=== PATIENT | male | born 1960 | race Caucasian/White ===

== ENCOUNTER 2021-05-27 06:56 | Inpatient (IN) | payer OTHER, SELFPAY ==
[2021-05-27] VITALS (22 sets, daily range): BP systolic 98–186; BP diastolic 61–150; PULSE 91–150; RESP 16–21; TEMP 36.5–37.2; O2SAT 90–97; BMI 22.6
--- NOTE | ~2021-05-27 | XR_ITS ---
EXAMINATION: XR CHEST CLINICAL INFORMATION: Shortness of breath COMPARISON: None TECHNIQUE: 1 view of the chest was obtained. FINDINGS: The cardiac silhouette is enlarged. Hilar and mediastinal contours are unremarkable. There is question of a small nodule at 4 atelectasis at the left lung base. The lungs are otherwise. There is blunting of the left lateral costophrenic angle questionable for small pleural effusion or pleural thickening. No right pleural effusion or pneumothorax is seen. There are multiple left-sided rib fractures of varying ages that do not appear acute. There is an old healed left clavicle fracture. There may be widening of the left acromioclavicular joint. XR/XR chest 1V IMPRESSION: Slightly enlarged cardiac silhouette. Question nodule or atelectasis at the left lung base. Mild blunting of the left lateral costophrenic angle questionable for tiny pleural effusion or pleural thickening. Multiple left-sided rib fractures of varying ages. Old left clavicle fracture.
--- NOTE | ~2021-05-27 | CT_ITS ---
EXAMINATION: CT ANGIOGRAM OF THE CHEST WITH AND WITHOUT CONTRAST (CT PULMONARY ANGIOGRAM FOR PE) CLINICAL INFORMATION: Reason for Exam RV dilatation on echo, to evaluate for PE COMPARISON: Previous chest x-ray from yesterday TECHNIQUE: Prior to contrast administration, noncontrast localization images were obtained. Subsequently, multidetector volumetric imaging was performed from the thoracic inlet to below the diaphragms following the administration of 65 mL Omnipaque 350 intravenous contrast. No contrast reaction reported Sagittal, coronal, and MIP oblique sagittal reformatted images were obtained on the CT workstation, uploaded to PACS, and reviewed. This CT examination was performed using dose optimization techniques as appropriate, variously including the following: *Automated exposure control *Adjustment of mA and/or kV according to patient size (this includes techniques or standardized protocols for targeted exams where dose is matched to indication/reason for exam; i.e. extremities or head) *Use of iterative reconstruction technique Total exam dose-length product 1-2 mGy-cm FINDINGS: QUALITY OF STUDY/CONTRAST BOLUS: Satisfactory. PULMONARY ARTERIES: No central or segmental pulmonary emboli. THORACIC AORTA: Normal in caliber. LUNG: There is evidence of paraseptal emphysema. There are also multiple small cysts seen in the upper lungs. There is bilateral lower lobe atelectasis/consolidation. The lungs are otherwise clear. PLEURA: There are moderate-sized bilateral pleural effusions, right greater than left. MEDIASTINUM: The heart is enlarged. In particular, the left atrium and left ventricle appear enlarged. There is coronary artery calcification. There is no pericardial effusion. There are no enlarged hilar or mediastinal lymph nodes. 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 CHEST WALL/AXILLA: No axillary or internal mammary lymphadenopathy. OSSEOUS STRUCTURES: There are degenerative changes of the spine. There are old lower bilateral rib fractures. There is an old left clavicle fracture. UPPER ABDOMEN: There is reflux of contrast into the hepatic veins to suggest elevated right heart pressures. CT/CT angio chest PE protocol IMPRESSION: No evidence of pulmonary embolism. Reflux of contrast into the hepatic veins suggestive of elevated right heart pressures. Slightly enlarged heart. In particular, the left atrium and left ventricle appear enlarged. Moderate-sized bilateral pleural effusions and bilateral lower lobe atelectasis or consolidation. Emphysema. VTE: negative
--- NOTE | 2021-05-27 07:30 | ECG_ITS ---
Test Reason : SHORT OF BREATH Blood Pressure : / mmHG Vent. Rate : 152 BPM Atrial Rate : 000 BPM P-R Int : 000 ms QRS Dur : 094 ms QT Int : 302 ms P-R-T Axes : 000 055 238 degrees QTc Int : 480 ms Atrial fibrillation with rapid ventricular response RSR' or QR pattern in V1 suggests right ventricular conduction delay Moderate voltage criteria for LVH, may be normal variant ( Sokolow-Blandon , [place] product ) ST & T wave abnormality, consider inferolateral ischemia Abnormal ECG No previous ECGs available Referred By: Grant Garcia Electronically Signed By:MOE WASHINGTON MD
--- NOTE | 2021-05-27 07:31 | ED.GENADULT ---
HPI - General Adult General Chief complaint: Dyspnea Stated complaint: diff breathing, body ache, cough Time Seen by Provider: 05/27/21 07:21 Source: patient Mode of arrival: ambulatory Limitations: no limitations History of Present Illness HPI narrative: 60-year-old male came in for evaluation of flu-like symptoms. Patient came in for evaluation of shortness of breath, productive cough of yellow sputum, generalized body ache, and nonbloody watery diarrhea, patient has no sick contact, no recent travel, patient is up to date on his COVID vaccination x2. Patient declined any fever chills. Patient also been having chest pressure which described as a constant pressure on the mid chest for the past 2 days, worsening with coughing, no relieving factor, described as constant mild in severity about 3/10. Patient is known to have high blood pressure medication, patient is not taking any medication and admit that he does not have health insurance or PCP. Related Data Home Medications Medication Instructions Recorded Confirmed No Known Home Meds 05/27/21 05/27/21 Allergies Allergy/AdvReac Type Severity Reaction Status Date / Time No Known Allergies Allergy Verified 05/27/21 07:27 Review of Systems Review of Systems: All other systems are reviewed and are negative Constitutional: Reports as per HPI and Reports no additional constitutional complaints Eyes: Reports as per HPI and Reports no additional eye complaints Reports system reviewed and no additional complaints, except as documented Cardiovascular: Reports as per HPI and Reports no additional cardiovascular complaints Respiratory: Reports as per HPI and Reports no additional respiratory complaints Gastrointestinal: Reports as per HPI and Reports no additional gastrointestinal complaints Genitourinary: Reports no additional female genitourinary complaints Musculoskeletal: Reports no additional musculoskeletal complaints Skin/Breast: Reports system reviewed and no additional complaints, except as docu Psychiatric: Reports no additional psychiatric complaints Endocrine: Reports no additional endocrine complaints Hematologic/Lymphatic: Reports no additional hematologic/lymphatic complaints Allergic/Immunologic: Reports no additional allergic/immunologic complaints Reports system reviewed and no additional complaints, except as documented and Reports Abnormal speech present [facility] Past Medical History Surgical History (Updated 05/27/21 @ 10:45 by Juan Mccord MD) No pertinent past surgical history Social History Social History (Updated 05/27/21 @ 10:45 by Juan Mccord MD) Alcohol intake: current Alcohol intake frequency: a few times a week Alcohol type: beer and hard liquor Patient Tobacco Use Status: Current everyday Tobacco user Cigarettes Per Day: 15 Years Smoked: 40 Use of substances other than those prescribed or required for medical reasons: No Advance Directives: No Physical Exam Vital Signs: Vital Signs: Last Vital Signs Temp 98.5 F 05/27/21 15:18 Pulse 105 H 05/27/21 15:18 Resp 21 H 05/27/21 15:18 BP 116/89 05/27/21 15:18 Pulse Ox 96 05/27/21 15:18 Body Mass Index 22.6 Vital signs have been reviewed as appeared to be not correct. Blood pressure elevated. Heart rate was checked by MD is 150s, Respiration rate normal. Temperature normal. Oxygen saturation normal. Appearance: Alert. Oriented X3. No acute distress. Head: Normal external exam. Normocephalic. Atraumatic. No Cr signs noted. No raccoon eyes noted Eyes: PERRLA. EOMI. Conjunctiva and sclera normal. Eyelids normal. ENT: TM's Normal. Pharynx normal. Uvula midline. Moist mucous membranes. No trismus noted. No drooling noted. No muffled voice noted. Neck: Normal inspection. Neck supple. FROM. No adenopathy. Thyroid Normal. No meningeal signs. No neck mass noted. CVS: Irregular heart rate at 150, sound normal. No murmurs noted. Pulses normal throughout. Respiratory: No respiratory distress. Painless inspiration. Breath sounds normal. No wheezes/rales/rhonchi noted. Chest nontender. No accessory muscle usage noted or decreased air movement noted. Abdomen: Soft and nontender. Bowel sounds normal in all 4 quadrants. No distention noted. No organomegaly noted. No visible injury noted. Back: No CVA tenderness. Full range of motion noted. Skin: Skin warm and dry. Normal skin color. Normal skin turgor. No rashes/lesions/lacerations noted. Extremities: No lower extremity edema. Extremities exhibit normal range of motion. Extremities nontender. Neuro: Oriented X 3. Cranial nerve exam: II-XII are grossly intact No motor deficit. No sensory deficit. Reflexes normal. Course Course Course Narrative: Assessment and plan. 60-year-old male with history of hypertension, patient has no medication for high blood pressure, no PCP, no health insurance. Patient came in for evaluation of 2 days of chest pressure and difficulty breathing, patient found to be in new onset atrial fibrillation with ischemic change on the EKG, physical exam is consistent with mild congestive heart failure. Dr. Land evaluated the patient in the emergency department and his input is appreciated. Will admit the patient/get inpatient echocardiogram/diuresis/start patient on heparin for atrial fibrillation and possible non-STEMI. Medical Decision Making Medical Records Medical records reviewed: Yes I reviewed the patient's medical records. Lab Data Lab results reviewed: Yes I reviewed the patient's lab results. Result diagrams: 05/27/21 07:41 05/27/21 07:41 Labs: Lab Results 05/27/21 05/27/21 05/27/21 Range/Units 07:41 07:41 07:41 WBC 11.0 H (4.8-10.8) X10*3/uL RBC 4.86 (4.60-5.80) X10*6/uL Hgb 15.0 (14.0-18.0) g/dl Hct 45.8 (42-52) % MCV 94.2 (80-98) fL MCH 30.9 (27.0-33.0) pg MCHC 32.8 (31.0-36.0) g/dl RDW 13.8 (11.0-16.0) % Plt Count 232 (160-400) X10*3/uL MPV 10.2 (9.4-12.4) fL Immature Gran % (Auto) 0.4 (0.0-0.4) % Neut % (Auto) 80.2 H (45-73) % Lymph % (Auto) 8.4 L (20-40) % [place] % (Auto) 10.3 (2-11) % Eos % (Auto) 0.2 (0-4) % Baso % (Auto) 0.5 (0-2) % Lymph # (Auto) 0.9 L (1.2-4.9) X10*3/uL [place] # (Auto) 1.1 (0.1-1.2) X10*3/uL Eos # (Auto) 0.0 (0.0-0.4) X10*3/uL Baso # (Auto) 0.1 (0.0-0.2) X10*3/uL Abs Immat Gran (auto) 0.04 H (0.00-0.03) X10*3/uL Absolute Neuts (auto) 8.8 H (2.0-8.3) X10*3/uL Absolute Nucleated RBC 0.000 (0.0-0.012) X10*3/uL Nucleated RBC % (auto) 0.0 (0.0-0.2) /100WBC Sodium 135 (135-145) mmol/L Potassium 4.7 (3.3-5.1) mmol/L Chloride 96 (96-108) mmol/L Carbon Dioxide 25 (22-29) mmol/L Anion Gap 19 (12-20) BUN 11 (9-16) mg/dL Creatinine 0.81 (0.5-1.4) mg/dL Estim Creat Clear Calc 89.0 Estimated GFR > 60 Random Glucose 89 (60-115) mg/dL Calcium 9.5 (8.4-10.2) mg/dL Total Bilirubin 1.8 H (0.0-1.0) mg/dL Direct Bilirubin 0.8 H (0.0-0.5) mg/dL AST 96 H (5-37) U/L ALT 84 H (0-40) U/L Alkaline Phosphatase 171 H (39-117) U/L Troponin I High Sens 286.7 H* (<3.5-35.0) ng/L B-Natriuretic Peptide 899 H (<100) pg/mL Total Protein 6.9 (6.5-8.0) g/dL Albumin 4.1 (3.5-5.0) g/dL Lipase 6 L (8-78) U/L Coronavirus (PCR) (Negative) Influenza Type A (PCR) (Negative) Influenza Type B (PCR) (Negative) RSV RNA Qual (PCR) (Negative) 05/27/21 Range/Units 07:44 WBC (4.8-10.8) X10*3/uL RBC (4.60-5.80) X10*6/uL Hgb (14.0-18.0) g/dl Hct (42-52) % MCV (80-98) fL MCH (27.0-33.0) pg MCHC (31.0-36.0) g/dl RDW (11.0-16.0) % Plt Count (160-400) X10*3/uL MPV (9.4-12.4) fL Immature Gran % (Auto) (0.0-0.4) % Neut % (Auto) (45-73) % Lymph % (Auto) (20-40) % [place] % (Auto) (2-11) % Eos % (Auto) (0-4) % Baso % (Auto) (0-2) % Lymph # (Auto) (1.2-4.9) X10*3/uL [place] # (Auto) (0.1-1.2) X10*3/uL Eos # (Auto) (0.0-0.4) X10*3/uL Baso # (Auto) (0.0-0.2) X10*3/uL Abs Immat Gran (auto) (0.00-0.03) X10*3/uL Absolute Neuts (auto) (2.0-8.3) X10*3/uL Absolute Nucleated RBC (0.0-0.012) X10*3/uL Nucleated RBC % (auto) (0.0-0.2) /100WBC Sodium (135-145) mmol/L Potassium (3.3-5.1) mmol/L Chloride (96-108) mmol/L Carbon Dioxide (22-29) mmol/L Anion Gap (12-20) BUN (9-16) mg/dL Creatinine (0.5-1.4) mg/dL Estim Creat Clear Calc Estimated GFR Random Glucose (60-115) mg/dL Calcium (8.4-10.2) mg/dL Total Bilirubin (0.0-1.0) mg/dL Direct Bilirubin (0.0-0.5) mg/dL AST (5-37) U/L ALT (0-40) U/L Alkaline Phosphatase (39-117) U/L Troponin I High Sens (<3.5-35.0) ng/L B-Natriuretic Peptide (<100) pg/mL Total Protein (6.5-8.0) g/dL Albumin (3.5-5.0) g/dL Lipase (8-78) U/L Coronavirus (PCR) NEGATIVE (Negative) Influenza Type A (PCR) NEGATIVE (Negative) Influenza Type B (PCR) NEGATIVE (Negative) RSV RNA Qual (PCR) NEGATIVE (Negative) Imaging Data Chest x-ray: Radiologist's impression: Slightly enlarged cardiac silhouette. Question nodule or atelectasis at the left lung base. Mild blunting of the left lateral costophrenic angle questionable for tiny pleural effusion or pleural thickening. Multiple left-sided rib fractures of varying ages. Old left clavicle fracture. ? ECG Data Attestation: I personally reviewed and interpreted this ECG as follows: Interpretation: EKG 1. Atrial fibrillation with rapid ventricular response at 152 beats per minute, LVH, normal axis deviation, diffuse ST depression with T-wave inversion more pronounced in the lateral leads. EKG 2. Atrial fibrillation with ventricular response of 99 beats per minutes, normal axis deviation, normal intervals, diffuse T-wave inversion in the lateral leads. Critical Care Time Critical Care Time Critical Care Time: Yes Total Critical Care Time: 60 Attestation: I spent 60 minutes providing critical care service to the patient, this including time spent at the bedside to evaluate the patient, reassess the patient, monitoring vital signs, review labs, and radiographic studies, counseling the patient/family, discussing the case with consultants, disposition the patient. Discharge Plan Discharge Clinical Impression: Non-ST elevated myocardial infarction (non-STEMI) Congestive heart failure Qualifiers: Heart failure type: unspecified Patient Disposition: Admitted As Inpatient Interventions: Admission Worksheet (ED) Last Done: 05/27/21 15:13
[2021-05-27 07:46] LABS: MANUAL DIFF FLAG NO
[2021-05-27 07:48] LABS: Basophils Absolute Auto 0.1 X10*3/uL (0.0-0.2); Basophils Percent Auto 0.5 % (0-2); Eosinophils Percent Auto 0.2 % (0-4); Hematocrit 45.8 % (42-52); Imm Gran Abs Auto 0.04 X10*3/uL (0.00-0.03); Imm Gran Pct Auto 0.4 % (0.0-0.4); Lymphocytes Absolute Auto 0.9 X10*3/uL (1.2-4.9); Lymphocytes Percent Auto 8.4 % (20-40); Mean Corpuscular HGB Conc 32.8 g/dl (31.0-36.0); Mean Corpuscular Hemoglobin 30.9 pg (27.0-33.0); Mean Corpuscular Volume 94.2 fL (80-98); Mean Platelet Volume 10.2 fL (9.4-12.4); Monocytes Absolute Auto 1.1 X10*3/uL (0.1-1.2); Monocytes Percent Auto 10.3 % (2-11); Neutrophils Absolute Auto 8.8 X10*3/uL (2.0-8.3); Neutrophils Percent Auto 80.2 % (45-73); Platelet Count 232 X10*3/uL (160-400); Red Blood Count 4.86 X10*6/uL (4.60-5.80); Red Cell Distribution Width 13.8 % (11.0-16.0)
[2021-05-27] MEDS: 0.9 % Sodium Chloride 1,000 ML 999 ML IVCONT (07:58)
[2021-05-27] MEDS: dilTIAZem HCL 50 MG/10 ML VIAL 25 MG IVPUSH (07:59)
[2021-05-27 08:12] LABS: Alanine Aminotransferase 84 U/L (0-40); Albumin Level 4.1 g/dL (3.5-5.0); Alkaline Phosphatase 171 U/L (39-117); Anion Gap 19 (12-20); Aspartate Amino Transferase 96 U/L (5-37); Bilirubin Direct 0.8 mg/dL (0.0-0.5); Bilirubin Total 1.8 mg/dL (0.0-1.0); Blood Urea Nitrogen 11 mg/dL (9-16); Calcium 9.5 mg/dL (8.4-10.2); Carbon Dioxide 25 mmol/L (22-29); Chloride 96 mmol/L (96-108); Estimated Glomerular Filt Rate > 60; Glucose Random 89 mg/dL (60-115); Lipase 6 U/L (8-78); Potassium 4.7 mmol/L (3.3-5.1); Sodium 135 mmol/L (135-145); Total Protein 6.9 g/dL (6.5-8.0)
[2021-05-27 08:29] LABS: B Type Natriuretic Peptide 899 pg/mL (<100); Troponin-I High Sensitivity 286.7 ng/L (<3.5-35.0)
[2021-05-27 08:36] LABS: Influenza A PCR NEGATIVE (Negative); Influenza B PCR NEGATIVE (Negative); Resp Syncy Virus RNA Qual PCR NEGATIVE (Negative); SARS COV2 PCR INHOUSE NEGATIVE (Negative)
[2021-05-27] MEDS: dilTIAZem HCL 30 MG TABLET PO (08:57)
--- NOTE | 2021-05-27 09:46 | ECG_ITS ---
Test Reason : short of breath Blood Pressure : / mmHG Vent. Rate : 099 BPM Atrial Rate : 000 BPM P-R Int : 000 ms QRS Dur : 098 ms QT Int : 374 ms P-R-T Axes : 000 037 186 degrees QTc Int : 479 ms Atrial fibrillation RSR' or QR pattern in V1 suggests right ventricular conduction delay Minimal voltage criteria for LVH, may be normal variant ( [place] product ) ST & T wave abnormality, consider anterolateral ischemia Abnormal ECG When compared with ECG of 27-MAY-2021 07:22, Vent. rate has decreased BY 53 BPM Referred By: Grant Garcia Electronically Signed By:MOE WASHINGTON MD
--- NOTE | 2021-05-27 10:00 | PC.NURSE ---
seen by dr. lydia deal of plan of care for admission to hosp.
--- NOTE | 2021-05-27 10:07 | PM.IMHP ---
History of Present Illness Date of Service: 05/27/21 Chief Complaint: Chest pressure, shortness of breath This is a 60 yo M who reports no known PMH presents to the ED with complaints of substernal pressure like pain of 2 days duration. He reports the pain is intermittent and feels it largely in supine position. He reports no exertional chest pain prior to the last 2 days. He reports orthpnea of several days duration and now reports dysnea on exertion. He reports chronic cough, but he attributes that him smoking. He reports lower extremity edema which he has noticed for the last several day. He reports that today, at the urging of his boss -- he presented to the ED for work up and treatment. Upon arrival to the ED, patients work up showed new onset A. Fib with RVR, Elevated HS trop-I and BNP with EKG findings suggestive of ischemia. He was evaluated by cardiology in the ED and will be admitted for further treatment. Patient is seen and examined in the ED. He denies any current chest pain. Review of Systems Review of Systems: General - denies fevers or chills, +fatigue HEENT -denies blurred vision, denies headache, denies sore throat Cardiovascular - +chest pressure, +orthopnea;+LE edema Respiratory - +BENDER, +cough - chronic Gastrointestinal - denies abdominal pain, nausea, vomiting, diarrhea - denies flank pain, denies dysuria, denies frequency or urgency Musculoskeletal - denies back pain, denies hip pain, denies knee pain, denies shoulder pain Neurological - denies any focal weakness or numbness Skin, denies any bruising or redness Psychiatric - denies any suicidal ideation, hallucinations, homicidal ideation Endocrinology - denies intolerance to hot / cold temperatures PMFSH Cognitive capacity: Denies any prior past medical history. Pertinent family history: Reports CVA in his father in his 50s Mother has DM Surgical History (Updated 05/27/21 @ 10:45 by Juan Mccord MD) No pertinent past surgical history Social History (Updated 05/27/21 @ 10:45 by Juan Mccord MD) Alcohol intake: current Alcohol intake frequency: a few times a week Alcohol type: beer and hard liquor Patient Tobacco Use Status: Current everyday Tobacco user Cigarettes Per Day: 15 Years Smoked: 40 Use of substances other than those prescribed or required for medical reasons: No Advance Directives: No Meds Allergies Allergy/AdvReac Type Severity Reaction Status Date / Time No Known Allergies Allergy Verified 05/27/21 07:27 Active Medications: Current Medications Heparin Sodium (Porcine) (Heparin Sodium,Porcine 5,000 Unit/Ml Vial) 2,600 unit 40 unit/kg (2600 unit) IVPUSH PROTOCOL BOLUS PRN; Protocol PRN Reason: 40 unit/kg - Heparin Protocol Heparin Sodium (Porcine) (Heparin Sodium,Porcine 5,000 Unit/Ml Vial) 5,300 unit 80 unit/kg (5300 unit) IVPUSH PROTOCOL BOLUS PRN; Protocol PRN Reason: 80 unit/kg - Heparin Protocol Heparin Sodium/Sodium Chloride () 25,000 unit in 250 mls @ 0 mls/hr IVCONT .Q0M ANANDA; Protocol Pharmacy Consult (Consult Rx Perform Med Rec) 1 each MISCELLANE ONCE PRN PRN Reason: Consult order Home Medications Medication Instructions Recorded Confirmed Last Taken Type No Known Home Meds 05/27/21 05/27/21 Unknown History Physical Exam Vital Signs and Narrative: Vital Signs: Last Vital Signs Temp 97.7 F 05/27/21 07:17 Pulse 91 05/27/21 08:57 Resp 17 05/27/21 08:27 BP 140/107 H 05/27/21 08:57 Pulse Ox 97 05/27/21 08:27 Body Mass Index 22.6 Const: Other: Constitutional - Awake and Alert, No apparent distress Eyes - PERRLA, EOMI Cardiovascular - IRR -- rates 100-120 on the telmonitor; ; +JVD; +pedal edema bilaterally (about 1+) Respiratory - bilateral rales, no respiratory distress Gastrointestinal - NT / ND; +BS; No rebound or guarding - No CVA tenderness Extremities - no calf tenderness bilaterally Musculoskeletal - Normal inspection, normal ROM Skin - Warm/Dry Neurological - Alert & oriented x3, No focal deficit Psychological - Appropriate affect Results Labs CBC and Chem 7: 05/27/21 07:41 05/27/21 07:41 Labs: Laboratory Results - last 24 hr 05/27/21 05/27/21 05/27/21 07:41 07:41 07:41 MCV 94.2 MCH 30.9 MCHC 32.8 RDW 13.8 Plt Count 232 MPV 10.2 Immature Gran % (Auto) 0.4 Neut % (Auto) 80.2 H Lymph % (Auto) 8.4 L [place] % (Auto) 10.3 Eos % (Auto) 0.2 Baso % (Auto) 0.5 Lymph # (Auto) 0.9 L [place] # (Auto) 1.1 Eos # (Auto) 0.0 Baso # (Auto) 0.1 Abs Immat Gran (auto) 0.04 H Absolute Neuts (auto) 8.8 H Absolute Nucleated RBC 0.000 Nucleated RBC % (auto) 0.0 Anion Gap 19 Estim Creat Clear Calc 89.0 Estimated GFR > 60 Random Glucose 89 Calcium 9.5 Total Bilirubin 1.8 H Direct Bilirubin 0.8 H AST 96 H ALT 84 H Alkaline Phosphatase 171 H Troponin I High Sens 286.7 H* B-Natriuretic Peptide 899 H Total Protein 6.9 Albumin 4.1 Lipase 6 L Coronavirus (PCR) Influenza Type A (PCR) Influenza Type B (PCR) RSV RNA Qual (PCR) 05/27/21 07:44 MCV MCH MCHC RDW Plt Count MPV Immature Gran % (Auto) Neut % (Auto) Lymph % (Auto) [place] % (Auto) Eos % (Auto) Baso % (Auto) Lymph # (Auto) [place] # (Auto) Eos # (Auto) Baso # (Auto) Abs Immat Gran (auto) Absolute Neuts (auto) Absolute Nucleated RBC Nucleated RBC % (auto) Anion Gap Estim Creat Clear Calc Estimated GFR Random Glucose Calcium Total Bilirubin Direct Bilirubin AST ALT Alkaline Phosphatase Troponin I High Sens B-Natriuretic Peptide Total Protein Albumin Lipase Coronavirus (PCR) NEGATIVE Influenza Type A (PCR) NEGATIVE Influenza Type B (PCR) NEGATIVE RSV RNA Qual (PCR) NEGATIVE Imaging Radiologist's Impressions: Impressions Chest X-Ray 05/27/21 07:30 IMPRESSION: Slightly enlarged cardiac silhouette. Question nodule or atelectasis at the left lung base. Mild blunting of the left lateral costophrenic angle questionable for tiny pleural effusion or pleural thickening. Multiple left-sided rib fractures of varying ages. Old left clavicle fracture. Assessment and Plan (1) Congestive heart failure: Qualifiers: Heart failure type: unspecified Status: Acute (2) Non-ST elevated myocardial infarction (non-STEMI): Status: Acute This is a 60 yo M with no known PMH who has not sought medical care in many years and now presents with 2-3 days of substernal chest pain / orthopnea / dyspnea on exertion. His work up in the ED shows new-onset A. Fib with RVR, Acute CHF and NSTEMI. He will be admitted for further treatment. 1. NSTEMI EKG with concerns of ischemia and HS trop-I elevated (will repeat @ 3 hours) IV heparin Gtt 2d Echo ASA, Statin (LFTs elevated -- but benefits outweigh risk. Discussed this with the patient, he is agreeable), Morphine PRN Fasting lipid panel Cardiology has seen the patient already. 2. Acute (new-onset) CHF IV lasix 40mg BID I/O 2d Echo as above 3. New-onset A. Fib with RVR Given a dose of cardizem IV and PO with rates improved D/W cardiology -- will digoxin load (suspected low EF) Will need eventual OAC, IV heparin gtt for now 4. Suspected undiagnosed HTN IV lasix for now, will add BB, ARB/PARKER as work up continues 5. Tobacco Use cessation as been encouraged NRT if patient requests 6. Elevated LFTs Congestion from CHF vs secondary to EtOh use will trend 7. EtOh use Reports that he drinks 4-5 beers + a few shots several times a week, generally on the weekends discussed with him regarding the harmful effects of excessive alcohol consumption. Denies prior withdrawal seizures or DTs. Last drink 4 days prior to arrival Full Code DVT pptx -- on IV heparin Gtt Endorses Maurice Zhao as his HCP. Quality Stroke Does the patient have a stroke diagnosis?: No VTE Prior VTE?: No VTE Risk Level:: Medical - moderate - high VTE Device Contraindication: Treatment Not Indicated VTE Drug Contraindication: N/A - Med Ordered
[2021-05-27 11:18] LABS: Appearance Urine HAZY; Color Urine YELLOW; Glucose Urine UA NEG (NEG); Leukocyte Esterase Urine NEG (NEG); Nitrite Urine NEG (NEG); Specific Gravity - Urine 1.025 (1.005-1.025); UACC Culture Trigger NO; Urine Blood NEG (NEG); Urine Ketones >=80 MG/DL (NEG); Urine Protein 1+ MG/DL (NEG-TRACE)
[2021-05-27] MEDS: Aspirin 325 MG TABLET PO (11:21)
[2021-05-27] MEDS: Isosorbide Mononitrate 30 MG TAB.ER.24H PO (11:22)
[2021-05-27] MEDS: Digoxin 0.5 MG/2 ML AMPUL 0.25 MG IVPUSH (11:23)
[2021-05-27 11:25] LABS: INTERNATIONAL NORM RATIO 1.7 (0.9-1.1); Prothrombin Time 19.1 SEC (9.9-13.0)
[2021-05-27] MEDS: Furosemide 40 MG/4 ML VIAL IVPUSH ×2 (11:26→17:29)
[2021-05-27] MEDS: Heparin Sodium,Porcine 5,000 UNIT/ML VIAL 3900 UNIT IVPUSH (11:28)
[2021-05-27] MEDS: Heparin Sodium,Porcine/1/2NS 25,000 UNIT/250 ML IV.SOLN 7.89 UNIT IVCONT (11:31)
[2021-05-27 11:34] LABS: Mucus Urine TRACE /LPF; RBC Urine 0-2 /HPF (0); WBC Urine 0-2 /HPF (0-4)
[2021-05-27 12:04] LABS: Troponin-I High Sensitivity 205.8 ng/L (<3.5-35.0)
--- NOTE | 2021-05-27 13:00 | CA_ITS ---
Transthoracic Echocardiogram Patient (Last, First, Middle): Claudio Oliver H Gender: Male Date of : 1960 Age: 60 Procedure Date: 05/27/2021 Procedure Type: Transthoracic Echocardiogram Location: ER Height: 172.72 cm Weight: 67.59 kg BSA: 1.80 m2 Heart Rate: bpm BP: 146 / 89 mmHg Nailhead Puncher: LIANET/LEON Referring MD: Juan Mccord MD Symptoms: NSTEMI, A. Fib Study Quality: Fair ECG Rhythm: Atrial Fibrillation Conclusions: - The left ventricular systolic function is mildly decreased. The visually estimated ejection fraction is between 40-45%. - Moderately increased right ventricular cavity size. There is moderate to severely decreased right ventricular systolic function. - Severe biatrial enlargement. - Moderately elevated right atrial pressure. There is no evidence of pulmonary hypertension. - There is mild dilatation of the sinuses of Valsalva and mild dilatation of the ascending aorta. - The inferior vena cava is severely dilated and collapses less than 50% with inspiration. Findings Left Ventricle Normal left ventricular cavity size. There is normal left ventricular wall thickness. The left ventricular systolic function is mildly decreased. The visually estimated ejection fraction is between 40-45%. There is no evidence of regional wall motion abnormalities. Diastolic function is indeterminate on the basis of available data. Right Ventricle Moderately increased right ventricular cavity size. There is moderate to severely decreased right ventricular systolic function. Atria Severe biatrial enlargement. Aortic Valve There is mild thickening of the aortic valve. There is no aortic valve stenosis. There is trace (trivial) aortic valve regurgitation. Mitral Valve The mitral valve appears normal. There is trace mitral valve regurgitation. There is no mitral valve stenosis. Pulmonic Valve The pulmonic valve is likely normal. Tricuspid Valve Normal tricuspid valve structure. There is mild tricuspid valve regurgitation. Moderately elevated right atrial pressure. There is no evidence of pulmonary hypertension. Great Vessels There is mild dilatation of the sinuses of Valsalva and mild dilatation of the ascending aorta. The visualized portions of the pulmonary artery and branches are normal. Venous The inferior vena cava is severely dilated and collapses less than 50% with inspiration. Pericardium/Pleural There is no evidence of pericardial effusion. Prior Study Comparison No prior study available for comparison. Measurements 2D Linear Measurements IVSd: 1.06 0.6-0.9/0.6-1.0 cm LVIDd: 5.35 3.9-5.3/4.2-5.9 cm LVIDd Index: 2.97 2.4-3.2/2.2-3.1 cm/m2 LVIDs: 4.18 2.0-3.6 cm LVPWd: 1.08 0.7-1.1 cm Ao Root: 3.90 2.1-3.5 cm LA Diam: 5.00 2.7-3.8/3.0-4.0 cm LAIDs Index: 2.78 1.5-2.3 cm/m2 LV Mass: 277.74 67-162/88-224 g LV Mass Index: 154.30 43-95/49-115 g/m2 LVOT Diam: 2.10 3.0+(-)1.3 cm Mitral Valve MV Pk E: 0.78 MV Decel Time: 247.00 E'Lateral: 12.40 E'Medial: 5.77 E/E' Med: 13.40 E/E' Lat: 6.30 PHT: 72.00 MVA PHT: 3.06 Decel Tensas: 3.14 Aortic Valve AoV Pk Lonnie: 1.83 AoV Mn Lonnie: 1.22 AoV VTI: 0.28 AoV Pk Grad: 13.00 Aov Mn Grad: 7.00 EDGAR Cont.VTI: 1.50 AI Pk Lonnie: 3.99 AI Tensas: 1.70 LVOT LVOT Pk Lonnie: 0.88 LVOT Mn Lonnie: 0.58 LVOT VTI: 0.12 LVOT Pk Grad: 3.00 LVOT Mn Grad: 2.00 LVOT Diam: 2.10 LVOT Area: 3.46 Diastolic Function MV Pk E: 0.78 E'Medial: 5.77 E/E' Med: 13.40 E' Laterial: 12.40 E/E' Lat: 6.30 Tricuspid Valve TR Pk Lonnie: 2.18 TR Pk Grad: 19.00 RVSP: 34.00 Great Vessels Aorta Ao Root-2D: 3.90 2.0-3.7 cm Sinus of Valsalva: 3.90 2.0-3.5 cm Ao Asc: 3.50 2.1-3.4 cm Ao Arch: 3.20 Updated in Other Vendor System with Status of Final Garrett Land MD electronically signed on 05/27/2021 7:59:20 PM with status of Final
--- NOTE | 2021-05-27 14:25 | PC.NURSE ---
RN TO RN GIVEN TO COURTANGELICA.. PT AWARE OF PLAN OF CARE FOR ADMISSION TO HOSP.
[2021-05-27] MEDS: Digoxin 0.5 MG/2 ML AMPUL 0.125 MG IVPUSH ×2 (14:35→21:33)
--- NOTE | 2021-05-27 15:14 | PC.NURSE ---
Pt alert and oriented x4, calm and cooperative. Pt denies pain, denies chest pain, denies SOB. Pt remains afib rhythm on monitor, rate 110 at this time. Pt remains on heparin drip tolerating well. 2 IVs remain intact. Pt aware of being admitted. Spoke with TESFAYE Arellano before transporting pt to floor.
--- NOTE | 2021-05-27 15:55 | P.CONCA_ITS ---
History of Present Illness History of Present Illness Date of Service: 05/27/21 Requesting physician: Juan Mccord Chief complaint: afib, CP Narrative: 60-year-old gentleman who is presenting with a chest discomfort and shortness of breath. He said many years ago he was told that he has a dilated heart and he was also told that he had AFib. He said he lost his insurance and did not get any medical care for it. He has has been smoking for many many years. He drinks occasionally. No recreational drug abuse. Father had stroke in his 40s. He said he was feeling short of breath and was getting a pressure-like feeling in his chest when he was laying down. He has some acid reflux. With these symptoms he presented to [facility]. He was noticed to be in mild congestive heart failure and AFib with RVR. He was wheezing on examination. EKG showed AFib with RVR with lateral ST-T changes with some concern for ischemia. [facility] Surgical History Surgical History (Updated 05/27/21 @ 10:45 by Juan Mccord MD) No pertinent past surgical history Social History Social History (Updated 05/27/21 @ 10:45 by Juan Mccord MD) Alcohol intake: current Alcohol intake frequency: a few times a week Alcohol type: beer and hard liquor Patient Tobacco Use Status: Current everyday Tobacco user Cigarettes Per Day: 15 Years Smoked: 40 Use of substances other than those prescribed or required for medical reasons: No Advance Directives: No Meds Allergies Allergy/AdvReac Type Severity Reaction Status Date / Time No Known Allergies Allergy Verified 05/27/21 07:27 Active Medications: Current Medications Acetaminophen (Acetaminophen 325 Mg Tablet) 650 mg PO Q6H PRN PRN Reason: Pain, Mild (Pain Scale 1-3) Atorvastatin Calcium (Atorvastatin Calcium 40 Mg Tablet) 40 mg PO BEDTIME [facility] Digoxin (Digoxin 0.5 Mg/2 Ml Ampul) 0.125 mg IVPUSH Q6H ANANDA Stop: 05/27/21 20:31 Last Admin: 05/27/21 14:35 Dose: 0.125 mg Documented by: Furosemide (Furosemide 40 Mg/4 Ml Vial) 40 mg IVPUSH BID@0900,1800 A[facility]; Protocol Heparin Sodium (Porcine) (Heparin Sodium,Porcine 5,000 Unit/Ml Vial) 2,600 unit 40 unit/kg (2600 unit) IVPUSH PROTOCOL BOLUS PRN; Protocol PRN Reason: 40 unit/kg - Heparin Protocol Heparin Sodium (Porcine) (Heparin Sodium,Porcine 5,000 Unit/Ml Vial) 5,300 unit 80 unit/kg (5300 unit) IVPUSH PROTOCOL BOLUS PRN; Protocol PRN Reason: 80 unit/kg - Heparin Protocol Heparin Sodium/Sodium Chloride () 25,000 unit in 250 mls @ 0 mls/hr IVCONT .Q0M [facility]; Protocol Last Admin: 05/27/21 11:31 Dose: 12 units/kg/hr, 7.89 mls/hr Documented by: Isosorbide Mononitrate (Isosorbide Mononitrate 30 Mg Tab.Er.24h) 30 mg PO DAILY [facility]; Protocol Last Admin: 05/27/21 11:22 Dose: 30 mg Documented by: Morphine Sulfate (Morphine Sulfate 4 Mg/Ml Cartridge) 4 mg IVPUSH Q4H PRN; Protocol PRN Reason: Pain, Severe (Pain Scale 7-10) Ondansetron HCl (Ondansetron Hcl 4 Mg/2 Ml Vial) 4 mg IVPUSH Q8H PRN PRN Reason: Nausea and Vomiting Pharmacy Consult (Consult Rx Perform Med Rec) 1 each MISCELLANE ONCE PRN PRN Reason: Consult order Sodium Chloride (0.9 % Sodium Chloride Flush 3 Ml Syringe) [address] [facility] Home Medications Medication Instructions Recorded Confirmed Last Taken Type No Known Home Meds 05/27/21 05/27/21 Unknown History Physical Exam Vital Signs: Vital Signs: Last Vital Signs Temp 98.5 F 05/27/21 15:18 Pulse 105 H 05/27/21 15:18 Resp 21 H 05/27/21 15:18 BP 116/89 05/27/21 15:18 Pulse Ox 96 05/27/21 15:18 Body Mass Index 22.6 GENERAL APPEARANCE: in no acute distress. NECK: no carotid bruit, + jugular venous distention. SKIN: no suspicious lesions, warm and dry. HEART: no murmurs, irregular rate and rhythm. LUNGS: Expiratory wheezes. ABDOMEN: soft, nontender. EXTREMITIES: no edema. PERIPHERAL PULSES: equal. NEUROLOGIC: No gross deficits, AAO X 3 Results Labs and Meds Result diagrams: 05/27/21 07:41 05/27/21 07:41 Lab results: Laboratory Results - last 24 hr 05/27/21 05/27/21 05/27/21 07:41 07:41 07:41 WBC 11.0 H RBC 4.86 Hgb 15.0 Hct 45.8 MCV 94.2 MCH 30.9 MCHC 32.8 RDW 13.8 Plt Count 232 MPV 10.2 Immature Gran % (Auto) 0.4 Neut % (Auto) 80.2 H Lymph % (Auto) 8.4 L Patrick % (Auto) 10.3 Eos % (Auto) 0.2 Baso % (Auto) 0.5 Lymph # (Auto) 0.9 L Patrick # (Auto) 1.1 Eos # (Auto) 0.0 Baso # (Auto) 0.1 Abs Immat Gran (auto) 0.04 H Absolute Neuts (auto) 8.8 H Absolute Nucleated RBC 0.000 Nucleated RBC % (auto) 0.0 PT INR PTT (Heparin Protocol) Sodium 135 Potassium 4.7 Chloride 96 Carbon Dioxide 25 Anion Gap 19 BUN 11 Creatinine 0.81 Estim Creat Clear Calc 89.0 Estimated GFR > 60 Random Glucose 89 Calcium 9.5 Total Bilirubin 1.8 H Direct Bilirubin 0.8 H AST 96 H ALT 84 H Alkaline Phosphatase 171 H Troponin I High Sens 286.7 H* B-Natriuretic Peptide 899 H Total Protein 6.9 Albumin 4.1 Lipase 6 L Urine Color Urine Appearance Urine pH Ur Specific [place] Urine Protein Urine Glucose (UA) Urine Ketones Urine Blood Urine Nitrite Ur Leukocyte Esterase Urine RBC Urine WBC Ur Squamous Epith Cells Urine Bacteria Urine Mucus Coronavirus (PCR) Influenza Type A (PCR) Influenza Type B (PCR) RSV RNA Qual (PCR) 05/27/21 05/27/21 05/27/21 07:44 11:06 11:06 WBC RBC Hgb Hct MCV MCH MCHC RDW Plt Count MPV Immature Gran % (Auto) Neut % (Auto) Lymph % (Auto) Patrick % (Auto) Eos % (Auto) Baso % (Auto) Lymph # (Auto) Patrick # (Auto) Eos # (Auto) Baso # (Auto) Abs Immat Gran (auto) Absolute Neuts (auto) Absolute Nucleated RBC Nucleated RBC % (auto) PT 19.1 H INR 1.7 H PTT (Heparin Protocol) 30.0 L Sodium Potassium Chloride Carbon Dioxide Anion Gap BUN Creatinine Estim Creat Clear Calc Estimated GFR Random Glucose Calcium Total Bilirubin Direct Bilirubin AST ALT Alkaline Phosphatase Troponin I High Sens 205.8 H* B-Natriuretic Peptide Total Protein Albumin Lipase Urine Color Urine Appearance Urine pH Ur Specific [place] Urine Protein Urine Glucose (UA) Urine Ketones Urine Blood Urine Nitrite Ur Leukocyte Esterase Urine RBC Urine WBC Ur Squamous Epith Cells Urine Bacteria Urine Mucus Coronavirus (PCR) NEGATIVE Influenza Type A (PCR) NEGATIVE Influenza Type B (PCR) NEGATIVE RSV RNA Qual (PCR) NEGATIVE 05/27/21 11:10 WBC RBC Hgb Hct MCV MCH MCHC RDW Plt Count MPV Immature Gran % (Auto) Neut % (Auto) Lymph % (Auto) Patrick % (Auto) Eos % (Auto) Baso % (Auto) Lymph # (Auto) Patrick # (Auto) Eos # (Auto) Baso # (Auto) Abs Immat Gran (auto) Absolute Neuts (auto) Absolute Nucleated RBC Nucleated RBC % (auto) PT INR PTT (Heparin Protocol) Sodium Potassium Chloride Carbon Dioxide Anion Gap BUN Creatinine Estim Creat Clear Calc Estimated GFR Random Glucose Calcium Total Bilirubin Direct Bilirubin AST ALT Alkaline Phosphatase Troponin I High Sens B-Natriuretic Peptide Total Protein Albumin Lipase Urine Color YELLOW Urine Appearance HAZY Urine pH 6.0 Ur Specific [place] 1.025 Urine Protein 1+ H Urine Glucose (UA) NEG Urine Ketones >=80 Urine Blood NEG Urine Nitrite NEG Ur Leukocyte Esterase NEG Urine RBC 0-2 Urine WBC 0-2 Ur Squamous Epith Cells NONE Urine Bacteria NONE Urine Mucus TRACE Coronavirus (PCR) Influenza Type A (PCR) Influenza Type B (PCR) RSV RNA Qual (PCR) Imaging Radiologist's impression: Impressions Chest X-Ray 05/27/21 07:30 IMPRESSION: Slightly enlarged cardiac silhouette. Question nodule or atelectasis at the left lung base. Mild blunting of the left lateral costophrenic angle questionable for tiny pleural effusion or pleural thickening. Multiple left-sided rib fractures of varying ages. Old left clavicle fracture. Assessment and Plan (1) Congestive heart failure: Qualifiers: Heart failure type: unspecified Status: Acute (2) Non-ST elevated myocardial infarction (non-STEMI): Status: Acute [age] year gentleman who is presenting with shortness of breath and chest discomfort. He has noticed to be in AFib with RVR on admission. He has mildly abnormal troponin levels. He is reporting history of dilated heart and AFib many years ago. I think he needs echocardiography to understand his cardiomyopathy. In the meantime I will not use Cardizem on him because if he truly has cardiomyopathy and low EF he may not like negative I inotropic effect of diltiazem. I think we would give him digoxin 250 mcg x 3 and put him on 125 mcg q 48 hours. He was given IV Lasix. I think we continue once a day Lasix. Once clinically euvolemic then will consider beta gee. Added nitrates to help with filling pressures. Anticoagulation for atrial fibrillation. He had type 2 injury from congestive heart failure. EKG is not very impressive right now and his symptoms are also more concerning for reflux. In any case has is rate controlled improving can reassess him. After catheterization will have to assess for ischemia if he has cardiomyopathy. Thank you for allowing me to participate in the care of your patient. Please feel free to contact me if you have any questions. Procedures Date of Service Date of Service: 05/27/21
[2021-05-27] MEDS: 0.9 % Sodium Chloride Flush 3 ML SYRINGE IVFLUSH ×2 (16:35→21:34)
[2021-05-27 17:16] LABS: PTT Heparin Drip 38.6 SEC (53-77.9)
[2021-05-27] MEDS: Heparin Sodium,Porcine 5,000 UNIT/ML VIAL 2600 UNIT IVPUSH (17:53)
[2021-05-27] MEDS: Atorvastatin Calcium 40 MG TABLET PO (21:34)
[2021-05-27 23:58] LABS: PTT Heparin Drip 41.9 SEC (53-77.9)
[2021-05-28] VITALS (10 sets, daily range): BP systolic 112–153; BP diastolic 88–105; PULSE 88–134; RESP 15–20; TEMP 36.4–36.8; O2SAT 85–98
[2021-05-28] MEDS: Heparin Sodium,Porcine 5,000 UNIT/ML VIAL 2600 UNIT IVPUSH ×2 (00:31→07:50)
[2021-05-28 06:43] LABS: Hematocrit 42.2 % (42-52); Hemoglobin 14.1 g/dl (14.0-18.0); Mean Corpuscular HGB Conc 33.4 g/dl (31.0-36.0); Mean Corpuscular Hemoglobin 30.5 pg (27.0-33.0); Mean Corpuscular Volume 91.1 fL (80-98); Mean Platelet Volume 10.1 fL (9.4-12.4); Platelet Count 207 X10*3/uL (160-400); Red Blood Count 4.63 X10*6/uL (4.60-5.80); Red Cell Distribution Width 13.8 % (11.0-16.0); White Blood Count 8.5 X10*3/uL (4.8-10.8)
[2021-05-28 06:50] LABS: INTERNATIONAL NORM RATIO 1.6 (0.9-1.1); Prothrombin Time 18.1 SEC (9.9-13.0)
[2021-05-28 06:52] LABS: PTT Heparin Drip 47.4 SEC (53-77.9)
[2021-05-28 07:06] LABS: Alanine Aminotransferase 55 U/L (0-40); Alkaline Phosphatase 118 U/L (39-117); Anion Gap 12 (12-20); Aspartate Amino Transferase 42 U/L (5-37); Bilirubin Direct 0.5 mg/dL (0.0-0.5); Blood Urea Nitrogen 14 mg/dL (9-16); Calcium 8.2 mg/dL (8.4-10.2); Carbon Dioxide 26 mmol/L (22-29); Chloride 100 mmol/L (96-108); Cholesterol 144 mg/dL; Creatinine Clr Calc Pharmacy 95.2; Estimated Glomerular Filt Rate > 60; Glucose Random 127 mg/dL (60-115); HDL Cholesterol 42 mg/dL; LDL Cholesterol Calculated 89 mg/dl; Potassium 3.7 mmol/L (3.3-5.1); Sodium 134 mmol/L (135-145); Total Protein 5.2 g/dL (6.5-8.0); Triglycerides 67 mg/dL
[2021-05-28] MEDS: 0.9 % Sodium Chloride Flush 3 ML SYRINGE IVFLUSH ×4 (07:54→23:52)
[2021-05-28 08:41] LABS: Estimated Average Glucose 126 mg/dL; Hemoglobin A1C 151.7227 umol/L
[2021-05-28] MEDS: Isosorbide Mononitrate 30 MG TAB.ER.24H PO (09:18)
[2021-05-28] MEDS: Furosemide 40 MG/4 ML VIAL IVPUSH ×2 (09:18→17:40)
--- NOTE | 2021-05-28 10:16 | MHC.CM.PN ---
pt lives alone he is fully vaccinated ,pt is indepdent and drives he will be seen by care team he has own transportaion home pt referred to grge counselor he has no health inc and pcp list given to pt
--- NOTE | 2021-05-28 12:34 | P.PNCA_ITS ---
Subjective Subjective Date of Service: 05/28/21 <JUAN J Chacko - Last Filed: 05/28/21 13:04> 05/28/21 <Garrett Land MD - Last Filed: 05/28/21 15:03> Principal diagnosis: Afib, Mild CHF, CMP, Type 2 NSTEMI <JUAN J Chacko - Last Filed: 05/28/21 13:04> Interval history: Cardiology follow up for the above. Seen at 1030. Today he reports feeling better than admission. His breathing is comfortable. Currently wearing O2 with nasal cannula but he states it was off all night. nO chest pains, palpitation, dizziness, edema. Slept well. No reports of bleeding. <JUAN J Chacko - Last Filed: 05/28/21 13:04> Review of Systems Review of Systems as above <JUAN J Chacko - Last Filed: 05/28/21 13:04> Yes all other systems are reviewed and are negative <JUAN J Chacko - Last Filed: 05/28/21 13:04> Physical Exam Vital Signs: Last Vital Signs Temp 98.2 F 05/28/21 11:34 Pulse 107 H 05/28/21 11:34 Resp 18 05/28/21 11:34 BP 141/97 H 05/28/21 11:34 Pulse Ox 85 L 05/28/21 11:34 Body Mass Index 22.6 <JUAN J Chacko - Last Filed: 05/28/21 13:04> Const General: cooperative, no acute distress, alert and awake <JUAN J Chacko - Last Filed: 05/28/21 13:04> Orientation/consciousness: patient oriented x3 <JUAN J Chacko - Last Filed: 05/28/21 13:04> Neck Neck: Yes normal visual inspection and Yes no JVD <JUAN J Chacko - Last Filed: 05/28/21 13:04> Resp Other: Few rhonci that clear with coughing <JUAN J Chacko - Last Filed: 05/28/21 13:04> Effort & Inspection: normal respiratory effort, able to speak in complete sentences and not labored <Tash Hermelinda [facility] - Last Filed: 05/28/21 13:04> Auscultation: clear to auscultation bilaterally, no rales and no wheezes <[facility] Hermelinda [facility] - Last Filed: 05/28/21 13:04> Cardio Palpation: normal PMI <[facility] Hermelinda [facility] - Last Filed: 05/28/21 13:04> Rate: regular rate <[facility] Hermelinda [facility] Last Filed: 05/28/21 13:04> Rhythm: regular rhythm [facility] Last Filed: 05/28/21 13:04> Heart sounds: S1 normal heart sound present and S2 normal heart sound present <[facility] Hermelinda [facility] - Last Filed: 05/28/21 13:04> Peripheral pulses: Peripheral pulses 2+ throughout <[facility] Hermelinda [facility] Last Filed: 05/03 02/19 13:04> GI Inspection: Yes normal to inspection <[facility] Hermelinda [facility] - Last Filed: 05/28/21 13:04> Neuro General: patient oriented x3 <[facility] Hermelinda [facility] - Last Filed: 05/28/21 13:04> Extrem General: Yes normal to inspection and No edema <[facility] Hermelinda [facility] - Last Filed: 05/28/21 13:04> Results Labs and Meds Result diagrams: : 05/28/21 06:36 05/28/21 06:36 <Tash Hermelinda [facility] - Last Filed: 05/28/21 13:04> Lab results: Laboratory Results - last 24 hr 05/27/21 05/27/21 05/28/21 16:59 23:35 06:36 WBC 8.5 RBC 4.63 Hgb 14.1 Hct 42.2 MCV 91.1 MCH 30.5 MCHC 33.4 RDW 13.8 Plt Count 207 MPV 10.1 Absolute Nucleated RBC 0.000 Nucleated RBC % (auto) 0.0 PT INR PTT (Heparin Protocol) 38.6 L D 41.9 L Sodium Potassium Chloride Carbon Dioxide Anion Gap BUN Creatinine Estim Creat Clear Calc Estimated GFR Random Glucose Estimat Average Glucose Hemoglobin A1c % Calcium Total Bilirubin Direct Bilirubin AST ALT Alkaline Phosphatase Total Protein Albumin Triglycerides Cholesterol LDL Cholesterol, Calc HDL Cholesterol 05/28/21 05/28/21 05/28/21 06:36 06:36 06:36 WBC RBC Hgb Hct MCV MCH MCHC RDW Plt Count MPV Absolute Nucleated RBC Nucleated RBC % (auto) PT 18.1 H INR 1.6 H PTT (Heparin Protocol) 47.4 L Sodium 134 L Potassium 3.7 D Chloride 100 Carbon Dioxide 26 Anion Gap 12 BUN 14 Creatinine 0.78 Estim Creat Clear Calc 95.2 Estimated GFR > 60 Random Glucose 127 H D Estimat Average Glucose 126 Hemoglobin A1c % 6.0 Calcium 8.2 L D Total Bilirubin 1.0 Direct Bilirubin 0.5 AST 42 H D ALT 55 H Alkaline Phosphatase 118 H D Total Protein 5.2 L D Albumin 3.0 L D Triglycerides 67 Cholesterol 144 LDL Cholesterol, Calc 89 HDL Cholesterol 42 <SHIRAZ ChackoC - Last Filed: 05/28/21 13:04> Progress Note: A&P Assessment and plan (1) Atrial fibrillation: Status: Acute <JUAN J Chacko - Last Filed: 05/28/21 13:04> Assessment and Plan: Finding of atrial fibrillation this admit. Pt does recall being told about afib in past. Had not been taking medications at home. EKG and Tele do show afib with elevated rates. Today average is 90s- low 100s with bursts up to 130s. No report of palpitations. Echo shows EF 40-45%, mod increase in RV size and mod to severe decrease in RV systolic function, severe biatrial enlargement. Based on atrial sizes, afib is not likely new for him. Initally treated for mild CHF. He was given a digoxin load for rate control with some improvement. Today will start on Carvedilol 3.125mg bid. BP elevated this am at 153/98. CHADSVASc score 1 ( chf). He has been on Heparin drip for anticoagulation for NSTEMI, afib. Will stop heparin and change to Eliquis 5 mg bid. Ongoing tele monitoring. Ambulate to better assess rate control later today. <JUAN J Chacko - Last Filed: 05/28/21 13:04> (2) Enlarged RV (right ventricle): Status: Acute <Tash DuranSHIRAZ oroC - Last Filed: 05/28/21 13:04> Assessment and Plan: Mod to severe RV enlargement noted on echo. Recommend CTA to rule out PE. Hospitalist notified. <Tash Solis SHIRAZ ShenC - Last Filed: 05/28/21 13:04> (3) Congestive heart failure: Status: Acute <Tash Solis SHIRAZ ShenC - Last Filed: 05/28/21 13:04> Assessment and Plan: Mild sob on admit with findings consistent with acute systolic HF. Echo findings as above including RV enlargement. He has been diuresed with IV la six. Fluid balance neg 1.7 liters since admit. He does not appear fluid overloaded on exam. He is wearing O2 2liters and sat 92%. Can change to PO Lasix. Ongoing I+O monitoring. Close monitoring of electrolyte and kidney function. Unknown if his CMP is related to ischemia or elevated AF rates. <Tash Will STEPHENIE Shen-C - Last Filed: 05/28/21 13:04> (4) Non-ST elevated myocardial infarction (non-STEMI): Status: Acute <Tash Solis STEPHENIE Shen-C - Last Filed: 05/28/21 13:04> Assessment and Plan: Atypical CP on admit. Troponins elevated this admit up to 286. EKG does have T wave inversion V4-V6. No reports of chest discomfort today. Echo does not show regional WMA. He will eventually need ischemic evaluation. Medically managing at present. Continue Atorvastatin, Imdur. Will not need aspirin as he is starting Eliquis. Start carvedilol today. <Tash Will STEPHENIE Shen-C - Last Filed: 05/28/21 13:04> Fall Risk Details Current Medications: Current Medications Acetaminophen (Acetaminophen 325 Mg Tablet) 650 mg PO Q6H PRN PRN Reason: Pain, Mild (Pain Scale 1-3) Atorvastatin Calcium (Atorvastatin Calcium 40 Mg Tablet) 40 mg PO BEDTIME [facility] Last Admin: 05/27/21 21:34 Dose: 40 mg Documented by: Carvedilol (Carvedilol 3.125 Mg Tablet) 3.125 mg PO BID [facility]; Protocol Furosemide (Furosemide 40 Mg/4 Ml Vial) 40 mg IVPUSH BID@0900,1800 [facility]; Protocol Last Admin: 05/28/21 09:18 Dose: 40 mg Documented by: Isosorbide Mononitrate (Isosorbide Mononitrate 30 Mg Tab.Er.24h) 30 mg PO DAILY [facility]; Protocol Last Admin: 05/28/21 09:18 Dose: 30 mg Documented by: Morphine Sulfate (Morphine Sulfate 4 Mg/Ml Cartridge) 4 mg IVPUSH Q4H PRN; Protocol PRN Reason: Pain, Severe (Pain Scale 7-10) Ondansetron HCl (Ondansetron Hcl 4 Mg/2 Ml Vial) 4 mg IVPUSH Q8H PRN PRN Reason: Nausea and Vomiting Pharmacy Consult (Consult Rx Perform Med Rec) 1 each MISCELLANE ONCE PRN PRN Reason: Consult order Sodium Chloride (0.9 % Sodium Chloride Flush 3 Ml Syringe) 3 ml IVFLUSH QSHIFT [facility] Last Admin: 05/28/21 07:54 Dose: 3 ml Documented by: <JUAN J Chacko - Last Filed: 05/28/21 13:04> Time Spent With Patient Time: Total time spent is greater than 50% in coordination of care (as documented) at patient's floor/unit and/or counseling patient: 27 <JUAN J Chacko - Last Filed: 05/28/21 13:04> Time with patient: 25 - 35 minutes <JUAN J Chacko - Last Filed: 05/28/21 13:04> Progress Note: Quality Stroke Does the patient have a stroke diagnosis?: No <JUAN J Chacko - Last Filed: 05/28/21 13:04> Procedures Date of Service Date of Service: 05/28/21 <JUAN J Chacko - Last Filed: 05/28/21 13:04>
[2021-05-28] MEDS: carvediloL 3.125 MG TABLET PO ×2 (13:23→19:58)
[2021-05-28] MEDS: Apixaban 5 MG TABLET PO ×2 (13:24→19:58)
[2021-05-28] MEDS: iohexoL 350 MG/ML 100 ML INFUS..BTL IV (14:48)
--- NOTE | 2021-05-28 15:49 | P.PNIM_ITS ---
Progress Note: A&P (1) Atrial fibrillation: Status: Acute <Sakina Rushing NP - Last Filed: 05/28/21 15:56> (2) HFrEF (heart failure with reduced ejection fraction): Status: Acute <Sakina Rushing NP - Last Filed: 05/28/21 15:56> (3) Non-ST elevated myocardial infarction (non-STEMI): Status: Acute <Sakina Rushing NP - Last Filed: 05/28/21 15:56> Assessment and Plan: This is a 60 yo M with no known PMH who has not sought medical care in many years and now presents with 2-3 days of substernal chest pain / orthopnea / dyspnea on exertion. His work up in the ED shows new-onset A. Fib with RVR, Acute CHF and NSTEMI. He will be admitted for further treatment. NSTEMI. EKG with concerns of ischemia and HS trop-I elevated IV heparin Gtt started initially and stopped and switched for Eliquis severe biatrial enlargement on echo ASA, Statin cardiology following. HFrEF. EF 40-45% IV lasix 40mg BID I/O New-onset A. Fib with RVR Given a dose of cardizem IV and PO with rates improved D/W cardiology. dig loaded, now daily coreg added Eliquis Suspected undiagnosed HTN IV lasix for now, will add BB, ARB/PARKER as work up continues Tobacco Use cessation as been encouraged NRT if patient requests Elevated LFTs. Congestion from CHF vs secondary to EtOh use will trend EtOh use. Reports that he drinks 4-5 beers + a few shots several times a week, generally on the weekends discussed with him regarding the harmful effects of excessive alcohol consumption. Denies prior withdrawal seizures or DTs. Last drink 4 days prior to arrival Full Code DVT pptx eliquis Attending Dr. freeman Endorses Maurice Zhao as his HCP. <Sakina Rushing NP - Last Filed: 05/28/21 15:56> This is a 60 yo M with no known PMH who has not sought medical care in many years and now presents with 2-3 days of substernal chest pain / orthopnea / dyspnea on exertion. His work up in the ED shows new-onset A. Fib with RVR, Acute CHF and NSTEMI. He will be admitted for further treatment. NSTEMI. EKG with concerns of ischemia and HS trop-I elevated IV heparin Gtt started initially and stopped and switched for Eliquis severe biatrial enlargement on echo ASA, Statin cardiology following. HFrEF. EF 40-45% IV lasix 40mg BID I/O New-onset A. Fib with RVR Given a dose of cardizem IV and PO with rates improved D/W cardiology. dig loaded, now daily coreg added Eliquis Suspected undiagnosed HTN IV lasix for now, will add BB, ARB/PARKER as work up continues Tobacco Use cessation as been encouraged NRT if patient requests Elevated LFTs. Congestion from CHF vs secondary to EtOh use will trend EtOh use. Reports that he drinks 4-5 beers + a few shots several times a week, generally on the weekends discussed with him regarding the harmful effects of excessive alcohol consumption. Denies prior withdrawal seizures or DTs. Last drink 4 days prior to arrival Full Code DVT pptx eliquis Attending Dr. freeman Endorses Maurice Zhao as his HCP. Attending Attestation: DOS: 05/28/21 Patient seen and examined. Case discussed with the mid-level provider. Agree with the assessment and plan as documented above. <Juan Freeman MD - Last Filed: 05/29/21 16:10> Subjective Subjective Date of Service: 05/28/21 <Sakina Rushing NP - Last Filed: 05/28/21 15:56> 05/29/21 <Juan Freeman MD - Last Filed: 05/29/21 16:10> Review of Systems Follow up NSTEMI No chest pain or sob better today <Sakina Rushing NP - Last Filed: 05/28/21 15:56> Physical Exam Vital Signs: Vital Signs: Last Vital Signs Temp 97.8 F 05/28/21 15:25 Pulse 88 05/28/21 15:25 Resp 15 05/28/21 15:25 BP 112/88 05/28/21 15:25 Pulse Ox 95 05/28/21 15:25 Body Mass Index 22.6 <Sakina Rushing NP - Last Filed: 05/28/21 15:56> Appearing in no acute distress lung sounds are clear to auscultation heart regular rate rhythm, clear S1, S2 positive bowel sounds, abdomen is soft, nontender neuro patient is alert x3, no focal deficits <Sakina Rushing NP - Last Filed: 05/28/21 15:56> Objective Data Current Medications Acetaminophen (Acetaminophen 325 Mg Tablet) 650 mg PO Q6H PRN PRN Reason: Pain, Mild (Pain Scale 1-3) Apixaban (Apixaban 5 Mg Tablet) 5 mg PO BID [facility] Last Admin: 05/28/21 13:24 Dose: 5 mg Documented by: Atorvastatin Calcium (Atorvastatin Calcium 40 Mg Tablet) 40 mg PO BEDTIME [facility] Last Admin: 05/27/21 21:34 Dose: 40 mg Documented by: Carvedilol (Carvedilol 3.125 Mg Tablet) 3.125 mg PO BID [facility]; Protocol Last Admin: 05/28/21 13:23 Dose: 3.125 mg Documented by: Digoxin (Digoxin 0.125 Mg Tablet) 0.125 mg PO DAILY [facility] Furosemide (Furosemide 40 Mg/4 Ml Vial) 40 mg IVPUSH BID@0900,1800 [facility]; Protocol Last Admin: 05/28/21 09:18 Dose: 40 mg Documented by: Isosorbide Mononitrate (Isosorbide Mononitrate 30 Mg Tab.Er.24h) 30 mg PO DAILY [facility]; Protocol Last Admin: 05/28/21 09:18 Dose: 30 mg Documented by: Morphine Sulfate (Morphine Sulfate 4 Mg/Ml Cartridge) 4 mg IVPUSH Q4H PRN; Protocol PRN Reason: Pain, Severe (Pain Scale 7-10) Ondansetron HCl (Ondansetron Hcl 4 Mg/2 Ml Vial) 4 mg IVPUSH Q8H PRN PRN Reason: Nausea and Vomiting Pharmacy Consult (Consult Rx Perform Med Rec) 1 each MISCELLANE ONCE PRN PRN Reason: Consult order Sodium Chloride (0.9 % Sodium Chloride Flush 3 Ml Syringe) 3 ml IVFLUSH QSHIFT [facility] Last Admin: 05/28/21 07:54 Dose: 3 ml Documented by: <Sakina Rushing NP - Last Filed: 05/28/21 15:56> Labs CBC & Chem 7: : 05/29/21 06:34 05/29/21 06:34 <Sakina Rushing NP - Last Filed: 05/28/21 15:56> Labs: Laboratory Results - last 24 hr 05/27/21 05/27/21 05/28/21 16:59 23:35 06:36 MCV 91.1 MCH 30.5 MCHC 33.4 RDW 13.8 Plt Count 207 MPV 10.1 Absolute Nucleated RBC 0.000 Nucleated RBC % (auto) 0.0 PT INR PTT (Heparin Protocol) 38.6 L D 41.9 L Anion Gap Estim Creat Clear Calc Estimated GFR Random Glucose Estimat Average Glucose Hemoglobin A1c % Calcium Total Bilirubin Direct Bilirubin AST ALT Alkaline Phosphatase Total Protein Albumin Triglycerides Cholesterol LDL Cholesterol, Calc HDL Cholesterol 05/28/21 05/28/21 05/28/21 06:36 06:36 06:36 MCV MCH MCHC RDW Plt Count MPV Absolute Nucleated RBC Nucleated RBC % (auto) PT 18.1 H INR 1.6 H PTT (Heparin Protocol) 47.4 L Anion Gap 12 Estim Creat Clear Calc 95.2 Estimated GFR > 60 Random Glucose 127 H D Estimat Average Glucose 126 Hemoglobin A1c % 6.0 Calcium 8.2 L D Total Bilirubin 1.0 Direct Bilirubin 0.5 AST 42 H D ALT 55 H Alkaline Phosphatase 118 H D Total Protein 5.2 L D Albumin 3.0 L D Triglycerides 67 Cholesterol 144 LDL Cholesterol, Calc 89 HDL Cholesterol 42 <Sakina Rushing NP - Last Filed: 05/28/21 15:56> Quality Stroke Does the patient have a stroke diagnosis?: No <Sakina Rushing NP - Last Filed: 05/28/21 15:56> VTE Prior VTE?: No <Sakina Rushing NP - Last Filed: 05/28/21 15:56> VTE Risk Level:: Medical - moderate - high <Sakina Rushing NP - Last Filed: 05/28/21 15:56> VTE Device Contraindication: Treatment Not Indicated <Sakina Rushing NP - Last Filed: 05/28/21 15:56> VTE Drug Contraindication: N/A - Med Ordered <Sakina Rushing NP - Last Filed: 05/28/21 15:56>
[2021-05-28] MEDS: Atorvastatin Calcium 40 MG TABLET PO (19:58)
[2021-05-29] VITALS (10 sets, daily range): BP systolic 105–148; BP diastolic 75–108; PULSE 74–108; RESP 18–20; TEMP 36.6–37.4; O2SAT 91–98
[2021-05-29 07:10] LABS: Hematocrit 44.2 % (42-52); Hemoglobin 14.7 g/dl (14.0-18.0); Mean Corpuscular HGB Conc 33.3 g/dl (31.0-36.0); Mean Corpuscular Hemoglobin 30.4 pg (27.0-33.0); Mean Corpuscular Volume 91.5 fL (80-98); Mean Platelet Volume 9.9 fL (9.4-12.4); Platelet Count 233 X10*3/uL (160-400); Red Blood Count 4.83 X10*6/uL (4.60-5.80); Red Cell Distribution Width 13.6 % (11.0-16.0)
[2021-05-29 07:29] LABS: Anion Gap 12 (12-20); Blood Urea Nitrogen 13 mg/dL (9-16); Calcium 8.5 mg/dL (8.4-10.2); Carbon Dioxide 30 mmol/L (22-29); Chloride 95 mmol/L (96-108); Creatinine Clr Calc Pharmacy 83.4; Estimated Glomerular Filt Rate > 60; Glucose Random 122 mg/dL (60-115); Sodium 133 mmol/L (135-145)
[2021-05-29] MEDS: Furosemide 40 MG/4 ML VIAL IVPUSH (07:57)
[2021-05-29] MEDS: carvediloL 3.125 MG TABLET PO ×2 (07:57→21:04)
[2021-05-29] MEDS: Isosorbide Mononitrate 30 MG TAB.ER.24H PO (07:57)
[2021-05-29] MEDS: Apixaban 5 MG TABLET PO ×2 (07:58→21:05)
[2021-05-29] MEDS: Digoxin 0.125 MG TABLET PO (07:58)
[2021-05-29 09:03] LABS: B Type Natriuretic Peptide 315 pg/mL (<100)
--- NOTE | 2021-05-29 11:17 | P.PNCA_ITS ---
Subjective Subjective Date of Service: 05/29/21 <JUAN J Chacko - Last Filed: 05/29/21 11:40> 05/30/21 <Garrett Land MD - Last Filed: 05/30/21 11:48> Principal diagnosis: Afib, Mild CHF, CMP, Type 2 NSTEMI <JUAN J Chacko - Last Filed: 05/29/21 11:40> Interval history: Cardiology follow up for the above. Seen at 0930. Today he reports feeling well. He states breathing is comfortable. Has still been wearing O2 with nasal cannula but doesnt believe he needs it. No chest pains, palpitation, dizziness. Reports steadiness on feet when walking to BR. <JUAN J Chacko - Last Filed: 05/29/21 11:40> Review of Systems Review of Systems as above <JUAN J Chacko - Last Filed: 05/29/21 11:40> Physical Exam Vital Signs: Last Vital Signs Temp 99.0 F 05/29/21 07:12 Pulse 108 H 05/29/21 07:58 Resp 20 05/29/21 07:12 BP 138/97 H 05/29/21 07:57 Pulse Ox 93 05/29/21 10:43 Body Mass Index 22.6 <JUAN J Chacko - Last Filed: 05/29/21 11:40> Const General: cooperative, no acute distress, alert and awake <JUAN J Chacko - Last Filed: 05/29/21 11:40> Orientation/consciousness: patient oriented x3 <JUAN J Chacko - Last Filed: 05/29/21 11:40> Neck Neck: Yes normal visual inspection and Yes no JVD <JUAN J Chacko - Last Filed: 05/29/21 11:40> Resp Effort & Inspection: normal respiratory effort, able to speak in complete sentences and not labored <JUAN J Chacko - Last Filed: 05/29/21 11:40> Auscultation: clear to auscultation bilaterally, no rales, rhonchi (few scattered - clear with coughing) and no wheezes <JUAN J Chacko - Last Filed: 05/29/21 11:40> Cardio Palpation: normal PMI <Tash Shen JUAN J - Last Filed: 05/29/21 11:40> Rate: regular rate <Tash Shen JUAN J Sherman Last Filed: 05/29/21 11:40> Heart sounds: S1 normal heart sound present and S2 normal heart sound present <Tash Shen JUAN J - Last Filed: 05/29/21 11:40> GI Inspection: Yes normal to inspection <Tash Shen JUAN J - Last Filed: 05/29/21 11:40> Skin General skin exam: no rashes or lesions noted <Tash Shen JUAN J Sherman Last Filed: 05/29/21 11:40> Neuro General: patient oriented x3 <Tash Shen JUAN J Sherman Last Filed: 05/29/21 11:40> Extrem General: Yes normal to inspection and No edema <Tash ShenSTEPHENIEJoselin - Last Filed: 05/29/21 11:40> Results Labs and Meds Result diagrams: : 05/29/21 06:34 05/30/21 08:08 <Tash ShenSTEPHENIEJoselin - Last Filed: 05/29/21 11:40> Lab results: Laboratory Results - last 24 hr 05/29/21 05/29/21 05/29/21 06:34 06:34 06:34 WBC 12.0 H RBC 4.83 Hgb 14.7 Hct 44.2 MCV 91.5 MCH 30.4 MCHC 33.3 RDW 13.6 Plt Count 233 MPV 9.9 Absolute Nucleated RBC 0.000 Nucleated RBC % (auto) 0.0 Sodium 133 L Potassium 4.0 Chloride 95 L Carbon Dioxide 30 H Anion Gap 12 BUN 13 Creatinine 0.89 Estim Creat Clear Calc 83.4 Estimated GFR > 60 Random Glucose 122 H Calcium 8.5 B-Natriuretic Peptide 315 H <Tash Shen STATION JAILERWhitShari - Last Filed: 05/29/21 11:40> Imaging Radiologist's impression: Impressions Chest CTA 05/28/21 14:20 IMPRESSION: No evidence of pulmonary embolism. Reflux of contrast into the hepatic veins suggestive of elevated right heart pressures. Slightly enlarged heart. In particular, the left atrium and left ventricle appear enlarged. Moderate-sized bilateral pleural effusions and bilateral lower lobe atelectasis or consolidation. Emphysema. VTE: negative <JUAN J Chacko - Last Filed: 05/29/21 11:40> Progress Note: A&P Assessment and plan (1) HFrEF (heart failure with reduced ejection fraction): Status: Acute <JUAN J Chacko - Last Filed: 05/29/21 11:40> Assessment and Plan: Mild sob on admit with findings consistent with acute systolic and right HF. Echo shows EF 40-45%, mod RV enlargement, mod to severe decrease in RV systolic function. He has been diuresed with IV lasix. Fluid balance neg 3.1 liters since admit. He does not appear very fluid overloaded on exam this am. Labs this am Cl 95, Cr 0.89, Co2 30, BNP down to 315 ( had been 899 on admit). He is wearing O2 4 liters and sat 94%. He may need evaluation for home O2. Can change IV Lasix over to PO. Ongoing I+O monitoring. Close monitoring of electrolyte and kidney function. ? <JUAN J Chacko - Last Filed: 05/29/21 11:40> (2) Enlarged RV (right ventricle): Status: Acute <JUAN J Chacko - Last Filed: 05/29/21 11:40> Assessment and Plan: May be related to underlying COPD, pulm HTN <JUAN J Chacko - Last Filed: 05/29/21 11:40> (3) Atrial fibrillation: Status: Acute <JUAN J Chacko - Last Filed: 05/29/21 11:40> Assessment and Plan: Finding of atrial fibrillation this admit. Pt does recall being told about afib in past. Had not been taking medications at home. EKG and Tele do show afib with elevated rates. Today average is low 100s with bursts up to 130s. No report of palpitations. Echo shows severe biatrial enlargement. Based on at rial sizes, afib is not likely new for him. He was given a digoxin load and started on daily dosing. Yesterday was started on Carvedilol 3.125mg bid. Do not further titrate. CHADSVASc score 1 ( chf).? He was started on Eliquis 5 mg bid for anticoagulation. Diagnosis of afib, anticoagulation need reviewed with him. Ongoing tele monitoring. Ambulate to better assess rate control later today. <JUAN J Chacko - Last Filed: 05/29/21 11:40> (4) Non-ST elevated myocardial infarction (non-STEMI): Status: Acute <JUAN J Chacko - Last Filed: 05/29/21 11:40> Assessment and Plan: Atypical CP on admit. Troponins elevated this admit up to 286. EKG does have T wave inversion V4-V6. No reports of chest discomfort today. Echo does not show regional WMA. He will eventually need ischemic evaluation. Medically managing at present. Continue Atorvastatin, Imdur, carvedilol. Will not need aspirin as he is on Eliquis.? <JUAN J Chacko - Last Filed: 05/29/21 11:40> Fall Risk Details Current Medications: Current Medications Acetaminophen (Acetaminophen 325 Mg Tablet) 650 mg PO Q6H PRN PRN Reason: Pain, Mild (Pain Scale 1-3) Apixaban (Apixaban 5 Mg Tablet) 5 mg PO BID [facility] Last Admin: 05/29/21 07:58 Dose: 5 mg Documented by: Atorvastatin Calcium (Atorvastatin Calcium 40 Mg Tablet) 40 mg PO BEDTIME [facility] Last Admin: 05/28/21 19:58 Dose: 40 mg Documented by: Carvedilol (Carvedilol 3.125 Mg Tablet) 3.125 mg PO BID [facility]; Protocol Last Admin: 05/29/21 07:57 Dose: 3.125 mg Documented by: Digoxin (Digoxin 0.125 Mg Tablet) 0.125 mg PO Q2D [facility] Furosemide (Furosemide 40 Mg Tablet) 40 mg PO BID@0900,1800 [facility]; Protocol Isosorbide Mononitrate (Isosorbide Mononitrate 30 Mg Tab.Er.24h) 30 mg PO DAILY [facility]; Protocol Last Admin: 05/29/21 07:57 Dose: 30 mg Documented by: Morphine Sulfate (Morphine Sulfate 4 Mg/Ml Cartridge) 4 mg IVPUSH Q4H PRN; Protocol PRN Reason: Pain, Severe (Pain Scale 7-10) Ondansetron HCl (Ondansetron Hcl 4 Mg/2 Ml Vial) 4 mg IVPUSH Q8H PRN PRN Reason: Nausea and Vomiting Pharmacy Consult (Consult Rx Perform Med Rec) 1 each MISCELLANE ONCE PRN PRN Reason: Consult order Sodium Chloride (0.9 % Sodium Chloride Flush 3 Ml Syringe) 3 ml IVFLUSH QSHIFT [facility] Last Admin: 05/28/21 23:52 Dose: 3 ml Documented by: <JUAN J Chacko - Last Filed: 05/29/21 11:40> Time Spent With Patient Time: Total time spent is greater than 50% in coordination of care (as documented) at patient's floor/unit and/or counseling patient: <JUAN J Chacko - Last Filed: 05/29/21 11:40> Time with patient: 15 - 24 minutes <JUAN J Chacko - Last Filed: 05/29/21 11:40> Progress Note: Quality Stroke Does the patient have a stroke diagnosis?: No <JUAN J Chacko - Last Filed: 05/29/21 11:40> Procedures Date of Service Date of Service: 05/29/21 <JUAN J Chacko - Last Filed: 05/29/21 11:40>
--- NOTE | 2021-05-29 15:24 | P.PNIM_ITS ---
Subjective Subjective Date of Service: 05/29/21 <MARTHA Sandoval - Last Filed: 05/29/21 16:50> 05/30/21 <Juan Freeman MD - Last Filed: 05/30/21 08:03> Interval History: seen and examined this morning follow up for afib, chf, nstemi no chest pain, no shortness of breath <MARTHA Sandoval - Last Filed: 05/29/21 16:50> Review of Systems Review of Systems: Yes all other systems are reviewed and are negative <MARTHA Sandoval - Last Filed: 05/29/21 16:50> Constitutional Constitutional: Denies chills and Denies fever(s) <MARTHA Sandoval - Last Filed: 05/29/21 16:50> Cardiovascular Cardiovascular: Denies chest pain <MARTHA Sandoval - Last Filed: 05/29/21 16:50> Respiratory Respiratory: Denies cough <MARTHA Sandoval - Last Filed: 05/29/21 16:50> Gastrointestinal Gastrointestinal: Denies abdominal pain <MARTHA Sandoval - Last Filed: 05/29/21 16:50> Physical Exam Vital Signs: Vital Signs: Last Vital Signs Temp 98.5 F 05/29/21 11:22 Pulse 94 05/29/21 11:22 Resp 20 05/29/21 11:22 BP 105/78 05/29/21 11:22 Pulse Ox 94 05/29/21 11:22 Body Mass Index 22.6 <MARTHA Sandoval - Last Filed: 05/29/21 16:50> Const: Nutritional Appearance: well nourished <MARTHA Sandoval - Last Filed: 05/29/21 16:50> HENMT: Head: Yes normocephalic and Yes atraumatic <MARTHA Sandoval - Last Filed: 05/29/21 16:50> Eyes: Sclerae: sclerae normal <MARTHA Sandoval - Last Filed: 05/29/21 16:50> Pupils: Equal, round and reactive pupils present <MARTHA Sandoval - Last Filed: 05/29/21 16:50> Resp: Effort & Inspection: normal respiratory effort and no respiratory distress <MARTHA Sandoval - Last Filed: 05/29/21 16:50> Cardio: Rate: regular rate <MARTHA Sandoval - Last Filed: 05/29/21 16:50> Rhythm: abnormal rhythm irregularly irregular <MARTHA Sandoval - Last Filed: 05/29/21 16:50> GI: Palpation (GI): Soft to palpation and nontender <MARTHA Sandoval - Last Filed: 05/29/21 16:50> Neuro: Cranial nerves: Yes CN's II-XII intact bilaterally, Yes Equal, round and reactive pupils present and Yes Bilaterally intact EOM present <MARTHA Sandoval - Last Filed: 05/29/21 16:50> Extrem: Other: no leg edema <MARTHA Sandoval Last Filed: 05/29/21 16:50> Objective Data Active Medications Acetaminophen (Acetaminophen 325 Mg Tablet) 650 mg PO Q6H PRN PRN Reason: Pain, Mild (Pain Scale 1-3) Apixaban (Apixaban 5 Mg Tablet) 5 mg PO BID [facility] Last Admin: 05/29/21 07:58 Dose: 5 mg Documented by: KRYSTAL Atorvastatin Calcium (Atorvastatin Calcium 40 Mg Tablet) 40 mg PO BEDTIME [facility] Last Admin: 05/28/21 19:58 Dose: 40 mg Documented by: ZENIA Carvedilol (Carvedilol 3.125 Mg Tablet) 3.125 mg PO BID [facility]; Protocol Last Admin: 05/29/21 07:57 Dose: 3.125 mg Documented by: KRYSTAL Digoxin (Digoxin 0.125 Mg Tablet) 0.125 mg PO Q2D [facility] Furosemide (Furosemide 40 Mg Tablet) 40 mg PO BID@0900,1800 [facility]; Protocol Isosorbide Mononitrate (Isosorbide Mononitrate 30 Mg Tab.Er.24h) 30 mg PO DAILY [facility]; Protocol Last Admin: 05/29/21 07:57 Dose: 30 mg Documented by: KRYSTAL Morphine Sulfate (Morphine Sulfate 4 Mg/Ml Cartridge) 4 mg IVPUSH Q4H PRN; Protocol PRN Reason: Pain, Severe (Pain Scale 7-10) Ondansetron HCl (Ondansetron Hcl 4 Mg/2 Ml Vial) 4 mg IVPUSH Q8H PRN PRN Reason: Nausea and Vomiting Pharmacy Consult (Consult Rx Perform Med Rec) 1 each MISCELLANE ONCE PRN PRN Reason: Consult order Sodium Chloride (0.9 % Sodium Chloride Flush 3 Ml Syringe) [facility] Last Admin: 05/29/21 15:08 Dose: Not Given Documented by: KRYSTAL Non-Admin Reason: Previously Administered <MARTHA Sandoval - Last Filed: 05/29/21 16:50> Labs CBC & Chem 7: : 05/29/21 06:34 05/29/21 06:34 <MARTHA Sandoval - Last Filed: 05/29/21 16:50> Labs: Laboratory Results - last 24 hr 05/29/21 05/29/21 05/29/21 06:34 06:34 06:34 MCV 91.5 MCH 30.4 MCHC 33.3 RDW 13.6 Plt Count 233 MPV 9.9 Absolute Nucleated RBC 0.000 Nucleated RBC % (auto) 0.0 Anion Gap 12 Estim Creat Clear Calc 83.4 Estimated GFR > 60 Random Glucose 122 H Calcium 8.5 B-Natriuretic Peptide 315 H <MARTHA Sandoval Last Filed: 05/29/21 16:50> Assessment and Plan (1) HFrEF (heart failure with reduced ejection fraction): Status: Acute <MARTHA Sandoval - Last Filed: 05/29/21 16:50> (2) Enlarged RV (right ventricle): Status: Acute <MARTHA Sandoval - Last Filed: 05/29/21 16:50> (3) Atrial fibrillation: Status: Acute <MARTHA Sandoval - Last Filed: 05/29/21 16:50> (4) Non-ST elevated myocardial infarction (non-STEMI): Status: Acute <MARTHA Sandoval - Last Filed: 05/29/21 16:50> Assessment and Plan: This is a 60 yo M with no known PMH who has not sought medical care in many years and now presents with 2-3 days of substernal chest pain / orthopnea / dyspnea on exertion. His work up in the ED shows new-onset A. Fib with RVR, Acute CHF and NSTEMI. He will be admitted for further treatment. NSTEMI. EKG with concerns of ischemia and HS trop-I elevated IV heparin Gtt started initially and stopped and switched for Eliquis severe biatrial enlargement on echo ASA, Statin cardiology following. HFrEF. EF 40-45% will change IV lasix to PO I/O New-onset A. Fib with RVR Given a dose of cardizem IV and PO with rates improved D/W cardiology. dig loaded, now q2d coreg added Eliquis Suspected undiagnosed HTN BP under better control Continue Imdur/Coreg Tobacco Use cessation as been encouraged NRT if patient requests Elevated LFTs. Congestion from CHF vs secondary to EtOh use trending down EtOh use. Reports that he drinks 4-5 beers + a few shots several times a week, generally on the weekends No active alcohol withdrawal at this time discussed with him regarding the harmful effects of excessive alcohol consumption. Denies prior withdrawal seizures or DTs. Last drink 4 days prior to arrival Full Code DVT pptx eliquis Attending Dr. freeman Endorses Maurice Zhao as his HCP. Attending Attestation: DOS: 05/28/21 Patient seen and examined. Case discussed with the mid-level provider. Agree with the assessment and plan as documented above. <MARTHA Sandoval - Last Filed: 05/29/21 16:50> This is a 60 yo M with no known PMH who has not sought medical care in many years and now presents with 2-3 days of substernal chest pain / orthopnea / dyspnea on exertion. His work up in the ED shows new-onset A. Fib with RVR, Acute CHF and NSTEMI. He will be admitted for further treatment. NSTEMI. EKG with concerns of ischemia and HS trop-I elevated IV heparin Gtt started initially and stopped and switched for Eliquis severe biatrial enlargement on echo ASA, Statin cardiology following. HFrEF. EF 40-45% will change IV lasix to PO I/O New-onset A. Fib with RVR Given a dose of cardizem IV and PO with rates improved D/W cardiology. dig loaded, now q2d coreg added Eliquis Suspected undiagnosed HTN BP under better control Continue Imdur/Coreg Tobacco Use cessation as been encouraged NRT if patient requests Elevated LFTs. Congestion from CHF vs secondary to EtOh use trending down EtOh use. Reports that he drinks 4-5 beers + a few shots several times a week, generally on the weekends No active alcohol withdrawal at this time discussed with him regarding the harmful effects of excessive alcohol consumption. Denies prior withdrawal seizures or DTs. Last drink 4 days prior to arrival Full Code DVT pptx eliquis Attending Dr. freeman Endorses Maurice Zhao as his HCP. Attending Attestation: DOS: 05/28/21 Patient seen and examined. Case discussed with the mid-level provider. Agree with the assessment and plan as documented above. Correction -- the date of service under attending attestation should read 05/29/21 NOT 05/28/21 <Juan Freeman MD - Last Filed: 05/30/21 08:03> Quality Stroke Does the patient have a stroke diagnosis?: No <MARTHA Sandoval - Last Filed: 05/29/21 16:50> VTE Prior VTE?: No <MARTHA Sandoval - Last Filed: 05/29/21 16:50> VTE Risk Level:: Medical - moderate - high <MARTHA Sandoval - Last Filed: 05/29/21 16:50> VTE Device Contraindication: Treatment Not Indicated <MARTHA Sandoval - Last Filed: 05/29/21 16:50> VTE Drug Contraindication: N/A - Med Ordered <MARTHA Sandoval - Last Filed: 05/29/21 16:50>
[2021-05-29] MEDS: Furosemide 40 MG TABLET PO (17:19)
[2021-05-29] MEDS: Atorvastatin Calcium 40 MG TABLET PO (21:04)
[2021-05-29] MEDS: 0.9 % Sodium Chloride Flush 3 ML SYRINGE IVFLUSH (21:07)
[2021-05-30] VITALS (7 sets, daily range): BP systolic 124–148; BP diastolic 84–102; PULSE 78–107; RESP 20; TEMP 36.2–37.3; O2SAT 94–97
[2021-05-30] MEDS: 0.9 % Sodium Chloride Flush 3 ML SYRINGE IVFLUSH (07:55)
[2021-05-30] MEDS: Furosemide 40 MG TABLET PO (07:55)
[2021-05-30] MEDS: Apixaban 5 MG TABLET PO (07:55)
[2021-05-30] MEDS: carvediloL 3.125 MG TABLET PO (07:56)
[2021-05-30] MEDS: Isosorbide Mononitrate 30 MG TAB.ER.24H PO (07:56)
[2021-05-30 08:34] LABS: Anion Gap 11 (12-20); Blood Urea Nitrogen 11 mg/dL (9-16); Calcium 8.6 mg/dL (8.4-10.2); Carbon Dioxide 30 mmol/L (22-29); Chloride 99 mmol/L (96-108); Creatinine Clr Calc Pharmacy 88.4; Estimated Glomerular Filt Rate > 60; Glucose Random 129 mg/dL (60-115); Potassium 3.9 mmol/L (3.3-5.1); Sodium 136 mmol/L (135-145)
--- NOTE | 2021-05-30 09:40 | P.PNCA_ITS ---
Subjective Subjective Date of Service: 05/30/21 Principal diagnosis: Afib, Mild CHF, CMP, Type 2 NSTEMI Interval history: He was ambulated and did not require oxygen. Heart rate better controlled. Denying any shortness of breath. Physical Exam Vital Signs: Last Vital Signs Temp 98.0 F 05/30/21 07:20 Pulse 94 05/30/21 07:56 Resp 20 05/30/21 07:20 BP 130/97 H 05/30/21 07:56 Pulse Ox 96 05/30/21 07:20 Body Mass Index 22.6 GENERAL APPEARANCE: in no acute distress. NECK: no carotid bruit, no significant JVD. SKIN: no suspicious lesions, warm and dry. HEART: no murmurs, irregular rate and rhythm. LUNGS:? Clear to auscultation. ABDOMEN: soft, nontender. EXTREMITIES: no edema. PERIPHERAL PULSES: equal. NEUROLOGIC: No gross deficits, AAO X 3 Results Labs and Meds Result diagrams: 05/29/21 06:34 05/30/21 08:08 Lab results: Laboratory Results - last 24 hr 05/30/21 08:08 Sodium 136 Potassium 3.9 Chloride 99 Carbon Dioxide 30 H Anion Gap 11 L BUN 11 Creatinine 0.84 Estim Creat Clear Calc 88.4 Estimated GFR > 60 Random Glucose 129 H Calcium 8.6 Progress Note: A&P Assessment and plan (1) HFrEF (heart failure with reduced ejection fraction): Status: Acute (2) Enlarged RV (right ventricle): Status: Acute (3) Atrial fibrillation: Status: Acute Assessment and Plan: 60-year-old gentleman with atrial fibrillation, NSTEMI secondary type 2 NM, mildly reduced left ventricular ejection fraction and severely reduced right ventricular function on background of COPD and tobacco abuse. Clinically is euvolemic at this point. Continue carvedilol at the same dose along with digoxin every 48 hours. Anticoagulation for atrial fibrillation. Abstinence from smoking and alcohol. We will arrange stress testing as outpatient. Thank you for allowing me to participate in the care of your patient. Please feel free to contact me if you have any questions. Fall Risk Details Current Medications: Current Medications Acetaminophen (Acetaminophen 325 Mg Tablet) 650 mg PO Q6H PRN PRN Reason: Pain, Mild (Pain Scale 1-3) Apixaban (Apixaban 5 Mg Tablet) 5 mg PO BID ANANDA Last Admin: 05/30/21 07:55 Dose: 5 mg Documented by: Atorvastatin Calcium (Atorvastatin Calcium 40 Mg Tablet) 40 mg PO BEDTIME [facility] Last Admin: 05/29/21 21:04 Dose: 40 mg Documented by: Carvedilol (Carvedilol 3.125 Mg Tablet) 3.125 mg PO BID [facility]; Protocol Last Admin: 05/30/21 07:56 Dose: 3.125 mg Documented by: Digoxin (Digoxin 0.125 Mg Tablet) 0.125 mg PO Q2D [facility] Furosemide (Furosemide 40 Mg Tablet) 40 mg PO BID@0900,1800 [facility]; Protocol Last Admin: 05/30/21 07:55 Dose: 40 mg Documented by: Isosorbide Mononitrate (Isosorbide Mononitrate 30 Mg Tab.Er.24h) 30 mg PO DAILY [facility]; Protocol Last Admin: 05/30/21 07:56 Dose: 30 mg Documented by: Morphine Sulfate (Morphine Sulfate 4 Mg/Ml Cartridge) 4 mg IVPUSH Q4H PRN; Protocol PRN Reason: Pain, Severe (Pain Scale 7-10) Ondansetron HCl (Ondansetron Hcl 4 Mg/2 Ml Vial) 4 mg IVPUSH Q8H PRN PRN Reason: Nausea and Vomiting Pharmacy Consult (Consult Rx Perform Med Rec) 1 each MISCELLANE ONCE PRN PRN Reason: Consult order Sodium Chloride (0.9 % Sodium Chloride Flush 3 Ml Syringe) 3 ml IVFLUSH QSHIFT [facility] Last Admin: 05/30/21 07:55 Dose: 3 ml Documented by: Time Spent With Patient Time: Total time spent is greater than 50% in coordination of care (as documented) at patient's floor/unit and/or counseling patient: Time with patient: 15 - 24 minutes Progress Note: Quality Stroke Does the patient have a stroke diagnosis?: No Procedures Date of Service Date of Service: 05/30/21
--- NOTE | 2021-05-30 14:40 | MHC.CM.PN ---
CM WAS INFORMED [facility] FS HAD BEEN UNABLE TO REACH PT VIA T/C. CM MET WITH PT TO PROVIDE FS TELEPHONE NUMBER AND INFORMED HIM THEY WOULD ASSIST WITH HEALTH INSURANCE. PT INDICATED HE WOULD CALL THEM AT THAT TIME DCP HOME WITH NO SERVICES
--- NOTE | 2021-05-30 15:39 | PM.DS ---
DS: Providers Provider Date of Service: 05/30/21 <MARTHA Sandoval - Last Filed: 05/30/21 17:02> Date of admission: 05/27/21 10:09 <MARTHA Sandoval - Last Filed: 05/30/21 17:02> Date of discharge: 05/30/21 <MARTHA Sandoval - Last Filed: 05/30/21 17:02> Primary care physician: None Physician <MARTHA Sandoval - Last Filed: 05/30/21 17:02> Consults: 05/27/21 10:09 Consult to Cardiology Routine Consulting Provider: Garrett Land Reason for consultation: NSTEMI, CHF, A. Fib <MARTAH Sandoval - Last Filed: 05/30/21 17:02> Attending physician on discharge: Juan Mccord <MARTHA Sandoval - Last Filed: 05/30/21 17:02> Discharging clinician: Merissa Marroquin <MARTHA Sandoval - Last Filed: 05/30/21 17:02> DS: Diagnosis Discharge Diagnosis (1) HFrEF (heart failure with reduced ejection fraction): Status: Acute <MARTHA Sandoval - Last Filed: 05/30/21 17:02> (2) Enlarged RV (right ventricle): Status: Acute <MARTHA Sandoval - Last Filed: 05/30/21 17:02> (3) Atrial fibrillation: Status: Acute <MARTHA Sandoval - Last Filed: 05/30/21 17:02> (4) Non-ST elevated myocardial infarction (non-STEMI): Status: Acute <MARTHA Sandoval - Last Filed: 05/30/21 17:02> DS: Summary Hospital Course Hospital Course: From H&P on day of admission ?This is a 60 yo M who reports no known PMH presents to the ED with complaints of substernal pressure like pain of 2 days duration. He reports the pain is intermittent and feels it largely in supine position. He reports no exertional chest pain prior to the last 2 days. He reports orthpnea of several days duration and now reports dysnea on exertion. He reports chronic cough, but he attributes that him smoking. He reports lower extremity edema which he has noticed for the last several day. He reports that today, at the urging of his boss -- he presented to the ED for work up and treatment. Upon arrival to the ED, patients work up showed new onset A. Fib with RVR, Elevated HS trop-I and BNP with EKG findings suggestive of ischemia. He was evaluated by cardiology in the ED and will be admitted for further treatment. Patient is seen and examined in the ED. He denies any current chest pain. Hospital course by problem NSTEMI. EKG showed concerns of ischemia and HS trop-I was elevated at 286.7, 205.8. He was treated with 48 hours of IV heparin and was started on a statin. He was evaluated by Cardiology. Echocardiogram was obtained which showed severe biatrial enlargement and low normal EF. He had no further episodes of chest pain. He should call to schedule follow-up appointment with Cardiology for outpatient ischemic workup. HFrEF. EF 40-45%. He was treated for acute heart failure with IV Lasix, fluid status improved and this was changed to oral Lasix. He should Follow low-sodium diet and monitor weight daily. He will be discharged home with oral Lasix. New-onset A. Fib with RVR. He was initially started on Coreg, digoxin was added for better rate control. He was started on anticoagulation with Eliquis after his initial 48 hours on heparin. HTN. Blood pressure was initially uncontrolled. With addition of Coreg and Imdur his blood pressure has improved significantly. Probable COPD. Had home O2 evaluation but did not qualify for home oxygen. Recommend outpatient follow-up with pulmonology for formal PFTs. Alcohol/tobacco use. Patient has been encouraged to stop drinking alcohol and smoking cigarettes. He did not experience alcohol withdrawal during hospitalization. Attending Attestation: (Late Entry for 05/30/2021) I have personally seen and examined the patient independently, reviewed the NPP history, exam and?MDM and agree with the assessment and discharge plan as?written. <MARTHA Sandoval - Last Filed: 05/30/21 17:02> Time Spent with Patient Time attestation: Total time spent providing and/or coordinating discharge services: <MARTHA Sandoval - Last Filed: 05/30/21 17:02> Discharge coordination time: Greater than 30 minutes <MARTHA Sandoval - Last Filed: 05/30/21 17:02> Quality: Stroke Does the patient have a stroke diagnosis?: No <MARTHA Sandoval - Last Filed: 05/30/21 17:02> Physical Exam Vital Signs: Vital Signs: Last Vital Signs Temp 97.2 F 05/30/21 11:19 Pulse 100 05/30/21 11:19 Resp 20 05/30/21 11:19 BP 124/87 05/30/21 11:19 Pulse Ox 94 05/30/21 11:19 Body Mass Index 22.6 <MARTHA Sandoval - Last Filed: 05/30/21 17:02> DS: Data Data Completed and Pending Labs on day of discharge: Laboratory Results - last 24 hr 05/30/21 08:08 Sodium 136 Potassium 3.9 Chloride 99 Carbon Dioxide 30 H Anion Gap 11 L BUN 11 Creatinine 0.84 Estim Creat Clear Calc 88.4 Estimated GFR > 60 Random Glucose 129 H Calcium 8.6 <MARTHA Sandoval - Last Filed: 05/30/21 17:02> Discharge Plan Discharge Patient Disposition: Home, Self-Care <MARTHA Sandoval - Last Filed: 05/30/21 17:02> Discharge Diagnosis: HFrEF atrial fibrillation NSTEMI <MARTHA Sandoval - Last Filed: 05/30/21 17:02> HFrEF atrial fibrillation NSTEMI <Juan Mccord MD - Last Filed: 06/12/21 08:44> Referrals: Garrett Land MD [Physician] - 1 Week Physician,None [Primary Care Provider] - 1 Week Aly Rushing MD [Physician] - 1 Week (nocturnal hypoxia; emphysema ) <MARTHA Sandoval - Last Filed: 05/30/21 17:02> Discharge Medications: No Action atorvastatin 40 mg tablet 40 mg PO BEDTIME 30 Days Qty: 30 RF: 0 carvedilol 3.125 mg tablet 3.125 mg PO BID 30 Days Qty: 60 RF: 0 digoxin 125 mcg (0.125 mg) tablet 125 mcg PO Q2D 30 Days Qty: 15 RF: 0 furosemide [Lasix] 40 mg tablet 40 mg PO BID 30 Days Qty: 60 RF: 0 isosorbide mononitrate 30 mg tablet extended release 24 hr 30 mg PO DAILY 30 Days Qty: 30 RF: 0 Eliquis 5 mg tablet 5 mg PO BID 30 Days Qty: 60 RF: 0 <MARTHA Sandoval - Last Filed: 05/30/21 17:02> Discharge Orders: Discharge Order (Routine); Ordered 05/30/21 Ordered By: Merissa Marroquin <MARTHA Sandoval - Last Filed: 05/30/21 17:02> Activity on Discharge: No heavy lifting <MARTHA Sandoval - Last Filed: 05/30/21 17:02> No heavy lifting <Juan Mccord MD - Last Filed: 06/12/21 08:44> Stand Alone Forms: Patient Portal Discharge page <MARTHA Sandoval - Last Filed: 05/30/21 17:02> Care Plan Goals: stay healthy and out of the hospital <MARTHA Sandoval - Last Filed: 05/30/21 17:02> Health Concerns: Atrial fibrillation Heart failure NSTEMI <MARTHA Sandoval - Last Filed: 05/30/21 17:02> Plan of Treatment: Call to schedule follow-up appointment with a multifocal button inspector for further testing including possible stress test. No strenuous activity until follow up with cardiology/stress test Recommend complete abstinence from tobacco and alcohol You have been started on a number of new medications, please take as prescribed Obtain a PCP for close follow-up <MARTHA Sandoval - Last Filed: 05/30/21 17:02> Assessment: See discharge summary <MARTHA Sandoval - Last Filed: 05/30/21 17:02> Discharge Date/Time: 05/30/21 16:52 <MARTHA Sandoval - Last Filed: 05/30/21 17:02>
== END 2021-05-30 16:52 | disposition home or self-care (01) | DRG 280 ==
LOC: HO.ED 09:46 → HO.EDOVER 10:29 → HO.IMC 13:25
PROVIDERS: Hospitalist; Nurse Practitioner Acute Care; Nurse Practitioner Family; Admitting Provider Family Medicine; Emergency Provider Emergency Medicine; Visit Provider Physician Assistant Medical
DX: I21.4 Non-ST elevation (NSTEMI) myocardial infarction (principal); I50.21 Acute systolic (congestive) heart failure; I48.91 Unspecified atrial fibrillation; J44.9 Chronic obstructive pulmonary disease, unspecified; I11.0 Hypertensive heart disease with heart failure; I51.7 Cardiomegaly; F17.210 Nicotine dependence, cigarettes, uncomplicated; Z71.6 Tobacco abuse counseling; Z72.89 Other problems related to lifestyle; Z20.822 Contact with and (suspected) exposure to COVID-19; Z23 Encounter for immunization; Z79.01 Long term (current) use of anticoagulants; Z79.899 Other long term (current) drug therapy
CPT/HCPCS: 0241U; 36415; 71045; 71275; 80048; 80061; 80076; 81001; 83036; 83690; 83880; 84484; 85025; 85027; 85610; 85730; 90686; 93005; 93306; 96361; 96374; 96375; 99285; 99291; J1160; J1940; Q9967

== ENCOUNTER → 2021-07-07 15:30 | Outpatient (BNVA) | payer OTHER, SELFPAY | PROVIDERS: Visit Provider Internal Medicine Cardiovascular Disease | DX: I51.7 Cardiomegaly (principal); I48.91 Unspecified atrial fibrillation; I10 Essential (primary) hypertension | CPT/HCPCS: 99212 ==

== ENCOUNTER → 2021-09-08 14:42 | Outpatient (BNVA) | payer OTHER, SELFPAY | PROVIDERS: Visit Provider Internal Medicine Cardiovascular Disease | DX: I11.0 Hypertensive heart disease with heart failure (principal); I50.20 Unspecified systolic (congestive) heart failure; I48.91 Unspecified atrial fibrillation; I51.7 Cardiomegaly; F17.210 Nicotine dependence, cigarettes, uncomplicated; Z71.6 Tobacco abuse counseling | CPT/HCPCS: 99212 ==

== ENCOUNTER → 2022-01-15 15:24 | Outpatient (BNVA) | payer OTHER, SELFPAY | PROVIDERS: Visit Provider Internal Medicine Cardiovascular Disease | DX: I11.0 Hypertensive heart disease with heart failure (principal); I50.20 Unspecified systolic (congestive) heart failure; I48.91 Unspecified atrial fibrillation; I51.7 Cardiomegaly | CPT/HCPCS: 93005; 99212 ==

== ENCOUNTER → 2022-03-30 08:12 | Outpatient (REF) | payer OTHER, SELFPAY ==
--- NOTE | 2022-03-30 08:16 | CA_ITS ---
Transthoracic Echocardiogram Patient (Last, First, Middle): Claudio Oliver H Gender: Male Date of : 1960 Age: 61 Procedure Date: 03/30/2022 Procedure Type: Transthoracic Echocardiogram Location: OP Height: 172.72 cm Weight: 65.77 kg BSA: 1.78 m2 Heart Rate: 89 bpm BP: 160 / 110 mmHg Remote Sensing Technician: JUAN LUIS Romero MD: Garrett Land MD Manager Medical Device: Garrett Land MD Symptoms: I50.20 - Unspecified systolic (congestive) heart failure Study Quality: Adequate ECG Rhythm: Atrial Fibrillation Conclusions: - Normal left ventricular cavity size. There is mildly increased left ventricular wall thickness. The left ventricular systolic function is mildly decreased. The visually estimated ejection fraction is between 40-45%. - Mildly increased right ventricular cavity size. There is moderately decreased right ventricular systolic function. - The left atrium is severely dilated. The right atrium is moderately dilated. Findings Left Ventricle Normal left ventricular cavity size. There is mildly increased left ventricular wall thickness. The left ventricular systolic function is mildly decreased. The visually estimated ejection fraction is between 40-45%. There is mild global hypokinesis. Diastolic function is indeterminate on the basis of available data. Right Ventricle Mildly increased right ventricular cavity size. There is moderately decreased right ventricular systolic function. Atria The left atrium is severely dilated. The right atrium is moderately dilated. Aortic Valve The aortic valve was not well visualized. There is moderate thickening of the aortic valve. There is no aortic valve stenosis. There is mild aortic valve regurgitation. Mitral Valve Normal mitral valve structure and function. There is trace mitral valve regurgitation. There is no mitral valve stenosis. Pulmonic Valve The pulmonic valve is likely normal. Tricuspid Valve Normal tricuspid valve structure and function. There is trace tricuspid valve regurgitation. Normal right atrial pressure. There is no evidence of pulmonary hypertension. Great Vessels The pulmonary artery was not well visualized. There is mild dilatation of the sinuses of Valsalva measuring 3.70 cm. Venous The inferior vena cava is normal in size and collapses greater than 50% with inspiration. Pericardium/Pleural There is no evidence of pericardial effusion. Prior Study Comparison No significant change compared to prior study dated: 05/27/2021. PA pressures are likely underestimated. Measurements 2D Linear Measurements IVSd: 1.43 0.6-0.9/0.6-1.0 cm LVIDd: 4.44 3.9-5.3/4.2-5.9 cm LVIDd Index: 2.49 2.4-3.2/2.2-3.1 cm/m2 LVIDs: 3.30 2.0-3.6 cm LVPWd: 1.24 0.7-1.1 cm LA Diam: 4.30 2.7-3.8/3.0-4.0 cm LAIDs Index: 2.42 1.5-2.3 cm/m2 LV Mass: 282.77 67-162/88-224 g LV Mass Index: 158.86 43-95/49-115 g/m2 LVOT Diam: 2.10 3.0+(-)1.3 cm 2D Systolic Function EF 4C: 40.30 >55% EF 2C: 33.30 >55% Mitral Valve E'Lateral: 12.30 E'Medial: 6.20 Aortic Valve AoV Pk Lonnie: 1.30 AoV Mn Lonnie: 0.93 AoV VTI: 0.21 AoV Pk Grad: 7.00 Aov Mn Grad: 4.00 EDGAR Cont.VTI: 2.60 AI Pk Lonnie: 4.13 AI [place]: 1.49 LVOT LVOT Pk Lonnie: 1.02 LVOT Mn Lonnie: 0.70 LVOT VTI: 0.16 LVOT Pk Grad: 4.00 LVOT Mn Grad: 3.00 LVOT Diam: 2.10 LVOT Area: 3.46 Diastolic Function E'Medial: 6.20 E' Laterial: 12.30 Right Ventricle TAPSE (mm): 13.40 TVS' Lonnie: 6.57 Tricuspid Valve TR Pk Lonnie: 2.13 TR Pk Grad: 18.00 RA Press: 3.00 RVSP: 24.00 Great Vessels Aorta Sinus of Valsalva: 3.70 2.0-3.5 cm Ao Asc: 3.30 2.1-3.4 cm Pulmonary Valve PV Pk Lonnie: 0.74 Peak PV Grad: 2.00 Updated in Other Vendor System with Status of Final Garrett Land MD electronically signed on 03/31/2022 8:46:59 PM with status of Final
== END ==
LOC: HO.CARD 08:12
PROVIDERS: Visit Provider Internal Medicine Cardiovascular Disease
DX: I50.20 Unspecified systolic (congestive) heart failure (principal)
CPT/HCPCS: 93306

== ENCOUNTER → 2022-05-27 15:54 | Outpatient (BNVA) | payer OTHER, SELFPAY | PROVIDERS: Visit Provider Internal Medicine Cardiovascular Disease | DX: R63.4 Abnormal weight loss (principal); I50.20 Unspecified systolic (congestive) heart failure; I48.91 Unspecified atrial fibrillation | CPT/HCPCS: 93005; 99212 ==

== ENCOUNTER 2022-06-02 15:29 | Outpatient (REF) | payer OTHER, SELFPAY ==
[2022-06-02 15:55] LABS: Hematocrit 40.9 % (42.0-52.0); Hemoglobin 13.6 g/dl (14.0-18.0); Mean Corpuscular HGB Conc 33.3 g/dl (31.0-36.0); Mean Corpuscular Hemoglobin 31.7 pg (27.0-33.0); Mean Corpuscular Volume 95.3 fL (80.0-98.0); Platelet Count 201 X10*3/uL (160-400); Red Blood Count 4.29 X10*6/uL (4.60-5.80); Red Cell Distribution Width 13.2 % (11.0-16.0); White Blood Count 7.2 X10*3/uL (4.8-10.8)
[2022-06-02 16:21] LABS: Alanine Aminotransferase 21 U/L (0-40); Albumin Level 4.6 g/dL (3.5-5.0); Alkaline Phosphatase 67 U/L (39-117); Anion Gap 15 (12-20); Aspartate Amino Transferase 20 U/L (5-37); Bilirubin Total 0.8 mg/dL (0.0-1.0); Blood Urea Nitrogen 17 mg/dL (9-16); Calcium 10.1 mg/dL (8.4-10.2); Carbon Dioxide 32 mmol/L (22-29); Chloride 94 mmol/L (96-108); Estimated Glomerular Filt Rate > 60; Glucose Random 105 mg/dL (60-115); Sodium 137 mmol/L (135-145); Total Protein 7.5 g/dL (6.5-8.0)
== END 2022-06-02 15:30 | disposition home or self-care (01) ==
LOC: HO.LAB 15:29
PROVIDERS: PCP Pediatrics; Visit Provider Internal Medicine
DX: R63.4 Abnormal weight loss (principal)
CPT/HCPCS: 36415; 80053; 85027; 99202

== ENCOUNTER 2022-06-11 15:03 | Inpatient (IN) | payer OTHER, SELFPAY ==
--- NOTE | 2022-06-09 14:49 | HO.ANESPROP2 ---
Documented by User: Janina Wheatley NP 06/09/22 14:52 HPI - Anesthesia Eval Consult details Narrative: 61yo M for Upper Endoscopy and Colonoscopy Referred by cardiology for unintentional weightloss. Cardiac stable at visit Eli[facility] Active Problems Active Problems: All Active Problems (Updated 05/27/22 @ 16:19 by Garrett Land MD) Weight loss (Acute) HFrEF (heart failure with reduced ejection fraction) (Acute) Enlarged RV (right ventricle) (Acute) Atrial fibrillation (Acute) Essential hypertension (Acute) Past Medical History Medical History Atrial fibrillation Enlarged RV (right ventricle) HFrEF (heart failure with reduced ejection fraction) Non-ST elevated myocardial infarction (non-STEMI) Shoulder fracture Skull fracture Family History Family History Father Stroke Mother Emphysema lung Surgical History Surgical History History of hernia surgery No pertinent past surgical history Social History Social History Household Members: None Housing: Apartment Do you presently have visiting nurse or other home services: No Alcohol intake: current Alcohol intake frequency: 3 or more drinks per day Alcohol type: beer and hard liquor Patient Tobacco Use Status: Current everyday Tobacco user Tobacco use type: Cigarette Cigarette Packs Per Day: 0.5 Cigarettes Per Day: 10.0 Years Smoked: 30 Second Hand Smoke Exposure: Yes Use of substances other than those prescribed or required for medical reasons: No Are you DNR?: No Advance Directives: No Advance Directives Information Provided: Yes service: No Meds Allergies Allergy/AdvReac Type Severity Reaction Status Date / Time No Known Allergies Allergy Verified 06/02/22 14:31 Exam Exam Date and Time: June 09, 2022 8089 Pertinent Lab Results Pertinent Lab Results: Laboratory Tests 06/02/22 06/02/22 15:44 15:44 WBC 7.2 Hgb 13.6 L Hct 40.9 L Plt Count 201 Sodium 137 Potassium 4.0 Chloride 94 L Carbon Dioxide 32 H BUN 17 H Creatinine 0.96 Narrative Narrative: EKG 12/2021 Atrial fibrillation 104 beats per minute, normal axis, left ventricle hypertrophy, QT interval 406 milliseconds. ECHO 03/2022 Conclusions: - Normal left ventricular cavity size.? There is mildly increased left ventricular wall thickness.? The left ventricular systolic? function is mildly decreased.? The visually estimated ejection ? fraction is between 40-45%.? - Mildly increased right ventricular cavity size.? There is? ? ? moderately decreased right ventricular systolic function.? - The left atrium is severely dilated.? The right atrium is? ? ? moderately dilated.? Assessment and Plan Assessment Anesthesia Assessment: Chart Reviewed Documented by User: Pippa El MD 06/11/22 14:01 [facility] Past Medical History Medical History Atrial fibrillation Enlarged RV (right ventricle) HFrEF (heart failure with reduced ejection fraction) Non-ST elevated myocardial infarction (non-STEMI) Shoulder fracture Skull fracture Family History Family History Father Stroke Mother Emphysema lung Surgical History Surgical History History of hernia surgery No pertinent past surgical history History of Problems with Anesthesia: No Social History Social History Household Members: None Housing: Apartment Do you presently have visiting nurse or other home services: No Alcohol intake: current Alcohol intake frequency: 3 or more drinks per day Alcohol type: beer and hard liquor Patient Tobacco Use Status: Current everyday Tobacco user Tobacco use type: Cigarette Cigarette Packs Per Day: 0.5 Cigarettes Per Day: 10.0 Years Smoked: 30 Second Hand Smoke Exposure: Yes Use of substances other than those prescribed or required for medical reasons: No Are you DNR?: No Advance Directives: No Advance Directives Information Provided: Yes service: No Meds Allergies Allergy/AdvReac Type Severity Reaction Status Date / Time No Known Allergies Allergy Verified 06/02/22 14:31 Exam Airway Mallampati Class: II (Edentulous) TM Dist: >3cm Neck ROM: Full Loose/Missing/Broken Teeth: Yes, Upper and Lower Heart: RRR Lungs: CTA Assessment and Plan Assessment Anesthesia Assessment: Anesthesia Plan Discussed Final Anesthetic Review History of Problems with Anesthesia: No NPO: Yes ASA Class: III Final Preanesthetic Review: Meds/Allgs Chart Reviewed, Consent Obtained/Reviewed and Anes Risks/Benef Reviewed Patient Risk: Intermediate Procedure Risk: Intermediate Anesthetic Plan Anesthetic Plan: MAC: Disposition: Standard PACU
[2022-06-11] VITALS (8 sets, daily range): BP systolic 91–145; BP diastolic 59–98; PULSE 52–93; RESP 12–17; TEMP 36.3–36.7; O2SAT 96–98; BMI 21.0; BMI 20.5
--- NOTE | ~2022-06-11 | US_ITS ---
EXAMINATION: US VENOUS ULTRASOUND WITH DOPPLER LOWER EXTREMITY, BILATERAL CLINICAL INFORMATION: Pain COMPARISON: None TECHNIQUE: Ultrasound of the deep veins is performed from the hip to the calf with compression sonography and color and pulse Doppler assessment. Spectral analysis with color-flow imaging is performed. FINDINGS: RIGHT: There is normal venous compression and respiratory variation and augmented flow. The visualized common femoral vein, superficial femoral vein, profunda femoral vein, popliteal vein, and the trifurcation region shows no evidence of deep venous thrombosis. There is no significant popliteal fossa cyst. LEFT: There is normal venous compression and respiratory variation and augmented flow. The visualized common femoral vein, superficial femoral vein, profunda femoral vein, popliteal vein, and the trifurcation region shows no evidence of deep venous thrombosis. There is no significant popliteal fossa cyst. Although not a dedicated arterial exam, there is intramural thrombus resulting in occlusion of the left proximal femoral artery with extension to the distal femoral artery with minimal flow seen within the mid femoral artery. US/US venous duplex LE BI IMPRESSION: No DVT demonstrated in the bilateral lower extremity. Although not a dedicated arterial exam, there is intramural thrombus resulting in occlusion of the left proximal femoral artery with extension to the distal femoral artery with minimal flow seen within the mid femoral artery. The performing transcribing machine mechanic discussed preliminary findings with ordering provider Chidi Carrion MD at 06/11/2022 6:25 PM and it was ascertained that the content and urgency of the report was understood at the time of direct communication.
--- NOTE | 2022-06-11 09:01 | CA_ITS ---
Transthoracic Echocardiogram Patient (Last, First, Middle): Claudio Oliver H Gender: Male Date of : 1960 Age: 61 Procedure Date: 06/11/2022 Procedure Type: Transthoracic Echocardiogram Location: ICU Height: 172.72 cm Weight: 61.24 kg BSA: 1.73 m2 Heart Rate: bpm BP: 102 / 74 mmHg Art Objects Repairer: LEON Referring MD: Garrett Land MD Trust Vault Clerk: Garrett Land MD Symptoms: cardiac arrest. VT Study Quality: Adequate Conclusions: - Normal left ventricular cavity size. There is mildly increased left ventricular wall thickness. The left ventricular systolic function is low normal. The visually estimated ejection fraction is between 50-55%. - Mildly increased right ventricular cavity size. There is moderately decreased right ventricular systolic function. - The left atrium is severely dilated. The right atrium is severely dilated. Findings Left Ventricle Normal left ventricular cavity size. There is mildly increased left ventricular wall thickness. The left ventricular systolic function is low normal. The visually estimated ejection fraction is between 50-55%. Abnormal diastolic function is noted. Spectral Doppler is indicative of a restrictive filling pattern. E/E prime ratio is between 8 and 15 consistent with indeterminate filling pressures. Right Ventricle Mildly increased right ventricular cavity size. There is moderately decreased right ventricular systolic function. Atria The left atrium is severely dilated. The right atrium is severely dilated. Tricuspid Valve Moderately elevated right atrial pressure. Moderate pulmonary hypertension is present. Venous The inferior vena cava is dilated and collapses greater than 50% with inspiration. Pericardium/Pleural There is no evidence of pericardial effusion. Prior Study Comparison Changes noted compared to prior study dated: 03/30/2022. Low normal LVEF. Restrictive filling pattern. Measurements 2D Linear Measurements IVSd: 1.27 0.6-0.9/0.6-1.0 cm LVIDd: 4.49 3.9-5.3/4.2-5.9 cm LVIDd Index: 2.60 2.4-3.2/2.2-3.1 cm/m2 LVIDs: 3.35 2.0-3.6 cm LVPWd: 1.36 0.7-1.1 cm LA Diam: 4.50 2.7-3.8/3.0-4.0 cm LAIDs Index: 2.60 1.5-2.3 cm/m2 LV Mass: 281.24 67-162/88-224 g LV Mass Index: 162.57 43-95/49-115 g/m2 2D Systolic Function EF 4C: 40.10 >55% EF 2C: 46.70 >55% EF BiP: 43.90 >55% Mitral Valve MV Pk E: 0.85 MV PK A: 0.31 MV Decel Time: 270.00 E/A: 2.80 E'Lateral: 13.00 E'Medial: 6.00 E/E' Med: 14.20 E/E' Lat: 6.60 PHT: 79.00 MVA PHT: 2.78 Decel Fisher: 3.16 Diastolic Function MV Pk E: 0.85 MV Pk A: 0.31 E/A: 2.80 E'Medial: 6.00 E/E' Med: 14.20 E' Laterial: 13.00 E/E' Lat: 6.60 Right Ventricle TAPSE (mm): 13.00 TVS' Lonnie: 7.50 Tricuspid Valve TR Pk Lonnie: 2.92 TR Pk Grad: 34.00 RA Press: 15.00 RVSP: 49.00 Updated in Other Vendor System with Status of Final Garrett Land MD electronically signed on 06/16/2022 3:24:45 PM with status of Final
[2022-06-11] MEDS: Lactated Ringers 1,000 ML 50 ML IVCONT ×2 (13:25→15:14)
--- NOTE | 2022-06-11 13:50 | MHC.SHP ---
Pre-Procedural Eval Section A Date of Service: 06/11/22 The History & Physical has been completed within 30 days and I have reviewed it.: Yes Section B Chief Complaint: Abnormal weight loss Allergies: Allergies Allergy/AdvReac Type Severity Reaction Status Date / Time No Known Allergies Allergy Verified 06/02/22 14:31 Plan Diagnosis/Plan: Unchanged I have reviewed the history and physical and performed a pertinent physical examination on my patient. No changes have occurred unless specified.
--- NOTE | 2022-06-11 13:50 | W.PM.OPN ---
Operative Note Operative Note Date of Service: 06/11/22 Narrative: Procedure: Esophagogastroduodenoscopy and colonoscopy Endoscopist: Verito Seo MD Indication: Abnormal weight loss Anesthesia Provider: Tatiana Mccall CRNA Anesthesia Type: MAC ?? EGD Procedure:?? The procedure, indications, preparation and potential complications were reviewed with the patient, who indicated understanding and gave written informed consent to proceed. A physical exam was performed. The endoscope was introduced through the mouth, and advanced to the second part of duodenum. Within 5 minutes of starting the procedure, the patient went into unstable VT at 1420. Procedure was immediately terminated and jasmin alonso was called. Please see documentation from code for details. Once ROSC was obtained and patient was stabilised, he was transferred to ICU. I attempted to contact Mr Maurice Lara on [phone] multiple times without success. Voice mail left.
--- NOTE | 2022-06-11 14:42 | ECG_ITS ---
Test Reason : s/p cardiac arrest Blood Pressure : / mmHG Vent. Rate : 066 BPM Atrial Rate : 066 BPM P-R Int : 156 ms QRS Dur : 142 ms QT Int : 434 ms P-R-T Axes : 081 069 -07 degrees QTc Int : 454 ms Normal sinus rhythm Left ventricular hypertrophy with QRS widening and repolarization abnormality ( Sokolow-Blandon , Randall product , Romhilt-Smith ) Nonspecific ST abnormality Abnormal ECG When compared with ECG of 27-MAY-2021 09:50, Normal sinus rhythm has replaced Atrial fibrillation Heart rate has decreased T wave inversion no longer evident in Anterior leads Referred By: Chidi Carrion Electronically Signed By:MOE WASHINGTON MD
--- NOTE | 2022-06-11 15:00 | PM.EVENT ---
Event Note Date of Service: 06/11/22 Event Note: Code called on pt. as he was undergoing EGD. Arrived to find pt in VTACH, receiving chest compressions. Pt was intubated, and evaluated after intubation to find that pt had a pulse and was breathing on his own, However, he remained ion VTach. Pt was given a small amt of sedation and 4 shocks in total were given, 2X 150 and 2X 200 without change. Pt 's SBP in 90's, O2 sat's 100 on 100% O2 with spontaneous breathing. Two doses of Amiodarone given without change. Finally Lidocaine 1Gm given with conversion to NSR. Pt was taken to ICU and extubated upon arrival, he was responding coherently to verbal stimuli and awaiting EKG.
[2022-06-11 16:43] LABS: Hematocrit 34.5 % (42.0-52.0); Hemoglobin 11.6 g/dl (14.0-18.0); Mean Corpuscular HGB Conc 33.6 g/dl (31.0-36.0); Mean Corpuscular Hemoglobin 32.6 pg (27.0-33.0); Mean Corpuscular Volume 96.9 fL (80.0-98.0); Mean Platelet Volume 9.9 fL (9.4-12.4); Platelet Count 143 X10*3/uL (160-400); Red Blood Count 3.56 X10*6/uL (4.60-5.80); Red Cell Distribution Width 13.3 % (11.0-16.0); White Blood Count 5.9 X10*3/uL (4.8-10.8)
--- NOTE | 2022-06-11 16:44 | P.HPCC_ITS ---
History of Present Illness Date of Service: 06/11/22 <Kristyn Suarez NP - Last Filed: 06/11/22 16:46> Attending physician on admission: Chidi Carrion <Kristyn Suarez NP - Last Filed: 06/11/22 16:46> Chief Complaint: Cardiac Arrest <Kristyn Suarez NP - Last Filed: 06/11/22 16:46> Mr. Oliver was admitted to the ICU today after resuscitation from cardiac arrest after elective EGD. The patient is a 61-yo male with a past medical history of AFib with RVR, HFrEF, right ventricular dysfunction, and non-STEMI about 1 year ago.? He lives independently and works a full-time job. He is a current 1 ppd smoker times 40 years day, and reports drinking a six-pack of beer along with a couple shots of robson daily. Echo done 03/30/22 showed normal left ventricular cavity size with mildly increased left ventricular wall thickness. ?The left ventricular systolic function was mildly decreased.? The visually estimated ejection fraction was between 40-45%. Right ventricular cavity size was mildly increased.? There was moderately decreased right ventricular systolic function. The left atrium was severely dilated. The right atrium was? moderately dilated.? The patient was seen in the office by Dr. Land on 09/08/21 and 05/27/22 in f/u of his Afib and MN. Mr. Oliver presented to [facility] today for an elective outpatient EGD and colonoscopy for w/u of unintentended weight loss. ?The EGD procedure was done first.? Approximately 5 minutes into the EGD, he went into pulseless monomorphic V-tach. He was intubated and CPR/ACLS was initiated.? He received 2 doses of amiodarone 150mg and at least two shocks without conversion of his rhythm, but he subsequently did have ROSC with a pulse, spont respirations, and was moving around.? He was then given Lidocaine 100mg and then converted back to sinus rhythm.? He was then transported to the ICU. Upon arrival to the ICU, he was awake and breathing independently and vigorously, and was extubated without incident to room air. ?He is fully alert and oriented. ?Able to give a great PMHx and specify his HCP.? Afebrile.? HR 66, SR.? BP 102/74. RR 17, nonlabored, w SpO2 98% on RA. No JVD at 30?.? Chest shows good excursion, clear to auscultation, normal expiratory phase.? RRR, heart tones are very soft, no M or G appreciated.? The abdomen is flat and benign. No edema. No neuro deficits. LABORATORY DATA:? Pending IMPRESSION: 1. Background heavy alcohol use.? CIWA protocol. 2. Heavy smoker.? Declined a nicotine patch. 3. CAD, previous MN. 4. H/o PAfib w RVR.j 5. Unintended weight loss 6. Sustained Vtach arrest during EGD today.? Unresponsive to amiodarone, converted spontaneously to SR after bolus lidocaine. Now doing well.? Labs pending.? D/W Dr Land, he will see the patient.? May need transfer for ischemic w/u. <Kristyn Suarez NP - Last Filed: 06/11/22 16:46> Mr. Oliver was admitted to the ICU today after resuscitation from cardiac arrest after elective EGD. The patient is a 61-yo male with a past medical history of AFib with RVR, HFrEF, right ventricular dysfunction, and non-STEMI about 1 year ago.? He lives independently and works a full-time job. He is a current 1 ppd smoker times 40 years day, and reports drinking a six-pack of beer along with a couple shots of robson daily. Echo done 03/30/22 showed normal left ventricular cavity size with mildly increased left ventricular wall thickness. ?The left ventricular systolic function was mildly decreased.? The visually estimated ejection fraction was between 40-45%. Right ventricular cavity size was mildly increased.? There was moderately decreased right ventricular systolic function. The left atrium was severely dilated. The right atrium was? moderately dilated.? The patient was seen in the office by Dr. Land on 09/08/21 and 05/27/22 in f/u of his Afib and MN. Mr. Oliver presented to [facility] today for an elective outpatient EGD and colonoscopy for w/u of unintentended weight loss. ?The EGD procedure was done first.? A pproximately 5 minutes into the EGD, he went into pulseless monomorphic V-tach. He was intubated and CPR/ACLS was initiated.? He received 2 doses of amiodarone 150mg and at least two shocks without conversion of his rhythm, but he subsequently did have ROSC with a pulse, spont respirations, and was moving around.? He was then given Lidocaine 100mg and then converted back to sinus rhythm.? He was then transported to the ICU. Upon arrival to the ICU, he was awake and breathing independently and vigorously, and was extubated without incident to room air. ?He is fully alert and oriented. ?Able to give a great PMHx and specify his HCP.? Afebrile.? HR 66, SR.? BP 102/74. RR 17, nonlabored, w SpO2 98% on RA. No JVD at 30?.? Chest shows good excursion, clear to auscultation, normal expiratory phase.? RRR, heart tones are very soft, no M or G appreciated.? The abdomen is flat and benign. No edema. No neuro deficits. LABORATORY DATA:? Pending IMPRESSION: 1. Background heavy alcohol use.? CIWA protocol. 2. Heavy smoker.? Declined a nicotine patch. 3. CAD, previous MN. 4. H/o PAfib w RVR.j 5. Unintended weight loss 6. Sustained Vtach arrest during EGD today.? Unresponsive to amiodarone, converted spontaneously to SR after bolus lidocaine. Now doing well.? Labs pending.? D/W Dr Land, he will see the patient.? May need transfer for ischemic w/u. ADDENDUM 06/11/2022 21:07 The patient was accepted a [facility] and was awaiting a bed, they had called around 20:00 asking to have a COVID test which was ordered. The result of of it is negative. The patient has been accepted to [place] [id number] Garber. The patient will be transferred there for the above-mentioned ischemic workup. Case was discussed in detail with Dr. Carrion. He is aware of all the above as well as the plan of care for this patient. <MARTHA Wright - Last Filed: 06/11/22 21:09> [facility] Past Medical History Medical History: Medical History Atrial fibrillation Enlarged RV (right ventricle) HFrEF (heart failure with reduced ejection fraction) Non-ST elevated myocardial infarction (non-STEMI) Shoulder fracture Skull fracture <Kristyn Suarez NP - Last Filed: 06/11/22 16:46> Family History Family History: Family History Father Stroke Mother Emphysema lung <Kristyn Suarez NP - Last Filed: 06/11/22 16:46> Surgical History Surgical History: Surgical History History of hernia surgery No pertinent past surgical history <Kristyn Suarez NP - Last Filed: 06/11/22 16:46> Social History Social History: Social History Household Members: None Housing: Apartment Do you presently have visiting nurse or other home services: No Alcohol intake: current Alcohol intake frequency: 3 or more drinks per day Alcohol type: beer and hard liquor Patient Tobacco Use Status: Current everyday Tobacco user Tobacco use type: Cigarette Cigarette Packs Per Day: 1 Cigarettes Per Day: 20.0 Years Smoked: 30 Smoked in Last 30 Days: No Patient Interested in Nicotine Replacement: No Patient Given Instructions on How to Stop Smoking: No Second Hand Smoke Exposure: Yes Use of substances other than those prescribed or required for medical reasons: No Have you been hit, kicked, punched, or otherwise hurt by someone within the past year? If so, by whom?: No Do you feel safe in your current relationship?: No Current Relationship Is there a partner from a previous relationship who is making you feel unsafe now?: No Are you made to feel afraid or neglected: No Are you DNR?: No Advance Directives: No Advance Directives Information Provided: Yes Advance Directives on File: No Do you have thoughts of harming others: None Do you have a plan to hurt others: No Plan Recently lost weight without trying: Yes How much weight loss: 14-23 pounds Eating poorly because of decreased appetite: No Nutrition screen score: 4 Nutrition Risks: No Nutritional Risk Poor oral hygiene: Yes service: No <Kristyn Suarez NP - Last Filed: 06/11/22 16:46> Meds Allergies/Adverse reactions: Allergies Allergy/AdvReac Type Severity Reaction Status Date / Time No Known Allergies Allergy Verified 06/02/22 14:31 <Kristyn Suarez NP - Last Filed: 06/11/22 16:46> Active Medications: Current Medications Amlodipine Besylate (Amlodipine Besylate 2.5 Mg Tablet) 2.5 mg PO DAILY ANANDA; Protocol Apixaban (Apixaban 5 Mg Tablet) 5 mg PO BID ANANDA Atorvastatin Calcium (Atorvastatin Calcium 40 Mg Tablet) 40 mg PO BEDTIME ANANDA Carvedilol (Carvedilol 6.25 Mg Tablet) 6.25 mg PO BID ANANDA; Protocol Digoxin (Digoxin 0.125 Mg Tablet) 0.125 mg PO Q2D ANANDA Furosemide (Furosemide 40 Mg Tablet) 40 mg PO BID ANANDA; Protocol Lactated Ringer's (Lr) 1,000 mls @ 50 mls/hr IVCONT .Q20H ANANDA Last Admin: 06/11/22 15:14 Dose: 50 mls/hr Lidocaine HCl/Dextrose (Lidocaine Hcl/D5w) 2 gm in 250 mls @ 0 mls/hr IVCONT .Q0M ANANDA; Protocol Isosorbide Mononitrate (Isosorbide Mononitrate 30 Mg Tab.Er.24h) 30 mg PO DAILY ANANDA; Protocol Losartan Potassium (Losartan Potassium 25 Mg Tablet) 25 mg PO DAILY ANANDA; Protocol <Kristyn Suarez NP - Last Filed: 06/11/22 16:46> Physical Exam Vital Signs: Vital Signs: Last Vital Signs Temp 97.4 F 06/11/22 13:08 Pulse 59 06/11/22 16:00 Resp 13 06/11/22 16:00 BP 111/74 06/11/22 16:00 Pulse Ox 97 06/11/22 16:00 O2 Del Method 06/11/22 16:00 BMI result Body Mass Index 20.5 <Kristyn Suarez NP - Last Filed: 06/11/22 16:46> Results Labs CBC and Chem 7: : 06/11/22 16:29 06/11/22 16:29 <Kristyn Suarez NP - Last Filed: 06/11/22 16:46> Critical Care Time Critical Care Time (minutes): 60 <Kristyn Suarez NP - Last Filed: 06/11/22 16:46>
[2022-06-11 16:56] LABS: Lactic Acid 1.4 mmol/L (0.5-2.0)
[2022-06-11 16:57] LABS: Alanine Aminotransferase 18 U/L (0-40); Albumin Level 3.7 g/dL (3.5-5.0); Alkaline Phosphatase 51 U/L (39-117); Anion Gap 14 (12-20); Aspartate Amino Transferase 18 U/L (5-37); Bilirubin Total 0.9 mg/dL (0.0-1.0); Blood Urea Nitrogen 12 mg/dL (9-16); Calcium 8.9 mg/dL (8.4-10.2); Carbon Dioxide 30 mmol/L (22-29); Chloride 99 mmol/L (96-108); Creatinine Clr Calc Pharmacy 76.2; Estimated Glomerular Filt Rate > 60; Glucose Random 87 mg/dL (60-115); Magnesium 1.8 mg/dL (1.6-2.6); Phosphorus 2.9 mg/dL (2.7-4.5); Potassium 3.5 mmol/L (3.3-5.1); Sodium 139 mmol/L (135-145); Total Protein 5.8 g/dL (6.5-8.0)
[2022-06-11 17:01] LABS: B Type Natriuretic Peptide 60 pg/mL (<100); Troponin-I High Sensitivity 31.9 ng/L (<3.5-35.0)
[2022-06-11] MEDS: Amiodarone HCL 200 MG TABLET 400 MG PO (17:17)
[2022-06-11] MEDS: Potassium Chloride Packet 20 MEQ PACKET 40 MEQ PO ×2 (17:17→18:35)
[2022-06-11] MEDS: Magnesium Sulfate/D5W 1 GM/100 ML PIGGYBACK IV ×2 (17:17→18:36)
[2022-06-11 18:12] LABS: Digoxin < 0.3 ng/mL (0.8-2.0)
[2022-06-11] MEDS: Heparin Sodium,Porcine/1/2NS 25,000 UNIT/250 ML IV.SOLN 7.35 UNIT IVCONT (18:44)
[2022-06-11] MEDS: Heparin Sodium,Porcine 5,000 UNIT/ML VIAL 2800 UNIT IVPUSH (18:45)
--- NOTE | 2022-06-11 19:00 | PC.NURSE ---
BROUGHT OVER PATIENT EMERGENTLY FROM OR POST CODE BLUE PATIENT BREATHING ON HIS OWN WITH ETT IN PLACE, REMOVED UPON ADMISSION AND PLACED ON ROOM AIR WITH NC THAT MONITORS ETCO2 = 36 A&O X 4, DENIES PAIN AT THIS TIME ECHO DONE AND SIGN LANGUAGE INSTRUCTOR BEDSIDE PATIENT GIVEN 2 DOSES OF PO K40 AND 2 DOSES OF MAGNESIUM 1G DIGOXIN DOSE HELD AND ORDER ADMINISTERED FOR AMIODARONE 400 MG BID GIVEN EARLY PER SIGN LANGUAGE INSTRUCTOR CONTINUE TO HOLD ELIQUIS PATIENTS FRIEND/HCP MENTION THAT THE PATIENT HAS BEEN HAVING LEG PAIN FOR THE PAST FEW MONTHS, PATIENT STATES ONLY WHEN WALKING - MD NOTIFIED AND ORDERED BLE US ACUTE FINDINGS NOTED ON IMAGING - SEE REPORT, MD AND SIGN LANGUAGE INSTRUCTOR NOTIFIED OF FINDINGS HEPARIN 2,800 BOLUS IVP AND GTT STARTED AT 1845 PER PROTOCOL. NO HEPARIN LABS DRAWN PRIOR TO GTT BEING STARTED PER MD. NEXT PTT-HD ORDERED FOR 0045 06/12/22. SIGN LANGUAGE INSTRUCTOR CALLED AND NOTIFIED THIS RN OF TRANSFER ORDER PLACED TO [facility] - CURRENTLY AWAITING CONTACT FROM [facility]. PATIENT AND HCP NOTIFIED OF PENDING TRANSFER.
[2022-06-11 20:46] LABS: COVID-19 Test Negative (Negative)
[2022-06-11] MEDS: Atorvastatin Calcium 40 MG TABLET PO (20:58)
--- NOTE | 2022-06-12 07:53 | PM.CNCAR ---
History of Present Illness History of Present Illness Date of Service: 06/12/22 Requesting physician: Chidi Carrion Chief complaint: Cardiac arrest. VT Narrative: 61-year-old male with alcoholism and tobacco abuse presenting for endoscopy for unintentional weight loss and developed VT arrest during the endoscopy. He was resuscitated and received amio and lidocaine. Echo showed EF 50-55% and moderate RV dysfunction -old. He is denying CP or SOB. He had LE doppler which showed left femoral artery thrombus. No pain at rest but complaining of some exertional claudication. COUNT INCLUDES THE [facility] Past Medical History Medical History Atrial fibrillation Enlarged RV (right ventricle) HFrEF (heart failure with reduced ejection fraction) Non-ST elevated myocardial infarction (non-STEMI) Shoulder fracture Skull fracture Family History Family History Father Stroke Mother Emphysema lung Surgical History Surgical History History of hernia surgery No pertinent past surgical history Social History Social History Household Members: None Housing: Apartment Do you presently have visiting nurse or other home services: No Alcohol intake: current Alcohol intake frequency: 3 or more drinks per day Alcohol type: beer and hard liquor Patient Tobacco Use Status: Current everyday Tobacco user Tobacco use type: Cigarette Cigarette Packs Per Day: 1 Cigarettes Per Day: 20.0 Years Smoked: 30 Smoked in Last 30 Days: No Patient Interested in Nicotine Replacement: No Patient Given Instructions on How to Stop Smoking: No Second Hand Smoke Exposure: Yes Use of substances other than those prescribed or required for medical reasons: No Have you been hit, kicked, punched, or otherwise hurt by someone within the past year? If so, by whom?: No Do you feel safe in your current relationship?: No Current Relationship Is there a partner from a previous relationship who is making you feel unsafe now?: No Are you made to feel afraid or neglected: No Are you DNR?: No Advance Directives: No Advance Directives Information Provided: Yes Advance Directives on File: No Do you have thoughts of harming others: None Do you have a plan to hurt others: No Plan Recently lost weight without trying: Yes How much weight loss: 14-23 pounds Eating poorly because of decreased appetite: No Nutrition screen score: 4 Nutrition Risks: No Nutritional Risk Poor oral hygiene: Yes service: No Meds Allergies Allergy/AdvReac Type Severity Reaction Status Date / Time No Known Allergies Allergy Verified 06/02/22 14:31 Physical Exam Vital Signs: Vital Signs: Last Vital Signs Temp 98.1 F 06/11/22 19:02 Pulse 52 06/11/22 21:00 Resp 12 06/11/22 21:00 BP 92/65 06/11/22 21:00 Pulse Ox 97 06/11/22 21:00 O2 Del Method 06/11/22 21:00 BMI result Body Mass Index 20.5 GENERAL APPEARANCE: in no acute distress. NECK: no carotid bruit, no jugular venous distention. SKIN: no suspicious lesions, warm and dry. HEART: no murmurs, regular rate and rhythm. LUNGS: clear to auscultation bilaterally. ABDOMEN: soft, nontender. EXTREMITIES: no significant edema. PERIPHERAL PULSES: equal. NEUROLOGIC: No gross deficits, AAO X 3 Objective Labs and Meds Result diagrams: 06/11/22 16:29 06/11/22 16:29 Lab results: Laboratory Results - last 24 hr 06/11/22 06/11/22 06/11/22 16:29 16:29 16:29 WBC 5.9 RBC 3.56 L Hgb 11.6 L Hct 34.5 L MCV 96.9 MCH 32.6 MCHC 33.6 RDW 13.3 Plt Count 143 L D MPV 9.9 Absolute Nucleated RBC 0.000 Nucleated RBC % (auto) 0.0 Sodium 139 Potassium 3.5 Chloride 99 Carbon Dioxide 30 H Anion Gap 14 BUN 12 Creatinine 0.87 Estim Creat Clear Calc 76.2 Estimated GFR > 60 Random Glucose 87 Lactic Acid 1.4 Calcium 8.9 D Phosphorus 2.9 Magnesium 1.8 Total Bilirubin 0.9 AST 18 ALT 18 Alkaline Phosphatase 51 D Troponin I High Sens B-Natriuretic Peptide Total Protein 5.8 L D Albumin 3.7 Digoxin COVID-19 ([facility] CRISTINA) COVID-19 Clin Com 06/11/22 06/11/22 06/11/22 16:29 16:29 16:29 WBC RBC Hgb Hct MCV MCH MCHC RDW Plt Count MPV Absolute Nucleated RBC Nucleated RBC % (auto) Sodium Potassium Chloride Carbon Dioxide Anion Gap BUN Creatinine Estim Creat Clear Calc Estimated GFR Random Glucose Lactic Acid Calcium Phosphorus Magnesium Total Bilirubin AST ALT Alkaline Phosphatase Troponin I High Sens 31.9 B-Natriuretic Peptide 60 Total Protein Albumin Digoxin < 0.3 L COVID-19 (ANA CRISTINA) COVID-19 Clin Com 06/11/22 20:22 WBC RBC Hgb Hct MCV MCH MCHC RDW Plt Count MPV Absolute Nucleated RBC Nucleated RBC % (auto) Sodium Potassium Chloride Carbon Dioxide Anion Gap BUN Creatinine Estim Creat Clear Calc Estimated GFR Random Glucose Lactic Acid Calcium Phosphorus Magnesium Total Bilirubin AST ALT Alkaline Phosphatase Troponin I High Sens B-Natriuretic Peptide Total Protein Albumin Digoxin COVID-19 (ANA CRISTINA) Negative COVID-19 Clin Com See Note Imaging Radiologist's impression: Impressions Venous Duplex 06/11/22 18:22 IMPRESSION: No DVT demonstrated in the bilateral lower extremity. Although not a dedicated arterial exam, there is intramural thrombus resulting in occlusion of the left proximal femoral artery with extension to the distal femoral artery with minimal flow seen within the mid femoral artery. The performing smearer discussed preliminary findings with ordering provider Chidi Carrion MD at 06/11/2022 6:25 PM and it was ascertained that the content and urgency of the report was understood at the time of direct communication. Assessment and Plan (1) Enlarged RV (right ventricle): Status: Acute (2) Atrial fibrillation: Status: Acute (3) Ventricular tachycardia: Status: Acute Plan 61 male with RV dysfunction in the past and alcohol abuse presenting for endoscopy and developed pulseless VT. He has been extubated and is stable. No CP or SOB. Would start heparin gtt. Amiodarone 400 mg BID. Would transfer to [facility] for cardiac cath and EP input. Procedures Date of Service Date of Service: 06/12/22
== END 2022-06-11 21:20 | disposition short-term general hospital (02) | DRG 206 ==
LOC: HO.SSSA 15:05 → HO.ICU 15:08
PROVIDERS: Internal Medicine; Internal Medicine Cardiovascular Disease; Physician Assistant Medical; Admitting Provider Anesthesiology; PCP Pediatrics; Visit Provider Anesthesiology
PROC: 0DJ08ZZ Inspection of Upper Intestinal Tract, Via Natural or Artificial Opening Endoscopic (ICD-10-PCS; principal; 2022-06-11 13:50)
DX: I97.711 Intraoperative cardiac arrest during other surgery (principal); I47.20 Ventricular tachycardia, unspecified; F17.210 Nicotine dependence, cigarettes, uncomplicated; I50.22 Chronic systolic (congestive) heart failure; F10.20 Alcohol dependence, uncomplicated; R63.4 Abnormal weight loss; I25.10 Atherosclerotic heart disease of native coronary artery without angina pectoris; I25.2 Old myocardial infarction; Z20.822 Contact with and (suspected) exposure to COVID-19; Z68.20 Body mass index [BMI] 20.0-20.9, adult; Z71.6 Tobacco abuse counseling; Z79.01 Long term (current) use of anticoagulants; Z79.899 Other long term (current) drug therapy
CPT/HCPCS: 36415; 80053; 80162; 83605; 83735; 83880; 84100; 84484; 85027; 87635; 88305; 92950; 93005; 93308; 93970; J0171; J0282; J2250; J3475

== ENCOUNTER → 2022-07-13 13:55 | Outpatient (BNVA) | payer OTHER, SELFPAY | PROVIDERS: PCP Pediatrics; Visit Provider Internal Medicine Cardiovascular Disease | DX: I47.20 Ventricular tachycardia, unspecified (principal); I48.91 Unspecified atrial fibrillation; I10 Essential (primary) hypertension; Z79.01 Long term (current) use of anticoagulants; Z79.899 Other long term (current) drug therapy | CPT/HCPCS: 93005; 99212 ==

== ENCOUNTER → 2022-10-26 15:09 | Outpatient (BNVA) | payer OTHER, SELFPAY | PROVIDERS: PCP Pediatrics; Referring Provider Pediatrics; Visit Provider Internal Medicine Cardiovascular Disease | DX: I47.20 Ventricular tachycardia, unspecified (principal); I48.91 Unspecified atrial fibrillation; I50.20 Unspecified systolic (congestive) heart failure; I11.0 Hypertensive heart disease with heart failure | CPT/HCPCS: 93005; 99212 ==

== ENCOUNTER → 2022-11-03 15:11 | Outpatient (BNVA) | payer OTHER, SELFPAY | PROVIDERS: PCP Pediatrics; Visit Provider Internal Medicine Cardiovascular Disease | DX: Z01.30 Encounter for examination of blood pressure without abnormal findings (principal) | CPT/HCPCS: 99211 ==

== ENCOUNTER 2023-02-24 15:45 | Outpatient (AMB) | payer OTHER, SELFPAY ==
--- NOTE | 2023-02-24 15:46 | A.OFFVIS_ITS ---
Intake Vital Signs 02/24/23 15:47 Height 5 ft 8 in Weight 141 lb 8.588 oz BMI 21.5 BP 128/84 Blood Pressure Location Lt brachial Position Sitting Pulse 108 H Pulse Source Monitor Intake Visit Reasons: 3 mth f/up Intake Note: 3 month follow up with EKG. 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 I referred him for gastroenterology evaluation because he had un intentional weight loss. He was brought in for endoscopy but unfortunately after sedation developed ventricular tachycardia. He was shocked multiple times and and received amiodarone. He reverted back to sinus rhythm. He did not have any significant rise in troponin levels. His echocardiography in fact showed that his LVEF was normal compared to low normal to mildly reduced in the past. He has background history of alcohol use and tobacco abuse and had mild cardiomyopathy with RV dysfunction in the past. 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 He had moderate disease in the LAD which we did not assess with IFR/FFR given the lack of symptoms and the fact that that level of disease did not explain ventricular tachycardia. 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 After discussion he had single- chamber ICD placement. He has been on amiodarone 200 mg once a day. His ret urning for follow-up. He is saying he is feeling fine. He is denying any chest discomfort shortness of breath. He is saying 1 of his coworkers has been upsetting him and today he is quite worked up by that. His blood pressure was significantly elevated he was tachycardic. He is saying he has been taking medications regularly except Wednesday when he missed his medications at nighttime. 02/24/23: He is here for f/u. He has claudication left more than right. He has been smoking a pack per day. He is drinking 18 beers/ week. No CP or SOB. Taking meds regularly. [facility] Medical History (Updated 02/24/23 @ 20:52 by Garrett Land MD) Atrial fibrillation Enlarged RV (right ventricle) HFrEF (heart failure with reduced ejection fraction) Non-ST elevated myocardial infarction (non-STEMI) Shoulder fracture Skull fracture Surgical History History of cardiac cath History of hernia surgery Family History Father Stroke Mother Emphysema lung Social History Household Members: None Housing: Apartment Do you presently have visiting nurse or other home services: No Alcohol intake: current Alcohol intake frequency: 3 or more drinks per day Alcohol type: beer and hard liquor Patient Tobacco Use Status: Current everyday Tobacco user Tobacco use type: Cigarette Cigarette Packs Per Day: 1 Cigarettes Per Day: 20.0 Years Smoked: 30 Second Hand Smoke Exposure: Yes service: No Review of Systems Const Denies weakness ENT Denies dizziness Card Denies chest pain, Denies chest pain with activity, Denies syncope, Denies rapid heart rate, Denies pedal edema, Denies edema, Denies leg edema, Denies lightheadedness, Denies palpitations, Denies dyspnea, Denies dyspnea on exertion and Denies orthopnea Resp Denies cough, Denies dyspnea and Denies dyspnea on exertion GI Denies hematochezia and Denies change in stool character Musc Denies abnormal gait, Denies muscle cramps, Denies muscle weakness, Denies numbness, Denies radiating pain into limb and Denies tingling Neuro Denies abnormal gait, Denies dizziness, Denies syncope, Denies numbness, Denies tingling and Denies weakness Endo Denies palpitations Physical Exam Vital Signs: Last Vital Signs Pulse 108 H 02/24/23 15:47 BP 128/84 02/24/23 15:47 BMI result Body Mass Index 21.5 GENERAL APPEARANCE: in no acute distress, pleasant. NECK: no carotid bruit, no jugular venous distention. SKIN: no suspicious lesions, warm and dry. HEART: no murmurs, regular rate and rhythm. Tachycardic. LUNGS: clear to auscultation bilaterally. ABDOMEN: soft, nontender. EXTREMITIES: no edema. PERIPHERAL PULSES: equal. NEUROLOGIC: No gross deficits, AAO X 3 Office Procedures EKG Details: Sinus tachycardia 108 beats per minute, normal axis, minimal voltage criteria for left ventricular hypertrophy, QTC 482 milliseconds. [id number], Complete Assessment & Plan Assessment & Plan (1) HFrEF (heart failure with reduced ejection fraction): Code(s): I50.20 - Unspecified systolic (congestive) heart failure (2) Enlarged RV (right ventricle): Code(s): I51.7 - Cardiomegaly (3) Atrial fibrillation: Code(s): I48.91 - Unspecified atrial fibrillation (4) Essential hypertension: Code(s): I10 - Essential (primary) hypertension (5) Claudication: Code(s): I73.9 - Peripheral vascular disease, unspecified Plan 62-year-old male with h/o CHF and RV dysfunction and sustained VT s/p ICD. He has occluded RCA with left to right collaterals. No anginal symptoms. Increasing the Coreg to 25 mg BID. We discussed about smoking and alcohol cessation. I am sending him nicotine patches. He has claudication. Due to CHF cannot use cilostazol. Smoking cessation and if he continues to have symptoms then referral to vascular surgery. Medications: New carvedilol must administer with a meal/food 25 mg PO BID 100 tabs 3RF I10 - Essential (primary) hypertension Discontinued carvedilol must administer with a meal/food Discontinued Reason: None 12.5 mg PO BID 100 tabs 3RF I10 - Essential (primary) hypertension Coding Level of Care Code Est Pt Level 4 (45662) Diagnoses HFrEF (heart failure with reduced ejection fraction) I50.20 Enlarged RV (right ventricle) I51.7 Atrial fibrillation I48.91 Essential hypertension I10 Claudication I73.9 CPT Codes EKG - CPT: 81102-Arswojrjeqbzdeipt, Complete ([id number])
[2023-02-24 15:47] VITALS: BP 128/84; PULSE 108; BMI 21.5
== END 2023-02-24 16:06 | disposition home or self-care (01) ==
PROVIDERS: Visit Provider Internal Medicine Cardiovascular Disease
DX: R00.0 Tachycardia, unspecified (principal)
CPT/HCPCS: 93010; 99214

== ENCOUNTER → 2023-02-24 15:45 | Outpatient (BNVA) | payer OTHER, SELFPAY | PROVIDERS: Visit Provider Internal Medicine Cardiovascular Disease | DX: I11.0 Hypertensive heart disease with heart failure (principal); I50.20 Unspecified systolic (congestive) heart failure; I51.7 Cardiomegaly; I48.91 Unspecified atrial fibrillation; I73.9 Peripheral vascular disease, unspecified | CPT/HCPCS: 93005; 99212 ==

== ENCOUNTER 2024-01-17 07:15 | Inpatient (IN) | payer OTHER, SELFPAY ==
[2024-01-17] VITALS (16 sets, daily range): BP systolic 95–178; BP diastolic 62–120; PULSE 89–112; RESP 12–20; TEMP 36.4–36.7; O2SAT 85–98; BMI 21.3; BMI 19.5
--- NOTE | ~2024-01-17 | XR_ITS ---
EXAMINATION: XR CHEST CLINICAL INFORMATION: Dyspnea COMPARISON: 05/27/2021 TECHNIQUE: Frontal view of the chest was obtained. FINDINGS: The patient is slightly rotated into a left posterior oblique position. EKG wires overlie the chest. Automatic implantable cardioverter defibrillator generator with intact transvenous lead extending to the region of the apex of the right ventricle. Cardiac silhouette is normal in size. There is atherosclerotic calcification of the aorta. The emphysematous lungs have a relatively hyperlucent appearance. No evidence of focal consolidation, pleural effusion or pneumothorax. Old healed fracture of the mid third of the left clavicle. Old healed fractures of right posterolateral ninth and 10th ribs. XR/XR chest 1V IMPRESSION: * Chronic emphysematous lung disease. * No acute cardiopulmonary findings.
--- NOTE | ~2024-01-17 | US_ITS ---
EXAMINATION: COLOR-FLOW DUPLEX IMAGING OF THE BILATERAL LOWER EXTREMITY ARTERIAL SYSTEM VELOCITY MEASUREMENTS THROUGHOUT THE FEMORAL ARTERIES. CLINICAL INFORMATION: The patient is a 63-year-old man with a positive smoking history. The patient presents with claudication symptoms. RIGHT FEMORAL RUNOFF VELOCITIES: The right common femoral artery peak systolic velocity is 64 cm/s. The waveform is triphasic. The right profunda femoral artery peak systolic velocity is 112 cm/s. The waveform is triphasic. The right proximal superficial femoral artery peak systolic velocity is 91 cm/s. The waveform is triphasic. The right mid superficial femoral artery peak systolic velocity is 94 cm/s. The waveform is triphasic. The right distal superficial femoral artery peak systolic velocity is 43 cm/s. The waveform is triphasic. The right popliteal artery peak systolic velocity is 97 cm/s. The waveform is triphasic. The right posterior tibial artery peak systolic velocity is 29 cm/s. The waveform is monophasic. LEFT FEMORAL RUNOFF VELOCITIES: The left common femoral artery peak systolic velocity is 53 cm/s. The waveform is monophasic. The left profunda femoral artery peak systolic velocity is 186 cm/s. The waveform is biphasic. The left proximal superficial femoral artery appears occluded. The left mid superficial femoral artery appears occluded. The left distal superficial femoral artery peak systolic velocity is 48 cm/s. The waveform is monophasic. The left popliteal artery peak systolic velocity is 30 cm/s. The waveform is monophasic. The left posterior tibial artery peak systolic velocity is 15 cm/s. The waveform is monophasic. US/US arterial duplex LE BI IMPRESSION: 1. 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 2. Findings are consistent with hemodynamically significant left inflow and outflow disease. In particular, there are occlusions of the left mid and superficial femoral artery segments. 3. If clinically indicated, these findings could be more fully evaluated with CTA or MRA.
--- NOTE | ~2024-01-17 | US_ITS ---
EXAMINATION: Noninvasive assessment of the arteries of both lower extremities to include a single level PVR exam and ANKLE BRACHIAL INDICES (ABIs). CLINICAL INFORMATION: Peripheral vascular disease TECHNIQUE: The ankle/brachial indices of the distal posterior tibial and the dorsalis pedis arteries were obtained of the lower extremity arterial system bilaterally; along with pressures and pulse volume recordings at the ankle level. The study was performed at rest. COMPARISON: Arterial duplex ultrasound from 01/17/2024 FINDINGS: 1. ANKLE-BRACHIAL INDICES: RIGHT: 0.89 LEFT: 0.55 2. ANKLE PVR WAVEFORMS: RIGHT: Abnormal LEFT: Abnormal US/US MAYRA complete IMPRESSION: Right leg: Minimally decreased ankle-brachial index and PVR waveform Left leg: Severely decreased ankle-brachial index and PVR waveform consistent with underlying occlusive disease seen on the associated duplex ultrasound
--- NOTE | 2024-01-17 07:18 | ECG_ITS ---
Test Reason : chest pain Blood Pressure : / mmHG Vent. Rate : 095 BPM Atrial Rate : 095 BPM P-R Int : 154 ms QRS Dur : 114 ms QT Int : 382 ms P-R-T Axes : 113 062 043 degrees QTc Int : 480 ms Normal sinus rhythm Left ventricular hypertrophy with repolarization abnormality ( Sokolow-Blandon , [place] product , Romhilt-Smith ) Cannot rule out Inferior infarct (cited on or before 17-JAN-2024) Abnormal ECG When compared with ECG of 11-JUN-2022 14:46, QRS duration has decreased Minimal criteria for Anteroseptal infarct are no longer Present Questionable change in initial forces of Inferior leads ST no longer depressed in Inferior leads Referred By: Generic ED Physician Electronically Signed By:PRINCESS GONZALEZ MD
[2024-01-17 07:51] LABS: Basophils Percent Auto 0.5 % (0-2); Eosinophils Absolute Auto 0.1 X10*3/uL (0.0-0.4); Eosinophils Percent Auto 0.9 % (0-4); Hematocrit 42.1 % (42.0-52.0); Hemoglobin 14.1 g/dl (14.0-18.0); Imm Gran Abs Auto 0.05 X10*3/uL (0.00-0.03); Imm Gran Pct Auto 0.8 % (0.0-0.4); Lymphocytes Absolute Auto 1.2 X10*3/uL (1.2-4.9); Lymphocytes Percent Auto 18.1 % (20-40); MANUAL DIFF FLAG NO; Mean Corpuscular HGB Conc 33.5 g/dl (31.0-36.0); Mean Corpuscular Volume 95.5 fL (80.0-98.0); Monocytes Absolute Auto 0.9 X10*3/uL (0.1-1.2); Monocytes Percent Auto 14.6 % (2-11); Neutrophils Absolute Auto 4.1 x10*3/uL (2.0-8.3); Neutrophils Percent Auto 65.1 % (45-73); Platelet Count 189 X10*3/uL (160-400); Red Blood Count 4.41 X10*6/uL (4.60-5.80); Red Cell Distribution Width 12.7 % (11.0-16.0); White Blood Count 6.4 X10*3/uL (4.8-10.8)
[2024-01-17 08:04] LABS: Alanine Aminotransferase 20 U/L (0-40); Alkaline Phosphatase 74 U/L (39-117); Anion Gap 12 (12-20); Aspartate Amino Transferase 22 U/L (5-37); Bilirubin Total 0.4 mg/dL (0.0-1.0); Blood Urea Nitrogen 10 mg/dL (9-16); Calcium 9.9 mg/dL (8.4-10.2); Carbon Dioxide 35 mmol/L (22-29); Chloride 90 mmol/L (96-108); Estimated Glomerular Filt Rate > 60; Glucose Random 138 mg/dL (60-115); Sodium 133 mmol/L (135-145); Total Protein 7.3 g/dL (6.5-8.0)
--- NOTE | 2024-01-17 08:07 | ED_ITS ---
HPI - Chest Pain General Chief Complaint: Chest Pain Stated Complaint: chest pain diff breathing Time Seen by Provider: 01/17/24 07:42 Source: patient and old records reviewed Mode of arrival: ambulatory Limitations: no limitations History of Present Illness ED Provider: ADRIAN BORJA narrative: 63 yo male with PMH of afib off eliquis a few weeks due to lack of refill but still on amiodarone, CHF 40%, NSTEMI, Vtach after sedation for colonoscopy 2021 now with single chamber ICD, leg claudication, CAD with occluded RCA with collaterals here with c/o increased cough with wheezing and difficulty breathing for 2+ weeks. He has chest pain with coughing as well. He also notes his legs are bothering him more at work. He has lost 20lbs unintentional in 1 year. He has not seen a doctor in 1 year. MD complaint: other (dyspnea, cough, leg pain, chest pain) Pertinent past history: coronary artery disease Onset (ago): week(s) (2) Timing of current episode: episodic Prior episodes: Yes Onset: during rest (coughing) Pain location: substernal Pain radiation: none Severity: moderate Quality: tightness Relieving factors: nothing Exacerbating factors: other (coughing) Context: non compliance with medication Associated symptoms: dyspnea Treatment prior to arrival: none Related Data Previous Rx's ?Medication ?Instructions ?Recorded peg 3350-electrolytes 236 240 ml PO Q10M colonoscopy #4,000 06/02/22 gram-22.74 gram-6.74 gram-5.86 mL gram solution (Golytely) apixaban 5 mg tablet (Eliquis) 5 mg PO BID #60 tabs 03/09/23 amiodarone 200 mg tablet 200 mg PO DAILY #90 tabs 07/12/23 aspirin 81 mg tablet,delayed 81 mg PO DAILY #90 tabs 07/12/23 release atorvastatin 80 mg tablet 80 mg PO DAILY #90 tabs 07/12/23 losartan 25 mg tablet 25 mg PO DAILY #90 tabs 07/12/23 carvedilol 25 mg tablet 25 mg PO BID #90 tabs 08/23/23 furosemide 40 mg tablet 40 mg PO BID #60 tabs 12/06/23 Allergies Allergy/AdvReac Type Severity Reaction Status Date / Time No Known Allergies Allergy Verified 01/17/24 07:28 Review of Systems 2 Review of Systems: Constitutional : No Fever, No Chills, pos weight loss ENT/Mouth : No Hoarseness, No sore throat, No Rhinorrhea Eyes: No Redness, No Discharge, No Vision Changes Cardiovascular : pos Chest Pain, positive SOB, positive Dyspnea on Exertion, No Edema Respiratory : positive Cough, No Sputum, positive Wheezing, Gastrointestinal : No Nausea, No Vomiting, No Diarrhea, No abdominal Pain Genitourinary : No Dysuria, No Hematuria Musculoskeletal : No joint pain, No Myalgias Skin : No rash Neuro : No Weakness, No Numbness, No Headache Psych : No anxiety, depression All other systems reviewed and are negative [facility] Past Medical History Attestation statement: The following information was validated with the patient. Source: old records reviewed Medical History Shoulder fracture Skull fracture HFrEF (heart failure with reduced ejection fraction) Enlarged RV (right ventricle) Atrial fibrillation Non-ST elevated myocardial infarction (non-STEMI) Surgical History History of cardiac cath History of hernia surgery Family History Family History Father Stroke Mother Emphysema lung Social History Social History Household Members: None Housing: Apartment Do you presently have visiting nurse or other home services: No Alcohol intake: current Alcohol intake frequency: 3 or more drinks per day Alcohol type: beer and hard liquor Patient Tobacco Use Status: Current everyday Tobacco user Tobacco use type: Cigarette Cigarette Packs Per Day: 1 Cigarettes Per Day: 20.0 Years Smoked: 30 Second Hand Smoke Exposure: Yes Advance Directives: No Advance Directives Information Provided: Yes service: No Physical Exam 2 Vital Signs: Vital Signs: Last Vital Signs Temp 98.0 F 01/17/24 07:27 Pulse 93 01/17/24 11:07 Resp 12 01/17/24 11:07 BP 139/94 H 01/17/24 10:00 Pulse Ox 96 01/17/24 10:00 O2 Del Method Nasal Cannula 01/17/24 10:00 O2 Flow Rate 2 01/17/24 10:00 BMI result Body Mass Index 21.3 Appearance: Alert. Oriented X3. No acute distress. Eyes: Pupils equal, round and reactive to light. ENT: Pharynx normal. Neck: Normal inspection. Neck supple. CVS: Normal heart rate and rhythm. Pulses normal. Respiratory: No respiratory distress. Breath sounds very diminished and coarse with audible wheezes throughout Abdomen: Soft and nontender. Skin: Skin warm and dry. Normal skin color. Normal skin turgor. Extremities: No lower extremity edema. Neuro: Oriented X 3. No motor deficit. No sensory deficit. Course Course Course Narrative: I do not think this is VTE was on eliquis for afib not clots and his breathing is due to his wheezing and chronic cigarette use Medications Administered Discontinued Medications Generic Name Dose Route Start Last Admin Trade Name Freq PRN Reason Stop Dose Admin Albuterol/Ipratropium 3 ml 01/17/24 10:51 01/17/24 11:07 Albuterol/Iprat 2.5/0.5mg 3 Ml Ampul.Neb INHALE 01/17/24 10:52 3 ml ONCE ONE Administration Albuterol Sulfate 2.5 mg/ 0 mg 01/17/24 08:10 01/17/24 08:12 Albuterol/Ipratropium 3 ml INHALE 01/17/24 08:11 1 dose ONCE ONE Administration Albuterol Sulfate 2.5 mg/ 0 mg 01/17/24 08:52 01/17/24 08:54 Albuterol/Ipratropium 3 ml INHALE 01/17/24 08:53 1 dose ONCE ONE Administration Methylprednisolone Sodium Succinate 60 mg 01/17/24 08:06 01/17/24 08:25 Methylprednisolone Sod Succ 125 Mg/2 Ml Vial IVPUSH 01/17/24 08:07 60 mg ONCE ONE Administration Medical Decision Making Medical Decision Making [facility] Narrative: 63 yo male with PMH of afib off eliquis a few weeks due to lack of refill but still on amiodarone, CHF 40%, NSTEMI, Vtach after sedation for colonoscopy 2021 now with single chamber ICD, leg claudication, CAD with occluded RCA with collaterals here with c/o cough, chest pain with cough, weight loss, not taking his eliquis for afib, dyspnea - at this time seems more reactive airway disease but given history will need trop x 2, CXR, IV steroids, his feet are warm and well perfused no severe pain to suggest acute ischemia has known claudication. IV steroids, bronch protocol started Differential Diagnosis Differential Diagnoses: The differential diagnosis associated with the presentation includes viral URI, bronch protocol URI chronic claudication cancer Admission/Observation Consideration of admission/observation: Escalation of care including admission/observation considered admit for hypoxia and COPD exacerbation Consult Healthcare Provider Management of the patient was discussed with: Hospitalist (will admit) Lab Data MDM Lab Attestation statement: I reviewed the patient's lab results. 01/17/24 07:40 01/17/24 07:40 Labs: Lab Results 01/17/24 01/17/24 01/17/24 Range/Units 07:40 07:57 10:47 WBC 6.4 (4.8-10.8) X10*3/uL RBC 4.41 L D (4.60-5.80) X10*6/uL Hgb 14.1 D (14.0-18.0) g/dl Hct 42.1 D (42.0-52.0) % MCV 95.5 (80.0-98.0) fL MCH 32.0 (27.0-33.0) pg MCHC 33.5 (31.0-36.0) g/dl RDW 12.7 (11.0-16.0) % Plt Count 189 D (160-400) X10*3/uL MPV 10.0 (9.4-12.4) fL Immature Gran % (Auto) 0.8 H (0.0-0.4) % Neut % (Auto) 65.1 (45-73) % Lymph % (Auto) 18.1 L (20-40) % [place] % (Auto) 14.6 H (2-11) % Eos % (Auto) 0.9 (0-4) % Baso % (Auto) 0.5 (0-2) % Lymph # (Auto) 1.2 (1.2-4.9) X10*3/uL [place] # (Auto) 0.9 (0.1-1.2) X10*3/uL Eos # (Auto) 0.1 (0.0-0.4) X10*3/uL Baso # (Auto) 0.0 (0.0-0.2) X10*3/uL Abs Immat Gran (auto) 0.05 H (0.00-0.03) X10*3/uL Absolute Neuts (auto) 4.1 (2.0-8.3) x10*3/uL Absolute Nucleated RBC 0.000 (0.0-0.012) X10*3/uL Nucleated RBC % (auto) 0.0 (0.0-0.2) /100WBC Sodium 133 L (135-145) mmol/L Potassium 4.0 (3.3-5.1) mmol/L Chloride 90 L (96-108) mmol/L Carbon Dioxide 35 H (22-29) mmol/L Anion Gap 12 (12-20) BUN 10 (9-16) mg/dL Creatinine 1.03 (0.5-1.4) mg/dL Estim Creat Clear Calc 65.0 Estimated GFR > 60 Random Glucose 138 H (60-115) mg/dL Calcium 9.9 D (8.4-10.2) mg/dL Total Bilirubin 0.4 (0.0-1.0) mg/dL AST 22 (5-37) U/L ALT 20 (0-40) U/L Alkaline Phosphatase 74 (39-117) U/L Troponin I High Sens 37.8 H 34.4 (<3.5-35.0) ng/L B-Natriuretic Peptide 103 H (<100) pg/mL Total Protein 7.3 (6.5-8.0) g/dL Albumin 4.0 (3.5-5.0) g/dL Influenza Type A (PCR) NEGATIVE (Negative) Influenza Type B (PCR) NEGATIVE (Negative) RSV RNA Qual (PCR) NEGATIVE (Negative) SARS-CoV-2 RNA (RT-PCR) NEGATIVE (Negative) Independent Interpretation I performed an independent interpretation of an: EKG and Plain X-Ray (emphysema) Interpretation: Rate: 95 Rhythm: NSR [place]: normal Normal P waves. Normal RAMYA. Normal QRS complex. ST T wave : no ANN, tall t waves V3-V4, slight depression V5 qTC: 480 prior studies: no change from prior The study has been interpreted contemporaneously by me. . Radiology Impression Discussion of test interpretation with radiology: I have reviewed the radiologist's reading. External Record Review External record reviewed: Inpatient record and Office record Critical Care Time Critical Care Time Critical Care Time: Yes Total Critical Care Time: 35 Attestation: repeat nebs, hypoxia intervention, review of records I attest to this time spent taking care of the patient Discharge Plan Discharge Clinical Impression: COPD exacerbation, Hypoxia Patient Disposition: Admitted As Inpatient Print Language: French
[2024-01-17 08:11] LABS: Troponin-I High Sensitivity 37.8 ng/L (<3.5-35.0)
[2024-01-17] MEDS: Albuterol Sulfate 2.5 MG, Albuterol/Iprat 2.5/0.5MG 3 ML 3 ML INHALE ×2 (08:12→08:54)
--- NOTE | 2024-01-17 08:14 | PC.NURSE ---
Pt reports CP with cough x 2 weeks, is a smoker. Reports he hasn't seen a doctor in 2 years, since I . Upon clarification, pt was going to get a colonoscopy. He got the anesthesia and then arrested. Pt has an AICD/PPM to left chest. Pt reports he has not followed up with a provider since then.
[2024-01-17] MEDS: methylPREDNISolone Sod Succ 125 MG/2 ML VIAL 60 MG IVPUSH (08:25)
[2024-01-17 08:47] LABS: B Type Natriuretic Peptide 103 pg/mL (<100)
[2024-01-17 09:00] LABS: Influenza A PCR NEGATIVE (Negative); Influenza B PCR NEGATIVE (Negative); Resp Syncy Virus RNA Qual PCR NEGATIVE (Negative); SARS COV2 PCR INHOUSE NEGATIVE (Negative)
[2024-01-17] MEDS: Albuterol/Iprat 2.5/0.5MG 3 ML AMPUL.NEB INHALE (11:07)
[2024-01-17 11:14] LABS: Troponin-I High Sensitivity 34.4 ng/L (<3.5-35.0)
--- NOTE | 2024-01-17 11:16 | PC.NURSE ---
Lactate, blood cultures x 2 drawn/sent.
[2024-01-17] MEDS: cefTRIAXone sodium 1 GM in 0.9 % Sodium Chloride 50 ML IV (11:28)
--- NOTE | 2024-01-17 11:31 | PC.NURSE ---
VS updated, 1st abx . PT denies complaints. Awaiting inpatient orders, pt aware of plan for admission.
[2024-01-17 11:36] LABS: Lactic Acid 1.1 mmol/L (0.5-2.0)
[2024-01-17] MEDS: Doxycycline Hyclate 100 MG in 0.9 % Sodium Chloride 250 ML 166.67 MG IV (11:56)
--- NOTE | 2024-01-17 14:05 | PC.NURSE ---
Meal tray ordered from kitchen.
--- NOTE | 2024-01-17 14:28 | P.HPHOSP_ITS ---
History of Present Illness Date of Service: 01/17/24 Chief Complaint: sob and cough 63-year-old man presenting to ER with increased cough and wheezing over the last 2 weeks. He reported some musculoskeletal chest pain with coughing and reported some pain to his calves and back of his thighs. History reports a 20 lb unintentional weight loss in the last year and reports that he has not seen a primary care provider and years. He does follow with an [facility] associate software engineer which he last saw in January of 2023. He denied fever, chills, nausea, vomiting, diarrhea, recent travel, sick contacts. Patient reports that he does work but is fairly active. He reported that he has been off of his Eliquis for AFib for a few weeks due to not having a refill but reports that he has been taking his amiodarone. In the ER, he was noted to be hypoxic with oxygen saturation of 85% he was placed on 2 L of nasal cannula with a good rise and his oxygen saturation. Labs within acceptable limits vital signs stable. Patient received a dose of Solu-Medrol, albuterol, Rocephin, doxycycline, azithromycin in the ER. He will be admitted for further management and treatment of acute hypoxic respiratory failure secondary to COPD exacerbation. Review of Systems 2 Review of Systems: Denies any recent fever chills or decrease in appetite respiratory See HPI cardiovascular Denied chest pain gastrointestinal denies any dysphagia abdominal pain nausea vomiting or diarrhea genitourinary denies any dysuria frequency or hematuria musculoskeletal denies any joint pain or swelling neuropsych denies any weakness or seizures all other systems reviewed are negative [facility] Medical History Shoulder fracture Skull fracture HFrEF (heart failure with reduced ejection fraction) Enlarged RV (right ventricle) Atrial fibrillation Non-ST elevated myocardial infarction (non-STEMI) Family History Father Stroke Mother Emphysema lung Surgical History History of cardiac cath History of hernia surgery Social History Household Members: None Housing: Apartment Do you presently have visiting nurse or other home services: No Alcohol intake: current Alcohol intake frequency: 3 or more drinks per day Alcohol type: beer and hard liquor Patient Tobacco Use Status: Current everyday Tobacco user Tobacco use type: Cigarette Cigarette Packs Per Day: 1 Cigarettes Per Day: 20.0 Years Smoked: 50 Smoked in Last 30 Days: Yes Patient Interested in Nicotine Replacement: Yes Patient Given Instructions on How to Stop Smoking: No Second Hand Smoke Exposure: No Use of substances other than those prescribed or required for medical reasons: No Currently Displaying Signs/Symptoms of Drug Intoxication Withdrawal: No Have you been hit, kicked, punched, or otherwise hurt by someone within the past year? If so, by whom?: No Do you feel safe in your current relationship?: Yes Is there a partner from a previous relationship who is making you feel unsafe now?: No Are you made to feel afraid or neglected: No Advance Directives: No Advance Directives Information Provided: Yes Do you have a plan to hurt others: No Plan Recently lost weight without trying: No Nutrition Risks: No Nutritional Risk Poor oral hygiene: No service: No Meds Allergies Allergy/AdvReac Type Severity Reaction Status Date / Time No Known Allergies Allergy Verified 01/17/24 07:28 Active Medications: Current Medications Acetaminophen (Acetaminophen 325 Mg Tablet) 650 mg PO Q6H PRN PRN Reason: Pain, Mild (Pain Scale 1-3), fever or headache Albuterol Sulfate (Albuterol Sulfate (0.083%) 2.5 Mg/3 Ml Vial.Neb) 2.5 mg INHALE RQ4H WHILE AWAKE [facility] Amiodarone HCl (Amiodarone Hcl 200 Mg Tablet) 200 mg PO DAILY [facility] Aspirin (Aspirin Enteric Coated 81 Mg Tablet.Dr) 81 mg PO DAILY [facility] Atorvastatin Calcium (Atorvastatin Calcium 80 Mg Tablet) 80 mg PO DAILY [facility] Calcium Carbonate (Calcium Carbonate 750 Mg Tab.Chew) 750 mg PO Q4H PRN PRN Reason: Heartburn Carvedilol (Carvedilol 25 Mg Tablet) 25 mg PO BID [facility]; Protocol Enoxaparin Sodium (Enoxaparin Sodium 40 Mg/0.4 Ml Syringe) 40 mg SUBCUT Q24H [facility] Furosemide (Furosemide 40 Mg Tablet) 40 mg PO BID [facility]; Protocol Azithromycin 500 mg/ Sodium (Chloride) 250 mls @ 125 mls/hr IV Q24H [facility] Losartan Potassium (Losartan Potassium 25 Mg Tablet) 25 mg PO DAILY [facility]; Protocol Magnesium Hydroxide (Milk Of Magnesia 30 Ml Oral.Susp) 30 ml PO DAILY PRN PRN Reason: Constipation Melatonin (Melatonin 3 Mg Tablet) 6 mg PO BEDTIME PRN PRN Reason: Insomnia Methylprednisolone Sodium Succinate (Methylprednisolone Sod Succ 40 Mg/Ml Vial) 40 mg IVPUSH Q8H [facility] Ondansetron HCl (Ondansetron Hcl 4 Mg/2 Ml Vial) 4 mg IVPUSH Q8H PRN PRN Reason: Nausea and Vomiting Sodium Chloride (0.9 % Sodium Chloride Flush 3 Ml Syringe) 3 ml IVFLUSH QSHIFT [facility] Physical Exam 2 Vital Signs and Narrative: Vital Signs: Last Vital Signs Temp 98.0 F 01/17/24 07:27 Pulse 95 01/17/24 11:53 Resp 19 01/17/24 11:53 BP 129/106 H 01/17/24 11:53 Pulse Ox 95 01/17/24 11:53 O2 Del Method Nasal Cannula 01/17/24 11:53 O2 Flow Rate 2 01/17/24 11:53 BMI result Body Mass Index 21.3 Appearing in no acute distress head is normocephalic atraumatic eyes pupils are PERRLA sclera is anicteric mouth throat mucous membranes are intact and moist neck is supple no lymphadenopathy, no JVD noted lung sounds dim with exp wheezing heart regular rate rhythm, clear S1, S2 positive bowel sounds, abdomen is soft, nontender neuro patient is alert x3, no focal deficits Results Labs 01/18/24 05:05 01/18/24 05:05 Labs: Laboratory Results - last 24 hr 01/17/24 01/17/24 01/17/24 07:40 07:57 10:47 MCV 95.5 MCH 32.0 MCHC 33.5 RDW 12.7 Plt Count 189 D MPV 10.0 Immature Gran % (Auto) 0.8 H Neut % (Auto) 65.1 Lymph % (Auto) 18.1 L [place] % (Auto) 14.6 H Eos % (Auto) 0.9 Baso % (Auto) 0.5 Lymph # (Auto) 1.2 [place] # (Auto) 0.9 Eos # (Auto) 0.1 Baso # (Auto) 0.0 Abs Immat Gran (auto) 0.05 H Absolute Neuts (auto) 4.1 Absolute Nucleated RBC 0.000 Nucleated RBC % (auto) 0.0 Anion Gap 12 Estim Creat Clear Calc 65.0 Estimated GFR > 60 Random Glucose 138 H Lactic Acid Calcium 9.9 D Total Bilirubin 0.4 AST 22 ALT 20 Alkaline Phosphatase 74 Troponin I High Sens 37.8 H 34.4 B-Natriuretic Peptide 103 H Total Protein 7.3 Albumin 4.0 Influenza Type A (PCR) NEGATIVE Influenza Type B (PCR) NEGATIVE RSV RNA Qual (PCR) NEGATIVE SARS-CoV-2 RNA (RT-PCR) NEGATIVE 01/17/24 11:15 MCV MCH MCHC RDW Plt Count MPV Immature Gran % (Auto) Neut % (Auto) Lymph % (Auto) [place] % (Auto) Eos % (Auto) Baso % (Auto) Lymph # (Auto) [place] # (Auto) Eos # (Auto) Baso # (Auto) Abs Immat Gran (auto) Absolute Neuts (auto) Absolute Nucleated RBC Nucleated RBC % (auto) Anion Gap Estim Creat Clear Calc Estimated GFR Random Glucose Lactic Acid 1.1 Calcium Total Bilirubin AST ALT Alkaline Phosphatase Troponin I High Sens B-Natriuretic Peptide Total Protein Albumin Influenza Type A (PCR) Influenza Type B (PCR) RSV RNA Qual (PCR) SARS-CoV-2 RNA (RT-PCR) Imaging Radiologist's Impressions: Impressions Chest X-Ray 01/17/24 08:00 IMPRESSION: * Chronic emphysematous lung disease. * No acute cardiopulmonary findings. Assessment and Plan (1) COPD exacerbation: Status: Acute Plan 63-year-old man admitted for acute COPD exacerbation Acute hypoxic respiratory failure secondary to COPD exacerbation IV Solu-Medrol Scheduled DuoNebs Supplemental oxygen as needed to keep oxygen saturation greater than 89% Azithromycin Cough suppressant as needed Claudication Patient reports pain to bilateral lower extremity in the calf and thigh areas Arterial Doppler ordered bilaterally, if positive will consult vascular surgery Atrial fibrillation In normal sinus rhythm at this time Continue amiodarone, carvedilol, aspirin Alcohol abuse pt reports several beers a day, maybe 4 and states not everyday no signs of withdrawal at this time monitor on CIWA Hypertension Continue losartan History of coronary artery disease/claudication/ Hyperlipidemia Continue aspirin and statin DVT prophylaxis with Lovenox Patient required least 48 hours of inpatient admission for acute hypoxic respiratory failure requiring IV steroids and scheduled DuoNebs. Due to patient's age and other comorbidities he is at high risk for decompensation. Quality Stroke Does the patient have a stroke diagnosis?: No VTE Prior VTE?: No VTE Risk Level:: Medical - moderate - high VTE Device Contraindication: Treatment Not Indicated VTE Drug Contraindication: N/A - Med Ordered
--- NOTE | 2024-01-17 14:34 | PHA.MEDREC ---
Pharmacy Consult ? Medication Reconciliation Pharmacy has completed the medication reconciliation. Patient confirmed medications with old list from home and verbally confirming his losartan.
[2024-01-17] MEDS: Azithromycin 500 MG in 0.9 % Sodium Chloride 250 ML 125 MG IV (15:02)
[2024-01-17] MEDS: methylPREDNISolone Sod Succ 40 MG/ML VIAL IVPUSH ×2 (15:04→23:27)
[2024-01-17] MEDS: 0.9 % Sodium Chloride Flush 3 ML SYRINGE IVFLUSH ×2 (15:06→23:27)
[2024-01-17] MEDS: Albuterol Sulfate (0.083%) 2.5 MG/3 ML VIAL.NEB INHALE (19:13)
[2024-01-17] MEDS: Furosemide 40 MG TABLET PO (19:35)
[2024-01-17] MEDS: carvediloL 25 MG TABLET PO (22:00)
[2024-01-18] VITALS (11 sets, daily range): BP systolic 111–138; BP diastolic 71–86; PULSE 62–101; RESP 13–18; TEMP 36.2–36.4; O2SAT 94–99
[2024-01-18 06:23] LABS: Basophils Percent Auto 0.1 % (0-2); Hematocrit 37.5 % (42.0-52.0); Hemoglobin 12.8 g/dl (14.0-18.0); Imm Gran Abs Auto 0.15 X10*3/uL (0.00-0.03); Imm Gran Pct Auto 0.9 % (0.0-0.4); Lymphocytes Absolute Auto 0.6 X10*3/uL (1.2-4.9); Lymphocytes Percent Auto 3.4 % (20-40); MANUAL DIFF FLAG SCAN; Mean Corpuscular HGB Conc 34.1 g/dl (31.0-36.0); Mean Corpuscular Hemoglobin 32.1 pg (27.0-33.0); Mean Platelet Volume 10.5 fL (9.4-12.4); Monocytes Absolute Auto 0.8 X10*3/uL (0.1-1.2); Monocytes Percent Auto 4.6 % (2-11); Neutrophils Absolute Auto 15.6 x10*3/uL (2.0-8.3); Platelet Count 190 X10*3/uL (160-400); Red Blood Count 3.99 X10*6/uL (4.60-5.80); Red Cell Distribution Width 12.6 % (11.0-16.0); SCAN SMEAR FLAG 1; White Blood Count 17.2 X10*3/uL (4.8-10.8)
[2024-01-18 06:30] LABS: Alanine Aminotransferase 13 U/L (0-40); Albumin Level 3.5 g/dL (3.5-5.0); Alkaline Phosphatase 64 U/L (39-117); Anion Gap 13 (12-20); Aspartate Amino Transferase 12 U/L (5-37); Bilirubin Total 0.2 mg/dL (0.0-1.0); Blood Urea Nitrogen 22 mg/dL (9-16); Calcium 9.7 mg/dL (8.4-10.2); Carbon Dioxide 31 mmol/L (22-29); Chloride 93 mmol/L (96-108); Creatinine Clr Calc Pharmacy 50.8; Estimated Glomerular Filt Rate > 60; Glucose Random 163 mg/dL (60-115); Potassium 3.6 mmol/L (3.3-5.1); Sodium 133 mmol/L (135-145); Total Protein 6.6 g/dL (6.5-8.0)
[2024-01-18 07:08] LABS: SLIDE REVIEW VERIFIED
[2024-01-18] MEDS: Albuterol Sulfate (0.083%) 2.5 MG/3 ML VIAL.NEB INHALE ×3 (07:57→15:07)
[2024-01-18 08:29] LABS: Estimated Average Glucose 120 mg/dL; Hemoglobin A1c % 5.8 % (<6.0)
[2024-01-18] MEDS: carvediloL 25 MG TABLET PO ×2 (09:29→20:38)
[2024-01-18] MEDS: Aspirin Enteric Coated 81 MG TABLET.DR PO (09:29)
[2024-01-18] MEDS: Atorvastatin Calcium 80 MG TABLET PO (09:29)
[2024-01-18] MEDS: Furosemide 40 MG TABLET PO ×2 (09:30→18:07)
[2024-01-18] MEDS: Losartan Potassium 25 MG TABLET PO (09:30)
[2024-01-18] MEDS: Amiodarone HCL 200 MG TABLET PO (09:31)
[2024-01-18] MEDS: methylPREDNISolone Sod Succ 40 MG/ML VIAL IVPUSH ×2 (09:31→16:33)
[2024-01-18] MEDS: Apixaban 5 MG TABLET PO ×2 (09:31→20:39)
[2024-01-18] MEDS: 0.9 % Sodium Chloride Flush 3 ML SYRINGE IVFLUSH ×3 (09:31→20:39)
--- NOTE | 2024-01-18 10:57 | HO.PM.IMPN ---
Subjective Subjective Date of Service: 01/18/24 Review of Systems Follow-up acute hypoxic respiratory failure 2. COPD exacerbation Feeling better today, ambulating in room Still having some shortness breath cough Physical Exam Vital Signs: Vital Signs: Last Vital Signs Temp 97.5 F 01/18/24 07:59 Pulse 101 H 01/18/24 09:29 Resp 17 01/18/24 07:59 BP 138/78 01/18/24 09:30 Pulse Ox 96 01/18/24 07:59 O2 Del Method Nasal Cannula 01/18/24 07:59 O2 Flow Rate 2 01/18/24 03:18 BMI result Body Mass Index 19.5 Appearing in no acute distress lung sounds dim, mild exp wheezing heart regular rate rhythm, clear S1, S2 positive bowel sounds, abdomen is soft, nontender neuro patient is alert x3, no focal deficits Objective Data Active Medications Acetaminophen (Acetaminophen 325 Mg Tablet) 650 mg PO Q6H PRN PRN Reason: Pain, Mild (Pain Scale 1-3), fever or headache Albuterol Sulfate (Albuterol Sulfate (0.083%) 2.5 Mg/3 Ml Vial.Neb) 2.5 mg INHALE RQ4H WHILE AWAKE [facility] Last Admin: 01/18/24 07:57 Dose: 2.5 mg Documented By: BETTINA Amiodarone HCl (Amiodarone Hcl 200 Mg Tablet) 200 mg PO DAILY [facility] Last Admin: 01/18/24 09:31 Dose: 200 mg Documented By: SUNIL Apixaban (Apixaban 5 Mg Tablet) 5 mg PO BID [facility] Last Admin: 01/18/24 09:31 Dose: 5 mg Documented By: SUNIL Aspirin (Aspirin Enteric Coated 81 Mg Tablet.) 81 mg PO DAILY [facility] Last Admin: 01/18/24 09:29 Dose: 81 mg Documented By: SUNIL Atorvastatin Calcium (Atorvastatin Calcium 80 Mg Tablet) 80 mg PO DAILY [facility] Last Admin: 01/18/24 09:29 Dose: 80 mg Documented By: SUNIL Calcium Carbonate (Calcium Carbonate 750 Mg Tab.Chew) 750 mg PO Q4H PRN PRN Reason: Heartburn Carvedilol (Carvedilol 25 Mg Tablet) 25 mg PO BID [facility]; Protocol Last Admin: 01/18/24 09:29 Dose: 25 mg Documented By: SUNIL Furosemide (Furosemide 40 Mg Tablet) 40 mg PO BID@0900,1800 [facility]; Protocol Last Admin: 01/18/24 09:30 Dose: 40 mg Documented By: SUNIL Azithromycin 500 mg/ Sodium (Chloride) 250 mls @ 125 mls/hr IV Q24H [facility] Last Infusion: 01/17/24 17:14 Dose: Infused Documented By: RONIT Losartan Potassium (Losartan Potassium 25 Mg Tablet) 25 mg PO DAILY [facility]; Protocol Last Admin: 01/18/24 09:30 Dose: 25 mg Documented By: SUNIL Magnesium Hydroxide (Milk Of Magnesia 30 Ml Oral.Susp) 30 ml PO DAILY PRN PRN Reason: Constipation Melatonin (Melatonin 3 Mg Tablet) 6 mg PO BEDTIME PRN PRN Reason: Insomnia Methylprednisolone Sodium Succinate (Methylprednisolone Sod Succ 40 Mg/Ml Vial) 40 mg IVPUSH Q8H [facility] Last Admin: 01/18/24 09:31 Dose: 40 mg Documented By: SUNIL Ondansetron HCl (Ondansetron Hcl 4 Mg/2 Ml Vial) 4 mg IVPUSH Q8H PRN PRN Reason: Nausea and Vomiting Sodium Chloride (0.9 % Sodium Chloride Flush 3 Ml Syringe) 3 ml IVFLUSH QSHIFT [facility] Last Admin: 01/18/24 09:31 Dose: 3 ml Documented By: SUNIL Labs 01/18/24 05:05 01/18/24 05:05 Labs: Laboratory Results - last 24 hr 01/17/24 01/17/24 01/18/24 10:47 11:15 05:05 MCV 94.0 MCH 32.1 MCHC 34.1 RDW 12.6 Plt Count 190 MPV 10.5 Immature Gran % (Auto) 0.9 H Neut % (Auto) 91.0 H Lymph % (Auto) 3.4 L [place] % (Auto) 4.6 Eos % (Auto) 0.0 Baso % (Auto) 0.1 Lymph # (Auto) 0.6 L [place] # (Auto) 0.8 Eos # (Auto) 0.0 Baso # (Auto) 0.0 Abs Immat Gran (auto) 0.15 H Absolute Neuts (auto) 15.6 H Absolute Nucleated RBC 0.000 Nucleated RBC % (auto) 0.0 Smear Tech's Comments VERIFIED Anion Gap 13 Estim Creat Clear Calc 50.8 Estimated GFR > 60 Random Glucose 163 H Estimat Average Glucose 120 Hemoglobin A1c % 5.8 Lactic Acid 1.1 Calcium 9.7 Total Bilirubin 0.2 AST 12 ALT 13 Alkaline Phosphatase 64 Troponin I High Sens 34.4 Total Protein 6.6 Albumin 3.5 Assessment and Plan (1) COPD exacerbation: Status: Acute Plan 63-year-old man admitted for acute COPD exacerbation Acute hypoxic respiratory failure secondary to COPD exacerbation IV Solu-Medrol Scheduled DuoNebs Supplemental oxygen as needed to keep oxygen saturation greater than 89% Azithromycin Cough suppressant as needed Claudication Patient reports pain to bilateral lower extremity in the calf and thigh areas Arterial Doppler ordered bilaterally> significant posterior tibial artery disease, left inflow and outflow disease Vascular surgery consultation pending Atrial fibrillation Normal sinus rhythm Continue amiodarone, carvedilol, aspirin Alcohol abuse pt reports several beers a day, maybe 4 and states not everyday no signs of withdrawal at this time monitor on CIWA Hypertension Continue losartan History of coronary artery disease/claudication/ Hyperlipidemia Continue aspirin and statin DVT prophylaxis with Lovenox Full code Patient required least 48 hours of inpatient admission for acute hypoxic respiratory failure requiring IV steroids and scheduled DuoNebs. Due to patient's age and other comorbidities he is at high risk for decompensation. Quality Stroke Does the patient have a stroke diagnosis?: No VTE Prior VTE?: No VTE Risk Level:: Medical - moderate - high VTE Device Contraindication: Treatment Not Indicated VTE Drug Contraindication: N/A - Med Ordered
[2024-01-18] MEDS: Azithromycin 500 MG in 0.9 % Sodium Chloride 250 ML 125 MG IV (14:02)
--- NOTE | 2024-01-18 15:16 | MHC.CM.PN ---
Male 63 DX COPD Exacerbation. He lives alone. He is independent with all functional mobility. CIWA scale is ordered. HCP is on file. A Vascular Surgery consult has been ordered. Patient does not have a PCP. The [facility] MD brochure has been given to the patient. DP home slef care. Patient will arrange private transportation home. Discharge plan may change if a surgical intervention is performed. CM will follow for discharge.
--- NOTE | 2024-01-18 15:34 | P.CDIM_ITS ---
PROVIDER RESPONSE TEXT: To clarify, the appropriate diagnosis supported by the clinical indicators: Clinically unable to determine (explain): paroxysmal afib but unable to determine time and duration QUERY TEXT: PHYSICIAN'S DOCUMENTATION REQUEST Date of Query: 01/18/2024 12:21 PM EDT Patient Name: Claudio Oliver Admit Date: 01/17/2024 Dear Sakina Rushing, A review of the medical record indicates additional documentation may be needed. Please review below and update the documentation accordingly. Clinical Indicators: Progress note and History and Physical: Atrial fibrillation, normal sinus rhythm continue amiodarone, carvedilol, aspirin If possible, please provide further specificity regarding atrial fibrillation, such as: Paroxysmal atrial fibrillation: terminates spontaneously or with intervention within 7 days of onset Persistent atrial fibrillation: episodes of continuous AF that last more than 7 days and do not self- terminate Long lasting persistent atrial fibrillation: episodes of continuous AF that last more than 12 months Chronic or Permanent atrial fibrillation: when a decision has been made to accept the presence of AF and there is no further attempt to restore or maintain sinus rhythm Other (explain) Clinically unable to determine (explain) Thank you, Cony Griffin, CCS, CDIS Use of terms such as suspected, likely, concern for, or probable (associated with a specific diagnosi s that is being evaluated, monitored, or treated as if it exists) are acceptable and can be coded in the inpatient se tting, when documented at the time of discharge. Please use your independent medical judgment in providing your response. THIS QUERY IS PART OF THE PERMANENT MEDICAL RECORD
[2024-01-19] VITALS (9 sets, daily range): BP systolic 123–148; BP diastolic 79–96; PULSE 60–102; RESP 16–18; TEMP 36.1–36.4; O2SAT 80–96
[2024-01-19] MEDS: methylPREDNISolone Sod Succ 40 MG/ML VIAL IVPUSH ×2 (00:35→09:28)
--- NOTE | 2024-01-19 07:37 | P.CONGS_ITS ---
History of Present Illness Consult details Consult date: 01/19/24 Reason for consult: other (PAD) Narrative: Very pleasant 63-year-old gentleman presents for evaluation MARTHA Almazan. He was actually admitted for exacerbation COPD. He had an episode of shortness of breath. He desatted to the 80s in the emergency room and was requiring supplemental oxygen. At the current time he is feeling somewhat better. Upon workup he was noted to have lower extremity pain and was noted to have an element of peripheral vascular disease. He subsequently underwent noninvasive testing. He is now stable from our perspective. Review of Systems 2 Review of Systems: Yes all other systems are reviewed and are negative Constitutional: Constitutional: Reports no additional constitutional complaints ENT: Reports Normal hearing present Cardiovascular: Cardiovascular: Denies chest pain, Denies chest pain at rest, Denies chest pain with activity and Denies pedal edema Respiratory: Respiratory: Denies cough Gastrointestinal: Gastrointestinal: Denies abdominal pain Musculoskeletal: Musculoskeletal: Denies abnormal gait, Denies muscle cramps and Denies radiating pain into limb Integumentary/Breasts: Skin/Breast: Denies skin ulcer and Denies wounds Neurologic: Reports Normal hearing present and Denies abnormal gait Psychiatric: Psychiatric: Reports no additional psychiatric complaints PMFSH Past Medical History Medical History Shoulder fracture Skull fracture HFrEF (heart failure with reduced ejection fraction) Enlarged RV (right ventricle) Atrial fibrillation Non-ST elevated myocardial infarction (non-STEMI) Family History Family History Father Stroke Mother Emphysema lung Surgical History Surgical History History of cardiac cath History of hernia surgery Social History Social History Household Members: None Housing: Apartment Do you presently have visiting nurse or other home services: No Alcohol intake: current Alcohol intake frequency: 3 or more drinks per day Alcohol type: beer and hard liquor Patient Tobacco Use Status: Current everyday Tobacco user Tobacco use type: Cigarette Cigarette Packs Per Day: 1 Cigarettes Per Day: 20.0 Years Smoked: 50 Smoked in Last 30 Days: Yes Patient Interested in Nicotine Replacement: Yes Patient Given Instructions on How to Stop Smoking: No Second Hand Smoke Exposure: No Use of substances other than those prescribed or required for medical reasons: No Currently Displaying Signs/Symptoms of Drug Intoxication Withdrawal: No Have you been hit, kicked, punched, or otherwise hurt by someone within the past year? If so, by whom?: No Do you feel safe in your current relationship?: Yes Is there a partner from a previous relationship who is making you feel unsafe now?: No Are you made to feel afraid or neglected: No Advance Directives: No Advance Directives Information Provided: Yes Do you have a plan to hurt others: No Plan Recently lost weight without trying: No Nutrition Risks: No Nutritional Risk Poor oral hygiene: No service: No Meds Allergies Allergy/AdvReac Type Severity Reaction Status Date / Time No Known Allergies Allergy Verified 01/17/24 07:28 Active Medications: Current Medications Acetaminophen (Acetaminophen 325 Mg Tablet) 650 mg PO Q6H PRN PRN Reason: Pain, Mild (Pain Scale 1-3), fever or headache Albuterol Sulfate (Albuterol Sulfate (0.083%) 2.5 Mg/3 Ml Vial.Neb) 2.5 mg INHALE RQ4H WHILE AWAKE [facility] Last Admin: 01/18/24 20:19 Dose: Not Given Amiodarone HCl (Amiodarone Hcl 200 Mg Tablet) 200 mg PO DAILY [facility] Last Admin: 01/18/24 09:31 Dose: 200 mg Apixaban (Apixaban 5 Mg Tablet) 5 mg PO BID [facility] Last Admin: 01/18/24 20:39 Dose: 5 mg Aspirin (Aspirin Enteric Coated 81 Mg Tablet.Dr) 81 mg PO DAILY [facility] Last Admin: 01/18/24 09:29 Dose: 81 mg Atorvastatin Calcium (Atorvastatin Calcium 80 Mg Tablet) 80 mg PO DAILY [facility] Last Admin: 01/18/24 09:29 Dose: 80 mg Calcium Carbonate (Calcium Carbonate 750 Mg Tab.Chew) 750 mg PO Q4H PRN PRN Reason: Heartburn Carvedilol (Carvedilol 25 Mg Tablet) 25 mg PO BID [facility]; Protocol Last Admin: 01/18/24 20:38 Dose: 25 mg Furosemide (Furosemide 40 Mg Tablet) 40 mg PO BID@0900,1800 [facility]; Protocol Last Admin: 01/18/24 18:07 Dose: 40 mg Azithromycin 500 mg/ Sodium (Chloride) 250 mls @ 125 mls/hr IV Q24H [facility] Last Infusion: 01/18/24 16:37 Dose: Infused Losartan Potassium (Losartan Potassium 25 Mg Tablet) 25 mg PO DAILY [facility]; Protocol Last Admin: 01/18/24 09:30 Dose: 25 mg Magnesium Hydroxide (Milk Of Magnesia 30 Ml Oral.Susp) 30 ml PO DAILY PRN PRN Reason: Constipation Melatonin (Melatonin 3 Mg Tablet) 6 mg PO BEDTIME PRN PRN Reason: Insomnia Methylprednisolone Sodium Succinate (Methylprednisolone Sod Succ 40 Mg/Ml Vial) 40 mg IVPUSH Q8H [facility] Last Admin: 01/19/24 00:35 Dose: 40 mg Ondansetron HCl (Ondansetron Hcl 4 Mg/2 Ml Vial) 4 mg IVPUSH Q8H PRN PRN Reason: Nausea and Vomiting Sodium Chloride (0.9 % Sodium Chloride Flush 3 Ml Syringe) 3 ml IVFLUSH QSHIFT [facility] Last Admin: 01/18/24 20:39 Dose: 3 ml Physical Exam 2 Vital Signs: Vital Signs: Last Vital Signs Temp 97.5 F 01/19/24 07:25 Pulse 78 01/19/24 07:25 Resp 16 01/19/24 07:25 BP 148/96 H 01/19/24 07:25 Pulse Ox 93 01/19/24 07:25 O2 Del Method Nasal Cannula 01/19/24 07:25 O2 Flow Rate 2.0 01/19/24 07:25 BMI result Body Mass Index 19.5 Const: General: cooperative, healthy appearing and comfortable O rientation/consciousness: oriented to person, oriented to place and oriented to time HEENT: Head: Yes normal to inspection Neck: Neck: Yes normal visual inspection Carotids: no bruits Chest: Chest palpation & inspection: normal inspection of the chest Resp: Effort & Inspection: normal respiratory effort and able to speak in complete sentences Auscultation: clear to auscultation bilaterally, no crackles, no rales, no rhonchi and no wheezes Cardio: Other: Bilateral DP signals only Rate: regular rate Rhythm: regular rhythm Heart sounds: S1 normal heart sound present and S2 normal heart sound present Bruits: no carotid bruits GI: Inspection: Yes normal to inspection Skin: Wounds: no wounds Hair: normal Neuro: General: oriented to person, oriented to place and oriented to time Cranial nerves: Yes CN's II-XII intact bilaterally and Yes Normal hearing present Cognition (Neuro): normal cognition Motor exam (neuro): 5/5 motor strength present throughout Extrem: Other: venous exam: No significant superficial varicosities or spider telangiectasias, minimal edema General: No clubbing, No cyanosis and No edema Psych: Appearance: grossly normal Mental Status: mental status grossly normal Speech and movement: Normal speech and movement present Results Labs 01/18/24 05:05 01/18/24 05:05 Labs: All other labs normal. Assessment and Plan (1) PAD (peripheral artery disease): Status: Acute Plan In short patient has an element of peripheral vascular disease. At the current time it is stable. Lower extremities do have motor and sensation intact. Patient may have inflow and outflow disease. Once his hypoxia and shortness of breath resolve he can be worked up as an outpatient. This was all discussed with him. Continue on aspirin and Eliquis which he is on. Upon discharge he can see us as an outpatient. Thank you for allowing us to assist in his care. If there are any questions or concerns please do not hesitate to contact us. Procedures Date of Service Date of Service: 01/19/24
[2024-01-19] MEDS: Albuterol Sulfate (0.083%) 2.5 MG/3 ML VIAL.NEB INHALE ×3 (08:18→15:18)
[2024-01-19] MEDS: Apixaban 5 MG TABLET PO (09:28)
[2024-01-19] MEDS: Aspirin Enteric Coated 81 MG TABLET.DR PO (09:28)
[2024-01-19] MEDS: Losartan Potassium 25 MG TABLET PO (09:28)
[2024-01-19] MEDS: Amiodarone HCL 200 MG TABLET PO (09:28)
[2024-01-19] MEDS: Atorvastatin Calcium 80 MG TABLET PO (09:29)
[2024-01-19] MEDS: Furosemide 40 MG TABLET PO (09:29)
[2024-01-19] MEDS: 0.9 % Sodium Chloride Flush 3 ML SYRINGE IVFLUSH (09:29)
[2024-01-19] MEDS: carvediloL 25 MG TABLET PO (09:29)
--- NOTE | 2024-01-19 12:35 | W.MHC.F2F ---
Service Date Service Date: 01/19/24 Encounter Date of encounter: 01/19/24 Reasons for Services Signs and symptoms assessed: COPD exacerbation new oxygen Reason for long term: CV/CP assess and/or care, teach disease management and other (new oxygen therapy ) Homebound: Leaving the home is medically contraindicated at this time without the asist of a device and/or another person due th the listed conditions above and below. Reason homebound: unsteady gait / fall risk Certification: Based on the above findings, I certify that this patient is confined to the home and needs intermittent long term care, physical therapy and/or speech therapy, or continues to need occupational therapy. The patient is under my care, and I have initiated the establishment of the plan of care. The patient will be followed by a physician who will periodically review the plan of care. Time Spent With Patient Time: Total time managing care of this patient today ____ minutes.
--- NOTE | 2024-01-19 12:37 | P.DS_ITS ---
DS: Providers Provider Date of Service: 01/19/24 Date of admission: 01/17/24 14:07 Primary care physician: None Physician Consults: 01/18/24 07:23 Consult to Vascular Surgery Routine Consulting Provider: [facility] Reason for consultation: claudication DS: Diagnosis Discharge Diagnosis (1) PAD (peripheral artery disease): Status: Acute DS: Summary Hospital Course Hospital Course: History and physical as per admitting provider. 63-year-old man presenting to ER with increased cough and wheezing over the last 2 weeks. He reported some musculoskeletal chest pain with coughing and reported some pain to his calves and back of his thighs. History reports a 20 lb unintentional weight loss in the last year and reports that he has not seen a primary care provider and years. He does follow with an [facility] carving machine operator which he last saw in January of 2023. He denied fever, chills, nausea, vomiting, diarrhea, recent travel, sick contacts. Patient reports that he does work but is fairly active. He reported that he has been off of his Eliquis for AFib for a few weeks due to not having a refill but reports that he has been taking his amiodarone. In the ER, he was noted to be hypoxic with oxygen saturation of 85% he was placed on 2 L of nasal cannula with a good rise and his oxygen saturation. Labs within acceptable limits vital signs stable. Patient received a dose of Solu-Medrol, albuterol, Rocephin, doxycycline, azithromycin in the ER. He will be admitted for further management and treatment of acute hypoxic respiratory failure secondary to COPD exacerbation. 63-year-old man treated for acute hypoxic respiratory failure secondary to COPD exacerbation. Treated with IV Solu-Medrol, scheduled DuoNebs, supplemental oxygen, azithromycin cough suppressant. He had a home oxygen evaluation and qualified for 2 L of oxygen with ambulation. It was discussed importance of patient not smoking with his oxygen as he does smoke a pack of cigarettes a day but he is working on cutting down more as he was smoking up to 2 packs a day. He also had history of claudication, was seen by vascular surgery and had arterial Doppler studies ordered which shows significant posterior tibial artery disease with left inflow and outflow disease. Vascular surgeon said for patient to follow-up with him outpatient. Plan is to discharge patient home with visiting nurse services Atrial fibrillation. In normal sinus rhythm. Continue amiodarone, carvedilol and aspirin Alcohol abuse. Patient reports drinking several beers a day maybe up to 4 but no clear number. Patient had no withdrawal signs during hospitalization and was monitored on [place] Hypertension. Continue losartan History of coronary artery disease, hyperlipidemia. Continue aspirin and statin Time Attestation Discharge Coordination Time (in mins): 35 Quality: Safe Use of Opioids Does Pt have an Active Cancer Diagnosis on the Problem List?: No Quality: Stroke Does the patient have a stroke diagnosis?: No Physical Exam Vital Signs: Vital Signs: Last Vital Signs Temp 97.5 F 01/19/24 07:25 Pulse 85 01/19/24 11:28 Resp 17 01/19/24 11:28 BP 148/96 H 01/19/24 09:29 Pulse Ox 93 01/19/24 07:25 O2 Del Method Nasal Cannula 01/19/24 07:25 O2 Flow Rate 2.0 01/19/24 07:25 BMI result Body Mass Index 19.5 Appearing in no acute distress head is normocephalic atraumatic eyes pupils are PERRLA sclera is anicteric mouth throat mucous membranes are intact and moist neck is supple no lymphadenopathy, no JVD noted lung sounds dim heart regular rate rhythm, clear S1, S2 positive bowel sounds, abdomen is soft, nontender neuro patient is alert x3, no focal deficits DS: Data Data Completed and Pending Completed studies during hospitalization [Text1]: Procedures Insertion of Endotracheal Airway into Trachea, Via Natural or Artificial Opening (06/11/22) Inspection of Upper Intestinal Tract, Via Natural or Artificial Opening Endoscopic (06/11/22) Performance of Cardiac Output, Single, Manual (06/11/22) Labs on day of discharge: Preliminary micro results at discharge 01/17/24 11:15 Blood Culture - Preliminary Blood - Venous No growth after 24 hours. 01/17/24 11:15 Blood Culture - Preliminary Blood - Venous No growth after 24 hours. Discharge Plan Discharge Anticipated Discharge Date/Time: 01/19/24 09:12 Patient Disposition: Home Health Service Discharge Diagnosis: COPD exacerbation with hypoxia Emphysema Referrals: Todd Taylor MD [Physician] - 1 Week Discharge Medications: New Eliquis 5 mg Tablet 5 mg PO BID Qty: 60 0RF albuterol sulfate [ProAir HFA] 90 mcg/actuation HFA aerosol inhaler 1 inh inhalation QID PRN (Reason: shortness of breath or wheezing) Qty: 8.5 0RF prednisone 10 mg tablet See Taper PO DIRECTED Qty: 30 0RF Taper: Prednisone 40 mg daily for 3 Days and 0 Hour 30 mg daily for 3 Days and 0 Hour 20 mg daily for 3 Days and 0 Hour 10 mg daily for 3 Days and 0 Hour Rx Instructions: see taper instructions azithromycin 500 mg tablet 500 mg PO DAILY 3 Days Qty: 3 0RF Continued losartan 25 mg tablet 25 mg PO DAILY Qty: 90 3RF atorvastatin 80 mg tablet 80 mg PO DAILY Qty: 90 3RF aspirin 81 mg tablet,delayed release (DR/EC) 81 mg PO DAILY Qty: 90 3RF amiodarone 200 mg tablet 200 mg PO DAILY Qty: 90 3RF carvedilol 25 mg tablet 25 mg PO BID Qty: 90 3RF furosemide 40 mg tablet 40 mg PO BID Qty: 60 5RF Discharge Orders: Discharge Order (Routine); Ordered 01/19/24 Ordered By: Sakina Rushing Diet: Advance to usual diet Activity on Discharge: As tolerated Stand Alone Forms: Patient Portal Discharge page Print Language: Frisian Care Plan Goals: Stop smoking or cut down use oxygen 2 liters with ambulation Health Concerns: COPD exacerbation with hypoxia Emphysema Plan of Treatment: Follow-up with primary care provider as needed Follow-up with vascular surgery Take all medications as prescribed Assessment: See discharge summary
--- NOTE | 2024-01-19 13:40 | MHC.CM.PN ---
PTdoes not have a pcp cannot have a vna ulises rain and pts rn notified of same
[2024-01-19] MEDS: Acetaminophen 325 MG TABLET 650 MG PO (14:29)
--- NOTE | 2024-01-19 14:35 | MHC.CM.PN ---
pcp regiven to pt
--- NOTE | 2024-01-19 15:02 | MHC.CM.PN ---
received a call from vivian from [employer] [phone] who said that pt will be receiving a visit from their transitional care nurse
== END 2024-01-19 16:17 | disposition home or self-care (01) | DRG 140 ==
LOC: HO.ED 11:07 → HO.EDOVER 14:15 → HO.S3 19:51
PROVIDERS: Admitting Provider Nurse Practitioner Acute Care; Emergency Provider Emergency Medicine; Visit Provider Nurse Practitioner Acute Care
DX: J44.1 Chronic obstructive pulmonary disease with (acute) exacerbation (principal); J96.01 Acute respiratory failure with hypoxia; I48.0 Paroxysmal atrial fibrillation; F17.210 Nicotine dependence, cigarettes, uncomplicated; I10 Essential (primary) hypertension; I70.213 Atherosclerosis of native arteries of extremities with intermittent claudication, bilateral legs; I25.10 Atherosclerotic heart disease of native coronary artery without angina pectoris; F10.10 Alcohol abuse, uncomplicated; T45.516A Underdosing of anticoagulants, initial encounter; Z95.810 Presence of automatic (implantable) cardiac defibrillator; Z20.822 Contact with and (suspected) exposure to COVID-19; Z71.6 Tobacco abuse counseling; Z79.899 Other long term (current) drug therapy
CPT/HCPCS: 0241U; 36415; 71045; 80053; 83036; 83605; 83880; 84484; 85025; 87040; 93005; 93923; 93925; 94640; 99285; J0456; J0696; J2919

== ENCOUNTER → 2024-01-17 07:18 | Outpatient (BNV) | payer OTHER, SELFPAY | PROVIDERS: Emergency Provider Emergency Medicine; Visit Provider Internal Medicine Cardiovascular Disease | DX: R07.9 Chest pain, unspecified (principal); R06.09 Other forms of dyspnea | CPT/HCPCS: 93010 ==

== ENCOUNTER → 2024-01-17 14:07 | Outpatient (BNV) | payer OTHER, SELFPAY | PROVIDERS: Admitting Provider Nurse Practitioner Acute Care; Emergency Provider Emergency Medicine; Visit Provider Surgery Vascular Surgery | DX: I73.9 Peripheral vascular disease, unspecified (principal) | CPT/HCPCS: 99222 ==

== ENCOUNTER → 2024-01-17 14:07 | Outpatient (BNV) | payer OTHER, SELFPAY | PROVIDERS: Admitting Provider Nurse Practitioner Acute Care; Emergency Provider Emergency Medicine; Visit Provider Nurse Practitioner Acute Care | DX: I73.9 Peripheral vascular disease, unspecified (principal) | CPT/HCPCS: 99223; 99232; 99239; G0180 ==

== ENCOUNTER 2024-02-09 15:07 | Outpatient (AMB) | payer OTHER, SELFPAY ==
--- NOTE | 2024-02-09 15:23 | MHC.OFFVIS ---
Vital Signs 02/09/24 15:24 Height 5 ft 8 in Weight 137 lb 4 oz BMI 20.9 BP 148/76 H Blood Pressure Location Lt brachial Position Sitting Pulse 94 Pulse Source Pulse Oximeter Pulse Oximetry (%) 98 Oxygen Delivery Method Room Air Intake Visit Reasons: COPD exacerbation with Hypoxia/ [place] [place] Allergies No Known Allergies Allergy (Verified 02/14/24 14:47) HPI HPI COPD exacerbation with Hypoxia/ [place] [place] Details: Claudio is a pleasant 63 year old male, current 1/2 ppd smoker with 70+ pack year history, with underlying COPD, atrial fibrillation on eliquis and amiodarone, CAD, and hyperlipidemia. He was referred by ED for pulmonary evaluation. He was admitted 01/16-01/18 for acute respiratory failure with hypoxia secondary to COPD exacerbation. In patient he was treated with IV steroids, albuterol, Rocephin, Doxycyline and Azithromycin. Upon discharge he was given prednisone and azithromycin 500 mg x 3 days and placed on 2 L supplemental oxygen with recommendation to use with ambulation. Today he reports signficant improvement in symptoms feeling back to baseline. He reports productive cough with white sputum and dyspnea with exertion.He denies wheezing or chest tightness. He admits to not using his supplemental oxygen for daytime use and uses 2L NOC, from [facility] [place]. He is currently prescribed albuterol which he uses frequently with moderate effect. He denies prior use of a daily inhaler. He denies prior history of asthma. He reports mother, smoker, with s/o emphysema. 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 [facility] Medical History (Updated 02/15/24 @ 11:12 by Erica Rowley NP) PAD (peripheral artery disease) Shoulder fracture Skull fracture HFrEF (heart failure with reduced ejection fraction) Enlarged RV (right ventricle) Atrial fibrillation Non-ST elevated myocardial infarction (non-STEMI) Surgical History History of cardiac cath History of hernia surgery Family History Father Stroke Mother Emphysema lung Social History Household Members: None Housing: Apartment Do you presently have visiting nurse or other home services: No Alcohol intake: current Alcohol intake frequency: 3 or more drinks per day Alcohol type: beer and hard liquor Patient Tobacco Use Status: Current everyday Tobacco user Tobacco use type: Cigarette Cigarettes Per Day: 7 Years Smoked: 50 Second Hand Smoke Exposure: No service: No Review of Systems Const Denies chills, Denies excessive sweating, Denies fever(s), Denies headache(s) and Denies night sweats Eyes Denies dry eyes, Denies irritation and Denies itchy eyes ENT Reports Normal hearing present, Denies headache(s), Denies nasal congestion, Denies nasal discharge, Denies post nasal drip and Denies sore throat Card Denies chest pain, Denies chest pain at rest, Denies chest pain with activity, Denies leg edema, Denies orthopnea and Denies paroxysmal nocturnal dyspnea Resp Denies chest congestion, Denies excessive phlegm production, Denies pain on inspiration, Denies pain with cough, Denies stridor and Denies wheezing Musc Denies myalgias Neuro Reports Normal hearing present and Denies headache(s) Endo Denies excessive sweating Parish/Lymph Denies lymphadenopathy Aller/Immun Denies itchy eyes, Denies seasonal rhinorrhea and Denies wheezing Physical Exam Vital Signs: Last Vital Signs Pulse 94 02/09/24 15:24 BP 148/76 H 02/09/24 15:24 Pulse Ox 98 02/09/24 15:24 Oxygen Delivery Method Room Air 02/09/24 15:24 BMI result Body Mass Index 20.9 Const General: cooperative, healthy appearing, comfortable, no acute distress, well developed and alert Orientation/consciousness: patient oriented x3 Limitations: no limitations HEENT Head: Yes normal to inspection, Yes normocephalic and Yes atraumatic Ears: hearing grossly normal bilaterally and external ears normal Eyes General: appearance normal, both eyes and all related structures Eyelids: Yes eyelids normal Sclerae: sclerae normal EOM: EOMs intact bilaterally Neck Neck: Yes normal visual inspection and Yes no lymphadenopathy Lymphatic: no lymphadenopathy noted Chest Chest palpation & inspection: normal inspection of the chest Resp Effort & Inspection: normal respiratory effort, able to speak in complete sentences, no audible wheezes, no cough, no stridor, not tachypneic, no tripod positioning and no use of accessory muscles Auscultation: diminished lung sounds Cardio Jugular venous distension: no JVD Rate: regular rate Rhythm: regular rhythm Skin Other: warm, dry General skin exam: no rashes or lesions noted Neuro General: patient oriented x3 Cranial nerves: Yes Normal hearing present Cognition (Neuro): normal cognition Gait exam (Neuro): Normal gait present Extrem General: Yes normal to inspection, Yes capillary refill normal, Yes no clubbing, cyanosis or edema and Yes no pedal edema Psych Appearance: grossly normal and well kempt Speech and movement: Normal speech and movement present and Clear speech present Affect: normal affect Attitude: cooperative Thought process: Normal thought process present Thought content: Normal thought content present Insight: Good insight present (Psych) Judgement: Good judgement present (Psych) Assessment & Plan Assessment & Plan (1) COPD (chronic obstructive pulmonary disease): Code(s): J44.9 - Chronic obstructive pulmonary disease, unspecified Category: Medical (2) Tobacco abuse: Code(s): Z72.0 - Tobacco use Category: Medical Plan Claudio presents for pulmonary evaluation after recent hospital admission for acute respiratory failure with hypoxia secondary to COPD exacerbation. At this time, he feels as though he is back to baseline, however continues with productive cough and dyspnea. Will trial Trelegy in addition to albuterol PRN. Patient with COPD, unclear severity, will send for PFT to evaluate. Given patient's significant smoking history, will send for chest CT. 6MWT completed patient reported minimal breathlessness throughout walk, completed approx 500 yrds, lowest O2 93%, highest HR 103, otherwise HR maintained in the 90s. No need for supplemental oxygen at this time. Will send for overnight oximetry to assess need for supplemental oxygen at night. All questions were answered and patient is in agreement of plan. Will follow up to review results and response to Trelegy, or sooner if needed. Orders: Orders CT chest wo IV con Today Z72.0 - Tobacco use Overnight Pulse Oximetry Today G47.34 - Idiopathic sleep related nonobstructive alveolar hypoventilation PFT pulmonary function test Today J44.9 - Chronic obstructive pulmonary disease, unspecified Medications: New [id number] 100-62.5-25 mcg (Trelegy Ellipta) 1 inh inhalation DAILY 60 ea 3RF Coding Level of Care Code New Pt Level 4 (89142) Diagnoses COPD (chronic obstructive pulmonary disease) J44.9 Tobacco abuse Z72.0
[2024-02-09 15:24] VITALS: BP 148/76; PULSE 94; O2SAT 98; BMI 20.9
== END 2024-02-09 16:12 | disposition home or self-care (01) ==
PROVIDERS: Visit Provider Nurse Practitioner Family
DX: J44.9 Chronic obstructive pulmonary disease, unspecified (principal); Z72.0 Tobacco use
CPT/HCPCS: 99204

== ENCOUNTER → 2024-02-09 15:07 | Outpatient (BNVA) | payer OTHER, SELFPAY | PROVIDERS: Visit Provider Nurse Practitioner Family | DX: J44.9 Chronic obstructive pulmonary disease, unspecified (principal); Z72.0 Tobacco use | CPT/HCPCS: 99202 ==

== ENCOUNTER 2024-02-14 14:30 | Outpatient (AMB) | payer OTHER, SELFPAY ==
--- NOTE | 2024-02-14 14:41 | MHC.OFFVIS ---
Intake Visit Reasons: Hospital follow up claudication Intake Note: Hospital follow up s/p Arterial US 01/17/24 for claudication. Pt states pain w/ walking and especially going up any incline. Pt states he can walk about a block before needing to rest due to pain and weakness. Left slightly worse than Right LE. Accompanied by: Self / Same As Patient Allergies No Known Allergies Allergy (Verified 02/14/24 14:47) HPI HPI Hospital follow up claudication: Details: Pleasant 63-year-old gentleman presents for hospital follow-up. He has a prior history of smoking. He had an episode of shortness of breath which has resolved. At the current time he can walk about 100-200 feet at most. Reports that he has left leg discomfort and calf cramping at that distance. He now presents for follow-up. Of note he has had noninvasive testing on 01/17/2024. [facility] Medical History (Updated 02/14/24 @ 16:25 by Todd Taylor MD) PAD (peripheral artery disease) Shoulder fracture Skull fracture HFrEF (heart failure with reduced ejection fraction) Enlarged RV (right ventricle) Atrial fibrillation Non-ST elevated myocardial infarction (non-STEMI) Surgical History History of cardiac cath History of hernia surgery Family History Father Stroke Mother Emphysema lung Social History Household Members: None Housing: Apartment Do you presently have visiting nurse or other home services: No Alcohol intake: current Alcohol intake frequency: 3 or more drinks per day Alcohol type: beer and hard liquor Patient Tobacco Use Status: Current everyday Tobacco user Tobacco use type: Cigarette Cigarettes Per Day: 7 Years Smoked: 50 Second Hand Smoke Exposure: No service: No Review of Systems Const All systems reviewed & are unremarkable except as noted in HPI and below Reports no additional complaints ENT Reports Normal hearing present Card Denies chest pain, Denies chest pain at rest, Denies chest pain with activity and Denies pedal edema Resp Denies cough GI Denies abdominal pain Musc Denies abnormal gait, Denies muscle cramps and Denies radiating pain into limb Skin/Breast Denies skin ulcer and Denies wounds Neuro Reports Normal hearing present and Denies abnormal gait Psych Reports no additional complaints Physical Exam Const General: cooperative, healthy appearing and comfortable Orientation/consciousness: oriented to person, oriented to place and oriented to time HEENT Head: Yes normal to inspection Neck Neck: Yes normal visual inspection Carotids: no bruits Chest Chest palpation & inspection: normal inspection of the chest Resp Effort & Inspection: normal respiratory effort and able to speak in complete sentences Auscultation: clear to auscultation bilaterally, no crackles, no rales, no rhonchi and no wheezes Cardio Other: Bilateral DP signals Rate: regular rate Rhythm: regular rhythm Heart sounds: S1 normal heart sound present and S2 normal heart sound present Bruits: no carotid bruits Peripheral pulses: Peripheral pulses 2+ throughout GI Inspection: Yes normal to inspection Skin Wounds: no wounds Hair: normal Neuro General: oriented to person, oriented to place and oriented to time Cranial nerves: Yes CN's II-XII intact bilaterally and Yes Normal hearing present Cognition (Neuro): normal cognition Motor exam (neuro): 5/5 motor strength present throughout Extrem Other: venous exam: No significant superficial varicosities or spider telangiectasias, minimal edema General: No clubbing, No cyanosis and No edema Psych Appearance: grossly normal Mental Status: mental status grossly normal Speech and movement: Normal speech and movement present Results Reviewed Results Reviewed: Noninvasive testing dated 01/17/2024 demonstrates on the left side findings consistent with left inflow and outflow disease with concerns of occlusion in the left mid and superficial femoral arteries. Assessment & Plan Assessment & Plan (1) PAD (peripheral artery disease): Code(s): I73.9 - Peripheral vascular disease, unspecified Category: Medical Plan: Patient notes leg pain when walking distances. I have discussed the pathophysiology of peripheral vascular disease with the patient. I have also discussed risk factor modification. I have reviewed the patient's arterial testing which reveals left SFA disease. the patient would benefit from a left leg endovascular peripheral angiogram with possible angioplasty, stent, and/or atherectomy. This has been discussed in detail with the patient along with risks, benefits, and complications. This includes but is not limited to bleeding, infection, heart attack, need for emergent surgical repair, limb ischemia, blood vessel damage, bleeding, puncture, kidney injury, bruising, allergic reaction, and skin reaction. The patient demonstrates a clear understanding. We will schedule for the next appropriate time. Thank you for allowing us to assist in this patient's care. Coding Level of Care Code Est Pt Level 4 (48141) Diagnoses PAD (peripheral artery disease) I73.9
== END 2024-02-14 15:37 | disposition home or self-care (01) ==
PROVIDERS: Visit Provider Surgery Vascular Surgery
DX: I73.9 Peripheral vascular disease, unspecified (principal)
CPT/HCPCS: 99214

== ENCOUNTER → 2024-02-14 14:30 | Outpatient (BNVA) | payer OTHER, SELFPAY | PROVIDERS: Visit Provider Surgery Vascular Surgery | DX: I73.9 Peripheral vascular disease, unspecified (principal) | CPT/HCPCS: 99212 ==

== ENCOUNTER 2024-02-16 06:00 | Day surgery (SDC) | payer OTHER, SELFPAY ==
[2024-02-16] VITALS (9 sets, daily range): BP systolic 122–173; BP diastolic 83–112; PULSE 80–93; RESP 16; TEMP 36.6–36.8; O2SAT 93–98; BMI 21.6
[2024-02-16 06:41] LABS: MANUAL DIFF FLAG NO
[2024-02-16 06:45] LABS: Basophils Absolute Auto 0.1 X10*3/uL (0.0-0.2); Basophils Percent Auto 1.2 % (0-2); Eosinophils Absolute Auto 0.1 X10*3/uL (0.0-0.4); Eosinophils Percent Auto 3.4 % (0-4); Hematocrit 34.7 % (42.0-52.0); Hemoglobin 11.8 g/dl (14.0-18.0); Imm Gran Abs Auto 0.02 X10*3/uL (0.00-0.03); Imm Gran Pct Auto 0.5 % (0.0-0.4); Lymphocytes Percent Auto 23.4 % (20-40); Mean Corpuscular Hemoglobin 32.4 pg (27.0-33.0); Mean Corpuscular Volume 95.3 fL (80.0-98.0); Mean Platelet Volume 8.7 fL (9.4-12.4); Monocytes Absolute Auto 0.4 X10*3/uL (0.1-1.2); Monocytes Percent Auto 9.4 % (2-11); Neutrophils Absolute Auto 2.6 x10*3/uL (2.0-8.3); Neutrophils Percent Auto 62.1 % (45-73); Platelet Count 143 X10*3/uL (160-400); Red Blood Count 3.64 X10*6/uL (4.60-5.80); Red Cell Distribution Width 13.5 % (11.0-16.0); White Blood Count 4.2 X10*3/uL (4.8-10.8)
[2024-02-16 06:59] LABS: Blood Urea Nitrogen 12 mg/dL (9-16); Creatinine Clr Calc Pharmacy 76.5; Estimated Glomerular Filt Rate > 60
[2024-02-16] MEDS: 0.9 % Sodium Chloride 1,000 ML 100 ML IVCONT (07:28)
--- NOTE | 2024-02-16 08:58 | W.PM.OPN ---
Operative Note Operative Note Date of Service: 02/16/24 Narrative: Angiogram report from [facility] Preoperative diagnosis: Atherosclerosis of left lower extremity with activity limiting claudication Postoperative diagnosis: Same Procedure: 1. Ultrasound-guided right common femoral access 2. Aortogram with bilateral lower extremity runoff Surgeon:Todd Taylor M.D., FACS, RPVI Final Finisher Forging Dies:None Anesthesia: Local with moderate conscious sedation. Total intraservice moderate sedation time was 26 minutes. I monitored the patient's level of consciousness and physiologic status continuously throughout the procedure. Specimens:none Drains:none Estimated blood loss: Less than 10 ml Implant: None Indications: 63-year-old gentleman who has activity limiting claudication of left lower extremity was shown to have SFA disease on ultrasound. He now presents for endovascular intervention. The patient has signed the informed consent after reviewing risks, complications, benefits, and alternatives previously discussed with the patient. The patient was given the opportunity to ask any additional questions or voice any concerns. All questions were answered to the patient's satisfaction. Procedure in detail: Patient was brought to the angiography suite prior to which a time-out was called for patient identification and site verification. Bilateral groins were prepped and draped in the standard surgical fashion. Under ultrasound guidance right common femoral was punctured with micro puncture needle and wire. Subsequently a precision 4 [place] sheath was then placed. Bentson wire was advanced to the level of the aorta. 4 [place] Flush catheter was brought up and parked at the level of the renal arteries. Aortogram was then undertaken. Catheter was brought down to the level of the iliac bifurcation. Iliacs were subsequently imaged. Catheter was then brought in up and over to the left side common femoral. Runoff study was then undertaken. At this time we tried to advance a stiff Glidewire through this lesion of the SFA. It was a total solid occlusion from the origin all the way up to the above knee popliteal. After several attempts and multiple orthogonal views attempt was withdrawn. Catheter and wire were removed. Through the 5 [place] sheath we did a ipsilateral right lower extremity runoff. Once this was all accomplished a CELT closure device was placed. Adequate hemostasis was achieved. Patient tolerated the procedure well. Returned to recovery with stable vitals. Interpretation of films: 1. Ultrasound demonstrates appropriate femoral access site. Vessel was patent with minimal stenosis. Needle entry was visualized. Image of ultrasound was saved. 2. Aortogram demonstrates appropriate caliber aorta. Minimal disease. Appropriate take-off of the renals. 3. Iliac images demonstrate no significant disease. 4. Left Leg Common femoral artery: No significant disease Profundus Femoris: No significant disease Superficial femoral artery: Total occlusion from the origin to above knee popliteal Popliteal artery (p1,p2,p3): Patent with no significant disease Anterior tibial artery: Patent with no significant disease Peroneal artery: Patent with no significant disease Posterior tibial artery: Occluded Dorsalis pedis/plantar arch: Incomplete 5. Right Leg Common femoral artery: No significant disease Profundus Femoris: No significant disease Superficial femoral artery: Minimal disease Popliteal artery (p1,p2,p3): Patent with no significant disease Anterior tibial artery: Patent with no significant disease Peroneal artery: Patent with no significant disease Posterior tibial artery: Occluded Dorsalis pedis/plantar arch: Incomplete Conclusion: 1. Successful diagnostic angiogram. Should intervention be required it will require a left lower extremity fem to above knee popliteal bypass. 2. Anticoagulation status: No change This note is constructed using voice recognition software. While every effort has been made to ensure accuracy, commercial solar sales consultant errors may have been included. Thank you for allowing me to participate in the care of your patient. Yours sincerely, Todd Taylor MD, FACS, R.P.V.I.
[2024-02-16] MEDS: Acetaminophen 325 MG TABLET 650 MG PO (10:19)
== END 2024-02-16 11:12 | disposition home or self-care (01) ==
PROVIDERS: Visit Provider Surgery Vascular Surgery
DX: I70.212 Atherosclerosis of native arteries of extremities with intermittent claudication, left leg (principal); M79.662 Pain in left lower leg; M62.831 Muscle spasm of calf; R26.2 Difficulty in walking, not elsewhere classified; I50.20 Unspecified systolic (congestive) heart failure; I48.91 Unspecified atrial fibrillation; I25.2 Old myocardial infarction; Z98.890 Other specified postprocedural states; F17.210 Nicotine dependence, cigarettes, uncomplicated
CPT/HCPCS: 36246; 36415; 75630; 76937; 82565; 84520; 85025; 99152; A4364; C1760; C1769; C1887; C1894; J1644; J2250; J2270; J2310; J3010; Q9967

== ENCOUNTER → 2024-02-16 06:00 | Outpatient (BNV) | payer OTHER, SELFPAY | PROVIDERS: Visit Provider Surgery Vascular Surgery | DX: I70.212 Atherosclerosis of native arteries of extremities with intermittent claudication, left leg (principal) | CPT/HCPCS: 36247; 75625; 75716; 76937; 99152 ==

== ENCOUNTER 2024-02-29 09:28 | Outpatient (AMB) | payer OTHER, SELFPAY ==
--- NOTE | 2024-02-29 09:31 | MHC.OFFVIS ---
Intake Visit Reasons: 2 week follow s/p Angio 02/16/24 Intake Note: Patient presents for 2 week follow up s/p angio 02/16/24. Patient states he is experiencing less leg pain but does have occasional pain that comes and goes. He feels he is walking better can walk more than one flight without taking a break. Allergies No Known Allergies Allergy (Verified 02/29/24 09:34) HPI HPI 2 week follow s/p Angio 02/16/24: Details: Very pleasant 63-year-old gentleman presents for follow-up status post diagnostic angiogram. He reports no significant change. Upon discussion with him he is able to walk just about a block and able to carry out daily activities. Now presents for routine postprocedure follow-up. [facility]MERLY [facility] Medical History PAD (peripheral artery disease) Shoulder fracture Skull fracture HFrEF (heart failure with reduced ejection fraction) Enlarged RV (right ventricle) Atrial fibrillation Non-ST elevated myocardial infarction (non-STEMI) Surgical History History of cardiac cath History of hernia surgery Family History Father Stroke Mother Emphysema lung Social History Household Members: None Housing: Apartment Do you presently have visiting nurse or other home services: No Alcohol intake: current Alcohol intake frequency: 3 or more drinks per day Alcohol type: beer and hard liquor Patient Tobacco Use Status: Current everyday Tobacco user Tobacco use type: Cigarette Cigarettes Per Day: 7 Years Smoked: 50 Second Hand Smoke Exposure: No service: No Review of Systems Const All systems reviewed & are unremarkable except as noted in HPI and below Reports no additional complaints ENT Reports Normal hearing present Card Denies chest pain, Denies chest pain at rest, Denies chest pain with activity and Denies pedal edema Resp Denies cough GI Denies abdominal pain Musc Denies abnormal gait, Denies muscle cramps and Denies radiating pain into limb Skin/Breast Denies skin ulcer and Denies wounds Neuro Reports Normal hearing present and Denies abnormal gait Psych Reports no additional complaints Physical Exam Const General: cooperative, healthy appearing and comfortable Orientation/consciousness: oriented to person, oriented to place and oriented to time HEENT Head: Yes normal to inspection Neck Neck: Yes normal visual inspection Carotids: no bruits Chest Chest palpation & inspection: normal inspection of the chest Resp Effort & Inspection: normal respiratory effort and able to speak in complete sentences Auscultation: clear to auscultation bilaterally, no crackles, no rales, no rhonchi and no wheezes Cardio Rate: regular rate Rhythm: regular rhythm Heart sounds: S1 normal heart sound present and S2 normal heart sound present Bruits: no carotid bruits Peripheral pulses: Peripheral pulses 2+ throughout GI Inspection: Yes normal to inspection Skin Other: No hematoma Wounds: no wounds Hair: normal Neuro General: oriented to person, oriented to place and oriented to time Cranial nerves: Yes CN's II-XII intact bilaterally and Yes Normal hearing present Cognition (Neuro): normal cognition Motor exam (neuro): 5/5 motor strength present throughout Extrem Other: venous exam: No significant superficial varicosities or spider telangiectasias, minimal edema General: No clubbing, No cyanosis and No edema Psych Appearance: grossly normal Mental Status: mental status grossly normal Speech and movement: Normal speech and movement present Results Reviewed Results Reviewed: Diagnostic angiogram images reviewed from 02/16/2024 and does demonstrate a complete occlusion the left SFA and will require a fem-pop bypass if required. Assessment & Plan Assessment & Plan (1) PAD (peripheral artery disease): Comment: 02/16/2024 - diagnostic angiogram Code(s): I73.9 - Peripheral vascular disease, unspecified Category: Medical Plan: In short patient is stable at the current time. He is being maintained on an aspirin and statin. At the current time he is able to carry out his daily activities. Should symptoms progress would be happy to revisit the possibility of an open fem-pop bypass. I also did discuss with him importance of risk factor modification and ambulation. Was requested to contact us should his ambulation distances change. He will be scheduled for 6 month surveillance follow-up. Thank you for allowing us to assist in his care. If there are any questions or concerns please do not hesitate to contact us. Orders: Orders US arterial duplex LE BI 6 Months I73.9 - Peripheral vascular disease, unspecified Coding Level of Care Code Est Pt Level 4 (60295) Diagnoses PAD (peripheral artery disease) I73.9
== END 2024-02-29 09:52 | disposition home or self-care (01) ==
PROVIDERS: Visit Provider Surgery Vascular Surgery
DX: I73.9 Peripheral vascular disease, unspecified (principal)
CPT/HCPCS: 99213

== ENCOUNTER → 2024-02-29 09:28 | Outpatient (BNVA) | payer OTHER, SELFPAY | PROVIDERS: Visit Provider Surgery Vascular Surgery | DX: I73.9 Peripheral vascular disease, unspecified (principal) | CPT/HCPCS: 99212 ==

== ENCOUNTER 2024-03-15 16:46 | Outpatient (REF) | payer OTHER, SELFPAY ==
--- NOTE | ~2024-03-15 | CT_ITS ---
EXAMINATION: CT CHEST WITHOUT CONTRAST CLINICAL INFORMATION: Tobacco use COMPARISON: 05/28/2021 TECHNIQUE: Multidetector volumetric CT imaging of the chest was done. Axial MIP volume rendering provided. Sagittal and coronal reformatted images were obtained. This CT examination was performed using dose optimization techniques as appropriate, variously including the following: *Automated exposure control *Adjustment of mA and/or kV according to patient size (this includes techniques or standardized protocols for targeted exams where dose is matched to indication/reason for exam; i.e. extremities or head) *Use of iterative reconstruction technique DLP: 241 mGy-cm FINDINGS: BEHAVIOR SPECIALIST: Left chest wall pacer. LUNGS: The central airways are patent. Minimal secretions in the right mainstem bronchus. Mild bronchial wall thickening. Mild centrilobular and paraseptal emphysema. There is no consolidation. There is a 0.2 cm right upper lobe pulmonary nodule series 5 image 213. This is not definitively seen on prior. There is a 0.3 cm right lower lobe pulmonary nodule on series 5 image 327. This is not definitively seen on prior. There were other small nodules on the previous study are no longer seen. MEDIASTINUM: No mediastinal lymphadenopathy. Right ventricular pacer lead. CORONARY ARTERY CALCIFICATION: Present. PLEURA: There is no pleural effusion. No pneumothorax. AXILLA: No lymphadenopathy. UPPER ABDOMEN: Unremarkable. OSSEOUS STRUCTURES: No acute or suspicious osseous abnormality. CT/CT chest wo IV con IMPRESSION: 1. Mild emphysema. Small pulmonary nodules are seen measuring up to 0.3 cm. These are not definitively seen on the previous study, with other nodules resolved. Per Fleischner Society Guidelines, a non-contrast Chest CT at 12 months is optional. If performed and the nodule is stable at 12 months, no further follow-up is recommended.. 2. Coronary artery calcifications. Correlation with cardiac risk factors is recommended. Fleischner guidelines were followed. Electronically signed by: Romie Parmar MD 04/11/2024 09:02 AM EDT
== END 2024-03-15 16:47 | disposition home or self-care (01) ==
LOC: HO.CT 16:46
PROVIDERS: Visit Provider Nurse Practitioner Family
DX: Z72.0 Tobacco use (principal)
CPT/HCPCS: 71250

== ENCOUNTER 2024-04-04 09:42 | Outpatient (AMB) | payer OTHER, SELFPAY ==
[2024-04-04 09:50] VITALS: BP 148/90; PULSE 82; O2SAT 97; BMI 21.3
--- NOTE | 2024-04-04 09:50 | A.OFFVIS_ITS ---
Vital Signs 04/04/24 09:50 Height 5 ft 8 in Weight 140 lb BMI 21.3 BP 148/90 H Blood Pressure Location Lt brachial Position Sitting Pulse 82 Pulse Source Pulse Oximeter Pulse Oximetry (%) 97 Oxygen Delivery Method Room Air Intake Visit Reasons: COPD exacerbation with Hypoxia/ ED follow [place] ([facility] Allergies No Known Allergies Allergy (Verified 04/04/24 09:53) HPI HPI COPD exacerbation with Hypoxia/ ED follow up ([facility] [place]): Details: Claudio is a pleasant 63 year old male, current 1/2 ppd smoker with 70+ pack year history, with underlying COPD, atrial fibrillation on eliquis and amiodarone, CAD, and hyperlipidemia. He was admitted 01/16-01/18 for acute respiratory failure with hypoxia secondary to COPD exacerbation, discharged with supplemental oxygen. At the last visit, 6MWT performed and patient did not require supplemental oxygen. Orders for overnight oximetry and PFT were placed, awaiting results. He was also sent for chest CT however not officially read by radiology. He was started on Trelegy with notable improvements in dyspnea and resolution of wheezing, continues with productive cough with white sputum. Today he presents for routine follow up. [facility] Medical History PAD (peripheral artery disease) Shoulder fracture Skull fracture HFrEF (heart failure with reduced ejection fraction) Enlarged RV (right ventricle) Atrial fibrillation Non-ST elevated myocardial infarction (non-STEMI) Surgical History History of cardiac cath History of hernia surgery Family History Father Stroke Mother Emphysema lung Social History Household Members: None Housing: Apartment Do you presently have visiting nurse or other home services: No Alcohol intake: current Alcohol intake frequency: 3 or more drinks per day Alcohol type: beer and hard liquor Patient Tobacco Use Status: Current everyday Tobacco user Tobacco use type: Cigarette Cigarettes Per Day: 7 Years Smoked: 50 Second Hand Smoke Exposure: No service: No Review of Systems Const Denies chills, Denies excessive sweating, Denies fever(s), Denies headache(s) and Denies night sweats Eyes Denies dry eyes, Denies irritation and Denies itchy eyes ENT Reports Normal hearing present, Denies headache(s), Denies nasal congestion, Denies nasal discharge, Denies post nasal drip and Denies sore throat Card Denies chest pain, Denies chest pain at rest, Denies chest pain with activity, Denies leg edema, Denies orthopnea and Denies paroxysmal nocturnal dyspnea Resp Denies chest congestion, Denies excessive phlegm production, Denies pain on inspiration, Denies pain with cough, Denies stridor and Denies wheezing Musc Denies myalgias Neuro Reports Normal hearing present and Denies headache(s) Endo Denies excessive sweating Parish/Lymph Denies lymphadenopathy Aller/Immun Denies itchy eyes, Denies seasonal rhinorrhea and Denies wheezing Physical Exam Vital Signs: Last Vital Signs Pulse 82 04/04/24 09:50 BP 148/90 H 04/04/24 09:50 Pulse Ox 97 04/04/24 09:50 Oxygen Delivery Method Room Air 04/04/24 09:50 BMI result Body Mass Index 21.3 Neuro Cranial nerves: Yes Normal hearing present Assessment & Plan Assessment & Plan (1) COPD (chronic obstructive pulmonary disease): Code(s): J44.9 - Chronic obstructive pulmonary disease, unspecified Category: Medical (2) Tobacco abuse: Code(s): Z72.0 - Tobacco use Category: Medical Plan Claudio reports improvements in symptoms with Trelegy, advised to continue. He states overnight oximetry was performed however results not available. Will reach out to [facility] for report. CT chest performed not officially read, will review with patient when available. Reviewed chart and noted prior echo from 2021 with elevated RVSP 49, will send for repeat echo to assess pressures. All questions were answered and patient is in agreement of plan. Will follow up to review results and response to Trelegy, or sooner if needed. Orders: Orders CA echo transthoracic complete Today R06.00 - Dyspnea, unspecified Coding Level of Care Code Est Pt Level 3 (79584) Diagnoses COPD (chronic obstructive pulmonary disease) J44.9 Tobacco abuse Z72.0
== END 2024-04-04 10:35 | disposition home or self-care (01) ==
PROVIDERS: Visit Provider Nurse Practitioner Family
DX: J44.9 Chronic obstructive pulmonary disease, unspecified (principal); Z72.0 Tobacco use
CPT/HCPCS: 99213

== ENCOUNTER → 2024-04-04 09:42 | Outpatient (BNVA) | payer OTHER, SELFPAY | PROVIDERS: Visit Provider Nurse Practitioner Family | DX: J44.9 Chronic obstructive pulmonary disease, unspecified (principal); F17.210 Nicotine dependence, cigarettes, uncomplicated | CPT/HCPCS: 99212 ==

== ENCOUNTER 2024-06-06 08:49 | Outpatient (REF) | payer OTHER, SELFPAY ==
[2024-06-06 08:51] VITALS: PULSE 82; RESP 16; O2SAT 100
--- NOTE | 2024-06-06 08:54 | PFT_ITS ---
Flows: FEV1: 60 % of predicted at 1.93 L FVC: 80 % of predicted at 3.33 L FEV1/FVC: 58 % Bronchodilator response: Absent Volumes: Total lung capacity: 80 % of predicted at 5.39 L Residual volume: 93 % of predicted at 2.05 L Slow vital capacity: 73 % of predicted at 3.33 L Expiratory reserve volume: 84 % of predicted at 0.98 L Diffusion capacity: Moderately decreased, adjusts to being mildly decreased after correction for alveolar ventilation. Impression: Moderate obstructive ventilatory defect with no bronchodilator response. Decreased diffusion capacity suggests emphysema. MTDD
== END 2024-06-06 08:50 | disposition home or self-care (01) ==
LOC: HO.RESP 08:49
PROVIDERS: Visit Provider Nurse Practitioner Family
DX: J44.9 Chronic obstructive pulmonary disease, unspecified (principal)
CPT/HCPCS: 94010; 94640; 94727; 94729

== ENCOUNTER → 2024-06-06 08:54 | Outpatient (BNV) | payer OTHER, SELFPAY | PROVIDERS: Visit Provider Internal Medicine Pulmonary Disease | DX: J44.9 Chronic obstructive pulmonary disease, unspecified (principal) | CPT/HCPCS: 94060; 94727; 94729 ==

== ENCOUNTER 2024-06-13 14:01 | Outpatient (AMB) | payer OTHER, SELFPAY ==
--- NOTE | 2024-06-13 14:01 | A.OFFVIS_ITS ---
Vital Signs 06/13/24 14:04 Height 5 ft 8 in Weight 145 lb BMI 22.0 BP 130/80 Blood Pressure Location Lt brachial Position Sitting Intake Visit Reasons: S/p January angiogram, pain Intake Note: Claudio is a 63 year old male who presents to the office today for a s/p angiogram January 2024. Pt states he is having pain in the back of both of his calves that travel to his lower back. Pt states walking up stairs is difficult. Allergies No Known Allergies Allergy (Verified 06/13/24 14:05) HPI HPI S/p January angiogram, pain: Details: Very pleasant 63-year-old gentleman presents for follow-up evaluation regarding peripheral vascular disease. He had actually undergone a diagnostic angiogram with us on 02/16/2024. At that time it was determined that he would require open bypass in order to treat this occlusive SFA disease. He reports that it just progressively has gotten worse. He can barely walk a few 100 ft before it becomes a major problem. Now presents for routine follow-up. He continues to smoke about a half a pack per day. He is a nondiabetic. [facility] Medical History PAD (peripheral artery disease) Shoulder fracture Skull fracture HFrEF (heart failure with reduced ejection fraction) Enlarged RV (right ventricle) Atrial fibrillation Non-ST elevated myocardial infarction (non-STEMI) Surgical History History of cardiac cath History of hernia surgery Family History Father Stroke Mother Emphysema lung Social History Household Members: None Housing: Apartment Do you presently have visiting nurse or other home services: No Alcohol intake: current Alcohol intake frequency: 3 or more drinks per day Alcohol type: beer and hard liquor Patient Tobacco Use Status: Current everyday Tobacco user Tobacco use type: Cigarette Cigarettes Per Day: 7 Years Smoked: 50 Second Hand Smoke Exposure: No service: No Review of Systems Const All systems reviewed & are unremarkable except as noted in HPI and below Reports no additional complaints ENT Reports Normal hearing present Card Denies chest pain, Denies chest pain at rest, Denies chest pain with activity and Denies pedal edema Resp Denies cough GI Denies abdominal pain Musc Denies abnormal gait, Denies muscle cramps and Denies radiating pain into limb Skin/Breast Denies skin ulcer and Denies wounds Neuro Reports Normal hearing present and Denies abnormal gait Psych Reports no additional complaints Physical Exam Vital Signs: Last Vital Signs BP 130/80 06/13/24 14:04 BMI result Body Mass Index 22.0 Const General: cooperative, healthy appearing and comfortable Orientation/consciousness: oriented to person, oriented to place and oriented to time HEENT Head: Yes normal to inspection Neck Neck: Yes normal visual inspection Carotids: no bruits Chest Chest palpation & inspection: normal inspection of the chest Resp Effort & Inspection: normal respiratory effort and able to speak in complete sentences Auscultation: clear to auscultation bilaterally, no crackles, no rales, no rhonchi and no wheezes Cardio Other: Bilateral DP signals Rate: regular rate Rhythm: regular rhythm Heart sounds: S1 normal heart sound present and S2 normal heart sound present Bruits: no carotid bruits Peripheral pulses: Peripheral pulses 2+ throughout GI Inspection: Yes normal to inspection Skin Wounds: no wounds Hair: normal Neuro General: oriented to person, oriented to place and oriented to time Cranial nerves: Yes CN's II-XII intact bilaterally and Yes Normal hearing present Cognition (Neuro): normal cognition Motor exam (neuro): 5/5 motor strength present throughout Extrem Other: venous exam: No significant superficial varicosities or spider telangiectasias, minimal edema General: No clubbing, No cyanosis and No edema Psych Appearance: grossly normal Mental Status: mental status grossly normal Speech and movement: Normal speech and movement present Results Reviewed Results Reviewed: Images from angiogram of 02/16/2024 was reviewed. Assessment & Plan Assessment & Plan (1) PAD (peripheral artery disease): Comment: 02/16/2024 - diagnostic angiogram Code(s): I73.9 - Peripheral vascular disease, unspecified Category: Medical Plan: Patient notes leg pain when walking distances. I have discussed the pathophysiology of peripheral vascular disease with the patient. I have also discussed risk factor modification. I have reviewed the patient's arterial testing which reveals left SFA occlusion. The patient will require left femoral to above knee popliteal bypass. Risks benefits complications were discussed in detail with the patient. He understood and consented. He will require pulmonary risk stratification as he does occasionally have shortness of breath and follows pulmonary for his COPD. In addition he will require cardiac risk stratification. He has seen Dr. Land in consultation in the past. We will schedule him as soon as possible. Thank you for allowing us to assist in his care. If there are any questions or concerns please do not hesitate to contact us. Coding Level of Care Code Est Pt Level 4 (40038) Complex EM visit Add On G2211 Diagnoses PAD (peripheral artery disease) I73.9
[2024-06-13 14:04] VITALS: BP 130/80; BMI 22.0
== END 2024-06-13 14:27 | disposition home or self-care (01) ==
PROVIDERS: Visit Provider Surgery Vascular Surgery
DX: I73.9 Peripheral vascular disease, unspecified (principal)
CPT/HCPCS: 99214; G2211

== ENCOUNTER → 2024-06-13 14:01 | Outpatient (BNVA) | payer OTHER, SELFPAY | PROVIDERS: Visit Provider Surgery Vascular Surgery | DX: I73.9 Peripheral vascular disease, unspecified (principal); F17.210 Nicotine dependence, cigarettes, uncomplicated | CPT/HCPCS: 99212 ==

== ENCOUNTER 2024-07-03 13:49 | Outpatient (AMB) | payer OTHER, SELFPAY ==
[2024-07-03 13:56] VITALS: BP 130/90; PULSE 69; BMI 23.6
--- NOTE | 2024-07-03 13:56 | MHC.OFFVIS ---
Vital Signs 07/03/24 13:56 Height 5 ft 8 in Weight 155 lb 3.287 oz BMI 23.6 BP 130/90 H Blood Pressure Location Lt brachial Position Sitting Pulse 69 Pulse Source Monitor Intake Visit Reasons: Preop/ Claudia / fem pop bypass clearance Intake Note: preop. Fence Post Driver Required: No Accompanied by: Self / Same As Patient Allergies No Known Allergies Allergy (Verified 06/13/24 14:05) Medication List - Last Reconciled 07/03/24 by Garrett Land MD albuterol sulfate 90 mcg/actuation (ProAir HFA) 1 inh inhalation QID PRN albuterol sulfate 90 mcg/actuation 2 puffs inhalation Q6H PRN amiodarone 200 mg PO DAILY apixaban 5 mg PO BID aspirin 81 mg PO DAILY atorvastatin 80 mg PO DAILY carvedilol 25 mg PO BID akhotezfeje-jagirklag-wfioluvp 100-62.5-25 mcg (Trelegy Ellipta) 1 inh inhalation DAILY furosemide 40 mg PO BID losartan 25 mg PO DAILY HPI Comments Details: Claudio returns for follow-up. I referred him for gastroenterology evaluation because he had unintentional weight loss. He was brought in for endoscopy but unfortunately after sedation developed ventricular tachycardia. He was shocked multiple times and and received amiodarone. He reverted back to sinus rhythm. He did not have any significant rise in troponin levels. His echocardiography in fact showed that his LVEF was normal compared to low normal to mildly reduced in the past. He has background history of alcohol use and tobacco abuse and had mild cardiomyopathy with RV dysfunction in the past. 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 He had moderate disease in the LAD which we did not assess with IFR/FFR given the lack of symptoms and the fact that that level of disease did not explain ventricular tachycardia. 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 After discussion he had single-chamber ICD placement. He has been on amiodarone 200 mg once a day. His returning for follow-up. He is saying he is feeling fine. He is denying any chest discomfort shortness of breath. He is saying 1 of his coworkers has been upsetting him and today he is quite worked up by that. His blood pressure was significantly elevated he was tachycardic. He is saying he has been taking medications regularly except Wednesday when he missed his medications at nighttime. 02/24/23: He is here for f/u. He has claudication left more than right. He has been smoking a pack per day. He is drinking 18 beers/ week. No CP or SOB. Taking meds regularly. He is being assess for left fem-pop bypass by Dr. Taylor. He has been getting claudication with activities. He continues to smoke unfortunately. [facility] Medical History PAD (peripheral artery disease) Shoulder fracture Skull fracture HFrEF (heart failure with reduced ejection fraction) Enlarged RV (right ventricle) Atrial fibrillation Non-ST elevated myocardial infarction (non-STEMI) Surgical History History of cardiac cath History of hernia surgery Family History Father Stroke Mother Emphysema lung Social History Household Members: None Housing: Apartment Do you presently have visiting nurse or other home services: No Alcohol intake: current Alcohol intake frequency: 3 or more drinks per day Alcohol type: beer and hard liquor Patient Tobacco Use Status: Current everyday Tobacco user Tobacco use type: Cigarette Cigarettes Per Day: 7 Years Smoked: 50 Second Hand Smoke Exposure: No service: No Review of Systems Const Denies chills, Denies fatigue, Denies fever(s), Denies frequent falls, Denies weakness, Denies weight gain and Denies weight loss ENT Denies dizziness Card Denies chest pain, Denies leg edema, Denies lightheadedness, Denies palpitations, Denies dyspnea and Denies dyspnea on exertion Resp Denies cough, Denies dyspnea and Denies dyspnea on exertion GI Denies hematochezia Musc Denies abnormal gait, Denies muscle weakness, Denies numbness, Denies radiating pain into limb and Denies tingling Neuro Denies abnormal gait, Denies dizziness, Denies frequent falls, Denies numbness, Denies tingling and Denies weakness Endo Denies fatigue and Denies palpitations Physical Exam Vital Signs: Last Vital Signs Pulse 69 07/03/24 13:56 BP 130/90 H 07/03/24 13:56 BMI result Body Mass Index 23.6 GENERAL APPEARANCE: in no acute distress, pleasant. NECK: no carotid bruit, no jugular venous distention. SKIN: no suspicious lesions, warm and dry. HEART: no murmurs, irregular rate and rhythm. LUNGS: clear to auscultation bilaterally. ABDOMEN: soft, nontender. EXTREMITIES: no edema. PERIPHERAL PULSES: equal. NEUROLOGIC: No gross deficits, AAO X 3 Office Procedures EKG Details: Atrial fibrillation 69 beats per minute, normal axis, QTC 484 milliseconds. [id number], Complete Assessment & Plan Assessment & Plan (1) PAD (peripheral artery disease): Comment: 02/16/2024 - diagnostic angiogram Code(s): I73.9 - Peripheral vascular disease, unspecified Category: Medical (2) Essential hypertension: Code(s): I10 - Essential (primary) hypertension Category: Medical (3) Atrial fibrillation: Code(s): I48.91 - Unspecified atrial fibrillation Category: Medical (4) HFrEF (heart failure with reduced ejection fraction): Code(s): I50.20 - Unspecified systolic (congestive) heart failure Category: Medical Plan [age] year gentleman with history of diastolic heart failure, RV dysfunction, tobacco and alcohol abuse in the past and previous ventricular tachycardia for which he had cardiac catheterization where RCA WELFARE ADMINISTRATOR was noticed as well as an almost left circumflex artery from the right coronary cusp. Moderate LAD stenosis was noted. He had ICD placement after that. He has not had any further episodes of ventricular tachycardia or syncope. Clinically euvolemic and stable. He is in atrial fibrillation and rate controlled with beta-blockers. He was on amiodarone for rhythm control strategy for atrial fibrillation. He is back in AFib and can stop the amiodarone for now. He is intermediate risk for perioperative complications. He should be operated on aspirin and carvedilol. Both drugs should not be discontinued before surgery. Eliquis can be held for 48-72 hours before surgery. Thank you for allowing me to participate in the care of your patient. Please feel free to contact me if you have any questions. Medications: New apixaban 5 mg PO BID 120 tabs 3RF Refilled aspirin 81 mg PO DAILY 90 tabs 3RF Discontinued amiodarone Discontinued Reason: Doctor's Order 200 mg PO DAILY 90 tabs 3RF Coding Level of Care Code Est Pt Level 5 (59601) Diagnoses PAD (peripheral artery disease) I73.9 Essential hypertension I10 Atrial fibrillation I48.91 HFrEF (heart failure with reduced ejection fraction) I50.20 CPT Codes EKG - CPT: 87593-[id number], Complete ([id number])
== END 2024-07-03 14:22 | disposition home or self-care (01) ==
PROVIDERS: Visit Provider Internal Medicine Cardiovascular Disease
DX: I73.9 Peripheral vascular disease, unspecified (principal); I10 Essential (primary) hypertension; I48.91 Unspecified atrial fibrillation; I50.20 Unspecified systolic (congestive) heart failure
CPT/HCPCS: 93010; 99214

== ENCOUNTER → 2024-07-03 13:49 | Outpatient (BNVA) | payer OTHER, SELFPAY | PROVIDERS: Visit Provider Internal Medicine Cardiovascular Disease | DX: Z01.818 Encounter for other preprocedural examination (principal); I48.91 Unspecified atrial fibrillation; I21.4 Non-ST elevation (NSTEMI) myocardial infarction; I73.9 Peripheral vascular disease, unspecified; I11.0 Hypertensive heart disease with heart failure; I50.20 Unspecified systolic (congestive) heart failure | CPT/HCPCS: 93005; 99212 ==

== ENCOUNTER 2024-07-04 08:49 | Outpatient (AMB) | payer OTHER, SELFPAY ==
[2024-07-04 09:02] VITALS: BP 138/88; PULSE 61; O2SAT 100; BMI 23.3
--- NOTE | 2024-07-04 09:02 | MHC.OFFVIS ---
Vital Signs 07/04/24 09:02 Height 5 ft 8 in Weight 153 lb 6 oz BMI 23.3 BP 138/88 Blood Pressure Location Lt brachial Position Sitting Pulse 61 Pulse Source Pulse Oximeter Pulse Oximetry (%) 100 Oxygen Delivery Method Room Air Intake Visit Reasons: COPD exacerbation with Hypoxia/ED f/u([facility] [place]) Allergies No Known Allergies Allergy (Verified 07/04/24 09:05) HPI Comments Details: Claudio is a pleasant 63 year old male, current 1/2 ppd smoker with 70+ pack year history, with underlying moderate COPD, h/o acute respiratory failure 01/2024, atrial fibrillation on eliquis (recently d/c'd amiodarone yesterday) CAD, and hyperlipidemia. He has been moderately controlled on Trelegy 100 mcg and albuterol MDI. He reports occasional productive cough with white sputum and dyspnea on exertion. Denies chest tightness or wheezing. He denies any visits to urgent care or hospitalizations related to respiratory distress since the last visit. He denies any need for prednisone or antibiotics for COPD exacerbations since the last visit. Today he presents to review PFT results and pulmonary clearance for upcoming left femoral popliteal bypass with Dr. Taylor on 07/10. [facility] Medical History (Updated 07/04/24 @ 09:52 by Erica Rowley NP) PAD (peripheral artery disease) Shoulder fracture Skull fracture HFrEF (heart failure with reduced ejection fraction) Enlarged RV (right ventricle) Atrial fibrillation Non-ST elevated myocardial infarction (non-STEMI) Surgical History (Updated 07/04/24 @ 08:50 by Raquel Regan RN) S/P aortogram History of cardiac cath History of hernia surgery Family History Father Stroke Mother Emphysema lung Social History (Updated 07/04/24 @ 09:05 by Merissa Barlow CMA) Household Members: None Housing: Apartment Do you presently have visiting nurse or other home services: No Alcohol intake: current Alcohol intake frequency: 3 or more drinks per day Alcohol type: beer and hard liquor Patient Tobacco Use Status: Current everyday Tobacco user Tobacco use type: Cigarette Cigarette Packs Per Day: 0.5 Cigarettes Per Day: 10 Years Smoked: 50 Second Hand Smoke Exposure: No service: No Review of Systems Const Denies chills, Denies excessive sweating, Denies fever(s), Denies headache(s) and Denies night sweats Eyes Denies dry eyes, Denies irritation and Denies itchy eyes ENT Reports Normal hearing present, Denies headache(s), Denies nasal congestion, Denies nasal discharge, Denies post nasal drip and Denies sore throat Card Denies chest pain, Denies chest pain at rest, Denies chest pain with activity, Denies leg edema, Reports dyspnea on exertion, Denies orthopnea and Denies paroxysmal nocturnal dyspnea Resp Denies chest congestion, Reports cough, Denies excessive phlegm production, Denies pain on inspiration, Denies pain with cough, Reports dyspnea on exertion, Denies stridor and Denies wheezing Musc Denies myalgias Neuro Reports Normal hearing present and Denies headache(s) Endo Denies excessive sweating Parish/Lymph Denies lymphadenopathy Aller/Immun Denies itchy eyes, Denies seasonal rhinorrhea and Denies wheezing Physical Exam Vital Signs: Last Vital Signs Pulse 61 07/04/24 09:02 BP 138/88 07/04/24 09:02 Pulse Ox 100 07/04/24 09:02 Oxygen Delivery Method Room Air 07/04/24 09:02 BMI result Body Mass Index 23.3 Const General: cooperative, healthy appearing, comfortable, no acute distress, well developed and alert Orientation/consciousness: patient oriented x3 Limitations: no limitations HEENT Head: Yes normal to inspection, Yes normocephalic and Yes atraumatic Ears: hearing grossly normal bilaterally and external ears normal Eyes General: appearance normal, both eyes and all related structures Eyelids: Yes eyelids normal Sclerae: sclerae normal EOM: EOMs intact bilaterally Neck Neck: Yes normal visual inspection and Yes no lymphadenopathy Lymphatic: no lymphadenopathy noted Chest Chest palpation & inspection: normal inspection of the chest Resp Effort & Inspection: normal respiratory effort, able to speak in complete sentences, no audible wheezes, no cough, no stridor, not tachypneic, no tripod positioning and no use of accessory muscles Auscultation: diminished lung sounds Cardio Jugular venous distension: no JVD Rate: regular rate Rhythm: abnormal rhythm Skin Other: warm, dry General skin exam: no rashes or lesions noted Neuro General: patient oriented x3 Cranial nerves: Yes Normal hearing present Cognition (Neuro): normal cognition Gait exam (Neuro): Normal gait present Extrem General: Yes normal to inspection, Yes capillary refill normal, Yes no clubbing, cyanosis or edema and Yes no pedal edema Psych Appearance: grossly normal and well kempt Speech and movement: Normal speech and movement present and Clear speech present Affect: normal affect Attitude: cooperative Thought process: Normal thought process present Thought content: Normal thought content present Insight: Good insight present (Psych) Judgement: Good judgement present (Psych) Assessment & Plan Assessment & Plan (1) COPD (chronic obstructive pulmonary disease): Code(s): J44.9 - Chronic obstructive pulmonary disease, unspecified Category: Medical (2) Tobacco abuse: Code(s): Z72.0 - Tobacco use Category: Medical (3) Multiple pulmonary nodules: Code(s): R91.8 - Other nonspecific abnormal finding of lung field Category: Medical (4) Encounter for preoperative pulmonary examination: Code(s): Z01.811 - Encounter for preprocedural respiratory examination Category: Medical Plan Claudio reports suboptimal control with Trelegy 100 mcg, will increase. Reviewed PFT which revealed moderate obstructive defect and moderate decreased DLCO suggestive of emphysema which is reflected in chest CT. CT chest revealed multiple pulmonary nodules <3 mm, will have repeat chest CT 03/2025. He denies any recent COPD exacerbations, URI or need for prednisone/abx in the last month. 6MWT previously performed and does not require supplemental oxygen. Awaiting overnight oximetry to be performed. Respiratory exam unremarkable and VSS. At this time, he would be considered low risk for pulmonary complications for proposed vascular surgery with Dr. Taylor on 07/10. Consider bronchodilators in the perioperative period. All questions were answered and patient is in agreement of plan. Will follow up to review results and response to Trelegy, or sooner if needed. Medications: New ifhcgakphyg-gzcjifbvq-mgroinmt 200-62.5-25 mcg (Trelegy Ellipta) 1 inh inhalation DAILY 60 ea 6RF Discontinued iteivpwlmde-igjafgcns-piwrmbuv 100-62.5-25 mcg (Trelegy Ellipta) Discontinued Reason: Patient Completed Course 1 inh inhalation DAILY 60 ea 3RF Coding Level of Care Code Est Pt Level 4 (54289) Diagnoses COPD (chronic obstructive pulmonary disease) J44.9 Tobacco abuse Z72.0 Multiple pulmonary nodules R91.8 Encounter for preoperative pulmonary examination Z01.811
== END 2024-07-04 09:33 | disposition home or self-care (01) ==
PROVIDERS: Visit Provider Nurse Practitioner Family
DX: J44.9 Chronic obstructive pulmonary disease, unspecified (principal); Z72.0 Tobacco use; R91.8 Other nonspecific abnormal finding of lung field; Z01.811 Encounter for preprocedural respiratory examination
CPT/HCPCS: 99214

== ENCOUNTER → 2024-07-04 08:49 | Outpatient (BNVA) | payer OTHER, SELFPAY | PROVIDERS: Visit Provider Nurse Practitioner Family | DX: Z01.811 Encounter for preprocedural respiratory examination (principal); J44.9 Chronic obstructive pulmonary disease, unspecified; I48.91 Unspecified atrial fibrillation; R91.8 Other nonspecific abnormal finding of lung field; R09.02 Hypoxemia; F17.210 Nicotine dependence, cigarettes, uncomplicated; Z79.01 Long term (current) use of anticoagulants; Z95.810 Presence of automatic (implantable) cardiac defibrillator | CPT/HCPCS: 99212 ==

== ENCOUNTER 2024-07-04 14:40 | Outpatient (AMB) | payer OTHER, SELFPAY ==
--- NOTE | 2024-07-04 14:55 | MHC.OFFVIS ---
Intake Visit Reasons: [facility] interrigation - preop Allergies No Known Allergies Allergy (Verified 07/04/24 09:05) [facility] Medical History (Updated 07/04/24 @ 15:02 by JUAN J Chacko) Alcohol dependence COPD (chronic obstructive pulmonary disease) ICD (implantable cardioverter-defibrillator) in place V-tach PAD (peripheral artery disease) Shoulder fracture Skull fracture HFrEF (heart failure with reduced ejection fraction) Enlarged RV (right ventricle) Atrial fibrillation Non-ST elevated myocardial infarction (non-STEMI) Surgical History (Updated 07/04/24 @ 13:15 by Raquel Regan RN) Hx of appendectomy History of surgery on arm S/P aortogram History of cardiac cath History of hernia surgery Family History Father Stroke Mother Emphysema lung Social History (Updated 07/04/24 @ 09:05 by Merissa Barlow [facility]) Household Members: None Housing: Apartment Are you a primary manager medicare marketing to a significant other at home: No Do you presently have visiting nurse or other home services: No Alcohol intake: current Alcohol intake frequency: 3 or more drinks per day Alcohol type: beer and hard liquor Patient Tobacco Use Status: Current everyday Tobacco user Tobacco use type: Cigarette Cigarette Packs Per Day: 0.5 Cigarettes Per Day: 8 Years Smoked: 50 Second Hand Smoke Exposure: No Advance Directives Date on File: 06/02/21 service: No Office Procedures Cardiac Device Check Cardiac Device Check Details: [employer] single chamber ICD interrogation today. Battery 8.2 years, VVI mode, low rate 40, CERTIFIED LACTATION EDUCATOR < 1%, No VT/ VF, No therapies, V threshold 0.5 V at 0.5ms. [id number]-[id number] Cardiac Device Check, single lead implantable defibrillator Procedure code (CPT) selection complete Assessment & Plan Assessment & Plan (1) ICD (implantable cardioverter-defibrillator) in place: Comment: 2021[place] [facility] [place]s): Z95.810 - Presence of automatic (implantable) cardiac defibrillator Category: Medical Plan device check Coding Level of Care Code Procedure Only Diagnoses ICD (implantable cardioverter-defibrillator) in place Z95.810 CPT Codes Cardiac Device Check - Cardiac Device 4: [id number]-[id number] Cardiac Device Check, single lead implantable defibrillator ([id number])
== END 2024-07-04 14:59 | disposition home or self-care (01) ==
LOC: HO.HCS 14:40
PROVIDERS: Visit Provider Nurse Practitioner Family
DX: Z45.02 Encounter for adjustment and management of automatic implantable cardiac defibrillator (principal)
CPT/HCPCS: 93282

== ENCOUNTER → 2024-07-10 07:30 | Outpatient (BNV) | payer OTHER, SELFPAY | PROVIDERS: Admitting Provider Surgery Vascular Surgery; Visit Provider Surgery Vascular Surgery | DX: I70.212 Atherosclerosis of native arteries of extremities with intermittent claudication, left leg (principal); Z48.89 Encounter for other specified surgical aftercare | CPT/HCPCS: 35371; 35656; 99024; G0180 ==

== ENCOUNTER 2024-07-10 11:16 | Inpatient (IN) | payer OTHER, SELFPAY ==
[2024-07-04 13:21] VITALS: BP 103/71; PULSE 75; RESP 18; O2SAT 95; BMI 23.6
--- NOTE | 2024-07-04 13:39 | HO.ANESPROP2 ---
HPI - Anesthesia Eval Consult details Narrative: 63yo M for Left Femoral Popliteal Bypass Graft, 07/10/24 Preop labs with low Na @ 123, ? d/t excessive ETOH. Dr Taylor notified that level must be optimized preop. Per Dr Navarro, will redraw stat lytes DOS. No recent illness No CP. BENDER - stairs and walking causes SOB Cardiac cleared. Follows [facility] Cardiology for afib, CHF, NSTEMI. Vtach arrest with endo procedure 2021, converted with lido and extubated same day. Will continue asa periop. Will hold eliquis. Pulmo clear Smoking x 50years. Currently 1/2 ppd ETOH daily 6+ daily. Discussed increased perioperative risk and withdrawal risk. Pt verbalized understanding and will try to decrease slowly preop COPD: stable on trelegy, rescue inhaler 2-3 x monthly ICD in situ (placed after 2021 arrest) ECHO ordered by cardiology 07/2024. OK to proceed without results per Dr Land as patient has been clinically stable and would not change overall risk. Reviewed with Dr Navarro [facility] Active Problems Active Problems: All Active Problems Encounter for preoperative pulmonary examination (Acute) Multiple pulmonary nodules (Acute) Dyspnea (Acute) Nocturnal hypoxemia (Acute) COPD (chronic obstructive pulmonary disease) (Acute) Tobacco abuse (Acute) Claudication (Acute) Ventricular tachycardia (Acute) Weight loss (Acute) Essential hypertension (Acute) PAD (peripheral artery disease) (Acute) HFrEF (heart failure with reduced ejection fraction) (Acute) Enlarged RV (right ventricle) (Acute) Atrial fibrillation (Acute) Past Medical History Medical History Alcohol dependence COPD (chronic obstructive pulmonary disease) ICD (implantable cardioverter-defibrillator) in place V-tach PAD (peripheral artery disease) Shoulder fracture Skull fracture HFrEF (heart failure with reduced ejection fraction) Enlarged RV (right ventricle) Atrial fibrillation Non-ST elevated myocardial infarction (non-STEMI) Family History Family History Father Stroke Mother Emphysema lung Family history of problems with anesthesia: No Surgical History Surgical History Hx of appendectomy History of surgery on arm S/P aortogram History of cardiac cath History of hernia surgery History of Problems with Anesthesia: Yes (Vtach arrest 2021 with endo) Social History Social History Household Members: None Housing: Apartment Are you a primary acute care certified nursing assistant to a significant other at home: No Do you presently have visiting nurse or other home services: No Alcohol intake: current Alcohol intake frequency: 3 or more drinks per day Alcohol type: beer and hard liquor Patient Tobacco Use Status: Current everyday Tobacco user Tobacco use type: Cigarette Cigarette Packs Per Day: 0.5 Cigarettes Per Day: 10.0 Years Smoked: 50 Second Hand Smoke Exposure: No Advance Directives Date on File: 06/02/21 service: No Meds Allergies Allergy/AdvReac Type Severity Reaction Status Date / Time No Known Allergies Allergy Verified 07/04/24 09:05 Home Medications ?Medication ?Instructions ?Recorded ?Confirmed ?Last Taken ?Type aspirin 81 mg tablet,delayed 81 mg PO DAILY 07/04/24 07/10/24 07/10/24 History release atorvastatin 80 mg tablet 80 mg PO BEDTIME 07/04/24 07/04/24 07/09/24 History fluticasone fur. 200 mcg-umeclid 1 inh inhalation DAILY 07/04/24 07/10/24 07/10/24 History 62.5 mcg-vilant 25 mcg inhalat.powder (Trelegy Ellipta) losartan 25 mg tablet 25 mg PO DAILY 07/04/24 07/10/24 07/10/24 History Exam Height,Weight and Vital Signs: Height 5 ft 8 in Weight 70.307 kg Last Vital Signs Pulse 75 07/04/24 13:21 Resp 18 07/04/24 13:21 BP 103/71 07/04/24 13:21 Pulse Ox 95 07/04/24 13:21 O2 Del Method Room Air 07/04/24 13:21 Pertinent Lab Results Pertinent Lab Results: Lab Results 07/04/24 07/04/24 Range/Units 14:32 14:35 WBC 5.3 (4.8-10.8) X10*3/uL RBC 3.81 L (4.60-5.80) X10*6/uL Hgb 12.6 L (14.0-18.0) g/dl Hct 35.1 L (42.0-52.0) % MCV 92.1 (80.0-98.0) fL MCH 33.1 H (27.0-33.0) pg MCHC 35.9 (31.0-36.0) g/dl RDW 12.9 (11.0-16.0) % Plt Count 118 L (160-400) X10*3/uL MPV 10.5 (9.4-12.4) fL Absolute Nucleated RBC 0.000 (0.0-0.012) X10*3/uL Nucleated RBC % (auto) 0.0 (0.0-0.2) /100WBC PT 11.8 (10.9-12.4) SEC INR 1.0 (0.9-1.1) APTT 27.7 (26.0-36.8) SEC Sodium 123 L (135-145) mmol/L Potassium 3.4 (3.3-5.1) mmol/L Chloride 84 L (96-108) mmol/L Carbon Dioxide 29 (22-29) mmol/L Anion Gap 13 (12-20) BUN 11 (9-16) mg/dL Creatinine 1.05 (0.5-1.4) mg/dL Estim Creat Clear Calc 68.7 Estimated GFR > 60 Random Glucose 82 (60-115) mg/dL Calcium 9.0 D (8.4-10.2) mg/dL Total Bilirubin 0.8 (0.0-1.0) mg/dL AST 23 (5-37) U/L ALT 17 (0-40) U/L Alkaline Phosphatase 71 (39-117) U/L Total Protein 6.5 (6.5-8.0) g/dL Albumin 4.0 (3.5-5.0) g/dL Blood Type A Positive Antibody Screen NEGATIVE Narrative Narrative: PFT 06/2024 Flows: FEV1: 60 % of predicted at 1.93 L FVC: 80 % of predicted at 3.33 L FEV1/FVC: 58 % Bronchodilator response: Absent Volumes: Total lung capacity: 80 % of predicted at 5.39 L Residual volume: 93 % of predicted at 2.05 L Slow vital capacity: 73 % of predicted at 3.33 L Expiratory reserve volume: 84 % of predicted at 0.98 L Diffusion capacity: Moderately decreased, adjusts to being mildly decreased after correction for alveolar ventilation. Impression: Moderate obstructive ventilatory defect with no bronchodilator response. Decreased diffusion capacity suggests emphysema EKG 07/2024 Details: Atrial fibrillation 69 beats per minute, normal axis, QTC 484 milliseconds ECHO 2021 Summary The left ventricle is mildly dilated. Ejection fraction is 55-60%. No definite wall motion abnormalities seen. Diastolic function was indeterminant. The left atrium is severely dilated. The right ventricle is normal in size. Function is reduced. The right atrium is dilated. The pulmonary artery systolic pressure estimation is 40-45 mmHg. IVC is dilated. Inspiratory collapse is normal. Cardiac Device Check 07/[address] [facility] single chamber ICD interrogation today. Battery 8.2 years, VVI mode, low rate 40, STAVE PLANER TENDER < 1%, No VT/ VF, No therapies, V threshold 0.5 V at 0.5ms. Airway Mallampati Class: II TM Dist: >3cm Neck ROM: Full Loose/Missing/Broken Teeth: Yes (edentulous) Heart: RRR Lungs: CTAB Assessment and Plan Assessment Anesthesia Assessment: Anesthesia Plan Discussed and PAT Visit Final Anesthetic Review Family History of Problems with Anesthesia: No History of Problems with Anesthesia: Yes (Vtach arrest 2021 with endo)
[2024-07-04 15:52] LABS: Hematocrit 35.1 % (42.0-52.0); Hemoglobin 12.6 g/dl (14.0-18.0); Mean Corpuscular HGB Conc 35.9 g/dl (31.0-36.0); Mean Corpuscular Hemoglobin 33.1 pg (27.0-33.0); Mean Corpuscular Volume 92.1 fL (80.0-98.0); Mean Platelet Volume 10.5 fL (9.4-12.4); Platelet Count 118 X10*3/uL (160-400); Prothrombin Time 11.8 SEC (10.9-12.4); Red Blood Count 3.81 X10*6/uL (4.60-5.80); Red Cell Distribution Width 12.9 % (11.0-16.0); White Blood Count 5.3 X10*3/uL (4.8-10.8)
[2024-07-04 15:54] LABS: Partial Thromboplastin Time 27.7 SEC (26.0-36.8)
[2024-07-04 18:10] LABS: Alanine Aminotransferase 17 U/L (0-40); Alkaline Phosphatase 71 U/L (39-117); Anion Gap 13 (12-20); Aspartate Amino Transferase 23 U/L (5-37); Bilirubin Total 0.8 mg/dL (0.0-1.0); Blood Urea Nitrogen 11 mg/dL (9-16); Carbon Dioxide 29 mmol/L (22-29); Chloride 84 mmol/L (96-108); Creatinine Clr Calc Pharmacy 68.7; Estimated Glomerular Filt Rate > 60; Glucose Random 82 mg/dL (60-115); Potassium 3.4 mmol/L (3.3-5.1); Sodium 123 mmol/L (135-145); Total Protein 6.5 g/dL (6.5-8.0)
[2024-07-10] VITALS (22 sets, daily range): BP systolic 90–134; BP diastolic 53–91; PULSE 64–79; RESP 12–18; TEMP 36.1–36.8; O2SAT 93–100
--- NOTE | 2024-07-10 06:24 | PC.NURSE ---
labs being drawn and type and screen
[2024-07-10] MEDS: Lactated Ringers 1,000 ML 100 ML IVCONT (06:55)
[2024-07-10 07:00] LABS: Anion Gap 16 (12-20); Carbon Dioxide 30 mmol/L (22-29); Chloride 89 mmol/L (96-108); Sodium 132 mmol/L (135-145)
--- NOTE | 2024-07-10 07:15 | HO.ANESPROP2 ---
[facility] Active Problems Active Problems: All Active Problems ICD (implantable cardioverter-defibrillator) in place (Acute) Encounter for preoperative pulmonary examination (Acute) Multiple pulmonary nodules (Acute) Dyspnea (Acute) Nocturnal hypoxemia (Acute) COPD (chronic obstructive pulmonary disease) (Acute) Tobacco abuse (Acute) Claudication (Acute) Ventricular tachycardia (Acute) Weight loss (Acute) Essential hypertension (Acute) PAD (peripheral artery disease) (Acute) HFrEF (heart failure with reduced ejection fraction) (Acute) Enlarged RV (right ventricle) (Acute) Atrial fibrillation (Acute) Past Medical History Medical History Alcohol dependence COPD (chronic obstructive pulmonary disease) ICD (implantable cardioverter-defibrillator) in place V-tach PAD (peripheral artery disease) Shoulder fracture Skull fracture HFrEF (heart failure with reduced ejection fraction) Enlarged RV (right ventricle) Atrial fibrillation Non-ST elevated myocardial infarction (non-STEMI) Functional capacity: independent ambulation Family History Family History Father Stroke Mother Emphysema lung Family history of problems with anesthesia: No Surgical History Surgical History Hx of appendectomy History of surgery on arm S/P aortogram History of cardiac cath History of hernia surgery History of Problems with Anesthesia: Yes Social History Social History Household Members: None Housing: Apartment Are you a primary child care teacher to a significant other at home: No Do you presently have visiting nurse or other home services: No Alcohol intake: current Alcohol intake frequency: 3 or more drinks per day Alcohol type: beer and hard liquor Patient Tobacco Use Status: Current everyday Tobacco user Tobacco use type: Cigarette Cigarette Packs Per Day: 0.5 Cigarettes Per Day: 8 Years Smoked: 50 Second Hand Smoke Exposure: No Advance Directives Date on File: 06/02/21 service: No Meds Allergies Allergy/AdvReac Type Severity Reaction Status Date / Time No Known Allergies Allergy Verified 07/04/24 09:05 Active Medications: Current Medications Lactated Ringer's (Lr) 1,000 mls @ 100 mls/hr IVCONT .Q10H ANANDA Last Admin: 07/10/24 06:55 Dose: 100 mls/hr Home Medications ?Medication ?Instructions ?Recorded ?Confirmed ?Last Taken ?Type aspirin 81 mg tablet,delayed 81 mg PO QAM 07/04/24 07/04/24 07/10/24 History release atorvastatin 80 mg tablet 80 mg PO BEDTIME 07/04/24 07/04/24 07/09/24 History fluticasone fur. 200 mcg-umeclid 1 inh inhalation QAM 07/04/24 07/04/24 07/10/24 History 62.5 mcg-vilant 25 mcg inhalat.powder (Trelegy Ellipta) losartan 25 mg tablet 25 mg PO QAM 07/04/24 07/04/24 07/10/24 History Exam Height,Weight and Vital Signs: Height 5 ft 8 in Weight 70.307 kg Last Vital Signs Temp 97.2 F 07/10/24 06:46 Pulse 68 07/10/24 06:46 Resp 16 07/10/24 06:46 BP 134/84 07/10/24 06:46 Pulse Ox 94 07/10/24 06:46 O2 Del Method Room Air 07/10/24 06:46 Pertinent Lab Results Pertinent Lab Results: Laboratory Tests 07/04/24 07/04/24 07/10/24 14:32 14:35 06:24 WBC 5.3 RBC 3.81 L Hgb 12.6 L Hct 35.1 L MCV 92.1 MCH 33.1 H MCHC 35.9 RDW 12.9 Plt Count 118 L MPV 10.5 Absolute Nucleated RBC 0.000 Nucleated RBC % (auto) 0.0 PT 11.8 INR 1.0 APTT 27.7 Sodium 123 L 132 L Potassium 3.4 3.0 L Chloride 84 L 89 L Carbon Dioxide 29 30 H Anion Gap 13 16 BUN 11 Creatinine 1.05 Estim Creat Clear Calc 68.7 Estimated GFR > 60 Random Glucose 82 Calcium 9.0 D Total Bilirubin 0.8 AST 23 ALT 17 Alkaline Phosphatase 71 Total Protein 6.5 Albumin 4.0 Blood Type A Positive Antibody Screen NEGATIVE Airway Mallampati Class: III Heart: RRR Lungs: BSdistant BL Assessment and Plan Assessment Anesthesia Assessment: Anesthesia Plan Discussed, Smoking Cess. Discussed and Chart Reviewed Final Anesthetic Review Family History of Problems with Anesthesia: No History of Problems with Anesthesia: Yes NPO: Yes ASA Class: III Final Preanesthetic Review: Meds/Allgs Chart Reviewed, Consent Obtained/Reviewed and Anes Risks/Benef Reviewed Patient Risk: Intermediate Procedure Risk: Intermediate Anesthetic Plan Anesthetic Plan: GA Disposition: Standard PACU
[2024-07-10] MEDS: Albuterol Sulfate (0.083%) 2.5 MG/3 ML VIAL.NEB INHALE (07:30)
--- NOTE | 2024-07-10 07:40 | MHC.SHP ---
Pre-Procedural Eval Section A - 24 Hr Update-Section A only Date of Service: 07/10/24 The patient is an INPATIENT: No Changes since office visit: Yes Patient answered all questions The patient has been examined within 24 hours of the surgical procedure. The History & Physical has been completed within 30 days and I have reviewed it.: Yes Section B - Complete if H&P > 30 days Chief Complaint: Peripheral vascular disease, unspecified Allergies: Allergies Allergy/AdvReac Type Severity Reaction Status Date / Time No Known Allergies Allergy Verified 07/04/24 09:05 Plan I have reviewed the history and physical and performed a pertinent physical examination on my patient. No changes have occurred unless specified. Time Spent With Patient Time: Total time managing care of this patient today ____ minutes.
--- NOTE | 2024-07-10 11:06 | P.OP_ITS ---
Operative Note Operative Note Date of Service: 07/10/24 Narrative: Operative note by [facility] Preoperative diagnosis: Left leg atherosclerotic disease with activity limiting claudication Postoperative diagnosis: Same Procedure: Left femoral to above knee popliteal bypass (Windsor Propaten 6 x 50) 2. Left femoral endarterectomy Surgeon:Todd Taylor M.D. Manufacturing Cost Estimator: Triny Presley Anesthesia: General Specimens: 1 Drains: None Estimated blood loss: 200 mL Indications: Very pleasant 63-year-old gentleman with significant smoking history severe activity limiting claudication. He now presents for left leg femoral to above knee popliteal bypass. The patient has signed the informed consent after reviewing risks, complications, benefits, and alternatives previously discussed with the patient. The patient was given the opportunity to ask any additional questions or voice any concerns. All questions were answered to the patient's satisfaction. Procedure in detail: Patient was brought to the operating room prior to which a time-out was called for patient identification site verification. Left leg was prepped and draped in standard surgical fashion. Leg was isolated with Ioban. We then made a longitudinal incision over the common femoral artery. This was brought down through the skin subcu fascia down to the femoral canal and sheath. We were easily able to identify the inguinal ligament. Just beneath this we went down to the common femoral artery. This was isolated with a silastic loop. In a similar fashion we isolated out the SFA and profundus. We then turned our attention to the above knee popliteal. Made a longitudinal incision there as well. We were able to easily identify the popliteal artery as well. This was confirmed with Doppler. We proximally and distally isolated this with silastic loop as well. Once this was accomplished tunnel was created. We placed a umbilical tape through the tunneled to identify the tract. At this time 5000 units of systemic heparin was administered. After 5 minutes of circulation time we then clamped off the common femoral artery. We made an arteriotomy. There was some necrotic material and not a clear lumen to the profundus. This had to be endarterectomized. Once this was accomplished we trimmed the 6 x 50 Windsor Propaten. This was circumferentially anastomosed with a Windsor suture CV 6 TT 5. Once it was completely circumferentially anastomosed we then flushed through the graft. We clamped the graft. We brought the graft through the tunnel. In a similar fashion we trimmed the graft and remove the additional ribs of the graft. This was once again trimmed to appropriate length. We then circumferentially anastomosed with a CV 6 Windsor suture. Prior to closure this was flushed clear. We then finished the anastomosis. We reestablished flow. There was several areas in the distal anastomosis that had to be brought together to achieve adequate hemostasis. This was with a 6 0 Prolene suture and a 7 0 Prolene suture. A single interrupted 6 0 Prolene had to be placed at the proximal anastomosis. Snow was then placed after adequate time good hemostasis was achieved. We used Tisseel sealant in the deep tissue and subcu. We reapproximated deep layer with 2-0 Polysorb superficial layer with 3-0Polysorb, and finally skin was closed with skin clips. Prior to closure the incision line was instilled with local anesthetic. At the end the case sponge instrument counts were correct. At the conclusion the patient actually had a palpable dorsalis pedis pulse. This note is constructed using voice recognition software. While every effort has been made to ensure accuracy, lease administrator errors may have been included. Thank you for allowing me to participate in the care of your patient. Yours sincerely, Todd Taylor MD, FACS, R.P.V.I.
--- NOTE | 2024-07-10 11:19 | PHA.MEDREC ---
Addendum entered by Robin Ellison 07/10/24 11:24: reviewed Original Note: Pharmacy Consult ? Medication Reconciliation Pharmacy has reviewed the medication reconciliation done by nursing. utilized claim to confirm med list . all claims match what nurse put in.
[2024-07-10] MEDS: 0.9 % Sodium Chloride 1,000 ML 80 ML IVCONT (13:37)
[2024-07-10] MEDS: ceFAZolin Sodium/Dextrose,Iso 2 GM/50 ML PIGGYBACK IV (13:38)
--- NOTE | 2024-07-10 14:13 | PC.NURSE ---
1210: pt arrived to unit following fempop bypass. groin noted to have small amount bleeding on foam dressing. circled/timed. Dr. Brown made aware and he assessed at bedside. small amount of edema at site, manual pressure held x10-15 min with improvement. Pulses found with doppler. Surgical PA assessed site at 1400. Pt denies pain. Education provided re: bedrest, holding pressure to site, avoiding bearing down/straining.
[2024-07-10 14:57] LABS: Hematocrit 34.1 % (42.0-52.0); Hemoglobin 11.4 g/dl (14.0-18.0); Mean Corpuscular HGB Conc 33.4 g/dl (31.0-36.0); Mean Corpuscular Hemoglobin 32.2 pg (27.0-33.0); Mean Corpuscular Volume 96.3 fL (80.0-98.0); Mean Platelet Volume 10.3 fL (9.4-12.4); Platelet Count 120 X10*3/uL (160-400); Red Blood Count 3.54 X10*6/uL (4.60-5.80); Red Cell Distribution Width 13.4 % (11.0-16.0); White Blood Count 8.9 X10*3/uL (4.8-10.8)
[2024-07-10 15:02] LABS: INTERNATIONAL NORM RATIO 1.3 (0.9-1.1); Prothrombin Time 14.6 SEC (10.9-12.4)
[2024-07-10 15:11] LABS: Anion Gap 13 (12-20); Blood Urea Nitrogen 14 mg/dL (9-16); Carbon Dioxide 29 mmol/L (22-29); Chloride 93 mmol/L (96-108); Creatinine Clr Calc Pharmacy 43.7; Estimated Glomerular Filt Rate 42; Glucose Random 163 mg/dL (60-115); Potassium 3.4 mmol/L (3.3-5.1); Sodium 132 mmol/L (135-145)
[2024-07-10] MEDS: 0.9 % Sodium Chloride 1,000 ML 999 ML IV (16:24)
[2024-07-10] MEDS: 0.9 % Sodium Chloride Flush 3 ML SYRINGE IVFLUSH ×2 (16:55→23:58)
[2024-07-10] MEDS: KCl 20 mEq in 5% Dex/0.9% Sod 20 MEQ/1,000 ML IV.SOLN 100 MEQ IVCONT (17:17)
[2024-07-10] MEDS: Atorvastatin Calcium 80 MG TABLET PO (20:54)
[2024-07-10 20:55] LABS: Anion Gap 11 (12-20); Blood Urea Nitrogen 16 mg/dL (9-16); Calcium 7.7 mg/dL (8.4-10.2); Carbon Dioxide 27 mmol/L (22-29); Chloride 95 mmol/L (96-108); Creatinine Clr Calc Pharmacy 39.4; Estimated Glomerular Filt Rate 37; Glucose Random 302 mg/dL (60-115); Potassium 3.2 mmol/L (3.3-5.1); Sodium 130 mmol/L (135-145)
[2024-07-11] VITALS (17 sets, daily range): BP systolic 90–144; BP diastolic 52–87; PULSE 55–90; RESP 12–20; TEMP 36.2–36.9; O2SAT 96–100
[2024-07-11] MEDS: Acetaminophen 325 MG TABLET 650 MG PO ×2 (01:29→20:19)
[2024-07-11] MEDS: KCl 20 mEq in 5% Dex/0.9% Sod 20 MEQ/1,000 ML IV.SOLN 100 MEQ IVCONT ×2 (02:58→14:30)
[2024-07-11 04:47] LABS: Basophils Percent Auto 0.1 % (0-2); Hematocrit 24.9 % (42.0-52.0); Hemoglobin 8.3 g/dl (14.0-18.0); Imm Gran Abs Auto 0.03 X10*3/uL (0.00-0.03); Imm Gran Pct Auto 0.3 % (0.0-0.4); Lymphocytes Absolute Auto 0.7 X10*3/uL (1.2-4.9); Lymphocytes Percent Auto 7.8 % (20-40); MANUAL DIFF FLAG NO; Mean Corpuscular HGB Conc 33.3 g/dl (31.0-36.0); Mean Corpuscular Hemoglobin 32.3 pg (27.0-33.0); Mean Corpuscular Volume 96.9 fL (80.0-98.0); Mean Platelet Volume 10.7 fL (9.4-12.4); Monocytes Percent Auto 10.8 % (2-11); Neutrophils Absolute Auto 7.7 x10*3/uL (2.0-8.3); Platelet Count 101 X10*3/uL (160-400); Red Blood Count 2.57 X10*6/uL (4.60-5.80); Red Cell Distribution Width 13.3 % (11.0-16.0); White Blood Count 9.5 X10*3/uL (4.8-10.8)
[2024-07-11 05:00] LABS: Anion Gap 12 (12-20); Blood Urea Nitrogen 17 mg/dL (9-16); Carbon Dioxide 25 mmol/L (22-29); Chloride 98 mmol/L (96-108); Creatinine Clr Calc Pharmacy 46.2; Estimated Glomerular Filt Rate 45; Glucose Random 204 mg/dL (60-115); Potassium 3.3 mmol/L (3.3-5.1); Sodium 132 mmol/L (135-145)
--- NOTE | 2024-07-11 09:45 | P.PNVS_ITS ---
Subjective Subjective Date of Service: 07/11/24 Interval history: Clauido is doing well this morning. He has been eating, drinking, and sleeping well. He states his left foot feels warmer. He denies any pain this morning. He has been maintained on bedrest. He did have an episode of a hematoma in his groin after arriving in the ICU; pressure was applied for >15min and the swelling went down. Physical Exam Vital Signs: Vital Signs: Last Vital Signs Temp 98.5 F 07/11/24 08:00 Pulse 87 07/11/24 09:00 Resp 15 07/11/24 09:00 BP 117/75 07/11/24 09:00 Pulse Ox 100 07/11/24 09:00 O2 Del Method Nasal Cannula, Bi PAP 07/11/24 09:00 O2 Flow Rate 2 07/11/24 08:00 Oxygen Flow Rate 2 07/11/24 07:31 BMI result Body Mass Index 23.6 Const: General: comfortable and no acute distress Orientation/consci ousness: patient oriented x3 HEENT: Ears: hearing grossly normal bilaterally Resp: Effort & Inspection: normal respiratory effort and able to speak in complete sentences Auscultation: clear to auscultation bilaterally Cardio: Rate: regular rate Rhythm: regular rhythm Heart sounds: S1 normal heart sound present and S2 normal heart sound present Bruits: no abdominal aortic bruits, no carotid bruits, no femoral bruits and no renal bruits GI: Palpation (GI): No Abdominal aortic bruit present Neuro: General: patient oriented x3 Cranial nerves: Yes CN's II-XII intact bilaterally Extrem: Other: Both incision sites covered with Allevyn. We will take them down tomorrow and change them. There is a slight amount of blood on both, not concerning. Left groin: non erythematous, not swollen/tender to palpation. Palpable DP pulse on left foot. Progress Note: A&P Assessment and plan (1) PAD (peripheral artery disease): Status: Acute Assessment and Plan: Claudio is post op day 1 from a fem-pop bypass. He has been doing well. He had a hematoma in his groin yesterday, which was controlled with pressure. He denies any pain this morning and his feet are warm with palpable DP pulses. We will have him OOB to the chair today, once he is moved upstairs to the Med/Surg floor. We will continue to monitor his H/H, it dropped to 8.3/24.9 today with a slight VALENTINE as well. We mario encourage fluid intake. We will have his Pena removed and continue with pain medications prn. We will repeat labwork in the morning. We will start him on SQ Hep daily, 5000U. We will change the dressings tomorrow. We will continue to monitor. If there are any questions or concerns, please do not hesitate to reach out to us. Time Spent With Patient Time: Total time managing care of this patient today ____ minutes. Procedures Date of Service Date of Service: 07/11/24 Quality Stroke Does the patient have a stroke diagnosis?: No VTE Prior VTE?: No VTE Risk Level:: Medical - moderate - high VTE Device Contraindication: Treatment Not Indicated VTE Drug Contraindication: N/A - Med Ordered
--- NOTE | 2024-07-11 09:56 | HO.POSTANES ---
Post Anesthesia Evaluation Post Anesthesia Evaluation Date of Service: 07/11/24 Vital Signs: Vital Signs Temp Pulse Resp BP Pulse Ox O2 Del Method O2 Flow Rate 07/11/24 09:00 87 15 117/75 100 Nasal Cannula, BiPAP 07/11/24 08:00 98.5 F 81 18 104/57 L 100 Nasal Cannula 2 07/11/24 07:31 100 Nasal Cannula 07/11/24 07:00 90 18 110/70 98 Nasal Cannula 2 07/11/24 06:00 55 12 135/52 L 98 Nasal Cannula 2 07/11/24 05:00 79 13 93/63 96 Nasal Cannula 2 07/11/24 04:00 65 13 90/55 L 97 Nasal Cannula 2 07/11/24 03:00 69 12 92/64 97 Nasal Cannula 2 07/11/24 02:00 71 15 98/66 97 Nasal Cannula 2 07/11/24 01:00 98.3 F 69 12 98/58 L 99 Nasal Cannula 2 07/11/24 00:00 98.2 F 75 13 95/56 L 98 Nasal Cannula 2 07/10/24 22:59 73 13 97/62 98 Nasal Cannula 2 07/10/24 21:57 67 12 94/64 97 Nasal Cannula 2 Anesthesia: General Endotracheal-GETA Mental Status: Awake Pain Control: Satisfactory Nausea/Vomiting: None Hydration: Adequate Anesthesia-Related Issues: No Anes. Related Issues
--- NOTE | 2024-07-11 10:02 | MHC.CM.PN ---
CM MET WITH PT AT BEDSIDE IN ICU. PT LIVES ALONE AND IS INDEPENDENT WITH MOBILITY. PT USES HOME 02 AT 2 L VIA N/C AT [facility] VIA [facility] [place]. +HCP ON FILE AND VERIFIED. NO PCP, SEES DR. IVEY FOR PULMONARY. BROCHURE PROVIDED. DP: HOME, NO SERVICES IS ANTICIPATED. PT HAS OWN RIDE HOME. CM WILL CONTINUE TO FOLLOW FOR ANY CHANGE TO DC PLAN/NEEDS.
[2024-07-11] MEDS: Aspirin Enteric Coated 81 MG TABLET.DR PO (10:34)
[2024-07-11] MEDS: Heparin Sodium,Porcine 5,000 UNIT/ML VIAL 5000 UNIT SUBCUT (10:34)
--- NOTE | 2024-07-11 10:44 | PM.CCPN ---
Subjective Subjective Date of Service: 07/11/24 Critical Care Time (minutes): 35 Comment: Feeling better, no new complaint Blood pressure is more stable Physical Exam Vital Signs: Vital Signs: Last Vital Signs Temp 98.5 F 07/11/24 08:00 Pulse 78 07/11/24 10:00 Resp 18 07/11/24 10:00 BP 103/60 07/11/24 10:00 Pulse Ox 97 07/11/24 10:00 O2 Del Method Nasal Cannula 07/11/24 10:00 O2 Flow Rate 2 07/11/24 10:00 Oxygen Flow Rate 2 07/11/24 07:31 BMI result Body Mass Index 23.6 General: Not in any acute distress, comfortably sleeping Nutritional Appearance: Okay nourished and normal weight Eyes: appearance normal, both eyes and all related structures; Alignment and Position: alignment normal and position normal Neck: No lymphadenopathy, no thyromegaly Resp: bilateral air entry equal, no added sounds present Cardio: Regular rate, regular rhythm; Heart sounds: S1 normal heart sound present and S2 normal heart sound present GI: soft, nontender, no guarding, no hepatosplenomegaly : bladder normal to inspection, bladder normal to palpation, no renal angle tenderness, groin hematoma looks better today Skin: no rashes or lesions noted and elasticity normal Neuro: oriented to person, oriented to place, oriented to time and moves all extremities Objective Data Labs 07/11/24 04:10 07/11/24 04:10 Labs: Laboratory Results - last 24 hr 07/10/24 07/10/24 07/11/24 14:39 20:18 04:10 WBC 8.9 9.5 RBC 3.54 L 2.57 L D Hgb 11.4 L 8.3 L D Hct 34.1 L 24.9 L D MCV 96.3 96.9 MCH 32.2 32.3 MCHC 33.4 33.3 RDW 13.4 13.3 Plt Count 120 L 101 L MPV 10.3 10.7 Immature Gran % (Auto) 0.3 Neut % (Auto) 81.0 H Lymph % (Auto) 7.8 L Hutchinson % (Auto) 10.8 Eos % (Auto) 0.0 Baso % (Auto) 0.1 Lymph # (Auto) 0.7 L Hutchinson # (Auto) 1.0 Eos # (Auto) 0.0 Baso # (Auto) 0.0 Abs Immat Gran (auto) 0.03 Absolute Neuts (auto) 7.7 Absolute Nucleated RBC 0.000 0.000 Nucleated RBC % (auto) 0.0 0.0 PT 14.6 H D INR 1.3 H Sodium 132 L 130 L 132 L Potassium 3.4 3.2 L 3.3 Chloride 93 L 95 L 98 Carbon Dioxide 29 27 25 Anion Gap 13 11 L 12 BUN 14 16 17 H Creatinine 1.65 H 1.83 H 1.56 H Estim Creat Clear Calc 43.7 39.4 46.2 Estimated GFR 42 37 45 Random Glucose 163 H 302 H 204 H Calcium 9.0 7.7 L D 8.0 L Progress Note: A&P Assessment and plan (1) Essential hypertension: Status: Acute (2) Atrial fibrillation: Status: Acute (3) PAD (peripheral artery disease): Status: Acute (4) COPD (chronic obstructive pulmonary disease): Status: Acute (5) HFrEF (heart failure with reduced ejection fraction): Status: Acute Plan 63-year-old gentleman with past medical history of chronic alcoholism, chronic smoker, COPD, coronary artery disease, atrial fibrillation on apixaban, hyperlipidemia, peripheral artery disease admitted to the hospital for elective popliteal femoral bypass which he underwent successfully yesterday with no complications. During the postop. There was a brief hematoma around the groin insertion site that subsided with pressure. A couple of episodes of soft blood pressures possibly due to hypovolemia that improved with volume replacement. Peripheral artery disease: Status post successful femoral popliteal bypass on 07/10/2024 Continue aspirin and atorvastatin Atrial fibrillation: Apixaban for anticoagulation has been held due to postsurgical status Carvedilol for rate control Hypertension: Episodes of hypotension yesterday due to volume depletion Carvedilol has been restarted, losartan held due to VALENTINE Acute kidney injury: Possibly due to volume depletion as he was NPO and was on Lasix for surgery Creatinine slowly improving, down to 1.53 today Continue holding losartan until creatinine returns to baseline Avoid nephrotoxic medications Hyponatremia: Chronic hyponatremia, sodium today 132 which is positive for close to his baseline Continue to monitor Anemia: Acute drop in hemoglobin to 8.6 No obvious bleeding, size of hematoma has improved when compared to yesterday Prophylaxis: SCD Quality Stroke Does the patient have a stroke diagnosis?: No VTE Prior VTE?: No VTE Risk Level:: Medical - moderate - high VTE Device Contraindication: Treatment Not Indicated VTE Drug Contraindication: N/A - Med Ordered
--- NOTE | 2024-07-11 12:00 | PM.EVENT ---
Event Note Date of Service: 07/12/24 Event Note: Patient seen and examined by icu 63-year-old gentleman with past medical history of chronic alcoholism, chronic smoker, COPD, coronary artery disease, atrial fibrillation on apixaban, hyperlipidemia, peripheral artery disease admitted to the hospital for elective popliteal femoral bypass which he underwent successfully yesterday with no complications. During the postop. There was a brief hematoma around the groin insertion site that subsided with pressure. A couple of episodes of soft blood pressures possibly due to hypovolemia that improved with volume replacement. patient seems improving , size of hematoma has improving when compared to yesterday(d/w ICu) cbc this afternoon pending physical exam and a&P plan as per icu note. will follow along with vascular ch afib :eliquis on hold due to surgery/hemtoma /anemia. continue coreg , amiodarone stopped (please see cardio note on 07/03/24.) acute blood loss anemia sec to hematoma postop moniter cbc Time Spent With Patient Time: Total time managing care of this patient today ____ minutes.
[2024-07-11 14:36] LABS: Hematocrit 25.9 % (42.0-52.0); Hemoglobin 8.8 g/dl (14.0-18.0); Mean Corpuscular Hemoglobin 33.1 pg (27.0-33.0); Mean Corpuscular Volume 97.4 fL (80.0-98.0); Mean Platelet Volume 9.9 fL (9.4-12.4); Platelet Count 100 X10*3/uL (160-400); Red Blood Count 2.66 X10*6/uL (4.60-5.80); Red Cell Distribution Width 13.4 % (11.0-16.0); White Blood Count 9.9 X10*3/uL (4.8-10.8)
[2024-07-11] MEDS: Atorvastatin Calcium 80 MG TABLET PO (20:19)
[2024-07-12] VITALS (9 sets, daily range): BP systolic 110–154; BP diastolic 63–86; PULSE 77–95; RESP 12–20; TEMP 36.3–37.1; O2SAT 98–100
[2024-07-12] MEDS: KCl 20 mEq in 5% Dex/0.9% Sod 20 MEQ/1,000 ML IV.SOLN 100 MEQ IVCONT ×2 (03:37→13:36)
[2024-07-12 07:00] LABS: Hematocrit 24.8 % (42.0-52.0); Hemoglobin 8.1 g/dl (14.0-18.0); Mean Corpuscular HGB Conc 32.7 g/dl (31.0-36.0); Mean Corpuscular Hemoglobin 32.1 pg (27.0-33.0); Mean Corpuscular Volume 98.4 fL (80.0-98.0); Mean Platelet Volume 10.8 fL (9.4-12.4); Red Blood Count 2.52 X10*6/uL (4.60-5.80); Red Cell Distribution Width 13.5 % (11.0-16.0); White Blood Count 8.5 X10*3/uL (4.8-10.8)
[2024-07-12 07:01] LABS: Platelet Count 99 X10*3/uL (160-400)
[2024-07-12 07:13] LABS: Anion Gap 9 (12-20); Blood Urea Nitrogen 10 mg/dL (9-16); Calcium 8.1 mg/dL (8.4-10.2); Carbon Dioxide 25 mmol/L (22-29); Chloride 105 mmol/L (96-108); Creatinine Clr Calc Pharmacy 71.4; Estimated Glomerular Filt Rate > 60; Glucose Random 133 mg/dL (60-115); Potassium 3.7 mmol/L (3.3-5.1); Sodium 135 mmol/L (135-145)
[2024-07-12] MEDS: Fluticasone/Umeclidinium/Vilanterol 200/62.5/25 BLST.W.DEV 1 PUFF INHALE (08:08)
[2024-07-12] MEDS: Aspirin Enteric Coated 81 MG TABLET.DR PO (08:57)
--- NOTE | 2024-07-12 09:49 | HO.VASCPN ---
Subjective Subjective Date of Service: 07/12/24 Patient reports: no new complaints and feels better Interval history: 63-year-old status post fem-pop bypass. Appears to be doing extremely well. Pain well controlled. H and H stable. No white count. Now for routine postop follow-up. Physical Exam Vital Signs: Vital Signs: Last Vital Signs Temp 98.3 F 07/12/24 07:32 Pulse 87 07/12/24 08:10 Resp 16 07/12/24 08:10 BP 134/83 07/12/24 07:32 Pulse Ox 100 07/12/24 08:00 O2 Del Method Nasal Cannula 07/12/24 08:00 O2 Flow Rate 2 07/12/24 07:32 Oxygen Flow Rate 2 07/12/24 08:00 BMI result Body Mass Index 23.6 Const: General: cooperative, healthy appearing and comfortable Orientation/consciousness: oriented to person, oriented to place and oriented to time HEENT: Head: Yes normal to inspection Neck: Neck: Yes normal visual inspection Carotids: no bruits Chest: Chest palpation & inspection: normal inspection of the chest Resp: Effort & Inspection: normal respiratory effort and able to speak in complete sentences Auscultation: clear to auscultation bilaterally, no crackles, no rales, no rhonchi and no wheezes Cardio: Other: Left leg palpable DP Rate: regular rate Rhythm: regular rhythm Heart sounds: S1 normal heart sound present and S2 normal heart sound present Bruits: no carotid bruits Peripheral pulses: Peripheral pulses 2+ throughout GI: Inspection: Yes normal to inspection Skin: Other: Upper dressing mild drainage. Lower dressing clean Wounds: no wounds Hair: normal Neuro: General: oriented to person, oriented to place and oriented to time Cranial nerves: Yes CN's II-XII intact bilaterally and Yes Normal hearing present Cognition (Neuro): normal cognition Motor exam (neuro): 5/5 motor strength present throughout Extrem: Other: venous exam: No significant superficial varicosities or spider telangiectasias, minimal edema General: No clubbing, No cyanosis and No edema Psych: Appearance: grossly normal Mental Status: mental status grossly normal Speech and movement: Normal speech and movement present Progress Note: A&P Assessment and plan (1) PAD (peripheral artery disease): Status: Acute Assessment and Plan: In short patient appears to be doing well status post fem-pop bypass. He does still note a little bit of weakness but overall doing fairly well. I would like him to work with physical therapy for an additional day. If everything looks okay would anticipate discharge as early as tomorrow. He will work with physical therapy today Time Spent With Patient Time: Total time managing care of this patient today ____ minutes. Procedures Date of Service Date of Service: 07/12/24 Quality Stroke Does the patient have a stroke diagnosis?: No VTE Prior VTE?: No VTE Risk Level:: Medical - moderate - high VTE Device Contraindication: Treatment Not Indicated VTE Drug Contraindication: N/A - Med Ordered
--- NOTE | 2024-07-12 12:07 | MHC.CM.PN ---
EMR REVIEWED, PT S/P FEM POP BYPASS, PER SURGICAL PT IMPROVING AND WILL NEED P.T., DISPO PENDING P.T., PT MAY BE CLEARED FOR DC EARLY TOMORROW 07/13, CM WILL CONT TO FOLLOW DC NEEDS.
--- NOTE | 2024-07-12 13:43 | MHC.RECOVRN ---
Met with patient in ICU bed 59 on 07/10, after promotions team leader was placed due to pt admitting to drinking at home in excess. Patient was alert and oriented x4, speaking in clear/full sentences. Patient acknowledges the desire to stop drinking, Id like to stop, I need to . We talked about resources and coming to see us in the [facility], at the time we met he was post op and asked that our team come back when he was feeling better. This was reported and relayed to the [facility] inpatient team Kendra Drew APRN and Kiana CARLIN who verbalized meeting with him prior to discharge.
--- NOTE | 2024-07-12 15:33 | HO.PM.IMPN ---
Subjective Subjective Date of Service: 07/12/24 Interval History: anemia Review of Systems no oozing today denies any chest pain or sob Physical Exam Vital Signs: Vital Signs: Last Vital Signs Temp 97.3 F 07/12/24 11:34 Pulse 81 07/12/24 13:35 Resp 16 07/12/24 11:34 BP 129/69 07/12/24 13:35 Pulse Ox 98 07/12/24 13:35 O2 Del Method Nasal Cannula 07/12/24 11:34 O2 Flow Rate 2 07/12/24 11:34 Oxygen Flow Rate 2 07/12/24 08:00 BMI result Body Mass Index 23.6 Appearance: Alert.? Oriented X3.? cvs: rrr, [id number] . res: clear to auscultation ,no rhonchii or wheezing abd: no rebound or guarding ,nt, bs present. ext pulses present , no cyanosis . skin-operation area -seems not much oozing or erythema neuro: axo3 , nonfocal. Objective Data Active Medications Acetaminophen (Acetaminophen 325 Mg Tablet) 650 mg PO Q6H PRN PRN Reason: Pain, Mild (Pain Scale 1-3), fever or headache Last Admin: 07/11/24 20:19 Dose: 650 mg Documented By: HELEN Albuterol Sulfate (Albuterol Sulfate 90 Mcg 8 Gm Inhaler) 2 puff INHALE Q6H PRN PRN Reason: shortness of breath or wheezing Aspirin (Aspirin Enteric Coated 81 Mg Tablet.) 81 mg PO DAILY COUNTS INCLUDE 234 BEDS AT THE [facility] Last Admin: 07/12/24 08:57 Dose: 81 mg Documented By: EM Atorvastatin Calcium (Atorvastatin Calcium 80 Mg Tablet) 80 mg PO BEDTIME COUNTS INCLUDE 234 BEDS AT THE [facility] Last Admin: 07/11/24 20:19 Dose: 80 mg Documented By: HELEN Calcium Carbonate (Calcium Carbonate 750 Mg Tab.Chew) 750 mg PO Q4H PRN PRN Reason: Heartburn Carvedilol (Carvedilol 25 Mg Tablet) 25 mg PO BID COUNTS INCLUDE 234 BEDS AT THE [facility]; Protocol Fluticasone/Umeclidinium/Vilanterol (Fluticasone/Umeclidinium/Vilanterol 200/62.5/25 Blst.W.Dev) 1 puff INHALE RDAILY COUNTS INCLUDE 234 BEDS AT THE [facility] Last Admin: 07/12/24 08:08 Dose: 1 puff Documented By: EVA Furosemide (Furosemide 40 Mg Tablet) 40 mg PO BID COUNTS INCLUDE 234 BEDS AT THE [facility]; Protocol Potassium Chloride/Dextrose/Sod Cl (Kcl 20 Meq In 5% Dex/0.9% Sod) 20 meq in 1,000 mls @ 100 mls/hr IVCONT .Q10H COUNTS INCLUDE 234 BEDS AT THE [facility] Last Infusion: 07/12/24 13:38 Dose: 0 mls/hr Documented By: ME Losartan Potassium (Losartan Potassium 25 Mg Tablet) 25 mg PO DAILY COUNTS INCLUDE 234 BEDS AT THE [facility]; Protocol Last Admin: 07/10/24 13:41 Dose: Not Given Documented By: LINN Non-Admin Reason: Decreased Blood Pressure Comments: not given, BP soft and pt required ashley in OR and PACU Magnesium Hydroxide (Milk Of Magnesia 30 Ml Oral.Susp) 30 ml PO DAILY PRN PRN Reason: Constipation Melatonin (Melatonin 3 Mg Tablet) 6 mg PO BEDTIME PRN PRN Reason: Insomnia Morphine Sulfate (Morphine Sulfate 2 Mg/Ml Cartridge) 2 mg IVPUSH Q4H PRN; Protocol PRN Reason: Pain, Severe (Pain Scale 7-10) Naloxone HCl (Naloxone Hcl 0.4 Mg/Ml Vial) 0.04 mg IVPUSH Q5M PRN PRN Reason: Excessive sedation or RR < 8 Oxycodone HCl (Oxycodone Hcl Immed Release 5 Mg Tablet) 5 mg PO Q4H PRN PRN Reason: Pain, Moderate(Pain Scale 4-6) Sodium Chloride (0.9 % Sodium Chloride Flush 3 Ml Syringe) 3 ml IVFLUSH QSHIFT COUNTS INCLUDE 234 BEDS AT THE [facility] Last Admin: 07/12/24 08:58 Dose: Not Given Documented By: EM Non-Admin Reason: IV Running Labs 07/12/24 06:50 07/12/24 06:50 Labs: Laboratory Results - last 24 hr 07/12/24 06:50 MCV 98.4 H MCH 32.1 MCHC 32.7 RDW 13.5 Plt Count 99 L MPV 10.8 Absolute Nucleated RBC 0.000 Nucleated RBC % (auto) 0.0 Anion Gap 9 L Estim Creat Clear Calc 71.4 Estimated GFR > 60 Random Glucose 133 H Calcium 8.1 L Assessment and Plan (1) Anemia: Status: Acute Plan 63-year-old gentleman with past medical history of chronic alcoholism, chronic smoker, COPD, coronary artery disease, atrial fibrillation on apixaban, hyperlipidemia, peripheral artery disease admitted to the hospital for elective popliteal femoral bypass which he underwent successfully yesterday with no complications. During the postop. There was a brief hematoma around the groin insertion site that subsided with pressure. A couple of episodes of soft blood pressures possibly due to hypovolemia that improved with volume replacement. Peripheral artery disease: Status post successful femoral popliteal bypass on 07/10/2024 Continue aspirin and atorvastatin Atrial fibrillation: Apixaban for anticoagulation has been held due to postsurgical status and anemia) Carvedilol for rate control Hypertension: Episodes of hypotension yesterday due to volume depletion Coreg started 12.5 mg po bid will start lasix and losartan if blood pressure tolerates. Acute kidney injury: hold losartan for 1 more day Avoid nephrotoxic medications Hyponatremia: improving Anemia:postop Acute drop in hemoglobin to 8.1 No obvious bleeding, size of hematoma has improving moniter h/h Prophylaxis: SCD PT eval. Quality Stroke Does the patient have a stroke diagnosis?: No VTE Prior VTE?: No VTE Risk Level:: Medical - moderate - high VTE Device Contraindication: Treatment Not Indicated VTE Drug Contraindication: N/A - Med Ordered
[2024-07-12] MEDS: Atorvastatin Calcium 80 MG TABLET PO (20:22)
[2024-07-12] MEDS: carvediloL 12.5 MG TABLET PO (20:22)
[2024-07-13] VITALS (11 sets, daily range): BP systolic 86–147; BP diastolic 50–90; PULSE 80–92; RESP 16–20; TEMP 36.2–36.7; O2SAT 93–100
[2024-07-13] MEDS: KCl 20 mEq in 5% Dex/0.9% Sod 20 MEQ/1,000 ML IV.SOLN 100 MEQ IVCONT (01:55)
[2024-07-13] MEDS: Fluticasone/Umeclidinium/Vilanterol 200/62.5/25 BLST.W.DEV 1 PUFF INHALE (07:40)
[2024-07-13 07:44] LABS: Hematocrit 23.3 % (42.0-52.0); Hemoglobin 7.6 g/dl (14.0-18.0)
--- NOTE | 2024-07-13 09:36 | MHC.CM.PN ---
Addendum entered by Gabriela Morley RN 07/13/24 14:43: CM RECEIVED CALL FROM [facility] WHO REPORT THEY WILL PROVIDE LONGTERM 3XWK FOR PT. Addendum entered by Gabriela Morley RN 07/13/24 13:19: CM HAS MADE A NEW PT APPT W/PCP FRANKLIN AQUINO AT [facility] [place] ON 07/24 AT 10:30AM , PT AWARE AND REPORTS HE ONLY HAS TRANSPORTATION /WED, [facility] ARRANGED AND THEY WILL PICK PT UP AT HOME ON 07/24 AT 9:30AM AND WILL TRANSPORT PT BACK AFTER APPT. CM WILL CHECK ON PT1 STATUS WELL. Addendum entered by Gabriela Morley RN 07/13/24 13:08: per hospitalist pt will remain inpt overnight, cm has requested surgical pa cancel dc. Original Note: PER SURGICAL PT MEDICALLY CLEARED FOR DC HOME W/[facility] 3XWK TO CHECK SURGICAL SITE HOWEVER PT DOES NOT HAVE A PCP SO CM WAITING TO FIND OUT IF DR. RAYMUNDO OR HIS PA WILL AGREE TO WRITE [facility] ORDERS, PT WILL ARRANGE TRANSPORT.
[2024-07-13] MEDS: Furosemide 40 MG TABLET PO (09:39)
[2024-07-13] MEDS: Losartan Potassium 25 MG TABLET PO (09:39)
[2024-07-13] MEDS: 0.9 % Sodium Chloride Flush 3 ML SYRINGE IVFLUSH ×4 (09:39→20:50)
[2024-07-13] MEDS: Aspirin Enteric Coated 81 MG TABLET.DR PO (09:39)
[2024-07-13] MEDS: carvediloL 12.5 MG TABLET PO (09:39)
--- NOTE | 2024-07-13 10:08 | HO.PM.IMPN ---
Subjective Subjective Date of Service: 07/13/24 Interval History: anemia Review of Systems patient seems pale , tried with little walking ,bp also boderline h/h drop 7.6 Physical Exam Vital Signs: Vital Signs: Last Vital Signs Temp 97.4 F 07/13/24 07:30 Pulse 86 07/13/24 07:40 Resp 20 07/13/24 07:40 BP 147/90 H 07/13/24 07:30 Pulse Ox 98 07/13/24 07:40 O2 Del Method Nasal Cannula 07/13/24 07:40 O2 Flow Rate 2 07/13/24 07:30 Oxygen Flow Rate 2 07/13/24 07:40 BMI result Body Mass Index 23.6 Appearance: Alert.? Oriented X3.? cvs: rrr, [id number] . res: clear to auscultation ,no rhonchii or wheezing abd: no rebound or guarding ,nt, bs present. ext pulses present , no cyanosis . skin-operation area -seems not much oozing or erythema neuro: axo3 , nonfocal. Objective Data Active Medications Acetaminophen (Acetaminophen 325 Mg Tablet) 650 mg PO Q6H PRN PRN Reason: Pain, Mild (Pain Scale 1-3), fever or headache Last Admin: 07/11/24 20:19 Dose: 650 mg Documented By: HELEN Albuterol Sulfate (Albuterol Sulfate 90 Mcg 8 Gm Inhaler) 2 puff INHALE Q6H PRN PRN Reason: shortness of breath or wheezing Ascorbic Acid (Ascorbic Acid 500 Mg Tablet) 500 mg PO DAILY [facility] Aspirin (Aspirin Enteric Coated 81 Mg Tablet.) 81 mg PO DAILY [facility] Last Admin: 07/13/24 09:39 Dose: 81 mg Documented By: BLANK Atorvastatin Calcium (Atorvastatin Calcium 80 Mg Tablet) 80 mg PO BEDTIME [facility] Last Admin: 07/12/24 20:22 Dose: 80 mg Documented By: HELEN Calcium Carbonate (Calcium Carbonate 750 Mg Tab.Chew) 750 mg PO Q4H PRN PRN Reason: Heartburn Carvedilol (Carvedilol 12.5 Mg Tablet) 12.5 mg PO BID [facility]; Protocol Last Admin: 07/13/24 09:39 Dose: 12.5 mg Documented By: BLANK Ferrous Sulfate (Ferrous Sulfate 300 Mg/5 Ml Liquid) 300 mg PO BIDWM [facility] Fluticasone/Umeclidinium/Vilanterol (Fluticasone/Umeclidinium/Vilanterol 200/62.5/25 Blst.W.Dev) 1 puff INHALE RDAILY [facility] Last Admin: 07/13/24 07:40 Dose: 1 puff Documented By: KRISTINA Furosemide (Furosemide 40 Mg Tablet) 40 mg PO DAILY [facility]; Protocol Last Admin: 07/13/24 09:39 Dose: 40 mg Documented By: BLANK Losartan Potassium (Losartan Potassium 25 Mg Tablet) 25 mg PO DAILY [facility]; Protocol Last Admin: 07/13/24 09:39 Dose: 25 mg Documented By: BLANK Magnesium Hydroxide (Milk Of Magnesia 30 Ml Oral.Susp) 30 ml PO DAILY PRN PRN Reason: Constipation Melatonin (Melatonin 3 Mg Tablet) 6 mg PO BEDTIME PRN PRN Reason: Insomnia Morphine Sulfate (Morphine Sulfate 2 Mg/Ml Cartridge) 2 mg IVPUSH Q4H PRN; Protocol PRN Reason: Pain, Severe (Pain Scale 7-10) Naloxone HCl (Naloxone Hcl 0.4 Mg/Ml Vial) 0.04 mg IVPUSH Q5M PRN PRN Reason: Excessive sedation or RR < 8 Oxycodone HCl (Oxycodone Hcl Immed Release 5 Mg Tablet) 5 mg PO Q4H PRN PRN Reason: Pain, Moderate(Pain Scale 4-6) Sodium Chloride (0.9 % Sodium Chloride Flush 3 Ml Syringe) 3 ml IVFLUSH QSHIFT [facility] Last Admin: 07/13/24 09:39 Dose: 3 ml Documented By: BLANK Labs 07/13/24 06:28 07/12/24 06:50 Assessment and Plan (1) Anemia: Status: Acute Plan 63-year-old gentleman with past medical history of chronic alcoholism, chronic smoker, COPD, coronary artery disease, atrial fibrillation on apixaban, hyperlipidemia, peripheral artery disease admitted to the hospital for elective popliteal femoral bypass which he underwent successfully yesterday with no complications. During the postop. There was a brief hematoma around the groin insertion site that subsided with pressure. A couple of episodes of soft blood pressures possibly due to hypovolemia that improved with volume replacement. soft bp in setting of postop anemia : seems symptomatic Peripheral artery disease: Status post successful femoral popliteal bypass on 07/10/2024 Continue aspirin and atorvastatin Atrial fibrillation: Apixaban for anticoagulation-further use as per primary team. hold Carvedilol -might need to adjust lower dosing if blood pressure tolerate. Hypertension: Coreg as above and hold lasix. hold losartan maritza 3-4 days . check renal fucntion and electrolytes outaptient with pcp. Acute kidney injury: hold losartan for 1 more day Avoid nephrotoxic medications Hyponatremia: improving Anemia:postop Acute drop in hemoglobin to 7.6 No obvious bleeding, size of hematoma has improving seems pale /tired- consider adding 1 prbc moniter h/h Prophylaxis: SCD PT eval-home. above is d/w primary team in detail. Quality Stroke Does the patient have a stroke diagnosis?: No VTE Prior VTE?: No VTE Risk Level:: Medical - moderate - high VTE Device Contraindication: Treatment Not Indicated VTE Drug Contraindication: N/A - Med Ordered
--- NOTE | 2024-07-13 10:21 | PM.DS ---
DS: Providers Provider Date of Service: 07/13/24 Date of admission: 07/10/24 11:16 Primary care physician: None Physician DS: Diagnosis Discharge Diagnosis (1) Anemia: Status: Acute DS: Summary Hospital Course Hospital Course: Claudio is s/p fem-pop bypass of the LLE on 07/10/24. He has remained hemodynamically stable; however, he has been having decreases in his H/H, with a low of 7.6 this morning. He denies any concerns this morning. He denies any bleeding, weakness, dizziness. There is no obvious sites of bleeding. both incision sites are C/D/I. The pt has a hx of weakness and continues with weakness. He is getting up and out of bed. After a lengthy discussion with Dr Taylor, we feel that it is best that Claudio be discharged home with VNA services. We will order an outpatient CBC for Wednesday. We will discuss with him the s/s to get to the ER, including increased lethargy/weakness, dizziness, etc. We will have him follow up in the office in 2w. We can have him keep the incision sites open to air. CM is working on getting VNA services for the pt. Status at Discharge Overall status at discharge: patient is back to baseline Time Attestation Total time managing care of this patient today: 45 mintues. Discharge Coordination Time (in mins): 45 Quality: Safe Use of Opioids Does Pt have an Active Cancer Diagnosis on the Problem List?: No Quality: Stroke Does the patient have a stroke diagnosis?: No Physical Exam Vital Signs: Vital Signs: Last Vital Signs Temp 97.4 F 07/13/24 07:30 Pulse 86 07/13/24 07:40 Resp 20 07/13/24 07:40 BP 147/90 H 07/13/24 07:30 Pulse Ox 98 07/13/24 07:40 O2 Del Method Nasal Cannula 07/13/24 07:40 O2 Flow Rate 2 07/13/24 07:30 Oxygen Flow Rate 2 07/13/24 07:40 BMI result Body Mass Index 23.6 Const: General: comfortable and no acute distress Orientation/consciousness: patient oriented x3 HEENT: Ears: hearing grossly normal bilaterally Resp: Effort & Inspection: normal respiratory effort and able to speak in complete sentences Auscultation: clear to auscultation bilaterally Cardio: Rate: regular rate Rhythm: regular rhythm Heart sounds: S1 normal heart sound present and S2 normal heart sound present Bruits: no abdominal aortic bruits, no carotid bruits, no femoral bruits and no renal bruits GI: Palpation (GI): No Abdominal aortic bruit present Neuro: General: patient oriented x3 Cranial nerves: Yes CN's II-XII intact bilaterally Extrem: Other: Left groin site: C/D/I. Left lower extremity incision: C/D/I. DS: Data Data Completed and Pending Completed studies during hospitalization [Text1]: Pending at discharge 07/10/24 08:55 Surgical [PTH] Routine Procedures Insertion of Endotracheal Airway into Trachea, Via Natural or Artificial Opening (06/11/22) Inspection of Upper Intestinal Tract, Via Natural or Artificial Opening Endoscopic (06/11/22) Performance of Cardiac Output, Single, Manual (06/11/22) Labs on day of discharge: Laboratory Results - last 24 hr 07/13/24 06:28 Hgb 7.6 L Hct 23.3 L Discharge Plan Discharge Anticipated Discharge Date/Time: 07/13/24 10:17 Patient Disposition: Home Health Service Discharge Diagnosis: s/p fem-pop bypass Referrals: Physician,Unknown J [Physician] - 1 Week Discharge Medications: Continued carvedilol 25 mg tablet 25 mg PO BID Qty: 90 3RF furosemide 40 mg tablet 40 mg PO BID Qty: 60 0RF Rx Instructions: Must attend next appt for refills atorvastatin 80 mg tablet 80 mg PO BEDTIME aspirin 81 mg tablet,delayed release (DR/EC) 81 mg PO DAILY Trelegy Ellipta 200-62.5-25 mcg blister with device 1 inh inhalation DAILY albuterol sulfate 90 mcg/actuation HFA aerosol inhaler 2 puff inhalation Q6H PRN (Reason: shortness of breath or wheezing) Qty: 8.5 2RF apixaban 5 mg tablet 5 mg PO BID Qty: 120 3RF Held losartan 25 mg tablet 25 mg PO DAILY Hold Instructions: Resume on 07/16/24. Discharge Orders: Discharge Order (Routine); Ordered 07/13/24 Ordered By: Triny Medrano Diet: Advance to usual diet Activity on Discharge: As tolerated Stand Alone Forms: Patient Portal Discharge page Print Language: [place] Care Plan Goals: Pt is s/p fem-pop bypass. Incision checks by VNA 3/week. Follow up in the office in 2w. Minimal physical activity, no lifting more than 5# in the next 2w. Health Concerns: COPD, s/p fem-pop bypass, Plan of Treatment: Incision checks with VNA 3/week. Follow up in office in 2w. Assessment: s/p fem-pop bypass
[2024-07-13] MEDS: Acetaminophen 325 MG TABLET 650 MG PO (10:46)
[2024-07-13] MEDS: Ascorbic Acid 500 MG TABLET PO (10:47)
[2024-07-13] MEDS: diphenhydrAMINE HCL 25 MG CAPSULE PO (10:47)
[2024-07-13] MEDS: Ferrous Sulfate 300 MG/5 ML LIQUID PO (17:49)
[2024-07-13] MEDS: Atorvastatin Calcium 80 MG TABLET PO (20:50)
[2024-07-14 03:25] VITALS: BP 127/75; PULSE 92; RESP 20; TEMP 36.8; O2SAT 92
[2024-07-14 07:05] LABS: Hematocrit 24.2 % (42.0-52.0); Hemoglobin 8.4 g/dl (14.0-18.0)
[2024-07-14 07:27] VITALS: BP 146/84; PULSE 82; RESP 17; TEMP 37.1; O2SAT 93
[2024-07-14 07:28] VITALS: O2SAT 93
[2024-07-14] MEDS: Fluticasone/Umeclidinium/Vilanterol 200/62.5/25 BLST.W.DEV 1 PUFF INHALE (07:45)
[2024-07-14 07:46] VITALS: PULSE 82; RESP 17; O2SAT 94
--- NOTE | 2024-07-14 09:54 | MHC.CM.PN ---
Addendum entered by Gabriela Morley RN 07/14/24 12:40: PT HAS ARRANGED PRIVATE TRANSPORT HOME, APPT'S REVIEWED AND PT HAS TRANSPORT TO VASCULAR FOLLOW-UP APPT, CM ARRANGED [facility] FOR NEW PCP APPT. Original Note: ANTIC PT WILL DC HOME W/[facility] FOR SN 3XWK, NEW PCP APPT W/MARTHA العلي AND FOLLOW UP W/VASCULAR ON 07/25 AT 9AM, DETAILS ADDED TO PRINTABLE DP, PT MAY NEED TRANSPORT HOME.
--- NOTE | 2024-07-14 09:58 | P.F2F_ITS ---
Service Date Service Date: 07/14/24 Encounter Date of encounter: 07/14/24 Reasons for Services Signs and symptoms assessed: Claudio is s/p fem-pop bypass on 07/10. He will need VNA services for incision site checks. Reason for [facility]: wound care Homebound: Leaving the home is medically contraindicated at this time without the asist of a device and/or another person due th the listed conditions above and below. Reason homebound: leg weakness Certification: Based on the above findings, I certify that this patient is confined to the home and needs intermittent [facility] care, physical therapy and/or speech therapy, or continues to need occupational therapy. The patient is under my care, and I have initiated the establishment of the plan of care. The patient will be followed by a physician who will periodically review the plan of care. Time Spent With Patient Time: Total time managing care of this patient today __25__ minutes.
--- NOTE | 2024-07-14 10:12 | MHC.RECOVRN ---
AUDIT-C Brief Intervention Pt had positive screen for unhealthy alcohol use on admission, subsequently met with t/w to discuss alcohol use and recovery supports/options. This comic book writer met with patient to discuss current alcohol use and concerns related to increased risk of alcohol related problems.? Pt reports 6 pack Vero daily x years. Denies family hx AUD. Denies alcohol use impacting health. Withdrawal History: denies hx withdrawal seizures, reports the shakes when he does not drink Longest time without alcohol has been 1-2 weeks, unsure when the last time was. Goal is abstinence. Treatment History: denies hx treatment, reports going to AA once years ago-- It's not for me Supports:?friend (Raúl) Discussed risk reduction strategies including drinking below the recommended limit. Provided pt with written resources including information on inpatient and outpatient treatment, [facility], harm reduction, and recovery coaching. Pt plans to review resources and reach out to t/w if needed. Is not interested in referrals or [facility]AN[facility] at this time, states I want to try doing it myself first. Pt provided with t/w contact information if questions or concerns arise. Denies other questions or concerns at this time.?
[2024-07-14] MEDS: Ferrous Sulfate 300 MG/5 ML LIQUID PO (10:15)
[2024-07-14] MEDS: Aspirin Enteric Coated 81 MG TABLET.DR PO (10:15)
[2024-07-14] MEDS: Ascorbic Acid 500 MG TABLET PO (10:15)
[2024-07-14] MEDS: carvediloL 6.25 MG TABLET PO (10:15)
[2024-07-14] MEDS: 0.9 % Sodium Chloride Flush 3 ML SYRINGE IVFLUSH (10:15)
--- NOTE | 2024-07-14 11:16 | HO.PM.IMPN ---
Subjective Subjective Date of Service: 07/14/24 Interval History: anemia Review of Systems patient seems better denies any chest pain or sob Physical Exam Vital Signs: Vital Signs: Last Vital Signs Temp 98.8 F 07/14/24 07:27 Pulse 82 07/14/24 07:46 Resp 17 07/14/24 07:46 BP 146/84 H 07/14/24 07:27 Pulse Ox 93 07/14/24 07:28 O2 Del Method Room Air 07/14/24 07:28 O2 Flow Rate 2 07/13/24 07:30 Oxygen Flow Rate 2 07/13/24 07:40 BMI result Body Mass Index 23.6 Appearance: Alert.? Oriented X3.? cvs: rrr, [id number] . res: clear to auscultation ,no rhonchii or wheezing abd: no rebound or guarding ,nt, bs present. ext pulses present , no cyanosis . skin-operation area -seems not much oozing or erythema neuro: axo3 , nonfocal. Objective Data Active Medications Acetaminophen (Acetaminophen 325 Mg Tablet) 650 mg PO Q6H PRN PRN Reason: Pain, Mild (Pain Scale 1-3), fever or headache Last Admin: 07/11/24 20:19 Dose: 650 mg Documented By: HELEN Albuterol Sulfate (Albuterol Sulfate 90 Mcg 8 Gm Inhaler) 2 puff INHALE Q6H PRN PRN Reason: shortness of breath or wheezing Ascorbic Acid (Ascorbic Acid 500 Mg Tablet) 500 mg PO DAILY [facility] Last Admin: 07/14/24 10:15 Dose: 500 mg Documented By: SHIRA Aspirin (Aspirin Enteric Coated 81 Mg Tablet.) 81 mg PO DAILY [facility] Last Admin: 07/14/24 10:15 Dose: 81 mg Documented By: SHIRA Atorvastatin Calcium (Atorvastatin Calcium 80 Mg Tablet) 80 mg PO BEDTIME [facility] Last Admin: 07/13/24 20:50 Dose: 80 mg Documented By: OSMIN-DANIIZEB Calcium Carbonate (Calcium Carbonate 750 Mg Tab.Chew) 750 mg PO Q4H PRN PRN Reason: Heartburn Carvedilol (Carvedilol 6.25 Mg Tablet) 6.25 mg PO BID [facility]; Protocol Last Admin: 07/14/24 10:15 Dose: 6.25 mg Documented By: SHIRA Ferrous Sulfate (Ferrous Sulfate 300 Mg/5 Ml Liquid) 300 mg PO BIDWM [facility] Last Admin: 07/14/24 10:15 Dose: 300 mg Documented By: SHIRA Fluticasone/Umeclidinium/Vilanterol (Fluticasone/Umeclidinium/Vilanterol 200/62.5/25 Blst.W.Dev) 1 puff INHALE RDAILY [facility] Last Admin: 07/14/24 07:45 Dose: 1 puff Documented By: BETTINA Magnesium Hydroxide (Milk Of Magnesia 30 Ml Oral.Susp) 30 ml PO DAILY PRN PRN Reason: Constipation Melatonin (Melatonin 3 Mg Tablet) 6 mg PO BEDTIME PRN PRN Reason: Insomnia Naloxone HCl (Naloxone Hcl 0.4 Mg/Ml Vial) 0.04 mg IVPUSH Q5M PRN PRN Reason: Excessive sedation or RR < 8 Sodium Chloride (0.9 % Sodium Chloride Flush 3 Ml Syringe) 3 ml IVFLUSH QSHIFT [facility] Last Admin: 07/14/24 10:15 Dose: 3 ml Documented By: SHIRA Labs 07/14/24 06:10 07/12/24 06:50 Labs: Laboratory Results - last 24 hr 07/13/24 10:50 Blood Type A Positive Antibody Screen NEGATIVE Crossmatch See Detail Assessment and Plan (1) Anemia: Status: Acute Plan 63-year-old gentleman with past medical history of chronic alcoholism, chronic smoker, COPD, coronary artery disease, atrial fibrillation on apixaban, hyperlipidemia, peripheral artery disease admitted to the hospital for elective popliteal femoral bypass which he underwent successfully yesterday with no complications. During the postop. There was a brief hematoma around the groin insertion site that subsided with pressure. A couple of episodes of soft blood pressures possibly due to hypovolemia that improved with volume replacement. soft bp in setting of postop anemia : seems symptomatic Peripheral artery disease: Status post successful femoral popliteal bypass on 07/10/2024 Continue aspirin and atorvastatin Atrial fibrillation: Apixaban for anticoagulation adjusted Carvedilol 6.25 mg po bid. Hypertension: Coreg as above and hold lasix for today . hold losartan until wednesday if bp allows . check renal fucntion and electrolytes outaptient with pcp. Acute kidney injury: hold losartan Avoid nephrotoxic medications Hyponatremia: improving Anemia:postop Acute drop in hemoglobin 8.4 No obvious bleeding, size of hematoma has improving seems pale /tired- consider adding 1 prbc moniter h/h added iron and vitamin c. Prophylaxis: SCD PT eval-home. above is d/w primary team in detail. Quality Stroke Does the patient have a stroke diagnosis?: No VTE Prior VTE?: No VTE Risk Level:: Medical - moderate - high VTE Device Contraindication: Treatment Not Indicated VTE Drug Contraindication: N/A - Med Ordered
[2024-07-14 11:17] VITALS: BP 129/60; PULSE 100; RESP 17; TEMP 36.6; O2SAT 95
== END 2024-07-14 12:23 | disposition home health service (06) | DRG 181 ==
LOC: HO.SSSA 11:17 → HO.ICU 11:44 → HO.IMC 07-11 14:40
PROVIDERS: Internal Medicine; Internal Medicine Critical Care Medicine; Nurse Practitioner; Physician Assistant Medical; Physician Assistant Surgical; Admitting Provider Surgery Vascular Surgery; Visit Provider Surgery Vascular Surgery
DX: I70.212 Atherosclerosis of native arteries of extremities with intermittent claudication, left leg (principal); N17.9 Acute kidney failure, unspecified; E87.1 Hypo-osmolality and hyponatremia; I11.0 Hypertensive heart disease with heart failure; I50.22 Chronic systolic (congestive) heart failure; I95.9 Hypotension, unspecified; E86.1 Hypovolemia; D64.89 Other specified anemias; F10.21 Alcohol dependence, in remission; I25.10 Atherosclerotic heart disease of native coronary artery without angina pectoris; F17.210 Nicotine dependence, cigarettes, uncomplicated; Z71.6 Tobacco abuse counseling; I48.91 Unspecified atrial fibrillation; J44.9 Chronic obstructive pulmonary disease, unspecified; Z79.01 Long term (current) use of anticoagulants; Z79.82 Long term (current) use of aspirin; Z79.899 Other long term (current) drug therapy
CPT/HCPCS: 36415; 80048; 80051; 80053; 85014; 85018; 85025; 85027; 85610; 85730; 86850; 86900; 86901; 86923; 88304; 94640; 97162; A4649; C1758; C1768; C1889; C9250; J0690; J1100; J1644; J2003; J2250; J2405; J2704; J2795; J3010; J3480; P9016

== ENCOUNTER → 2024-07-10 11:16 | Outpatient (BNV) | payer OTHER, SELFPAY | PROVIDERS: Admitting Provider Surgery Vascular Surgery; Visit Provider Internal Medicine | DX: D64.9 Anemia, unspecified (principal) | CPT/HCPCS: 99231; 99499 ==

== ENCOUNTER → 2024-07-10 11:16 | Outpatient (BNV) | payer OTHER, SELFPAY | PROVIDERS: Admitting Provider Surgery Vascular Surgery; Visit Provider Internal Medicine Critical Care Medicine | DX: J44.9 Chronic obstructive pulmonary disease, unspecified (principal); I73.9 Peripheral vascular disease, unspecified; I48.91 Unspecified atrial fibrillation; I10 Essential (primary) hypertension; I50.20 Unspecified systolic (congestive) heart failure | CPT/HCPCS: 99291 ==

== ENCOUNTER 2024-07-18 06:19 | Outpatient (REF) | payer OTHER, SELFPAY ==
[2024-07-18 07:17] LABS: Baso%MD 0.9 %; Eos%MD 1.6 %; Hematocrit 25.9 % (42.0-52.0); Hemoglobin 8.6 g/dl (14.0-18.0); IG%MD 0.8 %; Lymph%MD 16.1 %; Mean Corpuscular HGB Conc 33.2 g/dl (31.0-36.0); Mean Corpuscular Hemoglobin 32.2 pg (27.0-33.0); Mean Platelet Volume 9.2 fL (9.4-12.4); Mono%MD 13.2 %; Neut%MD 67.4 %; Platelet Count 263 X10*3/uL (160-400); Red Blood Count 2.67 X10*6/uL (4.60-5.80); Red Cell Distribution Width 14.4 % (11.0-16.0); White Blood Count 6.3 X10*3/uL (4.8-10.8)
[2024-07-18 08:13] LABS: Atypical Lymph Absolute Manual 0.1 x10*3/uL; Atypical Lymphs Percent Manual 1 % (0-6); Band Neutrophils Percent 4 % (3-5); Basophils Abs Manual 0.1 X10*3/uL (0.0-0.2); Basophils Percent Manual 2 % (0-2); Eosinophils Absolute Manual 0.2 X10*3/uL (0.0-0.4); Eosinophils Percent Manual 3 % (0-4); Lymphocytes Absolute Manual 0.9 X10*3/uL (1.2-4.9); Lymphocytes Percent Manual 15 % (20-40); Macrocytosis 1+ (5-14) /OIF; Monocytes Absolute Manual 0.5 X10*3/uL (0.1-1.2); Monocytes Percent Manual 8 % (2-11); Neutrophils Absolute Manual 4.5 X10*3/uL (2.0-8.3); Neutrophils Percent Manual 67 % (45-73); RBC Morphology NOTED
[2024-07-18 08:14] LABS: Platelet Estimate NORMAL (NORMAL)
[2024-07-18 08:15] LABS: Basophilic Stippling 1+ (0-2) /OIF; Platelet Morphology Comment NORMAL; Polychromasia 1+ (0-2) /OIF
== END 2024-07-18 06:20 | disposition home or self-care (01) ==
LOC: HO.LAB 06:19
PROVIDERS: Visit Provider Physician Assistant Surgical
DX: D64.9 Anemia, unspecified (principal)
CPT/HCPCS: 36415; 85007; 85027

== ENCOUNTER 2024-07-24 09:45 | Outpatient (AMB) | payer OTHER, SELFPAY ==
--- NOTE | 2024-07-24 09:47 | A.OFFPC_ITS ---
Vital Signs 3 07/24/24 09:48 Height 5 ft 8 in Weight 155 lb 8 oz BMI 23.6 BP 104/62 Blood Pressure Location Lt brachial Position Sitting Pulse 74 Pulse Source Palpation Intake Visit Reasons: s/p FEM Pop bypass 07/10 [facility] Allergies No Known Allergies Allergy (Verified 07/24/24 09:59) Medication List - Last Reconciled 07/24/24 by Berenice Caicedo PA-C albuterol sulfate 90 mcg/actuation 2 puffs inhalation Q6H PRN apixaban 5 mg PO BID ascorbic acid (vitamin C) (Vitamin C) 500 mg PO DAILY aspirin 81 mg PO DAILY atorvastatin 80 mg PO BEDTIME carvedilol 6.25 mg (1/4 x 25 mg) PO BID ldlwnhlzbbq-rkebhqlqr-doouodwo 200-62.5-25 mcg (Trelegy Ellipta) 1 inh inhalation DAILY furosemide 40 mg PO BID losartan 25 mg PO DAILY Tobacco use date assessed: 07/24/24 Fall risk assessment: 2 + Falls in past year Last assessed Fall Risk: 07/24/24 Dental Screening Dental Screen Date: 07/24/24 Did you have a dental visit in the last 12 months?: No Did you have a dental problem in the last 6 months where you did not have access to dental care?: No Was dental information given to patient?: Patient declined HPI s/p FEM Pop bypass 07/10 [facility] 2 HPI0 Details 63-year-old male with past medical histo ry of peripheral arterial disease, claudication, COPD and history of ventricular tachycardia with ICD in place coming to the office for the 1st time. In the past patient was referred to GI in 2021 for unintentional weight loss brought for endoscopy but unfortunately after sedation developed V-tach and required multiple shocks and received amiodarone. He was taken to [facility] where he underwent cardiac catheterization and was found to have scar mediated V-tach. He underwent single- chamber ICD placement at that time. In review of the notes patient was seen in [facility] Cardiology Cardiology patient has a atrial fibrillation with rate control and on dual antiplatelet therapy on Eliquis 07/03/2024. Patient was seen by pulmonology 07/04/2024 for pulmonary clearance for left femoral popliteal bypass with Dr. Taylor on 07/10/2024 CT revealed multiple pulmonary nodules considered low risk for surgery. Patient underwent fem-pop bypass of the left lower extremity on 07/10/2024 which was complicated by decreasing H&H discussed with Dr. Taylor who advised being discharged home with VNA services and follow up in 3 weeks. Patient has f/u with Dr. Taylor 07/25/2024. Has been having difficulty walking which has been ongoing since before the surgery but has been improving. He has VNA services coming in and was seen today. They have been monitoring the incision for infection and wound care and they do not have any concerns at this time but he does have bruising around the incision. He was previously having swelling in the left lower leg but the swelling has been absent since the procedure. He quit smoking and drinking about 2 weeks ago and denies any cravings at this time. He has never had a colonoscopy he had been scheduled for 1 in 2021 but unfortunately had the complications described above. [facility] Medical History (Updated 07/24/24 @ 11:00 by Berenice Caicedo PA-C) Essential hypertension Atrial fibrillation Alcohol dependence COPD (chronic obstructive pulmonary disease) ICD (implantable cardioverter-defibrillator) in place V-tach PAD (peripheral artery disease) Shoulder fracture Skull fracture HFrEF (heart failure with reduced ejection fraction) Enlarged RV (right ventricle) Non-ST elevated myocardial infarction (non-STEMI) Surgical History Hx of appendectomy History of surgery on arm S/P aortogram History of cardiac cath History of hernia surgery Family History Father Stroke Mother Emphysema lung Social History Household Members: None Housing: Apartment Are you a primary district manager primary care sales to a significant other at home: No Do you presently have visiting nurse or other home services: No Alcohol intake: current Alcohol intake frequency: 3 or more drinks per day Alcohol type: beer and hard liquor Patient Tobacco Use Status: Former Tobacco user Tobacco use type: Cigarette Cigarette Packs Per Day: 0.5 Cigarettes Per Day: 10.0 Years Smoked: 50 e-Cigarette/Vaping Use: Never Used Second Hand Smoke Exposure: No Advance Directives Date on File: 06/02/21 service: No Cognitive needs: No Hearing needs: No Vision needs: Yes Questionnaire PHQ-9 Over the last 2 weeks, how often have you been bothered by any of the following problems? 1. Little interest or pleasure in doing things: not at all 2. Feeling down, depressed, or hopeless: not at all 3. Trouble falling or staying asleep, or sleeping too much: not at all 4. Feeling tired or having little energy: not at all 5. Poor appetite or overeating: not at all 6. Feeling bad about yourself - or that you are a failure or have let yourself or your family down: not at all 7. Trouble concentrating on things, such as reading the newspaper or watching television: not at all 8. Moving or speaking so slowly that other people could have noticed. Or the opposite - being so fidgety or restless that you have been moving around a lot more than usual: not at all 9. Thoughts that you would be better off or of hurting yourself in some way: not at all Total score: 0 Depression Screening Interpretation: Negative Depression Screening Done: Yes 75941 - PHQ-9 Billing: Yes Source: Developed by Drs. Ricky Cabrera, Tamy Pierre, Flako Kerr and colleagues, with an educational nguyễn from [employer]. Thrive Questionnaire Date Thrive assessed: 07/24/24 I am a: Patient What is your living situation today?: I have a steady place to live Within the past 12 months, did the food you bought not last and you didn't have the money to get more?: Never true Within the past 12 months, did you worry whether your food would run out before you got money to buy more?: Never true Do you have trouble paying for medicines?: No Do you have trouble getting transportation to medical appointments?: No Do you have trouble paying your heating and electricity bill?: No Do you have trouble taking care of your child, family member or friend?: No Do you have trouble with day-to-day activities such as bathing, preparing meals, shopping, managing finances, etc.?: No Are you currently unemployed and looking for a job?: No Are you interested in more education?: No THRIVE Score: 0 AUDIT C Alcohol Use Questionnaire (AUDIT-C) 1. How often do you have a drink containing alcohol?: Never 3. How often do you have six or more drinks on one occasion?: Never Total Score: 0 NORA-7 AMB Questionnaire NORA-7 Date NORA - 7 assessed: 07/24/24 Feeling nervous, anxious, or on edge: 0 = Not at all Not being able to stop or control worryin = Not at all Worrying too much about different things: 0 = Not at all Trouble relaxin = Not at all Being so restless that it is hard to sit still: 0 = Not at all Becoming easily annoyed or irritable: 0 = Not at all Feeling afraid as if something awful might happen: 0 = Not at all Total NORA-7 score (0-4 normal; 5-9 mild; 10-14 moderate; 15-21 severe): 0 Source: Developed by Drs. Ricky Cabrera, Tamy Pierre, Flako Kerr and colleagues, with an educational nguyễn from [employer]. NORA-7 Assessment Billing NORA-7 Assessment Tool: NORA-7 Assessment 21166 Review of Systems Const Denies body aches, Denies fatigue, Denies fever(s), Denies frequent falls, Denies headache(s) and Denies weakness Eyes Reports no additional complaints and Denies change in vision ENT Denies dysphagia, Denies dizziness, Denies facial pain, Denies headache(s), Denies nasal congestion and Denies odynophagia Card Denies chest pain, Denies syncope, Denies irregular heart rhythm, Denies leg edema, Denies lightheadedness and Denies dyspnea Resp Denies cough and Denies dyspnea GI Denies constipation, Denies dysphagia, Denies dyspepsia, Denies diarrhea, Denies nausea, Denies odynophagia and Denies vomiting Denies dysuria, Denies urinary frequency, Denies urinary hesitancy and Denies urinary urgency Musc Denies back pain and Denies myalgias Skin/Breast Reports system reviewed and no additional complaints, except as documented Neuro Denies dizziness, Denies syncope, Denies frequent falls, Denies headache(s) and Denies weakness Psych Reports no additional complaints Endo Denies fatigue Physical exam (Primary Care) Vital Signs: Last Vital Signs BP 104/62 07/24/24 09:48 BMI result Body Mass Index 23.6 Tobacco/Smoking Status: Tobacco use Status Tobacco use date assessed 07/24/24 07/24/24 09:52 Patient Tobacco Use Status Former Tobacco user 07/24/24 09:52 Tobacco use type Cigarette 07/24/24 09:52 e-Cigarette/Vaping Use Never Used 07/24/24 09:52 PHQ-9: PHQ-9 Score PHQ-9: Total score 0 07/24/24 09:52 Depression Screening Interpretation: Negative Thrive Assessment: Date of Thrive Assessment Date Thrive assessed 07/24/24 07/24/24 09:52 Const General: cooperative, healthy appearing, comfortable and no acute distress Orientation/consciousness: patient oriented x3 HENMT Head: Yes normocephalic Ears: hearing grossly normal bilaterally General nose exam: Normal external nose present Eyes General: appearance normal, both eyes and all related structures Conjunctivae: conjunctivae normal Neck Neck: Yes full ROM and Yes no lymphadenopathy Resp Effort & Inspection: normal respiratory effort Auscultation: clear to auscultation bilaterally, no crackles, no rales, no rhonchi and no wheezes Cardio Rate: regular rate Rhythm: regular rhythm Skin General skin exam: no rashes or lesions noted Full body images: 2 1. Surgical incision closed with multiple ava. No erythema, drainage or warmth and no evidence of dehiscence 2. Surgical incision closed with multiple ava. No erythema, drainage or warmth and no evidence of dehiscence Neuro General: patient oriented x3 Gait exam (Neuro): Normal gait present Extrem General: Yes normal to inspection, Yes full ROM and No edema Psych Affect: normal affect Attitude: cooperative Insight: Good insight present (Psych) Judgement: Good judgement present (Psych) Coding Level of Care Code New Pt Level 4 (16054) Diagnoses Anemia D64.9 ICD (implantable cardioverter-defibrillator) in place Z95.810 Multiple pulmonary nodules R91.8 COPD (chronic obstructive pulmonary disease) J44.9 Tobacco abuse Z72.0 PAD (peripheral artery disease) I73.9 Ventricular tachycardia I47.20 Enlarged RV (right ventricle) I51.7 Essential hypertension I10 Atrial fibrillation I48.91 Alcohol dependence F10.20 Additional Codes NORA-7 Assessment Billing - NORA-7 Assessment Tool: NORA-7 Assessment 05882 ([id number]) PHQ-9 - 67842 - PHQ-9 Billing: Yes ([id number]) Assessment & Plan Assessment & Plan (1) Anemia: Code(s): D64.9 - Anemia, unspecified Category: Medical Plan: Patient having anemia after his procedure with Dr. Taylor they are continually monitoring his CBC which has been improving. Denies any symptoms of anemia at this time. (2) ICD (implantable cardioverter-defibrillator) in place: Comment: 2021-@ [facility] Code(s): Z95.810 - Presence of automatic (implantable) cardiac defibrillator Category: Medical Plan: Patient has ICD in place and is following with his ammonia solution preparer next appointment December 2023 to check the batteries. (3) Multiple pulmonary nodules: Comment: Found to have multiple pulmonary nodules repeat chest CT March 2025 Code(s): R91.8 - Other nonspecific abnormal finding of lung field Category: Medical Plan: Currently following with pulmonology we will have repeat chest CT next year to monitor. Strongly advised to abstain from smoking cigarettes. (4) COPD (chronic obstructive pulmonary disease): Code(s): J44.9 - Chronic obstructive pulmonary disease, unspecified Category: Medical Plan: Patient being followed by pulmonology at this time on Trelegy and albuterol as needed. (5) Tobacco abuse: Code(s): Z72.0 - Tobacco use Category: Medical Plan: Patient not currently smoking cigarettes and denies any cravings at this time. Denying any nicotine replacement therapy. Continue to abstain from smoking cigarettes. (6) PAD (peripheral artery disease): Comment: 02/16/2024 - diagnostic angiogram Code(s): I73.9 - Peripheral vascular disease, unspecified Category: Medical Plan: Currently following with Dr. Taylor status post fem-pop bypass. Does have a follow up tomorrow with Dr. Taylor to remove the ava. Incisions in the groin and left thigh are intact with no evidence of dehiscence or infection at this time. (7) Ventricular tachycardia: Code(s): I47.20 - Ventricular tachycardia, unspecified Category: Medical Plan: Patient has a history of ventricular tachycardia after undergoing anesthesia. Has ICD placed continue to follow with Cardiology. (8) Enlarged RV (right ventricle): Code(s): I51.7 - Cardiomegaly Category: Medical Plan: Continue to follow with Cardiology for routine echocardiograms. (9) Essential hypertension: Code(s): I10 - Essential (primary) hypertension Category: Medical Plan: Continue on current blood pressure medication. Avoid salt intake and encourage healthy diet and regular exercise. Pressure at goal today 104/62 currently on losartan and carvedilol. (10) Atrial fibrillation: Comment: sustained-taking eliquis, carvedilol, ASA-follows w/[facility] Code(s): I48.91 - Unspecified atrial fibrillation Category: Medical Plan: Patient has atrial fibrillation currently following with Cardiology on dual antiplatelet therapy as well as Eliquis and rate controlled with carvedilol. (11) Alcohol dependence: Comment: has had withdrawal symptoms in past when stops consuming alcohol Code(s): F10.20 - Alcohol dependence, uncomplicated Category: Medical Plan: Has not had alcohol in 2 weeks and denies any cravings at this time. Declining referral to comprehensive Care Clinic. Plan I ordered for additional blood work and we will have physical exam in 3 months at patient on the same day as his pulmonology appointment. This note was constructed using voice recognition software. While every effort has been made to ensure accuracy and carpenter assistant installer, still areas may have been included sometimes these areas may affect the content or meeting of the given symptoms. Total time spent caring for the patient today was 30 minutes. This includes time spent before the visit reviewing the chart, time spent during the visit, and time spent after the visit and documentation. Orders: Orders 2 TSH reflex Free T4 Today Z00.00 - Encounter for general adult medical examination without abnormal findings Free T4 (Free Thyroxine) Today Z00.00 - Encounter for general adult medical examination without abnormal findings Lipid Panel Today E78.00 - Pure hypercholesterolemia, unspecified Hemoglobin A1c Today E11.65 - Type 2 diabetes mellitus with hyperglycemia PSA, Ultra Sensitive Today Z00.00 - Encounter for general adult medical examination without abnormal findings Vitamin B12 and Folate Today Z00.00 - Encounter for general adult medical examination without abnormal findings Vitamin D 25-OH Total Today Z00.00 - Encounter for general adult medical examination without abnormal findings
[2024-07-24 09:48] VITALS: BP 104/62; PULSE 74; BMI 23.6
== END 2024-07-24 10:17 | disposition home or self-care (01) ==
DX: D64.9 Anemia, unspecified (principal); J44.9 Chronic obstructive pulmonary disease, unspecified; I73.9 Peripheral vascular disease, unspecified; I47.20 Ventricular tachycardia, unspecified; I48.91 Unspecified atrial fibrillation; F10.20 Alcohol dependence, uncomplicated; Z95.810 Presence of automatic (implantable) cardiac defibrillator; R91.8 Other nonspecific abnormal finding of lung field; Z72.0 Tobacco use; I51.7 Cardiomegaly; I10 Essential (primary) hypertension

== ENCOUNTER → 2024-07-24 09:45 | Outpatient (BNVA) | payer OTHER, SELFPAY | DX: Z00.00 Encounter for general adult medical examination without abnormal findings (principal); I73.9 Peripheral vascular disease, unspecified; J44.9 Chronic obstructive pulmonary disease, unspecified; I47.20 Ventricular tachycardia, unspecified; D64.9 Anemia, unspecified; R91.8 Other nonspecific abnormal finding of lung field; I11.9 Hypertensive heart disease without heart failure; I51.7 Cardiomegaly; I48.91 Unspecified atrial fibrillation; F10.20 Alcohol dependence, uncomplicated; E11.65 Type 2 diabetes mellitus with hyperglycemia; E78.00 Pure hypercholesterolemia, unspecified; Z72.0 Tobacco use; Z95.810 Presence of automatic (implantable) cardiac defibrillator; Z79.01 Long term (current) use of anticoagulants | CPT/HCPCS: 96127; 99202 ==

== ENCOUNTER 2024-07-25 08:18 | Outpatient (AMB) | payer OTHER, SELFPAY ==
[2024-07-25 08:29] VITALS: BMI 23.6
--- NOTE | 2024-07-25 08:29 | A.OFFVIS_ITS ---
Vital Signs 07/25/24 08:29 Height 5 ft 8 in Weight 155 lb BMI 23.6 Intake Visit Reasons: 2 week follow up s/p L Fem Pop 07/10/24 Intake Note: 2 week post op Left fem-pop bypass 07/10/24. Pt states he has VNA QOD, states he has sutures. Accompanied by: Self / Same As Patient Allergies No Known Allergies Allergy (Verified 07/25/24 08:33) HPI HPI 2 week follow up s/p L Fem Pop 07/10/24: Details: Claudio is presenting today for a 2w follow up s/p left fem pop bypass on 07/10. He states he has been doing well. He has VNA services at home 3/week as well as home PT. He states his leg/foot is feeling better and warmer. He states he feels like his leg continues to be a little weak. He has been keeping the incision sites clean and dry. He denies any pain this morning. [facility] Medical History Essential hypertension Atrial fibrillation Alcohol dependence COPD (chronic obstructive pulmonary disease) ICD (implantable cardioverter-defibrillator) in place V-tach PAD (peripheral artery disease) Shoulder fracture Skull fracture HFrEF (heart failure with reduced ejection fraction) Enlarged RV (right ventricle) Non-ST elevated myocardial infarction (non-STEMI) Surgical History Hx of appendectomy History of surgery on arm S/P aortogram History of cardiac cath History of hernia surgery Family History Father Stroke Mother Emphysema lung Social History Household Members: None Housing: Apartment Are you a primary respiratory care instructor to a significant other at home: No Do you presently have visiting nurse or other home services: No Alcohol intake: current Alcohol intake frequency: 3 or more drinks per day Alcohol type: beer and hard liquor Patient Tobacco Use Status: Former Tobacco user Tobacco use type: Cigarette Cigarette Packs Per Day: 0.5 Cigarettes Per Day: 10.0 Years Smoked: 50 e-Cigarette/Vaping Use: Never Used Second Hand Smoke Exposure: No Advance Directives Date on File: 06/02/21 service: No Cognitive needs: No Hearing needs: No Vision needs: Yes Review of Systems Const Reports as per HPI and Denies weakness ENT Reports Normal hearing present and Denies dizziness Card Reports as per HPI, Denies chest pain, Denies chest pain at rest, Denies chest pain with activity, Denies dyspnea and Denies dyspnea on exertion Resp Reports as per HPI, Denies cough, Denies dyspnea and Denies dyspnea on exertion GI Reports as per HPI, Denies abdominal pain, Denies nausea and Denies vomiting Musc Denies numbness Skin/Breast Reports as per HPI, Denies erythema and Denies wounds Neuro Reports Normal hearing present, Denies dizziness, Denies numbness, Denies Sensory deficit (Neuro) and Denies weakness Psych Reports no additional complaints Endo Reports no additional complaints Physical Exam Vital Signs: BMI result Body Mass Index 23.6 Const General: healthy appearing and no acute distress Orientation/consciousness: patient oriented x3 HEENT Head: Yes normal to inspection Ears: hearing grossly normal bilaterally Mouth: Normal oral and palatal mucosa present Resp Effort & Inspection: normal respiratory effort and able to speak in complete sentences Auscultation: clear to auscultation bilaterally Cardio Jugular venous distension: no JVD Rate: regular rate Rhythm: regular rhythm Heart sounds: S1 normal heart sound present and S2 normal heart sound present Bruits: no abdominal aortic bruits, no carotid bruits, no femoral bruits and no renal bruits Peripheral pulses: Peripheral pulses 2+ throughout GI Inspection: Yes normal to inspection Palpation (GI): No Abdominal aortic bruit present Skin General skin exam: no rashes or lesions noted Wounds: no wounds Hair: normal Neuro General: patient oriented x3 Cranial nerves: Yes Normal hearing present Cognition (Neuro): normal cognition Gait exam (Neuro): Normal gait present Motor exam (neuro): 5/5 motor strength present throughout Sensory Exam: No Sensory deficit (Neuro) Extrem Other: Left thigh incision: C/D/I. Small area on the proximal aspect slight yellow drainage noted. [place] removed successfully. Minimal bleeding with removal of one staple, bleeding controlled and stopped quickly with pressure. Incision is approximated well. Allevyn dressing placed over incision. Left groin incision: C/D/I. No bleeding or discharge noted. [place] removed successfully. Incision approximated well. Left foot: warm. Palpable DP pulses. General: Yes normal to inspection, Yes full ROM, Yes capillary refill normal and Yes normal gait Assessment & Plan Assessment & Plan (1) PAD (peripheral artery disease): Comment: 02/16/2024 - diagnostic angiogram Code(s): I73.9 - Peripheral vascular disease, unspecified Category: Medical Plan: Claudio is s/p left fem-pop bypass on 07/10. He has been doing well. He has no complaints today. He denies any pain. He states his foot/leg is feeling better, warmer. He does continue to endorse weakness on the left leg; however, he is working with PT at home to increase his strength. We successfully removed the ava from both incision sites. There was minimal yellow discharge from the thigh incision, we covered with Allevyn dressing and told him to leave it on for 48h. Groin incision site looks great. We will follow up with him in 3m after a follow up arterial duplex US. We discussed that if he has any concerns, to reach out to us. If there are any questions or concerns, please do not hesitate to reach out to us. Orders: Orders US arterial duplex LE BI 3 Months I73.9 - Peripheral vascular disease, unspecified Coding Level of Care Code Complex EM visit Add On G2211 Diagnoses PAD (peripheral artery disease) I73.9
== END 2024-07-25 08:59 | disposition home or self-care (01) ==
PROVIDERS: Visit Provider Physician Assistant Surgical
DX: I73.9 Peripheral vascular disease, unspecified (principal)
CPT/HCPCS: 99024

== ENCOUNTER → 2024-07-25 08:18 | Outpatient (BNVA) | payer OTHER, SELFPAY | PROVIDERS: Visit Provider Physician Assistant Surgical | DX: I73.9 Peripheral vascular disease, unspecified (principal) | CPT/HCPCS: 99212 ==

== ENCOUNTER 2024-08-08 09:18 | Outpatient (AMB) | payer OTHER, SELFPAY ==
--- NOTE | 2024-08-08 09:29 | A.OFFVIS_ITS ---
Vital Signs 08/08/24 09:36 Height 5 ft 8 in Weight 153 lb BMI 23.3 BP 118/68 Blood Pressure Location Lt brachial Position Sitting Pulse 67 Pulse Source Pulse Oximeter Pulse Oximetry (%) 93 Oxygen Delivery Method Room Air Intake Visit Reasons: COPD exacerbation with Hypoxia Director Corporate Communications Required: No Mobility Specialist: Mobility Specialist offered & declined Accompanied by: Self / Same As Patient Allergies No Known Allergies Allergy (Verified 08/08/24 09:40) Medication List - Last Reconciled 08/08/24 by Funmi Burton LPN albuterol sulfate 90 mcg/actuation 2 puffs inhalation Q6H PRN apixaban 5 mg PO BID ascorbic acid (vitamin C) (Vitamin C) 500 mg PO DAILY aspirin 81 mg PO DAILY atorvastatin 80 mg PO BEDTIME carvedilol 6.25 mg (1/4 x 25 mg) PO BID oeeufksvgct-hbvtcwfqj-uejudmot 200-62.5-25 mcg (Trelegy Ellipta) 1 inh inhalation DAILY furosemide 40 mg PO BID losartan 25 mg PO DAILY HPI HPI COPD exacerbation with Hypoxia: Details: Claudio is a pleasant 63 year old male, current minimal smoker with 70+ pack year history, with underlying COPD, atrial fibrillation on eliquis, CAD, and hyperlipidemia. He was admitted 01/16-01/18 for acute respiratory failure with hyp oxia secondary to COPD exacerbation, discharged with supplemental oxygen, which he continues to use 2L at [facility]. At prior visits, 6MWT performed in January 2024 and overnight oximetry in April 2024 and did not require supplemental oxygen. However since undergoing fem pop bypass in June, home physical therapist has noticed at the last visit he was hypoxic down to 81% with minimal exertion. He was instructed to go to ED for new onset hypoxia however declined. Today he presents reporting more notable dyspnea, with minimal wheezing and no change in productive cough with white sputum. [facility] Medical History Essential hypertension Atrial fibrillation Alcohol dependence COPD (chronic obstructive pulmonary disease) ICD (implantable cardioverter-defibrillator) in place V-tach PAD (peripheral artery disease) Shoulder fracture Skull fracture HFrEF (heart failure with reduced ejection fraction) Enlarged RV (right ventricle) Non-ST elevated myocardial infarction (non-STEMI) Surgical History Hx of appendectomy History of surgery on arm S/P aortogram History of cardiac cath History of hernia surgery Family History Father Stroke Mother Emphysema lung Social History Household Members: None Housing: Apartment Are you a primary wound care center consultant to a significant other at home: No Do you presently have visiting nurse or other home services: No Alcohol intake: current Alcohol intake frequency: 3 or more drinks per day Alcohol type: beer and hard liquor Patient Tobacco Use Status: Former Tobacco user Tobacco use type: Cigarette Cigarette Packs Per Day: 0.5 Cigarettes Per Day: 10.0 Years Smoked: 50 e-Cigarette/Vaping Use: Never Used Second Hand Smoke Exposure: No Advance Directives Date on File: 06/02/21 service: No Cognitive needs: No Hearing needs: No Vision needs: Yes Review of Systems Const Denies chills, Denies excessive sweating, Denies fever(s), Denies headache(s) a nd Denies night sweats Eyes Denies dry eyes, Denies irritation and Denies itchy eyes ENT Reports Normal hearing present, Denies headache(s), Denies nasal congestion, Denies nasal discharge, Denies post nasal drip and Denies sore throat Card Denies chest pain, Denies chest pain at rest, Denies chest pain with activity, Denies claudication, Denies orthopnea and Denies paroxysmal nocturnal dyspnea Resp Denies chest congestion, Denies excessive phlegm production, Denies pain on inspiration, Denies pain with cough and Denies stridor Musc Denies myalgias Neuro Reports Normal hearing present and Denies headache(s) Endo Denies excessive sweating Parish/Lymph Denies lymphadenopathy Aller/Immun Denies itchy eyes and Denies seasonal rhinorrhea Physical Exam Vital Signs: Last Vital Signs Pulse 67 08/08/24 09:36 BP 118/68 08/08/24 09:36 Pulse Ox 93 08/08/24 09:36 Oxygen Delivery Method Room Air 08/08/24 09:36 BMI result Body Mass Index 23.3 Const General: cooperative, healthy appearing, comfortable, no acute distress, well developed and alert Orientation/consciousness: patient oriented x3 Limitations: no limitations HEENT Head: Yes normal to inspection, Yes normocephalic and Yes atraumatic Ears: hearing grossly normal bilaterally and external ears normal Eyes General: appearance normal, both eyes and all related structures Eyelids: Yes eyelids normal Sclerae: sclerae normal EOM: EOMs intact bilaterally Neck Neck: Yes normal visual inspection and Yes no lymphadenopathy Lymphatic: no lymphadenopathy noted Chest Chest palpation & inspection: normal inspection of the chest Resp Other: inspiratory crackles of RLL Effort & Inspection: normal respiratory effort, able to speak in complete sentences, no audible wheezes, no cough, no stridor, not tachypneic, no tripod positioning and no use of accessory muscles Auscultation: diminished lung sounds Cardio Jugular venous distension: no JVD Rate: regular rate Rhythm: abnormal rhythm Skin Other: warm, dry General skin exam: no rashes or lesions noted Neuro General: patient oriented x3 Cranial nerves: Yes Normal hearing present Cognition (Neuro): normal cognition Gait exam (Neuro): Normal gait present Extrem Other: 1-2+ BLE edema Psych Appearance: grossly normal and well kempt Speech and movement: Normal speech and movement present and Clear speech present Affect: normal affect Attitude: cooperative Thought process: Normal thought process present Thought content: Normal thought content present Insight: Good insight present (Psych) Judgement: Good judgement present (Psych) Office Procedures 6 Minute Walk Time:: 09:45 SPO2 % at rest: 92 Pulse at rest: 67 SPO2 % during excercise: 81 Pulse during excercise: 88 SPO2 % after excercise: 95 Pulse after excercise: 81 Distance in yards walked: 150 Julia Score: 6 Performance Observations:: Patient walked unassisted on level ground slowly..after 10 yards O2 sat dropped to 84% and then to 81%..Rested and O2 applied at 1L with return to 91%..continued walk with saturation dropped to 88%..O2 increased to 2L and patient was able to complete the walk very slowly and maintain O2 saturation of 93-96%. Patient denies shortness of breath. Patient would benefit from supplemental oxygen. He mentions these drops in O2 saturations occur with his physical therapy as well. [id number] - 6 Minute Walk Assessment & Plan Assessment & Plan (1) COPD (chronic obstructive pulmonary disease): Code(s): J44.9 - Chronic obstructive pulmonary disease, unspecified Category: Medical (2) Dyspnea: Code(s): R06.00 - Dyspnea, unspecified Category: Medical (3) Multiple pulmonary nodules: Comment: Found to have multiple pulmonary nodules repeat chest CT March 2025 Code(s): R91.8 - Other nonspecific abnormal finding of lung field Category: Medical (4) Tobacco abuse: Code(s): Z72.0 - Tobacco use Category: Medical Plan Claudio presents for an acute visit after physical therapist noted hypoxia down to 81% with minimal exertion. 6MWT performed and patient does require 2L supplemental oxygen with any exertion. He does have home O2 which he was previously only using at [facility] intermittently and he has portable tanks. Will send for overnight oximetry on 2L to ensure this is all he requires. Inspiratory crackles of RLL noted, BNP and CXR ordered. Patient did report that he has been without lasix, will reach out to cardiology to discuss restarting. All questions were answered and patient is in agreement of plan. Will follow up in 2 weeks or sooner if needed. Orders: Orders AMB 6 minute walk 08/08/24 J44.9 - Chronic obstructive pulmonary disease, unspecified XR chest 2V 08/08/24 R06.00 - Dyspnea, unspecified B Type Natriuretic Peptide 08/08/24 R06.00 - Dyspnea, unspecified Coding Level of Care Code Est Pt Level 4 (63444) Complex EM visit Add On G2211 Diagnoses COPD (chronic obstructive pulmonary disease) J44.9 Dyspnea R06.00 Multiple pulmonary nodules R91.8 Tobacco abuse Z72.0 CPT Codes Coding ([id number])
[2024-08-08 09:36] VITALS: BP 118/68; PULSE 67; O2SAT 93; BMI 23.3
[2024-08-08 10:21] VITALS: PULSE 67; O2SAT 92
== END 2024-08-08 10:22 | disposition home or self-care (01) ==
PROVIDERS: Visit Provider Nurse Practitioner Family
DX: J44.1 Chronic obstructive pulmonary disease with (acute) exacerbation (principal); R09.02 Hypoxemia
CPT/HCPCS: 94618; 99214; G2211

== ENCOUNTER 2024-08-08 10:37 | Outpatient (REF) | payer OTHER, SELFPAY ==
[2024-08-08 14:34] LABS: Estimated Average Glucose 105 mg/dL; Hemoglobin A1C 102.7016 umol/L; Hemoglobin A1c % 5.3 % (<6.0); Total Hemoglobin (HGBA1C) 2999.8036 umol/L
[2024-08-08 14:48] LABS: Cholesterol 212 mg/dL (<200); HDL Cholesterol 52 mg/dL (>40); LDL Cholesterol Calculated 137 mg/dL (<100); Triglycerides 118 mg/dL (<150)
[2024-08-08 14:54] LABS: B Type Natriuretic Peptide 179 pg/mL (<100)
[2024-08-08 14:55] LABS: Free T4 (Free Thyroxine) 1.42 ng/dL (0.71-1.85); Vitamin D 25-OH Total 14.9 ng/mL (>30)
[2024-08-08 15:06] LABS: Folate 8.8 ng/mL (> or = 4.0); Vitamin B12 312 pg/mL (200-900)
[2024-08-13 15:48] LABS: PSA, Ultra Sensitive 2.02 ng/mL
== END 2024-08-08 10:38 | disposition home or self-care (01) ==
LOC: HO.WFDLDS 10:37
PROVIDERS: Nurse Practitioner Family
DX: J44.9 Chronic obstructive pulmonary disease, unspecified (principal); R06.00 Dyspnea, unspecified; R91.8 Other nonspecific abnormal finding of lung field; Z72.0 Tobacco use; Z00.00 Encounter for general adult medical examination without abnormal findings; E78.00 Pure hypercholesterolemia, unspecified; E11.65 Type 2 diabetes mellitus with hyperglycemia
CPT/HCPCS: 36415; 80061; 82306; 82607; 82746; 83036; 83880; 84153; 84439; 84443; 94618; 99212

== ENCOUNTER 2024-10-23 09:14 | Outpatient (AMB) | payer OTHER, SELFPAY ==
--- NOTE | 2024-10-23 09:30 | MHC.PC.OV ---
Vital Signs 10/23/24 09:32 Height 5 ft 8 in Weight 147 lb 6 oz BMI 22.4 BP 122/72 Blood Pressure Location Lt brachial Position Sitting Pulse 66 Pulse Source Pulse Oximeter Temp 96.9 F Temp Source Temporal Artery Scan Pulse Oximetry (%) 99 Oxygen Delivery Method Room Air Intake Visit Reasons: pe Intake Note: Patient is here today for a physical. Stain Wiper Required: No Enterprise Solutions Architect: Not Required per policy Accompanied by: Self / Same As Patient Allergies No Known Allergies Allergy (Verified 10/23/24 10:08) Medication List - Last Reconciled 10/23/24 by Berenice Caicedo PA-C albuterol sulfate 90 mcg/actuation 2 puffs inhalation Q6H PRN apixaban 5 mg PO BID ascorbic acid (vitamin C) (Vitamin C) 500 mg PO DAILY aspirin 81 mg PO DAILY atorvastatin 80 mg PO DAILY carvedilol 25 mg PO BID cholecalciferol (vitamin D3) 25 mcg PO DAILY ezetimibe (Zetia) 10 mg PO DAILY zstsjovwwng-vuileorlv-lbnifstv 200-62.5-25 mcg (Trelegy Ellipta) 1 inh inhalation DAILY furosemide 40 mg PO BID losartan 25 mg PO DAILY Tobacco use date assessed: 10/23/24 Fall risk assessment: No Falls in past year Last assessed Fall Risk: 10/23/24 Dental Screening Dental Screen Date: 10/23/24 Did you have a dental visit in the last 12 months?: No Did you have a dental problem in the last 6 months where you did not have access to dental care?: No Was dental information given to patient?: No HPI pe HPI Details 63-year-old male with past medical history of peripheral arterial disease, tobacco abuse, COPD, atrial fibrillation, alcohol dependence and hypertension last seen 07/2024 coming in for follow up. In review of the notes, patient was seen by pulmonology 08/2024 sent for overnight oximetry on 2 L and advised to be in taking Lasix twice daily this is BNP was mildly elevated.?Patient was seen by vascular surgery 07/2024 ordered for ultrasound arterial duplex bilaterally.? Presenting for an annual wellness examination and evaluation for his chronic conditions. He states the increase in his Lasix dosage was advised by his project asst but acknowledges non-adherence to some follow-up appointments. Reports significant reduction in cigarette usage, considering nicotine patches for further assistance in quitting. Describes intermittent back pain along with leg pain during prolonged walking. Walking stability and stamina have reportedly improved over time. Patient complaining of redness in the left eye that began abruptly this morning coupled with irritation and mild drainage. Denies any trauma or foreign body to the eye. [facility] Medical History Essential hypertension Atrial fibrillation Alcohol dependence COPD (chronic obstructive pulmonary disease) ICD (implantable cardioverter-defibrillator) in place V-tach PAD (peripheral artery disease) Shoulder fracture Skull fracture HFrEF (heart failure with reduced ejection fraction) Enlarged RV (right ventricle) Non-ST elevated myocardial infarction (non-STEMI) Surgical History Hx of appendectomy History of surgery on arm S/P aortogram History of cardiac cath History of hernia surgery Family History Father Stroke Mother Emphysema lung Social History Household Members: None Housing: Apartment Are you a primary care transitions nurse to a significant other at home: No Do you presently have visiting nurse or other home services: No Alcohol intake: current Alcohol intake frequency: 3 or more drinks per day Alcohol type: beer and hard liquor Patient Tobacco Use Status: Former Tobacco user Tobacco use type: Cigarette Cigarette Packs Per Day: 0.5 Cigarettes Per Day: 10.0 Years Smoked: 50 e-Cigarette/Vaping Use: Never Used Second Hand Smoke Exposure: Yes Advance Directives Date on File: 06/02/21 service: No Cognitive needs: No Hearing needs: No Vision needs: Yes Questionnaire PHQ-9 Over the last 2 weeks, how often have you been bothered by any of the following problems? 1. Little interest or pleasure in doing things: not at all 2. Feeling down, depressed, or hopeless: not at all 3. Trouble falling or staying asleep, or sleeping too much: not at all 4. Feeling tired or having little energy: not at all 5. Poor appetite or overeating: not at all 6. Feeling bad about yourself - or that you are a failure or have let yourself or your family down: not at all 7. Trouble concentrating on things, such as reading the newspaper or watching television: not at all 8. Moving or speaking so slowly that other people could have noticed. Or the opposite - being so fidgety or restless that you have been moving around a lot more than usual: not at all 9. Thoughts that you would be better off or of hurting yourself in some way: not at all Total score: 0 Depression Screening Interpretation: Negative Depression Screening Done: Yes Source: Developed by Drs. Ricky Cabrera, Tamy Pierre, Flako Kerr and colleagues, with an educational nguyễn from [employer]. Thrive Questionnaire Date Thrive assessed: 10/23/24 I am a: Patient What is your living situation today?: I have a steady place to live Within the past 12 months, did the food you bought not last and you didn't have the money to get more?: Never true Within the past 12 months, did you worry whether your food would run out before you got money to buy more?: Never true Do you have trouble paying for medicines?: No Do you have trouble getting transportation to medical appointments?: Yes Do you have trouble paying your heating and electricity bill?: No Do you have trouble taking care of your child, family member or friend?: No Do you have trouble with day-to-day activities such as bathing, preparing meals, shopping, managing finances, etc.?: No Are you currently unemployed and looking for a job?: I choose not to answer this question Are you interested in more education?: I choose not to answer this question Please select the resources that you would like help with: None Currently or been in a relationship where the following occur: I choose not to answer THRIVE Score: 1 AUDIT C Alcohol Use Questionnaire (AUDIT-C) 1. How often do you have a drink containing alcohol?: 2-3 times a week 2. How many drinks containing alcohol do you have on a typical day when you are drinking?: 3 or 4 3. How often do you have six or more drinks on one occasion?: Weekly Total Score: 7 NORA-7 AMB Questionnaire NORA-7 Date NORA - 7 assessed: 10/23/24 Feeling nervous, anxious, or on edge: 0 = Not at all Not being able to stop or control worryin = Not at all Worrying too much about different things: 0 = Not at all Trouble relaxin = Not at all Being so restless that it is hard to sit still: 0 = Not at all Becoming easily annoyed or irritable: 0 = Not at all Feeling afraid as if something awful might happen: 0 = Not at all Total NORA-7 score (0-4 normal; 5-9 mild; 10-14 moderate; 15-21 severe): 0 Source: Developed by Drs. Ricky Cabrera, Tamy Pierre, Flako Kerr and colleagues, with an educational nguyễn from [employer]. Review of Systems Const Denies body aches, Denies fatigue, Denies fever(s), Denies frequent falls, Denies headache(s) and Denies weakness Eyes Reports no additional complaints and Denies change in vision ENT Denies dizziness, Denies facial pain, Denies headache(s) and Denies nasal congestion Card Denies chest pain, Denies syncope, Denies irregular heart rhythm, Denies leg edema, Denies lightheadedness and Denies dyspnea Resp Denies cough and Denies dyspnea GI Denies abdominal pain, Denies constipation, Denies dyspepsia, Denies diarrhea, Denies nausea and Denies vomiting Denies dysuria, Denies urinary frequency, Denies urinary hesitancy and Denies urinary urgency Musc Denies back pain and Denies myalgias Skin/Breast Reports system reviewed and no additional complaints, except as documented Neuro Denies dizziness, Denies syncope, Denies frequent falls, Denies headache(s) and Denies weakness Psych Reports no additional complaints Endo Denies fatigue Physical exam (Primary Care) Vital Signs: Last Vital Signs Temp 96.9 F 10/23/24 09:32 Pulse 66 10/23/24 09:32 BP 122/72 10/23/24 09:32 Pulse Ox 99 10/23/24 09:32 Oxygen Delivery Method Room Air 10/23/24 09:32 BMI result Body Mass Index 22.4 Tobacco/Smoking Status: Tobacco use Status Tobacco use date assessed 10/23/24 10/23/24 09:45 Patient Tobacco Use Status Former Tobacco user 10/23/24 09:32 Tobacco use type Cigarette 03/24/25 09:32 e-Cigarette/Vaping Use Never Used 10/23/24 09:32 PHQ-9: PHQ-9 Score PHQ-9: Total score 0 10/23/24 12:51 Depression Screening Interpretation: Negative Thrive Assessment: Date of Thrive Assessment Date Thrive assessed 10/23/24 10/23/24 09:32 Currently or been in a relationship where the following occur: I choose not to answer Const General: cooperative, healthy appearing, comfortable and no acute distress Orientation/consciousness: patient oriented x3 HENMT Other: Erythema of the left conjunctiva without drainage. Extraocular movements intact in bilateral pupils PERRL Head: Yes normocephalic Ears: hearing grossly normal bilaterally, external ears normal, TM's normal bilaterally and Abnormal EAC present cerumen impaction bilateral General nose exam: Normal external nose present Face and sinus: Yes normal facial exam and Yes sinuses nontender Mouth: Normal oral and palatal mucosa present and tongue normal Throat: Yes posterior oropharynx normal Eyes General: appearance normal, both eyes and all related structures Conjunctivae: conjunctivae normal Pupils: Equal, round and reactive pupils present EOM: EOMs intact bilaterally and No Nystagmus present Neck Neck: Yes normal visual inspection, Yes full ROM and Yes no lymphadenopathy Chest Chest palpation & inspection: normal inspection of the chest Resp Effort & Inspection: normal respiratory effort Auscultation: clear to auscultation bilaterally, crackles on the right in the lower lung mathew, no rales, no rhonchi, no wheezes and breath sounds present Cardio Rate: regular rate Rhythm: regular rhythm Peripheral pulses: radial pulses present and dorsalis pedis present GI Inspection: Yes normal to inspection and No Abdominal wall edema Palpation (GI): Soft to palpation, not firm and nontender Auscultation: normal bowel sounds Rectal Exam - Male: Yes deferred General: Yes no CVA tenderness Back/Spine/Pelvis Back: no CVA tenderness Skin General skin exam: no rashes or lesions noted Neuro General: patient oriented x3 Cranial nerves: Yes Equal, round and reactive pupils present, Yes Midline tongue present, Yes Ability to bilaterally elevate shoulders present and No Nystagmus present Gait exam (Neuro): Normal gait present Extrem General: Yes normal to inspection, Yes full ROM, No no pedal edema and No edema Psych Speech and movement: Normal speech and movement present Affect: normal affect Insight: Good insight present (Psych) Judgement: Good judgement present (Psych) Coding Level of Care Code Est Pt Prev Care 40-64y(95311) Diagnoses Essential hypertension I10 Alcohol dependence F10.20 Atrial fibrillation I48.91 Anemia D64.9 ICD (implantable cardioverter-defibrillator) in place Z95.810 Multiple pulmonary nodules R91.8 Nocturnal hypoxemia G47.34 COPD (chronic obstructive pulmonary disease) J44.9 Tobacco abuse Z72.0 PAD (peripheral artery disease) I73.9 Annual physical exam Z00.00 Bilateral impacted cerumen H61.23 Lung crackles R09.89 Conjunctivitis H10.9 Assessment & Plan Assessment & Plan (1) Essential hypertension: Code(s): I10 - Essential (primary) hypertension Category: Medical Plan: Continue on current blood pressure medication. Avoid salt intake and encourage healthy diet and regular exercise. (2) Alcohol dependence: Comment: has had withdrawal symptoms in past when stops consuming alcohol Code(s): F10.20 - Alcohol dependence, uncomplicated Category: Medical Plan: Strongly advised to cut back on drinking. Consider referral to comprehensive [facility] if patient requests (3) Atrial fibrillation: Comment: sustained-taking eliquis, carvedilol, ASA-follows w/HCS Code(s): I48.91 - Unspecified atrial fibrillation Category: Medical Plan: Currently on rate control with carvedilol and anticoagulation with Eliquis. Continue to follow with Cardiology. (4) Anemia: Code(s): D64.9 - Anemia, unspecified Category: Medical Plan: Continue to monitor with serial blood work. (5) ICD (implantable cardioverter-defibrillator) in place: Comment: 2021-@ [facility] [place] [facility] [place] Code(s): Z95.810 - Presence of automatic (implantable) cardiac defibrillator Category: Medical Plan: Following with cardiology regularly for device checks and office visits. (6) Multiple pulmonary nodules: Comment: Found to have multiple pulmonary nodules repeat chest CT March 2025 Code(s): R91.8 - Other nonspecific abnormal finding of lung field Category: Medical Plan: Patient was found to have multiple pulmonary nodules recommended repeat CT in March of 2025. Continue to follow with pulmonology. Recommend reaching out to pulmonology to reschedule missed appointments (7) Nocturnal hypoxemia: Code(s): G47.34 - Idiopathic sleep related nonobstructive alveolar hypoventilation Category: Medical Plan: Continue on nocturnal oxygen 2 liters/minute. Did recently miss several appointments for pulmonology follow up. Recommended rescheduling and being seen in the office for follow up. (8) COPD (chronic obstructive pulmonary disease): Code(s): J44.9 - Chronic obstructive pulmonary disease, unspecified Category: Medical Plan: Continue on current inhalers patient did recently miss several appointments for pulmonology follow up. Recommended rescheduling and being seen in the office for follow up. Strongly advised to stop smoking (9) Tobacco abuse: Code(s): Z72.0 - Tobacco use Category: Medical Plan: Smoking cigarettes and the use of tobacco can be harmful. We discussed the importance of stopping and options to aid in smoking cessation. Nicotine replacement therapy offered today prescription sent for patches (10) PAD (peripheral artery disease): Comment: 02/16/2024 - diagnostic angiogram Code(s): I73.9 - Peripheral vascular disease, unspecified Category: Medical Plan: Patient recently missed ultrasound with ankle-brachial index study. Recommend reaching out to vascular surgery to reschedule this and continue to follow with vascular surgery. (11) Annual physical exam: Code(s): Z00.00 - Encounter for general adult medical examination without abnormal findings Category: Medical Plan: Patient is up-to-date on all other recommended routine screenings and vaccinations for his age. He did not complete colonoscopy as he went into cardiac arrest during the procedure. Recommended reach out to GI for follow up. Blood work is up-to-date and has been reviewed today. Plan to follow up it is three-month or sooner pending chest x-ray results or new problems arise. (12) Bilateral impacted cerumen: Code(s): H61.23 - Impacted cerumen, bilateral Category: Medical Plan: Prescription sent for Debrox advised patient to schedule appointment to have bilateral ear flush (13) Lung crackles: Code(s): R09.89 - Other specified symptoms and signs involving the circulatory and respiratory systems Category: Medical Plan: Patient having crackling of the right lower lobe. Patient did not complete chest x-ray as ordered by pulmonology recommend to have this testing done. Patient also notes inconsistency in taking his Lasix advised to take twice daily as advised by pulmonology and rescheduled pulmonology appointment. Patient denies orthopnea and does not have any lower extremity swelling clinically euvolemic otherwise. (14) Conjunctivitis: Code(s): H10.9 - Unspecified conjunctivitis Category: Medical Plan: Patient having unilateral eye redness and irritation of the left eye. Patient states it began abruptly this morning denies any trauma or foreign body in this area. Recommend the use of erythromycin ointment for 7 days and follow up with the office if symptoms worsen or persist. Plan This note was constructed using voice recognition software. While every effort has been made to ensure accuracy and inside sales manager, still areas may have been included sometimes these areas may affect the content or meeting of the given symptoms. Total time spent caring for the patient today was 30 minutes. This includes time spent before the visit reviewing the chart, time spent during the visit, and time spent after the visit and documentation. Patient was informed and verbally consented to the use of an ambient scribe for clinic note documentation during this visit. Medications: New nicotine 1 patch transdermal DAILY 28 ea 0RF erythromycin 1 appl ophthalmic-Left DAILY 3.5 grams 0RF 7 days carbamide peroxide 6.5% (Debrox) 5 drps otic (ear) left DAILY 15 mL 0RF 4 days Refilled ascorbic acid (vitamin C) (Vitamin C) 500 mg PO DAILY 30 tabs 0RF furosemide Must attend next appt for refills 40 mg PO BID 60 tabs 0RF
[2024-10-23 09:32] VITALS: BP 122/72; PULSE 66; TEMP 36.1; O2SAT 99; BMI 22.4
== END 2024-10-23 10:31 | disposition home or self-care (01) ==
LOC: HO.HMCH 09:14
DX: Z00.00 Encounter for general adult medical examination without abnormal findings (principal); F10.20 Alcohol dependence, uncomplicated; I48.91 Unspecified atrial fibrillation; J44.9 Chronic obstructive pulmonary disease, unspecified; I73.9 Peripheral vascular disease, unspecified; I10 Essential (primary) hypertension; D64.9 Anemia, unspecified; Z95.810 Presence of automatic (implantable) cardiac defibrillator; R91.8 Other nonspecific abnormal finding of lung field; G47.34 Idiopathic sleep related nonobstructive alveolar hypoventilation; Z72.0 Tobacco use; H61.23 Impacted cerumen, bilateral

== ENCOUNTER → 2024-10-23 09:14 | Outpatient (BNVA) | payer OTHER, SELFPAY | DX: Z00.00 Encounter for general adult medical examination without abnormal findings (principal); I10 Essential (primary) hypertension; F10.20 Alcohol dependence, uncomplicated; I48.91 Unspecified atrial fibrillation; D64.9 Anemia, unspecified; R91.8 Other nonspecific abnormal finding of lung field; G47.34 Idiopathic sleep related nonobstructive alveolar hypoventilation; J44.9 Chronic obstructive pulmonary disease, unspecified; I73.9 Peripheral vascular disease, unspecified; H61.23 Impacted cerumen, bilateral; R09.89 Other specified symptoms and signs involving the circulatory and respiratory systems; H10.9 Unspecified conjunctivitis; Z95.810 Presence of automatic (implantable) cardiac defibrillator | CPT/HCPCS: 99396 ==

== ENCOUNTER 2024-12-04 12:42 | Outpatient (AMB) | payer OTHER, SELFPAY ==
--- NOTE | 2024-12-04 13:41 | A.OFFVIS_ITS ---
Vital Signs 12/04/24 13:43 Height 5 ft 8 in Weight 141 lb 1.533 oz BMI 21.5 BP 120/64 Blood Pressure Location Lt brachial Position Sitting Pulse 78 Pulse Source Monitor Intake Visit Reasons: f/up w/ st den[facility] ck Intake Note: f/up and st denn[facility] check Field Sales Associate Required: No Accompanied by: Self / Same As Patient Allergies No Known Allergies Allergy (Verified 10/23/24 10:08) Medication List - Last Reconciled 12/04/24 by Garrett Land MD albuterol sulfate 90 mcg/actuation 2 puffs inhalation Q6H PRN apixaban 5 mg PO BID ascorbic acid (vitamin C) (Vitamin C) 500 mg PO DAILY aspirin 81 mg PO DAILY atorvastatin 80 mg PO DAILY carbamide peroxide 6.5% (Debrox) 5 drps otic (ear) left DAILY 4 days carvedilol 25 mg PO BID cholecalciferol (vitamin D3) 25 mcg PO DAILY erythromycin 1 appl ophthalmic-Left DAILY 7 days ezetimibe (Zetia) 10 mg PO DAILY uyljvsaudut-lmljonqcw-rsmktvhd 200-62.5-25 mcg (Trelegy Ellipta) 1 inh inhalation DAILY furosemide 40 mg PO BID losartan 25 mg PO DAILY nicotine 1 patch transdermal DAILY HPI Comments Details: Claudio returns for follow-up. I referred him for gastroenterology evaluation because he had unintentional weight loss. He was brought in for endoscopy but unfortunately after sedation developed ventricular tachycardia. He was shocked multiple times and and received amiodarone. He reverted back to sinus rhythm. He did not have any significant rise in troponin levels. His echocardiography in fact showed that his LVEF was normal compared to low normal to mildly reduced in the past. He has background history of alcohol use and tobacco abuse and had mild cardiomyopathy with RV dysfunction in the past. 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 He had moderate disease in the LAD which we did not assess with IFR/FFR given the lack of symptoms and the fact that that level of disease did not explain ventricular tachycardia. 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 After discussion he had single- chamber ICD placement. He has been on amiodarone 200 mg once a day. His returning for follow-up. He is saying he is feeling fine. He is denying any chest discomfort shortness of breath. He is saying 1 of his coworkers has been upsetting him and today he is quite worked up by that. His blood pressure was significantly elevated he was tachycardic. He is saying he has been taking medications regularly except Wednesday when he missed his medications at nighttime. 02/24/23: He is here for f/u. He has claudication left more than right. He has been smoking a pack per day. He is drinking 18 beers/ week. No CP or SOB. Taking meds regularly. He is being assess for left fem-pop bypass by Dr. Taylor. He has been getting claudication with activities. He continues to smoke. 12/04/2024: He is here for follow-up. He has retired has not been doing any significant activities. Denying any chest pain or shortness of breath. He is back in atrial fibrillation. Continues to drink few beers per week. Taking Eliquis and aspirin. COUNTS INCLUDE 234 BEDS AT THE [facility] Medical History Essential hypertension Atrial fibrillation Alcohol dependence COPD (chronic obstructive pulmonary disease) ICD (implantable cardioverter-defibrillator) in place V-tach PAD (peripheral artery disease) Shoulder fracture Skull fracture HFrEF (heart failure with reduced ejection fraction) Enlarged RV (right ventricle) Non-ST elevated myocardial infarction (non-STEMI) Surgical History Hx of appendectomy History of surgery on arm S/P aortogram History of cardiac cath History of hernia surgery Family History Father Stroke Mother Emphysema lung Social History Household Members: None Housing: Apartment Are you a primary adult live in caregiver to a significant other at home: No Do you presently have visiting nurse or other home services: No Alcohol intake: current Alcohol intake frequency: 3 or more drinks per day Alcohol type: beer and hard liquor Patient Tobacco Use Status: Former Tobacco user Tobacco use type: Cigarette Cigarette Packs Per Day: 0.5 Cigarettes Per Day: 10.0 Years Smoked: 50 e-Cigarette/Vaping Use: Never Used Second Hand Smoke Exposure: Yes Advance Directives Date on File: 06/02/21 service: No Cognitive needs: No Hearing needs: No Vision needs: Yes Review of Systems Const Denies chills, Denies fatigue, Denies fever(s), Denies frequent falls, Denies weakness, Denies weight gain and Denies weight loss ENT Denies dizziness Card Denies chest pain, Denies leg edema, Denies lightheadedness, Denies palpitations, Denies dyspnea and Denies dyspnea on exertion Resp Denies cough, Denies dyspnea and Denies dyspnea on exertion GI Denies hematochezia Musc Denies abnormal gait, Denies muscle weakness, Denies numbness, Denies radiating pain into limb and Denies tingling Neuro Denies abnormal gait, Denies dizziness, Denies frequent falls, Denies numbness, Denies tingling and Denies weakness Endo Denies fatigue and Denies palpitations Physical Exam Vital Signs: Last Vital Signs Pulse 78 12/04/24 13:43 BP 120/64 12/04/24 13:43 BMI result Body Mass Index 21.5 GENERAL APPEARANCE: in no acute distress, pleasant. NECK: no carotid bruit, no jugular venous distention. SKIN: no suspicious lesions, warm and dry. HEART: no murmurs, irregular rate and rhythm. LUNGS: clear to auscultation bilaterally. ABDOMEN: soft, nontender. EXTREMITIES: no edema. PERIPHERAL PULSES: equal. NEUROLOGIC: No gross deficits, AAO X 3 Office Procedures Cardiac Device Check Cardiac Device Check Details: [employer] ICD VVI 40 beats per minute. Battery life 7.8-8.1 years. One nonsustained SVT episode close to VFib zone at 223 beats per minute. No therapies delivered by the device. Reviewing the EGM he appears to be in AFib. [id number]-DM Cardiac Device Check, single lead implantable defibrillator Procedure code (CPT) selection complete EKG Details: Atrial fibrillation 78 beats per minute, normal axis, inferior Q-waves, left ventricular hypertrophy, QTC 474 milliseconds. 17773-[id number], Complete Assessment & Plan Assessment & Plan (1) Atrial fibrillation: Comment: sustained-taking eliquis, carvedilol, ASA-follows w/HCS Code(s): I48.91 - Unspecified atrial fibrillation Category: Medical (2) Essential hypertension: Code(s): I10 - Essential (primary) hypertension Category: Medical Plan [age] year gentleman who is here for follow-up. 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 He also had fem-pop bypass in July 2024. He has stopped smoking but continues to drink. He appears to be back in atrial fibrillation. He is denying any significant symptoms. He is on aspirin and apixaban and continues to drink alcohol. He has risk of GI blood loss and I have advised him that he should hold the aspirin going forward and just use Eliquis only. He is back in atrial fibrillation and device interrogation has shown that he was fast and close to device therapy zone. He is already maxed out on carvedilol. Adding digoxin 125 mcg 3 times a week. We will see us back in few months. Thank you for allowing me to participate in the care of your patient. Please feel free to contact me if you have any questions. Orders: Orders AMB Cardiac Device Follow-up Today I48.0 - Paroxysmal atrial fibrillation Medications: New digoxin 125 mcg PO MOWEFR 60 tabs 3RF Coding Level of Care Code Est Pt Level 4 (59552) Diagnoses Atrial fibrillation I48.91 Essential hypertension I10 CPT Codes Cardiac Device Check - Cardiac Device 4: [id number]-[id number] Cardiac Device Check, single lead implantable defibrillator ([id number]) EKG - CPT: 56333-[id number], Complete ([id number])
[2024-12-04 13:43] VITALS: BP 120/64; PULSE 78; BMI 21.5
== END 2024-12-04 14:07 | disposition home or self-care (01) ==
LOC: HO.HCS 12:43
PROVIDERS: Visit Provider Internal Medicine Cardiovascular Disease
DX: I48.91 Unspecified atrial fibrillation (principal); I10 Essential (primary) hypertension
CPT/HCPCS: 93010; 93282; 99214

== ENCOUNTER → 2024-12-04 12:42 | Outpatient (BNVA) | payer OTHER, SELFPAY | PROVIDERS: Visit Provider Internal Medicine Cardiovascular Disease | DX: Z45.02 Encounter for adjustment and management of automatic implantable cardiac defibrillator (principal); I48.91 Unspecified atrial fibrillation; I10 Essential (primary) hypertension; R94.31 Abnormal electrocardiogram [ECG] [EKG] | CPT/HCPCS: 93005; 99212 ==

== ENCOUNTER 2025-01-23 08:46 | Outpatient (AMB) | payer OTHER, SELFPAY ==
--- NOTE | 2025-01-23 09:11 | A.OFFPC_ITS ---
Vital Signs 01/23/25 09:12 Height 5 ft 8 in Weight 140 lb 2 oz BMI 21.3 BP 110/70 Blood Pressure Location Lt brachial Position Sitting Temp 97.1 F Temp Source Temporal Artery Scan Intake Visit Reasons: 3 mo follow up Intake Note: Patient is here to follow up on HTN, AFib, COPD, PAD. Hospitality Housekeeper Required: No Envelope Sealing Machine Operator: Not Required per policy Accompanied by: Self / Same As Patient Allergies No Known Allergies Allergy (Verified 01/23/25 09:12) Tobacco use date assessed: 01/23/25 Fall risk assessment: 1 Fall in past year Last assessed Fall Risk: 01/23/25 Dental Screening Dental Screen Date: 10/23/24 HPI 3 mo follow up HPI Details 63-year-old male with past medical histo ry of peripheral arterial disease, tobacco abuse, COPD, atrial fibrillation, alcohol dependence and hypertension last seen 09/2024 coming in for follow up. In review of the notes, patient was seen by Cardiology 12/04/2024 for atrial fibrillation currently on aspirin and apixaban but due to risk of GI blood loss due to alcohol use aspirin was discontinued. Carvedilol is at max dose however he remains and sustained atrial fibrillation digoxin 125 3 times weekly was added and follow up in 4 months. Presenting for management of chronic conditions including COPD, atrial fibrillation, and hyperlipidemia. Reports difficulty breathing, worsened by humidity, uses Trelegy daily and an emergency inhaler as needed. Scheduled for a CAT scan for monitoring of lung nodules. Continues smoking, has nicotine patches at home but not using them. Consumes more than five drinks nightly, aware of its impact on atrial fibrillation, interested in cutting back. [facility] Medical History Essential hypertension Atrial fibrillation Alcohol dependence COPD (chronic obstructive pulmonary disease) ICD (implantable cardioverter-defibrillator) in place V-tach PAD (peripheral artery disease) Shoulder fracture Skull fracture HFrEF (heart failure with reduced ejection fraction) Enlarged RV (right ventricle) Non-ST elevated myocardial infarction (non-STEMI) Surgical History Hx of appendectomy History of surgery on arm S/P aortogram History of cardiac cath History of hernia surgery Family History Father Stroke Mother Emphysema lung Social History Household Members: None Housing: Apartment Are you a primary physician locums urgent care to a significant other at home: No Do you presently have visiting nurse or other home services: No Alcohol intake: current Alcohol intake frequency: 3 or more drinks per day Alcohol type: beer and hard liquor Patient Tobacco Use Status: Current everyday Tobacco user Tobacco use type: Cigarette Cigarette Packs Per Day: 0.5 Cigarettes Per Day: 5 Years Smoked: 50 e-Cigarette/Vaping Use: Never Used Second Hand Smoke Exposure: Yes Advance Directives Date on File: 06/02/21 service: No Cognitive needs: No Hearing needs: No Vision needs: Yes Questionnaire Thrive Questionnaire Date Thrive assessed: 10/23/24 I am a: Patient What is your living situation today?: I have a steady place to live Within the past 12 months, did the food you bought not last and you didn't have the money to get more?: Never true Within the past 12 months, did you worry whether your food would run out before you got money to buy more?: Never true Do you have trouble paying for medicines?: No Do you have trouble getting transportation to medical appointments?: Yes Do you have trouble paying your heating and electricity bill?: No Do you have trouble taking care of your child, family member or friend?: No Do you have trouble with day-to-day activities such as bathing, preparing meals, shopping, managing finances, etc.?: No Are you currently unemployed and looking for a job?: I choose not to answer this question Are you interested in more education?: I choose not to answer this question Please select the resources that you would like help with: None Currently or been in a relationship where the following occur: I choose not to answer THRIVE Score: 1 NORA-7 AMB Questionnaire NORA-7 Date NORA - 7 assessed: 10/23/24 Source: Developed by Drs. Ricky Cabrera, Tamy Pierre, Flako Kerr and colleagues, with an educational nguyễn from [employer]. Review of Systems Const Denies body aches, Denies chills, Denies fever(s), Denies headache(s) and Denies poor appetite Eyes Reports no additional complaints ENT Denies dizziness and Denies headache(s) Card Denies chest pain, Denies syncope, Denies edema, Denies irregular heart rhythm, Denies lightheadedness and Denies dyspnea Resp Details: SOB with humidity Denies cough and Denies dyspnea GI Denies abdominal pain, Denies nausea and Denies vomiting Reports no additional complaints Musc Reports no additional complaints and Denies abnormal gait Skin/Breast Reports system reviewed and no additional complaints, except as documented Neuro Denies abnormal gait, Denies dizziness, Denies syncope and Denies headache(s) Psych Reports no additional complaints Physical exam (Primary Care) Vital Signs: Last Vital Signs Temp 97.1 F 01/23/25 09:12 BP 110/70 01/23/25 09:12 BMI result Body Mass Index 21.3 Tobacco/Smoking Status: Tobacco use Status Tobacco use date assessed 01/23/25 01/23/25 09:21 Patient Tobacco Use Status Current everyday Tobacco 01/23/25 09:21 Tobacco use type Cigarette 01/23/25 09:21 e-Cigarette/Vaping Use Never Used 01/23/25 09:21 Thrive Assessment: Date of Thrive Assessment Date Thrive assessed 10/23/24 01/23/25 09:21 Currently or been in a relationship where the following occur: I choose not to answer Const General: cooperative, healthy appearing, comfortable and no acute distress Orientation/consciousness: patient oriented x3 HENMT Head: Yes normocephalic Ears: hearing grossly normal bilaterally General nose exam: Normal external nose present Eyes General: appearance normal, both eyes and all related structures Conjunctivae: conjunctivae normal Neck Neck: Yes full ROM and Yes no lymphadenopathy Resp Effort & Inspection: normal respiratory effort Auscultation: clear to auscultation bilaterally, no crackles, no rales, no rhonchi and no wheezes Cardio Rate: regular rate Rhythm: regular rhythm Skin General skin exam: no rashes or lesions noted Neuro General: patient oriented x3 Gait exam (Neuro): Normal gait present Extrem General: Yes normal to inspection, Yes full ROM and No edema Psych Affect: normal affect Attitude: cooperative Insight: Good insight present (Psych) Judgement: Good judgement present (Psych) Coding Level of Care Code Est Pt Level 3 (94927) Diagnoses Essential hypertension I10 Alcohol dependence F10.20 Atrial fibrillation I48.91 COPD (chronic obstructive pulmonary disease) J44.9 Multiple pulmonary nodules R91.8 Tobacco abuse Z72.0 PAD (peripheral artery disease) I73.9 Hypercholesterolemia E78.00 Assessment & Plan Assessment & Plan (1) Essential hypertension: Code(s): I10 - Essential (primary) hypertension Category: Medical Plan: Continue on current blood pressure medication. Avoid salt intake and encourage healthy diet and regular exercise. (2) Alcohol dependence: Comment: has had withdrawal symptoms in past when stops consuming alcohol Code(s): F10.20 - Alcohol dependence, uncomplicated Category: Medical Plan: Strongly advised to cut back on drinking. I did discuss at length today the risk of continued alcohol use. I do not recommend the patient to stop completely as there is risk for withdrawal symptoms. I discussed the [facility] and offered a referral and other informed of materials which were declined by the patient. He states he does have information at home and agrees to reach out when he is ready. (3) Atrial fibrillation: Comment: sustained-taking eliquis, carvedilol, ASA-follows w/HCS Code(s): I48.91 - Unspecified atrial fibrillation Category: Medical Plan: Currently on rate control with carvedilol and anticoagulation with Eliquis. Continue to follow with Cardiology. Recently started on Digoxin 3x week and notes good complicance with this medication. (4) COPD (chronic obstructive pulmonary disease): Code(s): J44.9 - Chronic obstructive pulmonary disease, unspecified Category: Medical Plan: Continue on current inhalers patient did recently miss several appointments for pulmonology follow up. Recommended rescheduling and being seen in the office for follow up. Strongly advised to stop smoking (5) Multiple pulmonary nodules: Comment: Found to have multiple pulmonary nodules repeat chest CT March 2025 Code(s): R91.8 - Other nonspecific abnormal finding of lung field Category: Medical Plan: Patient was found to have multiple pulmonary nodules recommended repeat CT in March of 2025. Continue to follow with pulmonology. Recommend reaching out to pulmonology to reschedule missed appointments, provided with pulmonology office number and message was sent to their office today as well. (6) Tobacco abuse: Code(s): Z72.0 - Tobacco use Category: Medical Plan: Smoking cigarettes and the use of tobacco can be harmful. We discussed the importance of stopping and options to aid in smoking cessation. Nicotine replacement therapy offered today - has not been using the patches sent at last visit. (7) PAD (peripheral artery disease): Comment: 02/16/2024 - diagnostic angiogram Code(s): I73.9 - Peripheral vascular disease, unspecified Category: Medical Plan: Patient recently missed ultrasound with ankle-brachial index study. Recommend reaching out to vascular surgery to reschedule this and continue to follow with vascular surgery. Provided with number for centralized scheduling today. (8) Hypercholesterolemia: Code(s): E78.00 - Pure hypercholesterolemia, unspecified Category: Medical Plan: Avoid foods that are high in cholesterol such as red meat, fried foods, eggs and baked goods. Triglyceride goal of less than 150 and LDL goal of less than 100. Continue on atorvastatin 80 Plan The patient is advised to reschedule appointments with the lumber driver and vascular surgeon for ongoing management of COPD and to schedule an ankle- brachial index test. A message will be sent to the pulmonology office to facilitate this process. The patient is currently on atorvastatin for hyperlipidemia and is due for a fasting cholesterol panel to monitor lipid levels. It is important to maintain adherence to the medication regimen and follow up with blood work as scheduled. For atrial fibrillation, the patient is on a new medication regimen, and it is crucial to continue monitoring for any symptoms such as palpitations or chest pain. The patient should report any new symptoms immediately. The patient is encouraged to use nicotine patches to aid in smoking cessation and to consider reducing alcohol consumption, as both habits negatively impact his health. Resources for alcohol use counseling were discussed, and the patient expressed interest in cutting back. This note was constructed using voice recognition software. While every effort has been made to ensure accuracy and senior net developer architect, still areas may have been included sometimes these areas may affect the content or meeting of the given symptoms. Total time spent caring for the patient today was 30 minutes. This includes time spent before the visit reviewing the chart, time spent during the visit, and time spent after the visit and documentation. Patient was informed and verbally consented to the use of an ambient scribe for clinic note documentation during this visit. Orders: Orders Vitamin B12 and Folate Today F10.20 - Alcohol dependence, uncomplicated, Z13.21 - Encounter for screening for nutritional disorder Complete Blood Count Auto Diff Today D64.9 - Anemia, unspecified, Z00.00 - Encounter for general adult medical examination without abnormal findings TSH reflex Free T4 Today I48.91 - Unspecified atrial fibrillation, Z00.00 - Encounter for general adult medical examination without abnormal findings Comprehensive Met. Panel Today I48.91 - Unspecified atrial fibrillation, Z00.00 - Encounter for general adult medical examination without abnormal findings Vitamin D 25-OH Total Today F10.20 - Alcohol dependence, uncomplicated, Z00.00 - Encounter for general adult medical examination without abnormal findings Free T4 (Free Thyroxine) Today I48.91 - Unspecified atrial fibrillation, Z00.00 - Encounter for general adult medical examination without abnormal findings
[2025-01-23 09:12] VITALS: BP 110/70; TEMP 36.2; BMI 21.3
== END 2025-01-23 10:04 | disposition home or self-care (01) ==
LOC: HO.HMCH 08:47
DX: I10 Essential (primary) hypertension (principal); F10.20 Alcohol dependence, uncomplicated; I48.91 Unspecified atrial fibrillation; J44.9 Chronic obstructive pulmonary disease, unspecified; R91.8 Other nonspecific abnormal finding of lung field; Z72.0 Tobacco use; I73.9 Peripheral vascular disease, unspecified; E78.00 Pure hypercholesterolemia, unspecified

== ENCOUNTER → 2025-01-23 08:46 | Outpatient (BNVA) | payer OTHER, SELFPAY | DX: I10 Essential (primary) hypertension (principal); I48.91 Unspecified atrial fibrillation; J44.9 Chronic obstructive pulmonary disease, unspecified; I73.9 Peripheral vascular disease, unspecified; F10.20 Alcohol dependence, uncomplicated; R91.8 Other nonspecific abnormal finding of lung field; E78.00 Pure hypercholesterolemia, unspecified; F17.210 Nicotine dependence, cigarettes, uncomplicated | CPT/HCPCS: 99212 ==

== ENCOUNTER 2025-01-25 12:29 | Emergency (ER) | payer OTHER, SELFPAY ==
[2025-01-25] VITALS (10 sets, daily range): BP systolic 93–128; BP diastolic 62–94; PULSE 80–90; RESP 15–20; TEMP -17.7–37.1; O2SAT 94–98; BMI 21.3
--- NOTE | ~2025-01-25 | XR_ITS ---
EXAMINATION: XR CHEST CLINICAL INFORMATION: pain COMPARISON: February 16, 2024 TECHNIQUE: 2 views of the chest were obtained. FINDINGS: Left upper chest generator with single lead terminating in the right ventricle is unchanged. Vascular calcification is visible in the aortic knob. The heart size is within normal limits. Minimal basilar atelectasis tents the lateral left hemidiaphragm. No pleural effusion is seen. XR/XR chest 2V IMPRESSION: Minimal left basilar atelectasis. Right ventricular pacer. Electronically signed by: Fausto Betancourt MD 01/25/2025 01:41 PM EDT
--- NOTE | 2025-01-25 12:35 | ECG_ITS ---
Test Reason : dizziness Blood Pressure : */* mmHG Vent. Rate : 86 BPM Atrial Rate : * BPM P-R Int : * ms QRS Dur : 100 ms QT Int : 410 ms P-R-T Axes : * 47 -24 degrees QTcB Int : 490 ms Atrial fibrillation with premature ventricular or aberrantly conducted complexes Nonspecific ST abnormality Prolonged QT Abnormal ECG When compared with ECG of 17-Jan-2024 07:19, Atrial fibrillation has replaced Sinus rhythm Referred By: Generic ED Physician Electronically Signed By: AMITA JIM
--- NOTE | 2025-01-25 13:00 | ED_ITS ---
HPI - General Adult General Chief complaint: Syncope Stated complaint: PER EMS SYNCOPE Time Seen by Provider: 01/25/25 12:37 Source: patient, RN notes reviewed and old records reviewed Mode of arrival: EMS Limitations: no limitations History of Present Illness ED Provider: Nic HPI narrative: 64-year-old male past medical history significant for hyperlipidemia, hypertension, alcohol dependence, AFib on Eliquis, COPD, V-tach status post AICD implantation, peripheral artery disease tobacco dependence presents for evaluation of lightheadedness. Patient reports that he woke up feeling well. When he went to lunch, he initially felt well but then upon standing felt lightheaded like he was going to pass out. He denies having had any pain during this episode. His symptoms lasted for about 20 minutes. Received IV fluids from EMS in his symptoms have resolved He did not have any chest pain, shortness of breath, fevers, chills Currently the patient reports feeling back to his baseline. He reports that he was prescribed a new medication recently but has not yet started it. He is unsure the name of the medication Patient reports that he was outside for several hours over last few days. He reports that he tried to avoid direct sunlight but it was over 100? the last 2 days. Related Data Home Medications ?Medication ?Instructions ?Recorded ?Confirmed fluticasone fur. 200 mcg-umeclid 1 inh inhalation CARLOS Y 07/04/24 12/04/24 62.5 mcg-vilant 25 mcg inhalat.powder (Trelegy Ellipta) Previous Rx's ?Medication ?Instructions ?Recorded albuterol sulfate 90 mcg/actuation 2 puff inhalation Q 6H PRN 01/20/24 aerosol inhaler shortness of breath or wheez ing #8.5 grams cholecalciferol (vitamin D3) 25 25 mcg PO DAILY #90 ca ps 08/10/24 mcg (1,000 unit) capsule ezetimibe 10 mg tablet (Zetia) 10 mg PO DAILY #90 tabs 08/10/24 carvedilol 25 mg tablet 25 mg PO BID #180 tabs 08/17 apixaban 5 mg tablet 5 mg PO BID #180 tabs losartan 25 mg tablet 25 mg PO DAILY #90 tabs 09/02 10/24 atorvastatin 80 mg tablet 80 mg PO DAILY #90 tabs 12/24 ascorbic acid (vitamin C) 500 mg 500 mg PO DAILY #30 t abs 10/23/24 tablet (Vitamin C) furosemide 40 mg tablet 40 mg PO BID #60 tabs nicotine 21 mg/24 hr daily 1 patch transdermal DAILY # 28 ea 11/25/24 transdermal patch digoxin 125 mcg (0.125 mg) tablet 125 mcg PO MOWEFR #6 0 tabs 12/04/24 Allergies Allergy/AdvReac Type Severity Reaction Status Date / Time No Known Allergies Allergy Verified 01/25/25 12:44 Review of Systems 2 Constitutional: Constitutional: Denies body ache(s), Denies chills, Denies fever(s), Denies frequent falls and Denies headache(s) Eyes: Eyes: Denies blurry vision ENT: Denies vertigo, Denies dizziness and Denies headache(s) Cardiovascular: Cardiovascular: Reports syncope, Reports lightheadedness and Denies dyspnea on exertion Respiratory: Respiratory: Denies cough and Denies dyspnea on exertion Gastrointestinal: Gastrointestinal: Denies abdominal pain, Denies nausea and Denies vomiting Musculoskeletal: Musculoskeletal: Denies back pain Integumentary/Breasts: Skin/Breast: Denies rash Neurologic: Denies vertigo, Denies dizziness, Reports syncope, Denies frequent falls and Denies headache(s) Psychiatric: Psychiatric: Denies anxiety PMFSH Past Medical History Medical History Essential hypertension Atrial fibrillation Alcohol dependence COPD (chronic obstructive pulmonary disease) ICD (implantable cardioverter-defibrillator) in place V-tach PAD (peripheral artery disease) Shoulder fracture Skull fracture HFrEF (heart failure with reduced ejection fraction) Enlarged RV (right ventricle) Non-ST elevated myocardial infarction (non-STEMI) Surgical History Hx of appendectomy History of surgery on arm S/P aortogram History of cardiac cath History of hernia surgery Family History Family History Father Stroke Mother Emphysema lung Social History Social History Household Members: None Housing: Apartment Are you a primary disabilities caregiver to a significant other at home: No Do you presently have visiting nurse or other home services: No Unable to assess alcohol history related to: Unknown Alcohol intake: current Alcohol intake frequency: 3 or more drinks per day Alcohol type: beer and hard liquor Patient Tobacco Use Status: Current everyday Tobacco user Tobacco use type: Cigarette Cigarette Packs Per Day: 0.5 Cigarettes Per Day: 5 Years Smoked: 50 Smoked in Last 30 Days: Yes e-Cigarette/Vaping Use: Never Used Second Hand Smoke Exposure: Yes Use of substances other than those prescribed or required for medical reasons: No Advance Directives: Yes Advance Directives on File: Yes Advance Directives Date on File: 06/02/21 Do you have a plan to hurt others: No Plan service: No Cognitive needs: No Hearing needs: No Vision needs: Yes Physical Exam ED Vital Signs: Vital Signs - 24 hr 01/25/25 12:41 01/25/25 12:57 01/25/25 12:58 Temperature 97.6 F 98.7 F Pulse Rate 89 88 Respiratory Rate 15 16 Blood Pressure 128/94 H Pulse Oximetry 95 98 98 Oxygen Delivery Method Room Air Room Air Room Air 01/25/25 13:36 01/25/25 13:41 01/25/25 13:42 Temperature Pulse Rate 87 80 88 Respiratory Rate 20 Blood Pressure 105/77 93/72 106/78 Pulse Oximetry Oxygen Delivery Method 01/25/25 13:45 01/25/25 13:50 Temperature Pulse Rate 86 86 Respiratory Rate Blood Pressure 98/64 97/62 Pulse Oximetry Oxygen Delivery Method BMI result Body Mass Index 21.3 Const General: healthy appearing, comfortable, no acute distress, alert and awake Nutritional Appearance: well nourished Orientation/consciousness: patient oriented x3 HENMT Head: Yes normocephalic and Yes atraumatic Eyes Eyelids: Yes eyelids normal Conjunctivae: conjunctivae normal Sclerae: sclerae normal Corneas: corneas normal Pupils: Equal, round and reactive pupils present EOM: EOMs intact bilaterally Neck Neck: Yes full ROM Resp Effort & Inspection: normal respiratory effort, able to speak in complete sentences, no audible wheezes and not labored Auscultation: clear to auscultation bilaterally Cardio Rate: regular rate Rhythm: regular rhythm GI Inspection: No distended Palpation (GI): Soft to palpation, not firm, nontender, no guarding and not rigid Skin General skin exam: no rashes or lesions noted and elasticity normal Neuro General: patient oriented x3 Cranial nerves: Yes Equal, round and reactive pupils present and Yes Bilaterally intact EOM present Cognition (Neuro): normal cognition Extrem Other: Moving all extremities well without any obvious deformities Course Reevaluation(s) Reevaluation #1: I received the fax report from [employer] which showed 36 detected arrhythmias, primarily on December 13, 2024. He only had 1 episode this month which was 1 week ago in January 18. He had a 300 millisecond episode of SVT versus V- tach at 190 beats minute. Time: 14:43 Reevaluation #2: Patient's repeat troponin is decreased from 46 down to 40, he rules out for ACS. I did discuss with Cardiology, Dr. House who is comfortable with discharge with the patient as the patient feels much better, rules out for ACS and only had 1 episode of SVT 1 week ago. Time: 15:47 Medications Administered Discontinued Medications Generic Name Dose Route Start Last Admin Trade Name Freq PRN Reason Stop Dose Admin Sodium Chloride 1,000 mls @ 999 mls/hr 01/25/25 13:00 01/25/25 14:02 Ns IV 01/25/25 14:00 Infused .Q1H1M ANANDA Infusion Medical Decision Making Medical Decision Making [facility] Narrative: 64-year-old male past medical history as above presents for evaluation of an episode of lightheadedness that lasted maybe 20 or 30 minutes. Resolved after receiving IV fluids. He did not have any chest pain or shortness of breath. He does have an AICD which we will attempt to interrogate. Plan for EKG, labs and we will give him a L of IV fluids. Differential Diagnosis Differential Diagnoses: The differential diagnosis associated with the presentation includes Near-syncope Lightheadedness Cardiac arrhythmia Orthostasis Dehydration Admission/Observation Consideration of admission/observation: Escalation of care including admission/observation considered Consult Healthcare Provider Management of the patient was discussed with: [employer] Lab Data [facility] Lab Attestation statement: I reviewed the patient's lab results. No leukocytosis. The patient has a mild anemia that is actually slightly improved compared to baseline. His hemoglobin of 13.1 and hematocrit of 38.7 is actually increased from the patient's labs from July of last year. This may be due to hemoconcentration from dehydration. The patient also has a mild VALENTINE with a BUN of 24 creatinine of 1.94 which is above his baseline of around 1 to 1.2. Again likely due to dehydration 01/25/25 13:05 01/25/25 13:05 Labs: Lab Results 01/25/25 01/25/25 Range/Units 13:05 15:17 WBC 7.1 (4.8-10.8) X10*3/uL RBC 3.95 L D (4.60-5.80) X10*6/uL Hgb 13.1 L D (14.0-18.0) g/dl Hct 38.7 L D (42.0-52.0) % MCV 98.0 (80.0-98.0) fL MCH 33.2 H (27.0-33.0) pg MCHC 33.9 (31.0-36.0) g/dl RDW 14.8 (11.0-16.0) % Plt Count 145 L D (160-400) X10*3/uL MPV 10.3 (9.4-12.4) fL Immature Gran % (Auto) 0.4 (0.0-0.4) % Neut % (Auto) 77.2 H (45-73) % Lymph % (Auto) 13.4 L (20-40) % [place] % (Auto) 7.2 (2-11) % Eos % (Auto) 1.1 (0-4) % Baso % (Auto) 0.7 (0-2) % Lymph # (Auto) 1.0 L (1.2-4.9) X10*3/uL [place] # (Auto) 0.5 (0.1-1.2) X10*3/uL Eos # (Auto) 0.1 (0.0-0.4) X10*3/uL Baso # (Auto) 0.1 (0.0-0.2) X10*3/uL Abs Immat Gran (auto) 0.03 (0.00-0.03) X10*3/uL Absolute Neuts (auto) 5.5 (2.0-8.3) x10*3/uL Absolute Nucleated RBC 0.000 (0.0-0.012) X10*3/uL Nucleated RBC % (auto) 0.0 (0.0-0.2) /100WBC Sodium 137 (135-145) mmol/L Potassium 3.7 (3.3-5.1) mmol/L Chloride 102 (96-108) mmol/L Carbon Dioxide 23 (22-29) mmol/L Anion Gap 16 (12-20) BUN 24 H (9-16) mg/dL Creatinine 1.94 H (0.5-1.4) mg/dL Estim Creat Clear Calc 34.0 Estimated GFR 35 Random Glucose 160 H (60-115) mg/dL Calcium 8.9 D (8.4-10.2) mg/dL Magnesium 1.6 (1.6-2.6) mg/dL Total Bilirubin 0.6 (0.0-1.0) mg/dL AST 17 (5-37) U/L ALT 12 (0-40) U/L Alkaline Phosphatase 73 (39-117) U/L Troponin I High Sens 46.7 H 40.0 H (<3.5-35.0) ng/L Total Protein 6.8 (6.5-8.0) g/dL Albumin 3.9 (3.5-5.0) g/dL Lipase 17 (8-78) U/L Ethyl Alcohol < 10 mg/dL Independent Interpretation I performed an independent interpretation of an: EKG (AFib with a rate of 86 beats minute. Nondiagnostic EKG) Discharge Plan Discharge Clinical Impression: VALENTINE (acute kidney injury), Acute dehydration Patient Disposition: Home, Self-Care Instructions: Dehydration (ED) Additional Instructions: Your workup in the ER today showed dehydration with a mild acute kidney injury. Your interrogation of the defibrillator showed 1 arrhythmia 1 week ago. It is important that you follow up with Cardiology Hydrate well. Return for new or worsening symptoms Prescriptions: No Action ezetimibe [Zetia] 10 mg tablet 10 mg PO DAILY Qty: 90 2RF cholecalciferol (vitamin D3) 25 mcg (1,000 unit) capsule 25 mcg PO DAILY Qty: 90 3RF carvedilol 25 mg tablet 25 mg PO BID Qty: 180 3RF apixaban 5 mg tablet 5 mg PO BID Qty: 180 3RF losartan 25 mg tablet 25 mg PO DAILY Qty: 90 3RF atorvastatin 80 mg tablet 80 mg PO DAILY Qty: 90 3RF furosemide 40 mg tablet 40 mg PO BID Qty: 60 0RF Rx Instructions: Must attend next appt for refills nicotine 21 mg/24 hr patch 24 hour 1 patch transdermal DAILY Qty: 28 0RF Trelegy Ellipta 200-62.5-25 mcg blister with device 1 inh inhalation DAILY albuterol sulfate 90 mcg/actuation HFA aerosol inhaler 2 puff inhalation Q6H PRN (Reason: shortness of breath or wheezing) Qty: 8.5 2RF digoxin 125 mcg (0.125 mg) tablet 125 mcg PO MOWEFR Qty: 60 3RF ascorbic acid (vitamin C) [Vitamin C] 500 mg tablet 500 mg PO DAILY Qty: 30 0RF Referrals: [facility] [Provider Group] Referral Note: SVT vs VT on defibrillator interrogation 01/18/25 Print Language: Persian
[2025-01-25] MEDS: 0.9 % Sodium Chloride 1,000 ML 999 ML IV (13:02)
[2025-01-25 13:13] LABS: MANUAL DIFF FLAG NO
--- NOTE | 2025-01-25 13:30 | PC.NURSE ---
64 M presents to ED with near syncope episode, hypotension at hinduism lunch. Pt became light headed, put head down on the table. Pt does have a pacemaker in place. BP is now much better after receiving about 200ml of NS from EMS. A+OX4 and ambulatory. Denies CP or SOB. RR even and unlabored. Pt sts he is feeling much better.
[2025-01-25 13:31] LABS: Alanine Aminotransferase 12 U/L (0-40); Albumin Level 3.9 g/dL (3.5-5.0); Alkaline Phosphatase 73 U/L (39-117); Anion Gap 16 (12-20); Aspartate Amino Transferase 17 U/L (5-37); Bilirubin Total 0.6 mg/dL (0.0-1.0); Blood Urea Nitrogen 24 mg/dL (9-16); Calcium 8.9 mg/dL (8.4-10.2); Carbon Dioxide 23 mmol/L (22-29); Chloride 102 mmol/L (96-108); Estimated Glomerular Filt Rate 35; Glucose Random 160 mg/dL (60-115); Lipase 17 U/L (8-78); Magnesium 1.6 mg/dL (1.6-2.6); Potassium 3.7 mmol/L (3.3-5.1); Sodium 137 mmol/L (135-145); Total Protein 6.8 g/dL (6.5-8.0)
[2025-01-25 13:32] LABS: Ethanol < 10 mg/dL
[2025-01-25 13:33] LABS: Basophils Absolute Auto 0.1 X10*3/uL (0.0-0.2); Basophils Percent Auto 0.7 % (0-2); Eosinophils Absolute Auto 0.1 X10*3/uL (0.0-0.4); Eosinophils Percent Auto 1.1 % (0-4); Hematocrit 38.7 % (42.0-52.0); Hemoglobin 13.1 g/dl (14.0-18.0); Imm Gran Abs Auto 0.03 X10*3/uL (0.00-0.03); Imm Gran Pct Auto 0.4 % (0.0-0.4); Lymphocytes Percent Auto 13.4 % (20-40); Mean Corpuscular HGB Conc 33.9 g/dl (31.0-36.0); Mean Corpuscular Hemoglobin 33.2 pg (27.0-33.0); Mean Platelet Volume 10.3 fL (9.4-12.4); Monocytes Absolute Auto 0.5 X10*3/uL (0.1-1.2); Monocytes Percent Auto 7.2 % (2-11); Neutrophils Absolute Auto 5.5 x10*3/uL (2.0-8.3); Neutrophils Percent Auto 77.2 % (45-73); Red Blood Count 3.95 X10*6/uL (4.60-5.80); Red Cell Distribution Width 14.8 % (11.0-16.0); White Blood Count 7.1 X10*3/uL (4.8-10.8)
[2025-01-25 13:34] LABS: Platelet Count 145 X10*3/uL (160-400)
[2025-01-25 13:40] LABS: Troponin-I High Sensitivity 46.7 ng/L (<3.5-35.0)
--- NOTE | 2025-01-25 13:51 | PC.NURSE ---
provider at bedside interrogating the pacemaker
== END 2025-01-25 16:04 | disposition home or self-care (01) ==
PROVIDERS: Physician Assistant; Emergency Provider Emergency Medicine
DX: R55 Syncope and collapse (principal); I48.91 Unspecified atrial fibrillation; D64.9 Anemia, unspecified; R11.0 Nausea; F17.210 Nicotine dependence, cigarettes, uncomplicated; Z79.01 Long term (current) use of anticoagulants; Z79.899 Other long term (current) drug therapy; Z51.81 Encounter for therapeutic drug level monitoring
CPT/HCPCS: 36415; 71046; 80053; 80307; 83690; 83735; 84484; 85025; 93005; 96360; 99284; 99285

== ENCOUNTER → 2025-01-25 12:35 | Outpatient (BNV) | payer OTHER, SELFPAY | PROVIDERS: Emergency Provider Emergency Medicine; Visit Provider Internal Medicine | DX: I48.91 Unspecified atrial fibrillation (principal) | CPT/HCPCS: 93010 ==

== ENCOUNTER → 2025-01-25 12:48 | Outpatient (BNV) | payer OTHER, SELFPAY | PROVIDERS: Emergency Provider Emergency Medicine; Visit Provider Radiology Diagnostic Radiology | DX: J98.11 Atelectasis (principal) | CPT/HCPCS: 71046 ==

== ENCOUNTER → 2025-04-13 10:06 | Outpatient (REF) | payer MEDICARE, SELFPAY ==
--- NOTE | 2025-04-13 10:10 | CA_ITS ---
Transthoracic Echocardiogram Patient (Last, First, Middle): Claudio Oliver H Gender: M Date of : 1960 Age: 64 Procedure Date: 04/13/2025 Procedure Type: Transthoracic Echocardiogram Location: OP Height: 170.18 cm Weight: 65.77 kg BSA: 1.76 m2 Heart Rate: 52 bpm Plc Programmer: RAFIA Referring MD: Mirza Garnica NP [employer]: Anton Collazo MD Symptoms: Z95.810 - Presence of automatic (implantable) cardiac defibrillator Study Quality: Adequate ECG Rhythm: Sinus with extra beats Conclusions: - 1. Mildly reduced LV ejection fraction 45-50% with severe asymmetric septal hypertrophy 2. Moderately reduced RV systolic function 3. Biatrial enlargement, left greater than right with severe left atrial enlargement 4. Calcific aortic and mitral valve changes noted with normal cardiac valve with a Dopplers 5. Normal RV systolic pressure 6. Upper limits of normal ascending aortic size 7. No pericardial effusion Findings Left Ventricle Normal left ventricular cavity size. There is mildly increased left ventricular wall thickness. The left ventricular systolic function is mildly decreased. The visually estimated ejection fraction is between 45-50%. Spectral Doppler is indicative of an impaired relaxation filling pattern. There is severe septal asymmetric hypertrophy. Right Ventricle Normal right ventricular cavity size. There is moderately decreased right ventricular systolic function. There is an ICD wire seen in the right ventricle. Atria The left atrium is severely dilated. There is no evidence of interatrial shunt. The right atrium is moderately dilated. Aortic Valve The aortic valve was not well visualized. There is mild calcification of the aortic valve. There is no aortic valve stenosis. There is trace (trivial) aortic valve regurgitation. Mitral Valve There is mild anterior and posterior mitral leaflet thickening. There is mild mitral annular calcification. There is mild mitral valve regurgitation. There is no mitral valve stenosis. Pulmonic Valve The pulmonic valve was not well visualized. Tricuspid Valve Likely normal tricuspid valve structure and function. There is mild tricuspid valve regurgitation. The right ventricular systolic pressure is normal. The right ventricular systolic pressure is 29 mmHg. Normal right atrial pressure. There is no evidence of pulmonary hypertension. Great Vessels The pulmonary artery was not well visualized. There is no dilatation of the ascending aorta measuring 3.60 cm. Small plaque is seen in the sino tubular ridge. Venous The inferior vena cava is normal in size and collapses greater than 50% with inspiration. Pericardium/Pleural There is no evidence of pericardial effusion. Prior Study Comparison Changes noted compared to prior study dated: 06/11/2022. LV ejection fraction has marginally reduced Measurements 2D Linear Measurements IVSd: 1.35 0.6-0.9/0.6-1.0 cm LVIDd: 5.14 3.9-5.3/4.2-5.9 cm LVIDd Index: 2.92 2.4-3.2/2.2-3.1 cm/m2 LVIDs: 3.50 2.0-3.6 cm LVPWd: 1.53 0.7-1.1 cm LA Diam: 4.70 2.7-3.8/3.0-4.0 cm LAIDs Index: 2.67 1.5-2.3 cm/m2 LV Mass: 395.25 67-162/88-224 g LV Mass Index: 224.58 43-95/49-115 g/m2 LVOT Diam: 2.10 3.0+(-)1.3 cm 2D Systolic Function EF 4C: 43.80 >55% EF 2C: 54.00 >55% EF BiP: 48.80 >55% Mitral Valve MV Pk E: 1.12 MV Decel Time: 190.00 E'Medial: 6.20 E/E' Med: 18.10 Aortic Valve AoV Pk Lonnie: 1.26 AoV Pk Grad: 6.00 EDGAR: 2.69 AI Pk Lonnie: 4.05 AI [place]: 1.73 LVOT LVOT Pk Lonnie: 0.98 LVOT Mn Lonnie: 0.64 LVOT VTI: 0.16 LVOT Pk Grad: 4.00 LVOT Mn Grad: 2.00 LVOT Diam: 2.10 LVOT Area: 3.46 Diastolic Function MV Pk E: 1.12 E'Medial: 6.20 E/E' Med: 18.10 Right Ventricle TAPSE (mm): 13.50 Tricuspid Valve TR Pk Lonnie: 2.53 TR Pk Grad: 26.00 RA Press: 3.00 RVSP: 29.00 Great Vessels Aorta Sinus of Valsalva: 3.50 2.0-3.5 cm Ao Asc: 3.60 2.1-3.4 cm Pulmonary Valve PV Pk Lonnie: 0.77 Peak PV Grad: 2.00 Updated in Other Vendor System with Status of Final Anton Collazo MD electronically signed on 04/13/2025 2:11:21 PM with status of Final
[2025-04-13 11:01] LABS: MANUAL DIFF FLAG NO
[2025-04-13 11:20] LABS: Hematocrit 40.3 % (42.0-52.0); Hemoglobin 13.6 g/dl (14.0-18.0); Imm Gran Abs Auto 0.02 X10*3/uL (0.00-0.03); Imm Gran Pct Auto 0.3 % (0.0-0.4); Lymphocytes Absolute Auto 1.1 X10*3/uL (1.2-4.9); Mean Corpuscular HGB Conc 33.7 g/dl (31.0-36.0); Mean Corpuscular Hemoglobin 32.5 pg (27.0-33.0); Mean Corpuscular Volume 96.2 fL (80.0-98.0); NRBC Abs Auto 0.000 X10*3/uL (0.0-0.012); NRBC Pct Auto 0.0 /100WBC (0.0-0.2); Red Blood Count 4.19 X10*6/uL (4.60-5.80); White Blood Count 6.2 X10*3/uL (4.8-10.8)
[2025-04-13 11:32] LABS: Platelet Count 87 X10*3/uL (160-400)
[2025-04-13 12:31] LABS: Alanine Aminotransferase 15 U/L (0-40); Albumin Level 4.2 g/dL (3.5-5.0); Alkaline Phosphatase 71 U/L (39-117); Anion Gap 15 (12-20); Aspartate Amino Transferase 19 U/L (5-37); Blood Urea Nitrogen 12 mg/dL (9-16); Calcium 9.5 mg/dL (8.4-10.2); Carbon Dioxide 27 mmol/L (22-29); Chloride 100 mmol/L (96-108); Cholesterol 196 mg/dL (<200); Estimated Glomerular Filt Rate > 60; HDL Cholesterol 68 mg/dL (>40); Potassium 4.3 mmol/L (3.3-5.1); Sodium 138 mmol/L (135-145); Total Protein 7.0 g/dL (6.5-8.0); Triglycerides 131 mg/dL (<150)
[2025-04-13 12:37] LABS: Free T4 (Free Thyroxine) 1.26 ng/dL (0.71-1.85)
[2025-04-13 13:05] LABS: Folate 6.1 ng/mL (> or = 4.0); Vitamin B12 314 pg/mL (200-900)
== END ==
LOC: HO.CARD 10:06
DX: Z00.00 Encounter for general adult medical examination without abnormal findings (principal); Z95.810 Presence of automatic (implantable) cardiac defibrillator; I47.20 Ventricular tachycardia, unspecified; F10.20 Alcohol dependence, uncomplicated; D64.9 Anemia, unspecified; I48.91 Unspecified atrial fibrillation; E78.00 Pure hypercholesterolemia, unspecified; Z13.21 Encounter for screening for nutritional disorder
CPT/HCPCS: 36415; 80053; 80061; 82306; 82607; 82746; 84439; 84443; 85025; 93306

== ENCOUNTER → 2025-04-13 10:10 | Outpatient (BNV) | payer MEDICARE, SELFPAY | PROVIDERS: Visit Provider Internal Medicine Cardiovascular Disease | DX: I34.81 Nonrheumatic mitral (valve) annulus calcification (principal); I35.8 Other nonrheumatic aortic valve disorders; I51.7 Cardiomegaly | CPT/HCPCS: 93306 ==

== ENCOUNTER 2025-04-24 10:14 | Outpatient (AMB) | payer MEDICARE, SELFPAY ==
[2025-04-24 10:17] VITALS: BP 144/88; PULSE 77; TEMP 36.3; O2SAT 96; BMI 21.2
--- NOTE | 2025-04-24 10:17 | MHC.PC.OV ---
Vital Signs 04/24/25 10:17 04/24/25 11:02 Height 5 ft 8 in Weight 139 lb 2 oz BMI 21.2 BP 144/88 H 132/82 Blood Pressure Location Lt brachial Rt brachial Position Sitting Sitting Pulse 77 Pulse Source Pulse Oximeter Temp 97.3 F Temp Source Temporal Artery Scan Pulse Oximetry (%) 96 Oxygen Delivery Method Room Air Intake Visit Reasons: 3 mo f/u Allergies No Known Allergies Allergy (Verified 04/24/25 10:48) Medication List - Last Reconciled 04/24/25 by Berenice Caicedo PA-C albuterol sulfate 90 mcg/actuation 2 puffs inhalation Q6H PRN apixaban 5 mg PO BID atorvastatin 80 mg PO DAILY carvedilol 25 mg PO BID cholecalciferol (vitamin D3) 25 mcg PO DAILY digoxin 125 mcg PO MOWEFR ezetimibe (Zetia) 10 mg PO DAILY vuspzejdvec-pxnccokwi-ciyuhlmy 200-62.5-25 mcg (Trelegy Ellipta) 1 inh inhalation DAILY furosemide 40 mg PO BID losartan 25 mg PO DAILY nicotine 1 patch transdermal DAILY Tobacco use date assessed: 04/24/25 Fall risk assessment: 2 + Falls in past year Last assessed Fall Risk: 04/24/25 Dental Screening Dental Screen Date: 04/24/25 Did you have a dental visit in the last 12 months?: No Did you have a dental problem in the last 6 months where you did not have access to dental care?: No Was dental information given to patient?: No HPI 3 mo f/u HPI Details 64-year-old male with past medical history of peripheral arterial disease, tobacco abuse, COPD, atrial fibrillation, alcohol dependence and hypertension last seen 01/24 coming in for follow up. In review of the notes, patient was seen [place] [facility] [place] for lightheadedness found to have acute kidney injury that resolved with IV fluids. Patient was discharged home. Presenting with dizziness and lightheadedness. The patient experienced dizziness and lightheadedness during a lunch outing in December, attributed to low blood pressure and partial dehydration. Reports consuming three to four beers daily, totaling 18 beers per week, reduced from previous consumption of three to four 18-packs weekly. Smoking reduced from two packs per day to one pack lasting three or more days, not using nicotine patches. Reports dyspnea on exertion, particularly when climbing stairs, with humid weather exacerbating the condition. Repeat CAT scan scheduled for April was missed; history of low platelet count monitored by hematology. [facility] Medical History Essential hypertension Atrial fibrillation Alcohol dependence COPD (chronic obstructive pulmonary disease) ICD (implantable cardioverter-defibrillator) in place V-tach PAD (peripheral artery disease) Shoulder fracture Skull fracture HFrEF (heart failure with reduced ejection fraction) Enlarged RV (right ventricle) Non-ST elevated myocardial infarction (non-STEMI) Surgical History Hx of appendectomy History of surgery on arm S/P aortogram History of cardiac cath History of hernia surgery Family History Father Stroke Mother Emphysema lung Social History Household Members: None Housing: Apartment Are you a primary long term care pharmacist to a significant other at home: No Do you presently have visiting nurse or other home services: No Alcohol intake: current Alcohol intake frequency: 3 or more drinks per day Alcohol type: beer and hard liquor Patient Tobacco Use Status: Current everyday Tobacco user Tobacco use type: Cigarette Cigarette Packs Per Day: 0.5 Cigarettes Per Day: 5 Years Smoked: 50 e-Cigarette/Vaping Use: Never Used Second Hand Smoke Exposure: Yes Advance Directives Date on File: 06/02/21 service: No Cognitive needs: No Hearing needs: No Vision needs: Yes Questionnaire PHQ-9 Over the last 2 weeks, how often have you been bothered by any of the following problems? 1. Little interest or pleasure in doing things: not at all 2. Feeling down, depressed, or hopeless: not at all 3. Trouble falling or staying asleep, or sleeping too much: not at all 4. Feeling tired or having little energy: not at all 5. Poor appetite or overeating: not at all 6. Feeling bad about yourself - or that you are a failure or have let yourself or your family down: not at all 7. Trouble concentrating on things, such as reading the newspaper or watching television: not at all 8. Moving or speaking so slowly that other people could have noticed. Or the opposite - being so fidgety or restless that you have been moving around a lot more than usual: not at all 9. Thoughts that you would be better off or of hurting yourself in some way: not at all Total score: 0 Depression Screening Interpretation: Negative Depression Screening Done: Yes Source: Developed by Drs. Ricky Cabrera, Tamy Pierre, Flako Kerr and colleagues, with an educational nguyễn from [employer]. Thrive Questionnaire Date Thrive assessed: 10/23/24 I am a: Patient What is your living situation today?: I have a steady place to live Within the past 12 months, did the food you bought not last and you didn't have the money to get more?: Never true Within the past 12 months, did you worry whether your food would run out before you got money to buy more?: Never true Do you have trouble paying for medicines?: No Do you have trouble getting transportation to medical appointments?: Yes Do you have trouble paying your heating and electricity bill?: No Do you have trouble taking care of your child, family member or friend?: No Do you have trouble with day-to-day activities such as bathing, preparing meals, shopping, managing finances, etc.?: No Are you currently unemployed and looking for a job?: I choose not to answer this question Are you interested in more education?: I choose not to answer this question Please select the resources that you would like help with: None Currently or been in a relationship where the following occur: I choose not to answer THRIVE Score: 1 AUDIT C Alcohol Use Questionnaire (AUDIT-C) 1. How often do you have a drink containing alcohol?: 2-3 times a week 2. How many drinks containing alcohol do you have on a typical day when you are drinking?: 3 or 4 3. How often do you have six or more drinks on one occasion?: Less than monthly Total Score: 5 Score Reviewed/Action Taken: Yes NORA-7 AMB Questionnaire NORA-7 Date NORA - 7 assessed: 10/23/24 Feeling nervous, anxious, or on edge: 0 = Not at all Not being able to stop or control worryin = Not at all Worrying too much about different things: 0 = Not at all Trouble relaxin = Not at all Being so restless that it is hard to sit still: 0 = Not at all Becoming easily annoyed or irritable: 0 = Not at all Feeling afraid as if something awful might happen: 0 = Not at all Total NORA-7 score (0-4 normal; 5-9 mild; 10-14 moderate; 15-21 severe): 0 Source: Developed by Drs. Ricky Cabrera, Tamy Pierre, Flako Kerr and colleagues, with an educational nguyễn from [employer]. Review of Systems Const Denies body aches, Denies chills, Denies fever(s), Denies headache(s) and Denies poor appetite Eyes Reports no additional complaints ENT Denies dizziness and Denies headache(s) Card Denies chest pain, Denies syncope, Denies edema, Denies irregular heart rhythm, Denies lightheadedness, Denies dyspnea and Reports dyspnea on exertion Resp Denies cough, Denies dyspnea and Reports dyspnea on exertion GI Denies abdominal pain, Denies constipation, Denies diarrhea, Denies nausea and Denies vomiting Reports no additional complaints Musc Reports no additional complaints and Denies abnormal gait Skin/Breast Reports system reviewed and no additional complaints, except as documented Neuro Denies abnormal gait, Denies dizziness, Denies syncope and Denies headache(s) Psych Reports no additional complaints Physical exam (Primary Care) Vital Signs: Last Vital Signs Temp 97.3 F 04/24/25 10:17 Pulse 77 04/24/25 10:17 BP 132/82 04/24/25 11:02 Pulse Ox 96 04/24/25 10:17 Oxygen Delivery Method Room Air 04/24/25 10:17 BMI result Body Mass Index 21.2 Tobacco/Smoking Status: Tobacco use Status Tobacco use date assessed 04/24/25 04/24/25 10:22 Patient Tobacco Use Status Current everyday Tobacco 04/24/25 10:22 Tobacco use type Cigarette 04/24/25 10:22 e-Cigarette/Vaping Use Never Used 04/24/25 10:22 PHQ-9: PHQ-9 Score PHQ-9: Total score 0 04/24/25 10:43 Depression Screening Interpretation: Negative Thrive Assessment: Date of Thrive Assessment Date Thrive assessed 10/23/24 04/24/25 10:22 Currently or been in a relationship where the following occur: I choose not to answer Const General: cooperative, healthy appearing, comfortable and no acute distress Orientation/consciousness: patient oriented x3 HENMT Head: Yes normocephalic Ears: hearing grossly normal bilaterally General nose exam: Normal external nose present Eyes General: appearance normal, both eyes and all related structures Conjunctivae: conjunctivae normal Neck Neck: Yes full ROM and Yes no lymphadenopathy Resp Effort & Inspection: normal respiratory effort Auscultation: clear to auscultation bilaterally, no crackles, no rales, no rhonchi and no wheezes Cardio Rate: regular rate Rhythm: regular rhythm Skin General skin exam: no rashes or lesions noted Neuro General: patient oriented x3 Gait exam (Neuro): Normal gait present Extrem General: Yes normal to inspection, Yes full ROM and No edema Psych Affect: normal affect Attitude: cooperative Insight: Good insight present (Psych) Judgement: Good judgement present (Psych) Coding Level of Care Code Est Pt Level 3 (70904) Diagnoses Alcohol dependence F10.20 Essential hypertension I10 Atrial fibrillation I48.91 Hypercholesterolemia E78.00 Thrombocytopenia D69.6 COPD (chronic obstructive pulmonary disease) J44.9 Multiple pulmonary nodules R91.8 Tobacco abuse Z72.0 Assessment & Plan Assessment & Plan (1) Alcohol dependence: Comment: has had withdrawal symptoms in past when stops consuming alcohol Code(s): F10.20 - Alcohol dependence, uncomplicated Category: Medical Plan: Patient has been working on cutting back on alcohol consumption. He reduce consumption from three 18 packs per week to one 18 pack per week. 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 He is aware of the risks of prolonged alcohol consumption. (2) Essential hypertension: Code(s): I10 - Essential (primary) hypertension Category: Medical Plan: Continue on current blood pressure medication. Avoid salt intake and encourage healthy diet and regular exercise. (3) Atrial fibrillation: Comment: sustained-taking eliquis, carvedilol, ASA-follows w/HCS Code(s): I48.91 - Unspecified atrial fibrillation Category: Medical Plan: Patient continues with full oral anticoagulation with Eliquis and I reinforced medication adherence with the patient today. He is on rate control with carvedilol and currently follows with his farm equipment technician. (4) Hypercholesterolemia: Code(s): E78.00 - Pure hypercholesterolemia, unspecified Category: Medical Plan: Avoid foods that are high in cholesterol such as red meat, fried foods, eggs and baked goods. Triglyceride goal of less than 150 and LDL goal of less than 100. (5) Thrombocytopenia: Code(s): D69.6 - Thrombocytopenia, unspecified Category: Medical Plan: Patient has low platelet counts which may be related to Eliquis however this is not a typical side effect. He has a appointment with Hematology coming up later this week however he does have to reschedule due to transportation issues and was provided with the number for their office today. (6) COPD (chronic obstructive pulmonary disease): Code(s): J44.9 - Chronic obstructive pulmonary disease, unspecified Category: Medical Plan: For COPD patient continues on Trelegy inhaler daily and reinforced adherence as he does often forget to take his medication. Continue with albuterol as needed and does not use this medication frequently. (7) Multiple pulmonary nodules: Comment: Found to have multiple pulmonary nodules repeat chest CT March 2025 Code(s): R91.8 - Other nonspecific abnormal finding of lung field Category: Medical Plan: For pulmonary nodules patient missed his CAT scan earlier this month and was provided with the number for centralized scheduling to reschedule this test. (8) Tobacco abuse: Code(s): Z72.0 - Tobacco use Category: Medical Plan: Smoking cigarettes and the use of tobacco can be harmful. We discussed the importance of stopping and options to aid in smoking cessation. He has significantly cut back and is declining nicotine replacement therapy or medication management at this time. He we will continue to cut back on his smoking. Plan During the visit, we discussed the importance of reducing alcohol and tobacco use to improve cardiovascular health. We also emphasized the need to increase water intake to prevent dehydration, especially during hot weather. The patient was informed about the low platelet count and the need for follow-up with hematology. We reviewed the blood pressure readings and advised continued monitoring and lifestyle modifications. The patient was also reminded to reschedule the missed CAT scan for further evaluation. This note was constructed using voice recognition software. While every effort has been made to ensure accuracy and composite engineer, still areas may have been included sometimes these areas may affect the content or meeting of the given symptoms. Total time spent caring for the patient today was 20 minutes. This includes time spent before the visit reviewing the chart, time spent during the visit, and time spent after the visit and documentation. Patient was informed and verbally consented to the use of an ambient scribe for clinic note documentation during this visit. Medications: Discontinued nicotine Discontinued Reason: Patient no longer taking 1 patch transdermal DAILY 28 ea 0RF
[2025-04-24 11:02] VITALS: BP 132/82
== END 2025-04-24 11:18 | disposition home or self-care (01) ==
LOC: HO.HMCH 10:15
DX: I48.91 Unspecified atrial fibrillation (principal); F10.20 Alcohol dependence, uncomplicated; J44.9 Chronic obstructive pulmonary disease, unspecified; I10 Essential (primary) hypertension; E78.00 Pure hypercholesterolemia, unspecified; D69.6 Thrombocytopenia, unspecified; R91.8 Other nonspecific abnormal finding of lung field; Z72.0 Tobacco use

== ENCOUNTER → 2025-04-24 10:14 | Outpatient (BNVA) | payer MEDICARE, SELFPAY | DX: I10 Essential (primary) hypertension (principal); I73.9 Peripheral vascular disease, unspecified; R42 Dizziness and giddiness; F17.210 Nicotine dependence, cigarettes, uncomplicated; F10.20 Alcohol dependence, uncomplicated; I48.91 Unspecified atrial fibrillation; E78.00 Pure hypercholesterolemia, unspecified; D69.6 Thrombocytopenia, unspecified; F44.9 Dissociative and conversion disorder, unspecified; R91.8 Other nonspecific abnormal finding of lung field | CPT/HCPCS: 96127; 99212 ==

== ENCOUNTER 2025-05-14 14:49 | Emergency (ER) | payer MEDICARE, SELFPAY ==
[2025-05-14] VITALS (7 sets, daily range): BP systolic 168–227; BP diastolic 96–136; PULSE 88–112; RESP 18; TEMP 36.4–36.9; O2SAT 96–97; BMI 20.8
--- NOTE | ~2025-05-14 | XR_ITS ---
CLINICAL HISTORY: pain, injury 3 view right hand Comparison: None provided Findings: Bones intact. No dislocations. No significant loss of joint space or osteophytes. 4 mm foreign body within the soft tissues adjacent to the neck of the 1st proximal phalanx. IMPRESSION: 4 mm foreign body within the soft tissues adjacent to the neck of the 1st proximal phalanx. This document has been electronically signed by: Triny Li MD on 05/14/2025 16:06:01
--- NOTE | 2025-05-14 15:06 | ED_ITS ---
HPI - General Adult General Chief complaint: Wound/Laceration Stated complaint: finger wound Time Seen by Provider: 05/14/25 17:02 Source: patient, RN notes reviewed and old records reviewed Mode of arrival: ambulatory Limitations: no limitations History of Present Illness ED Provider: JAMILAH Ku HPI narrative: 64-year-old male with medical history of hyperlipidemia, hypertension, alcohol dependence, AFib on Eliquis, COPD, V-tach status post AICD implantation, peripheral artery disease tobacco dependence presents to the ED due to laceration to the 2nd digit on the right hand. Patient states he cut the 2nd digit on his right hand approximately 1 week ago on a broken piece of glass. Patient states he came intoday afer encouragement from his friend who thought the finger may be infected. Additionally, patient is mildly tremulous and states he stopped drinking 48 hours ago, and normally drinks an 18 pack of beer per week for many years and he is now trying to cut his drinking down to every Wednesday. He denies history of alcohol withdrawal or admission to hospital for alcohol withdrawal. Denies fever, chest pain, SOB MD complaint: Laceration of R 2nd digit Related Data Home Medications ?Medication ?Instructions ?Recorded ?Confirmed fluticasone fur. 200 mcg-umeclid 1 inh inhalation CARLOS Y 07/04/24 04/24/25 62.5 mcg-vilant 25 mcg inhalat.powder (Trelegy Ellipta) Previous Rx's ?Medication ?Instructions ?Recorded albuterol sulfate 90 mcg/actuation 2 puff inhalation Q 6H PRN 01/20/24 aerosol inhaler shortness of breath or wheez ing #8.5 grams cholecalciferol (vitamin D3) 25 25 mcg PO DAILY #90 ca ps 08/10/24 mcg (1,000 unit) capsule ezetimibe 10 mg tablet (Zetia) 10 mg PO DAILY #90 tabs 08/10/24 carvedilol 25 mg tablet 25 mg PO BID #180 tabs 08/17 apixaban 5 mg tablet 5 mg PO BID #180 tabs losartan 25 mg tablet 25 mg PO DAILY #90 tabs 09/02 10/24 atorvastatin 80 mg tablet 80 mg PO DAILY #90 tabs 12/24 furosemide 40 mg tablet 40 mg PO BID #60 tabs digoxin 125 mcg (0.125 mg) tablet 125 mcg PO DAILY #60 tabs 04/26/25 cephalexin 500 mg capsule 500 mg PO BID 7 days #14 cap s 05/14/25 doxycycline hyclate 100 mg capsule 100 mg PO BID #14 c aps 05/14/25 Allergies Allergy/AdvReac Type Severity Reaction Status Date / Time No Known Allergies Allergy Verified 05/14/25 15:07 Review of Systems 2 Review of Systems: CONST: Negative for fever, body aches and chills. HENT: Negative for neck pain/stiffness, headache, congestion, sore throat, swelling. EYES: Negative for discharge/pain or vision changes. RESP: Negative for cough/hemoptysis and shortness of breath. CV: Negative chest pain, difficulty breathing, palpitations. ABD: Negative pain, nausea, vomiting. : Negative increase frequency, dysuria, blood in urine or stool. MUSC: Negative for muscle aches, edema. SKIN: Negative rash, lesions/sores. POS Laceration of L 2nd digit NEURO: Negative headache, dizziness, weakness. Yes all other systems are reviewed and are negative [facility] Past Medical History Attestation statement: The following information was validated with the patient. Source: old records reviewed and nursing notes reviewed Medical History Essential hypertension Atrial fibrillation Alcohol dependence COPD (chronic obstructive pulmonary disease) ICD (implantable cardioverter-defibrillator) in place V-tach PAD (peripheral artery disease) Shoulder fracture Skull fracture HFrEF (heart failure with reduced ejection fraction) Enlarged RV (right ventricle) Non-ST elevated myocardial infarction (non-STEMI) Surgical History Hx of appendectomy History of surgery on arm S/P aortogram History of cardiac cath History of hernia surgery Family History Family History Father Stroke Mother Emphysema lung Social History Social History Household Members: None Housing: Apartment Are you a primary women's health care nurse practitioner to a significant other at home: No Do you presently have visiting nurse or other home services: No Alcohol intake: current Alcohol intake frequency: 3 or more drinks per day Alcohol type: beer and hard liquor Patient Tobacco Use Status: Current everyday Tobacco user Tobacco use type: Cigarette Cigarette Packs Per Day: 0.5 Cigarettes Per Day: 5 Years Smoked: 50 Smoked in Last 30 Days: Yes e-Cigarette/Vaping Use: Never Used Second Hand Smoke Exposure: Yes Use of substances other than those prescribed or required for medical reasons: Unknown Advance Directives: Yes Advance Directives on File: Yes Advance Directives Date on File: 06/02/21 Do you have a plan to hurt others: No Plan service: No Cognitive needs: No Hearing needs: No Vision needs: Yes Physical Exam ED Vital Signs: Vital Signs - 24 hr 05/14/25 15:04 05/14/25 15:49 05/14/25 17:08 Temperature 97.6 F Pulse Rate 112 H 102 H 105 H Respiratory Rate 18 18 18 Blood Pressure 227/136 H 188/107 H 172/107 H Pulse Oximetry 97 96 96 Oxygen Delivery Method Room Air Room Air 05/14/25 17:48 05/14/25 17:49 Temperature Pulse Rate 97 Respiratory Rate Blood Pressure 217/120 H Pulse Oximetry Oxygen Delivery Method BMI result Body Mass Index 20.8 GENERAL APPEARANCE: ?AxOx4, no acute distress. HEENT: ?NC, AT. MMM. EOMI, clear conjunctiva, oropharynx clear. NECK: ?Supple without lymphadenopathy.? No stiffness or restricted ROM. HEART:? tachycardic rate and regular rhythm, normal S1/S2, no m/r/g LUNGS:? Diminished breath sounds throughout all lung mathew without ronchi or wheezing ABDOMEN: ?Soft, nontender, nondistended BACK: No CVAT, no obvious deformity. EXTREMITIES: ?Without cyanosis, clubbing or edema. Scabbed laceration over dorsal aspect of R 2nd digit, ROM intact, radial pulses 2+, SILT, mild hand tremor present NEUROLOGICAL: ?Grossly nonfocal. Alert and oriented, moving all 4 extremities. Observed to ambulate with normal gait. Skin: ?Warm and dry without any rash. Course Course Course Narrative: Rapid medical examination performed in triage by Elana Guerrero PA-C. Patient is a 64 year old assigned male at presenting to the emergency department with a right index finger injury from a week ago. Patient states that a week ago he cut his right index finger and wasn't going to get treatment but now he is having difficulty bending it. Patient states that he has a history of elevated blood pressure and has not taken his medication. Detailed physical exam and review of systems are deferred to the chemotherapist. Labs and imaging ordered. Patient placed back in the waiting room pending room availability and results. Medications Administered Generic Name Dose Route Start Last Admin Trade Name Freq PRN Reason Stop Dose Admin Lactated Ringer's 1,000 mls @ 999 mls/hr 05/14/25 17:25 05/14/25 17:30 Lr IV 05/14/25 18:25 999 mls/hr .Q1H1M ONE Administration Discontinued Medications Generic Name Dose Route Start Last Admin Trade Name Freq PRN Reason Stop Dose Admin Carvedilol 25 mg 05/14/25 17:44 05/14/25 17:48 Carvedilol 25 Mg Tablet PO 05/14/25 17:45 25 mg ONCE ONE Administration Protocol Ceftriaxone Sodium 1 gm 05/14/25 17:33 05/14/25 17:49 Ceftriaxone Sodium 1 Gm Vial IVPUSH 05/14/25 17:34 1 gm ONCE ONE Administration Lorazepam 1 mg 05/14/25 17:25 05/14/25 17:32 Lorazepam 1 Mg Tablet PO 05/14/25 17:26 1 mg ONCE ONE Administration Losartan Potassium 25 mg 05/14/25 17:44 05/14/25 17:49 Losartan Potassium 25 Mg Tablet PO 05/14/25 17:45 25 mg ONCE ONE Administration Protocol Medical Decision Making Medical Decision Making MDM Narrative: 64-year-old male with medical history of hyperlipidemia, hypertension, alcohol dependence, AFib on Eliquis, COPD, V-tach status post AICD implantation on apixaban, peripheral artery disease tobacco dependence presents to the ED due to laceration to the 2nd digit on the right hand. Patient states he cut the 2nd digit on his right hand approximately 1 week ago on a broken piece of glass. Patient states he came intoday afer encouragement from his friend who thought the finger may be infected. Additionally, patient is mildly tremulous and states he stopped drinking 48 hours ago, and normally drinks an 18 pack of beer per week for many years and he is now trying to cut his drinking down to every Wednesday. He denies history of alcohol withdrawal or admission to hospital for alcohol withdrawal VS on initial observation-BP 172/107, pulse rate of 105, respiratory rate of 18, afebrile with oral temp of 97.6?, O2 saturation 96% on room air. On physical exam Scabbed laceration over dorsal aspect of R 2nd digit, ROM intact, radial pulses 2+, SILT, negative kanavel sign, mild hand tremor present- lower suspicion for flexor tenosynovitis or flexor tendon rupture. Patient has CIWA score of 4 due to tremor. Labs without leukocytosis/leukopenia, normocytic anemia with a hemoglobin of 13.6, hematocrit of 41.4, ESR and CRP WNL no electrolyte abnormalities XR of the left hand reveals no dislocation or fractures, with a 4 mm foreign body within the soft tissues of the 1st proximal digit Patient is hypertensive however did not take his medications today, he is being medicated with his home dose of 25 mg carvedilol and 25mg losartan for correction. CIWA score of 4, patient is being medicated with 1 mg p.o. Ativan, IV fluids for correction. I offered patient to meet with recovery team for help and resources with decreased drinking, however patient states he already has resources in the community and is not interested in talking to anyone here at this time. Patient states he was most concerned for infection of his finger and would like to be treated for that. Patient being medicated with 1 g IV ceftriaxone for bacterial coverage. I reached out to Orthopedic JAMILAH Kirk with the plan of discharge with antibiotics and follow up in thier office outpatient, he agrees with this plan. Patient agrees with this plan. Differential Diagnosis Differential Diagnoses: The differential diagnosis associated with the presentation includes Flexor tenosynovitis Flexor tendon rupture Cellulitis Finger fracture Electrolyte abnormality Alcohol withdrawal Admission/Observation Consideration of admission/observation: Escalation of care including admission/observation considered Lab Data [facility] Lab Attestation statement: I reviewed the patient's lab results. 05/14/25 15:44 05/14/25 15:44 Labs: Lab Results 05/14/25 Range/Units 15:44 WBC 7.0 (4.8-10.8) X10*3/uL RBC 4.36 L (4.60-5.80) X10*6/uL Hgb 13.6 L (14.0-18.0) g/dl Hct 41.4 L (42.0-52.0) % MCV 95.0 (80.0-98.0) fL MCH 31.2 (27.0-33.0) pg MCHC 32.9 (31.0-36.0) g/dl RDW 13.9 (11.0-16.0) % Plt Count 158 L D (160-400) X10*3/uL MPV 10.6 (9.4-12.4) fL Immature Gran % (Auto) 0.4 (0.0-0.4) % Neut % (Auto) 71.9 (45-73) % Lymph % (Auto) 14.5 L (20-40) % Ellsworth % (Auto) 10.5 (2-11) % Eos % (Auto) 1.3 (0-4) % Baso % (Auto) 1.4 (0-2) % Lymph # (Auto) 1.0 L (1.2-4.9) X10*3/uL Ellsworth # (Auto) 0.7 (0.1-1.2) X10*3/uL Eos # (Auto) 0.1 (0.0-0.4) X10*3/uL Baso # (Auto) 0.1 (0.0-0.2) X10*3/uL Abs Immat Gran (auto) 0.03 (0.00-0.03) X10*3/uL Absolute Neuts (auto) 5.0 (2.0-8.3) x10*3/uL Absolute Nucleated RBC 0.000 (0.0-0.012) X10*3/uL Nucleated RBC % (auto) 0.0 (0.0-0.2) /100WBC ESR 12 (0-15) MM/HR Sodium 140 (135-145) mmol/L Potassium 4.6 (3.3-5.1) mmol/L Chloride 106 (96-108) mmol/L Carbon Dioxide 22 (22-29) mmol/L Anion Gap 17 (12-20) BUN 9 (9-16) mg/dL Creatinine 1.08 (0.5-1.4) mg/dL Estim Creat Clear Calc 59.9 Estimated GFR > 60 Random Glucose 98 (60-115) mg/dL Calcium 9.1 (8.4-10.2) mg/dL Total Bilirubin 0.4 (0.0-1.0) mg/dL AST 17 (5-37) U/L ALT < 6 (0-40) U/L Alkaline Phosphatase 69 (39-117) U/L C-Reactive Protein < 0.10 (< or = 0.50) mg/dL Total Protein 6.8 (6.5-8.0) g/dL Albumin 4.0 (3.5-5.0) g/dL Independent Interpretation I performed an independent interpretation of an: Plain X-Ray Interpretation: I independently interpreted the XR R hand which was negative for acute findings however does show a foreign body of the 1st digit, I agree with the radiologist's interpretation Radiology Impression Discussion of test interpretation with radiology: I have reviewed the radiologist's reading. Radiologist Impression: XR R hand Findings: Bones intact. No dislocations. No significant loss of joint space or osteophytes. 4 mm foreign body within the soft tissues adjacent to the neck of the 1st proximal phalanx. IMPRESSION: 4 mm foreign body within the soft tissues adjacent to the neck of the 1st proximal phalanx. This document has been electronically signed by: Triny Li MD on 05/14/2025 16:06:01 Dictated By: Triny Li MD Signed By: <Electronically signed by Triny Li MD in OV> 05/14/25 1607 External Record Review External record reviewed: Inpatient record, Office record and Outpatient record Prescription Management I considered prescription management with: Other (Phenobarbital) I considered medicating with phenobarbital however CIWA score of 4, patient's last drink was 48 hours ago, no indication for phenobarbital at this time. Patient being medicated with 1mg po ativan for tremors. Chronic Conditions Patient?s care impacted by: Hypertension and Other (hyperlipidemia, alcohol dependence, AFib on Eliquis, COPD, V-tach status post AICD implantation, peripheral artery disease tobacco dependence) Social Determinants Patient?s care significantly limited by Social Determinants of Health including: Other Social Determinant of Health Discharge Plan Discharge Clinical Impression: Laceration of hand with delay in treatment Patient Disposition: Home, Self-Care Additional Instructions: You were evaluated in the ED today due to a week old laceration of the 2nd digit on the right hand. Your blood work was reassuring today as there was no significant elevation your white blood cell count indicative of infection. Your blood work did show a slight anemia with a hemoglobin of 13.6, and hematocrit of 41.4, this is nonemergent however you should follow up with your primary care doctor on these findings. The x-ray of your hand was negative for any fracture or dislocation. You were medicated in the department today with 1 L of IV fluids, 1 mg of Ativan, 1 g of IV ceftriaxone antibiotics, 25 mg of carvedilol, and 25 mg of losartan as you did not take her antihypertensive medications today. You are being discharged with a 7 day course of doxycycline and Keflex which are antibiotics to cover for any bacterial infection of the laceration. Please complete the entire course of medication. I have placed a referral to Orthopedics for you, please call their office tomorrow morning and establish an appointment with them, as you may have an injury to the tendon in the finger. Please return to the emergency department if you experience fevers over 100.4?, pus-like drainage from the finger, increased pain of the finger, inability to move the finger, tightness in the finger, or any new/worsening/concerning symptoms. Prescriptions: New cephalexin 500 mg capsule 500 mg PO BID 7 Days Qty: 14 0RF doxycycline hyclate 100 mg capsule 100 mg PO BID Qty: 14 0RF No Action ezetimibe [Zetia] 10 mg tablet 10 mg PO DAILY Qty: 90 2RF cholecalciferol (vitamin D3) 25 mcg (1,000 unit) capsule 25 mcg PO DAILY Qty: 90 3RF carvedilol 25 mg tablet 25 mg PO BID Qty: 180 3RF apixaban 5 mg tablet 5 mg PO BID Qty: 180 3RF losartan 25 mg tablet 25 mg PO DAILY Qty: 90 3RF atorvastatin 80 mg tablet 80 mg PO DAILY Qty: 90 3RF furosemide 40 mg tablet 40 mg PO BID Qty: 60 0RF Rx Instructions: Must attend next appt for refills digoxin 125 mcg (0.125 mg) tablet 125 mcg PO DAILY Qty: 60 3RF Trelegy Ellipta 200-62.5-25 mcg blister with device 1 inh inhalation DAILY albuterol sulfate 90 mcg/actuation HFA aerosol inhaler 2 puff inhalation Q6H PRN (Reason: shortness of breath or wheezing) Qty: 8.5 2RF Referrals: [facility] [Provider Group] Print Language: Indonesian
[2025-05-14 15:48] LABS: MANUAL DIFF FLAG NO
--- NOTE | 2025-05-14 15:51 | PC.NURSE ---
Pt to ED 5 from triage, A/O x 3 and noted to be tremulous. Laceration noted to right index finger, pt reports 7/10 pain with movement. Pt reports some etoh use, drink approx 18 pack of beer in 1 week. Reports last drink Sat 05/12, CIWA 4. Sz pads placed to rails as precaution. Pt went to x-ray, results pending.
[2025-05-14 15:52] LABS: Hematocrit 41.4 % (42.0-52.0); Hemoglobin 13.6 g/dl (14.0-18.0); Imm Gran Abs Auto 0.03 X10*3/uL (0.00-0.03); Imm Gran Pct Auto 0.4 % (0.0-0.4); Lymphocytes Absolute Auto 1.0 X10*3/uL (1.2-4.9); Mean Corpuscular HGB Conc 32.9 g/dl (31.0-36.0); Mean Corpuscular Hemoglobin 31.2 pg (27.0-33.0); Mean Corpuscular Volume 95.0 fL (80.0-98.0); NRBC Abs Auto 0.000 X10*3/uL (0.0-0.012); NRBC Pct Auto 0.0 /100WBC (0.0-0.2); Platelet Count 158 X10*3/uL (160-400); Red Blood Count 4.36 X10*6/uL (4.60-5.80); White Blood Count 7.0 X10*3/uL (4.8-10.8)
[2025-05-14 16:07] LABS: Alanine Aminotransferase < 6 U/L (0-40); Albumin Level 4.0 g/dL (3.5-5.0); Alkaline Phosphatase 69 U/L (39-117); Anion Gap 17 (12-20); Aspartate Amino Transferase 17 U/L (5-37); Blood Urea Nitrogen 9 mg/dL (9-16); Calcium 9.1 mg/dL (8.4-10.2); Carbon Dioxide 22 mmol/L (22-29); Chloride 106 mmol/L (96-108); Creatinine Clr Calc Pharmacy 59.9; Estimated Glomerular Filt Rate > 60; Potassium 4.6 mmol/L (3.3-5.1); Sodium 140 mmol/L (135-145); Total Protein 6.8 g/dL (6.5-8.0)
[2025-05-14] MEDS: Lactated Ringers 1,000 ML 999 ML IV (17:30)
--- NOTE | 2025-05-14 17:35 | PC.NURSE ---
20g IV to L AC, IVF and medications per MAR.
== END 2025-05-14 18:47 | disposition home or self-care (01) ==
PROVIDERS: Physician Assistant Medical; Emergency Provider Emergency Medicine Emergency Medical Services
DX: S61.210A Laceration without foreign body of right index finger without damage to nail, initial encounter (principal); F10.20 Alcohol dependence, uncomplicated; Y90.9 Presence of alcohol in blood, level not specified; I10 Essential (primary) hypertension; I48.91 Unspecified atrial fibrillation; J44.9 Chronic obstructive pulmonary disease, unspecified; I73.9 Peripheral vascular disease, unspecified; F17.210 Nicotine dependence, cigarettes, uncomplicated; Z79.01 Long term (current) use of anticoagulants; Z95.810 Presence of automatic (implantable) cardiac defibrillator; W25.XXXA Contact with sharp glass, initial encounter; Y93.9 Activity, unspecified; Y92.9 Unspecified place or not applicable; Y99.9 Unspecified external cause status
CPT/HCPCS: 36415; 73130; 80053; 85025; 85652; 86140; 96361; 96374; 99284; J0696; J7120

== ENCOUNTER → 2025-05-14 15:08 | Outpatient (BNV) | payer MEDICARE, SELFPAY | PROVIDERS: Visit Provider Radiology Diagnostic Radiology | DX: S60.451A Superficial foreign body of left index finger, initial encounter (principal) | CPT/HCPCS: 73130 ==

== ENCOUNTER 2025-05-18 14:24 | Outpatient (AMB) | payer MEDICARE, SELFPAY ==
--- NOTE | 2025-05-18 14:32 | MHC.OFFVIS ---
Vital Signs 05/18/25 14:54 Height 5 ft 8 in Weight 139 lb BMI 21.1 Handedness Right Intake Visit Reasons: ED/YARD RIGGER: RT IF Lac, DOI: ~ 05/07/25 Intake Note: Claudio is a 64 year old right hand dominant male, new patient, who presents today for evaluation of a Right Index Finger Laceration, DOI: ~ 05/07/25. Patient presented to [facility] ED on 05/14/25 reporting a week prior he had cut his right hand with a piece of broken glass. At the ED, patient was started on Doxycycline and Cephalexin. He was also given IV meds to address his slight anemia. He says he has not been able to get his script because he does not have a car. Patient reports not too much pain in his finger. Denies numbness and tingling. Every once in a while he reports random pain or if he accidentally bangs it. Says he had swelling but that improved. Patient takes Eliquis for irregular heart beat and has a heart defibrillator placed. Allergies No Known Allergies Allergy (Verified 05/24/25 12:57) HPI HPI ED/YARD RIGGER: RT IF Lac, DOI: ~ 05/07/25: Details: Claudio is a 64 year old right hand dominant male, new patient, who presents today for evaluation of a Right Index Finger Laceration, DOI: ~ 05/07/25. Patient presented to [facility] ED on 05/14/25 reporting a week prior he had cut his right hand with a piece of broken glass. At the ED, patient was started on Doxycycline and Cephalexin. He was also given IV meds to address his slight anemia. He says he has not been able to get his script because he does not have a car. Patient reports not too much pain in his finger. Denies numbness and tingling. Every once in a while he reports random pain or if he accidentally bangs it. Says he had swelling but that improved. Patient takes Eliquis for irregular heart beat and has a heart defibrillator placed. [facility] Medical History Essential hypertension Atrial fibrillation Alcohol dependence COPD (chronic obstructive pulmonary disease) ICD (implantable cardioverter-defibrillator) in place V-tach PAD (peripheral artery disease) Shoulder fracture Skull fracture HFrEF (heart failure with reduced ejection fraction) Enlarged RV (right ventricle) Non-ST elevated myocardial infarction (non-STEMI) Surgical History Hx of appendectomy History of surgery on arm S/P aortogram History of cardiac cath History of hernia surgery Family History Father Stroke Mother Emphysema lung Social History Household Members: None Housing: Apartment Are you a primary manager managed care to a significant other at home: No Do you presently have visiting nurse or other home services: No Alcohol intake: current Alcohol intake frequency: 3 or more drinks per day Alcohol type: beer and hard liquor Patient Tobacco Use Status: Current everyday Tobacco user Tobacco use type: Cigarette Cigarette Packs Per Day: 0.5 Years Smoked: 50 e-Cigarette/Vaping Use: Never Used Second Hand Smoke Exposure: Yes Advance Directives Date on File: 06/02/21 service: No Current occupational status: retired and disabled Cognitive needs: No Hearing needs: No Vision needs: Yes Review of Systems Const All systems reviewed & are unremarkable except as noted in HPI and below Physical Exam Vital Signs: BMI result Body Mass Index 21.1 Extrem Other: Patient is alert, oriented, and in no acute distress. Neuro: Normal sensation of the tips of all digits of the right hand at this time Vascular: Cap refill brisk Pain: Minimal tenderness to palpation about the laceration site in the right index finger ROM: Patient is able to flex and extend all joints of the right index finger Skin: Complex laceration noted of the dorsal aspect of the right index finger, approximately 4-5 cm in length General: No ecchymosis, erythema, or evidence of infection. Psych: Appears grossly normal Affect normal Attitude cooperative Results Reviewed Results Reviewed: X-rays obtained in the ED and independently reviewed by me, Sadiq Kirk PA-C, demonstrate no fracture or acute bony abnormality of the right index finger. Assessment & Plan Assessment & Plan (1) Laceration of right index finger: Code(s): S61.210A - Laceration without foreign body of right index finger without damage to nail, initial encounter Category: Medical Plan 1. Right index finger laceration Date of injury 05/07/2025 Patient is educated about this condition Patient is educated about the typical recovery course Unfortunately, we are not able to suture the incision closed, as that has to have a risk of infection at this time Patient should continue with previously prescribed antibiotics No evidence of extensor tendon injury or nerve injury at this time Daily dressing changes, keep wound clean and dry at this time Follow-up in 1 week for wound check, sooner with any acute concerns Coding Level of Care Code New Pt Level 3 (24791) Diagnoses Laceration of right index finger S61.210A
[2025-05-18 14:54] VITALS: BMI 21.1
== END 2025-05-18 15:33 | disposition home or self-care (01) ==
LOC: HO.HOS 14:25
DX: S61.210A Laceration without foreign body of right index finger without damage to nail, initial encounter (principal)
CPT/HCPCS: 99203

== ENCOUNTER → 2025-05-18 14:24 | Outpatient (BNVA) | payer MEDICARE, SELFPAY | DX: S61.210A Laceration without foreign body of right index finger without damage to nail, initial encounter (principal); W25.XXXA Contact with sharp glass, initial encounter; Y92.9 Unspecified place or not applicable; Y99.9 Unspecified external cause status; Y93.9 Activity, unspecified | CPT/HCPCS: 99202 ==

== ENCOUNTER → 2025-05-23 10:40 | Outpatient (BNV) | payer MEDICARE, SELFPAY | PROVIDERS: Visit Provider Internal Medicine | DX: D69.6 Thrombocytopenia, unspecified (principal); D64.9 Anemia, unspecified; F10.10 Alcohol abuse, uncomplicated | CPT/HCPCS: 99204; G2211 ==

== ENCOUNTER 2025-05-24 12:52 | Outpatient (AMB) | payer MEDICARE, SELFPAY ==
--- NOTE | 2025-05-24 12:56 | MHC.OFFVIS ---
Intake Visit Reasons: OV-RT IF Lac-DOI05/07/25-wound check LYFT RIDE Intake Note: Claudio is a 64 year old right hand dominant male who presents to the office today for a RT IF Lac DOI 05/07/25-wound check. Pt states he has occasional pain and numbness in his finger. Pt states he has been keeping the area dry and has his last does of antibiotics tonight. Allergies No Known Allergies Allergy (Verified 05/24/25 12:57) HPI HPI OV-RT IF Lac-DOI05/07/25-wound check LYFT RIDE: Details: Claudio is a 64 year old right hand dominant male who presents to the office today for a RT IF Lac DOI 05/07/25-wound check. Pt states he has occasional pain and numbness in his finger. Pt states he has been keeping the area dry and has his last does of antibiotics tonight. [facility] Medical History Essential hypertension Atrial fibrillation Alcohol dependence COPD (chronic obstructive pulmonary disease) ICD (implantable cardioverter-defibrillator) in place V-tach PAD (peripheral artery disease) Shoulder fracture Skull fracture HFrEF (heart failure with reduced ejection fraction) Enlarged RV (right ventricle) Non-ST elevated myocardial infarction (non-STEMI) Surgical History Hx of appendectomy History of surgery on arm S/P aortogram History of cardiac cath History of hernia surgery Family History Father Stroke Mother Emphysema lung Social History Household Members: None Housing: Apartment Are you a primary memory care director to a significant other at home: No Do you presently have visiting nurse or other home services: No Alcohol intake: current Alcohol intake frequency: 3 or more drinks per day Alcohol type: beer and hard liquor Patient Tobacco Use Status: Current everyday Tobacco user Tobacco use type: Cigarette Cigarette Packs Per Day: 0.5 Years Smoked: 50 e-Cigarette/Vaping Use: Never Used Second Hand Smoke Exposure: Yes Advance Directives Date on File: 06/02/21 service: No Current occupational status: retired and disabled Cognitive needs: No Hearing needs: No Vision needs: Yes Review of Systems Const All systems reviewed & are unremarkable except as noted in HPI and below Physical Exam Extrem Other: Patient is alert, oriented, and in no acute distress. Neuro: Normal sensation of the tips of all digits of the right hand at this time Vascular: Cap refill brisk Pain: Minimal tenderness to palpation about the laceration site in the right index finger ROM: Patient is able to flex and extend all joints of the right index finger Skin: Complex laceration noted of the dorsal aspect of the right index finger, approximately 4-5 cm in length General: No ecchymosis, erythema, or evidence of infection. Psych: Appears grossly normal Affect normal Attitude cooperative Assessment & Plan Assessment & Plan (1) Laceration of right index finger: Code(s): S61.210A - Laceration without foreign body of right index finger without damage to nail, initial encounter Category: Medical Plan 1. Right index finger laceration Date of injury 05/07/2025 Patient is educated about this condition Patient is educated about the typical recovery course Unfortunately, we are not able to suture the incision closed, as that has to have a risk of infection at this time Patient should continue with previously prescribed antibiotics No evidence of extensor tendon injury or nerve injury at this time Dressings when out and about, patient may begin to wash the incision with soap and water in the sink of the shower Follow-up in 2 week for wound check, sooner with any acute concerns Coding Level of Care Code Est Pt Level 3 (33681) Diagnoses Laceration of right index finger S61.210A
== END 2025-05-24 13:35 | disposition home or self-care (01) ==
LOC: HO.HOS 12:53
DX: S61.210A Laceration without foreign body of right index finger without damage to nail, initial encounter (principal)
CPT/HCPCS: 99213

== ENCOUNTER → 2025-05-24 12:52 | Outpatient (BNVA) | payer MEDICARE, SELFPAY | DX: S61.210D Laceration without foreign body of right index finger without damage to nail, subsequent encounter (principal) | CPT/HCPCS: 99212 ==

== ENCOUNTER → 2025-07-21 11:59 | Outpatient (BNV) | payer OTHER, SELFPAY | PROVIDERS: Visit Provider Internal Medicine Cardiovascular Disease | DX: I48.91 Unspecified atrial fibrillation (principal); Z95.810 Presence of automatic (implantable) cardiac defibrillator | CPT/HCPCS: 93295 ==

== ENCOUNTER 2025-07-31 10:52 | Outpatient (AMB) | payer OTHER, SELFPAY ==
--- NOTE | 2025-07-31 11:03 | MHC.PC.OV ---
Vital Signs 07/31/25 11:04 07/31/25 11:45 Height 5 ft 8 in Weight 136 lb BMI 20.7 BP 148/82 H 138/80 Blood Pressure Location Rt brachial Rt brachial Position Sitting Sitting Respiration 18 Pulse 91 Pulse Source Pulse Oximeter Temp 97.6 F Temp Source Temporal Artery Scan Pulse Oximetry (%) 100 Oxygen Delivery Method Room Air Intake Visit Reasons: 3 months Paying Teller Required: No Accompanied by: Self / Same As Patient Allergies No Known Allergies Allergy (Verified 07/31/25 11:04) Medication List - Last Reconciled 07/31/25 by Berenice Caicedo PA-C albuterol sulfate 90 mcg/actuation 2 puffs inhalation Q6H PRN apixaban 5 mg PO BID atorvastatin 80 mg PO DAILY carvedilol 25 mg PO BID cholecalciferol (vitamin D3) 25 mcg PO DAILY cyanocobalamin (vitamin B-12) (Vitamin B-12) 1,000 mcg PO DAILY digoxin 125 mcg PO DAILY ezetimibe (Zetia) 10 mg PO DAILY zucdeqhprui-tvvlvboya-awkppcjk 200-62.5-25 mcg (Trelegy Ellipta) 1 inh inhalation DAILY folic acid 1 mg PO DAILY furosemide 40 mg PO BID losartan 25 mg PO DAILY Tobacco use date assessed: 04/24/25 Fall risk assessment: 2 + Falls in past year Last assessed Fall Risk: 07/31/25 Dental Screening Dental Screen Date: 04/24/25 HPI 3 months HPI Details 64-year-old male with past medical history of peripheral arterial disease, tobacco abuse, COPD, atrial fibrillation, alcohol dependence and hypertension last seen 04/2025 coming in for follow up. In review of the notes, patient was seen by Hematology 05/23/2025 for thrombocytopenia B12 and folate were low and started on oral supplementation. Abdominal ultrasound was ordered to evaluate liver and spleen in the setting of alcohol use advised to cut back or stop drinking follow up in 6 weeks. Presenting for follow-up on multiple chronic conditions and a new complaint of left arm swelling. The patient reports injuring his right arm on Thanksgi night after drinking, possibly by walking into a drawer. His right hand and arm have been swollen for about a month since the incident, though he feels the swelling has improved. He notes associated pain in the shoulder area and mild pain in the elbow. Regarding his substance use, the patient reports he has not had an alcoholic drink in over a month, since Thanksgi night. He is continuing to cut back on smoking and is currently at 6 or 7 cigarettes per day. For management of Chronic Obstructive Pulmonary Disease, he is prescribed Trelegy once daily but admits to sometimes forgetting to take it or not bothering. [facility] Medical History Essential hypertension Atrial fibrillation Alcohol dependence COPD (chronic obstructive pulmonary disease) ICD (implantable cardioverter-defibrillator) in place V-tach PAD (peripheral artery disease) Shoulder fracture Skull fracture HFrEF (heart failure with reduced ejection fraction) Enlarged RV (right ventricle) Non-ST elevated myocardial infarction (non-STEMI) Surgical History Hx of appendectomy History of surgery on arm S/P aortogram History of cardiac cath History of hernia surgery Family History Father Stroke Mother Emphysema lung Social History Household Members: None Housing: Apartment Are you a primary senior care manager to a significant other at home: No Do you presently have visiting nurse or other home services: No Alcohol intake: current Alcohol intake frequency: 3 or more drinks per day Alcohol type: beer and hard liquor Patient Tobacco Use Status: Current everyday Tobacco user Tobacco use type: Cigarette Cigarette Packs Per Day: 0.5 Cigarettes Per Day: 6 Years Smoked: 50 e-Cigarette/Vaping Use: Never Used Second Hand Smoke Exposure: Yes Advance Directives Date on File: 06/02/21 service: No Current occupational status: retired and disabled Cognitive needs: No Hearing needs: No Vision needs: Yes Questionnaire Thrive Questionnaire Date Thrive assessed: 10/23/24 I am a: Patient What is your living situation today?: I have a steady place to live Within the past 12 months, did the food you bought not last and you didn't have the money to get more?: Never true Within the past 12 months, did you worry whether your food would run out before you got money to buy more?: Never true Do you have trouble paying for medicines?: No Do you have trouble getting transportation to medical appointments?: Yes Do you have trouble paying your heating and electricity bill?: No Do you have trouble taking care of your child, family member or friend?: No Do you have trouble with day-to-day activities such as bathing, preparing meals, shopping, managing finances, etc.?: No Are you currently unemployed and looking for a job?: I choose not to answer this question Are you interested in more education?: I choose not to answer this question Currently or been in a relationship where the following occur: I choose not to answer THRIVE Score: 1 NORA-7 AMB Questionnaire NORA-7 Date NORA - 7 assessed: 10/23/24 Source: Developed by Drs. Ricky Cabrera, Tamy Pierre, Flako Kerr and colleagues, with an educational nguyễn from [employer]. Review of Systems Const Denies body aches, Denies chills, Denies fever(s), Denies headache(s) and Denies poor appetite Eyes Reports no additional complaints ENT Denies dizziness and Denies headache(s) Card Denies chest pain, Denies edema, Denies lightheadedness and Denies dyspnea Resp Denies cough and Denies dyspnea GI Denies abdominal pain, Denies nausea and Denies vomiting Reports no additional complaints Musc Reports no additional complaints and Denies abnormal gait Skin/Breast Reports system reviewed and no additional complaints, except as documented Neuro Denies abnormal gait, Denies dizziness and Denies headache(s) Psych Reports no additional complaints Physical exam (Primary Care) Vital Signs: Last Vital Signs Temp 97.6 F 07/31/25 11:04 Pulse 91 07/31/25 11:04 Resp 18 07/31/25 11:04 BP 138/80 07/31/25 11:45 Pulse Ox 100 07/31/25 11:04 Oxygen Delivery Method Room Air 07/31/25 11:04 BMI result Body Mass Index 20.7 Tobacco/Smoking Status: Tobacco use Status Tobacco use date assessed 04/24/25 07/31/25 11:04 Patient Tobacco Use Status Current everyday Tobacco 07/31/25 11:04 Tobacco use type Cigarette 07/31/25 11:04 e-Cigarette/Vaping Use Never Used 07/31/25 11:04 Thrive Assessment: Date of Thrive Assessment Date Thrive assessed 10/23/24 07/31/25 11:04 Currently or been in a relationship where the following occur: I choose not to answer Const General: cooperative, healthy appearing, comfortable and no acute distress Orientation/consciousness: patient oriented x3 HENMT Head: Yes normocephalic Ears: hearing grossly normal bilaterally General nose exam: Normal external nose present Eyes General: appearance normal, both eyes and all related structures Conjunctivae: conjunctivae normal Neck Neck: Yes full ROM and Yes no lymphadenopathy Resp Effort & Inspection: normal respiratory effort Auscultation: clear to auscultation bilaterally, no crackles, no rales, no rhonchi and no wheezes Cardio Rate: regular rate Rhythm: regular rhythm Skin General skin exam: no rashes or lesions noted Neuro General: patient oriented x3 Gait exam (Neuro): Normal gait present Extrem Other: 1+ pitting edema of left upper extremity intact strength, sensation, pulses bilateral upper extremities. No tenderness to palpation over left hand or left elbow and mild tenderness to palpation of the left shoulder. Warmth of left upper extremity when compared to the right upper extremity without overlying erythema. No lesions or open wounds identified. Limited range of motion of the left shoulder General: Yes normal to inspection, Yes full ROM and No edema Psych Affect: normal affect Attitude: cooperative Insight: Good insight present (Psych) Judgement: Good judgement present (Psych) Coding Level of Care Code Est Pt Level 4 (22581) Diagnoses Alcohol dependence F10.20 Essential hypertension I10 Atrial fibrillation I48.91 Thrombocytopenia D69.6 COPD (chronic obstructive pulmonary disease) J44.9 Multiple pulmonary nodules R91.8 Tobacco abuse Z72.0 Left arm swelling M79.89 Assessment & Plan Assessment & Plan (1) Alcohol dependence: Comment: has had withdrawal symptoms in past when stops consuming alcohol Code(s): F10.20 - Alcohol dependence, uncomplicated Category: Medical Plan: Patient has been working on cutting back on alcohol consumption. He reports not having any alcohol for the past month and has been doing well and denies cravings. (2) Essential hypertension: Code(s): I10 - Essential (primary) hypertension Category: Medical Plan: Continue on current blood pressure medication. Avoid salt intake and encourage healthy diet and regular exercise. (3) Atrial fibrillation: Comment: sustained-taking eliquis, carvedilol, ASA-follows w/HCS Code(s): I48.91 - Unspecified atrial fibrillation Category: Medical Plan: Patient continues with full oral anticoagulation with Eliquis and I reinforced medication adherence with the patient today. He is on rate control with carvedilol and currently follows with his knife setter. He has an appointment coming up in August with his knife setter as well (4) Thrombocytopenia: Code(s): D69.6 - Thrombocytopenia, unspecified Category: Medical Plan: Patient was recently seen by Hematology started on oral supplementation of B12 and folate. Thrombocytopenia likely related to alcohol consumption and possibly liver disease and ultrasound was ordered by Hematology and has not yet been completed. Advised to reach out to schedule this. (5) COPD (chronic obstructive pulmonary disease): Code(s): J44.9 - Chronic obstructive pulmonary disease, unspecified Category: Medical Plan: For COPD patient continues on Trelegy inhaler daily and reinforced adherence as he does often forget to take his medication. Continue with albuterol as needed and does not use this medication frequently. (6) Multiple pulmonary nodules: Comment: Found to have multiple pulmonary nodules repeat chest CT March 2025 Code(s): R91.8 - Other nonspecific abnormal finding of lung field Category: Medical Plan: For pulmonary nodules patient missed his CAT scan earlier this year and is advised strongly to reschedule this. He reports having the number for centralized scheduling. (7) Tobacco abuse: Code(s): Z72.0 - Tobacco use Category: Medical Plan: Smoking cigarettes and the use of tobacco can be harmful. We discussed the importance of stopping and options to aid in smoking cessation. He has significantly cut back and is declining nicotine replacement therapy or medication management at this time. He we will continue to cut back on his smoking. (8) Left arm swelling: Code(s): M79.89 - Other specified soft tissue disorders Category: Medical Plan: The patient presents with significant swelling of the entire right arm and hand that has persisted for one month since an injury on Thanksgiving. Examination reveals warmth and pitting edema, raising concern for a deep vein thrombosis, although skin infection is less likely given the absence of erythema, lesions or open wounds. A stat X-ray of the shoulder and a stat ultrasound of the arm will be performed today to evaluate for fracture and deep vein thrombosis. Plan This note was constructed using voice recognition software. While every effort has been made to ensure accuracy and sinter machine operator, still areas may have been included sometimes these areas may affect the content or meeting of the given symptoms. Total time spent caring for the patient today was 20 minutes. This includes time spent before the visit reviewing the chart, time spent during the visit, and time spent after the visit and documentation. Patient was informed and verbally consented to the use of an ambient scribe for clinic note documentation during this visit. Orders: Orders US arterial duplex UE LT Today M79.89 - Other specified soft tissue disorders XR shoulder LT min 2V Today M79.89 - Other specified soft tissue disorders XR elbow LT 2V Today M79.89 - Other specified soft tissue disorders Medications: Refilled albuterol sulfate 90 mcg/actuation 2 puffs inhalation Q6H PRN 8.5 grams 2RF shortness of breath or wheezing
[2025-07-31 11:04] VITALS: BP 148/82; PULSE 91; RESP 18; TEMP 36.4; O2SAT 100; BMI 20.7
[2025-07-31 11:45] VITALS: BP 138/80
== END 2025-07-31 12:56 | disposition home or self-care (01) ==
LOC: HO.HMCH 10:53
DX: F10.20 Alcohol dependence, uncomplicated (principal); I48.91 Unspecified atrial fibrillation; J44.9 Chronic obstructive pulmonary disease, unspecified; I10 Essential (primary) hypertension; D69.6 Thrombocytopenia, unspecified; R91.8 Other nonspecific abnormal finding of lung field; Z72.0 Tobacco use; M79.89 Other specified soft tissue disorders

== ENCOUNTER 2025-07-31 12:08 | Outpatient (REF) | payer MEDICARE, SELFPAY ==
--- NOTE | ~2025-07-31 | XR_ITS ---
EXAMINATION: XR ELBOW 1-2 VIEWS LEFT HISTORY: M79.89 - Other specified soft tissue disorders COMPARISON: There are no prior studies available for comparison. FINDINGS: Three views of the left elbow are submitted. Osseous mineralization is normal. There is no fracture or dislocation. There is severe degenerative change with joint space narrowing and osteophyte formation, particularly involving the radiocapitellar joint. The soft tissues are unremarkable. XR/XR elbow LT 2V IMPRESSION: Severe degenerative changes. Electronically signed by: Ricky Sotelo MD 07/31/2025 12:41 PM [facility]
--- NOTE | ~2025-07-31 | XR_ITS ---
EXAMINATION: XR SHOULDER 2 OR MORE VIEWS LEFT HISTORY: M79.89 - Other specified soft tissue disorders COMPARISON: There are no prior studies available for comparison. FINDINGS: Four views of the left shoulder are submitted. Osseous mineralization is normal. There is an old healed fracture of the midshaft of the clavicle. There is an acute nondisplaced fracture of the surgical neck of the humerus and an additional fracture of the greater tuberosity. There is no dislocation. The glenohumeral and acromioclavicular joint spaces are preserved. The soft tissues are unremarkable. XR/XR shoulder LT min 2V IMPRESSION: Acute nondisplaced fractures of the surgical neck and greater tuberosity of the humerus. A report was sent to Berenice Caicedo by secure text message on 07/31/2025 at 12:45 pm. Electronically signed by: Ricky Sotelo MD 07/31/2025 12:46 PM [facility]
--- NOTE | ~2025-07-31 | US_ITS ---
EXAMINATION: US TRIPLEX UPPER EXTREMITY, LEFT CLINICAL INFORMATION: Left arm swelling and edema. COMPARISON: None available. TECHNIQUE: Color-flow triplex imaging with spectral analysis and compression Doppler was performed on the left upper extremity. FINDINGS: The left internal jugular, subclavian, and axillary veins are patent and free of thrombus. The imaged segment of the left brachiocephalic vein is patent. Spectral doppler waveforms are normal. The brachial, basilic, cephalic, radial, and ulnar veins are patent and compressible. Patient has a left upper chest pacemaker. US/US venous duplex UE LT IMPRESSION: No evidence of deep venous thrombosis involving the left upper extremity. Electronically signed by: Hernando Moraes MD 07/31/2025 02:18 PM [facility]
== END 2025-07-31 12:09 | disposition home or self-care (01) ==
LOC: HO.US 12:08
DX: M79.89 Other specified soft tissue disorders (principal)
CPT/HCPCS: 73030; 73070; 93971

== ENCOUNTER → 2025-07-31 12:15 | Outpatient (BNV) | payer MEDICARE, SELFPAY | PROVIDERS: Visit Provider Radiology Diagnostic Radiology | DX: R22.32 Localized swelling, mass and lump, left upper limb (principal); S42.225A 2-part nondisplaced fracture of surgical neck of left humerus, initial encounter for closed fracture; M19.022 Primary osteoarthritis, left elbow | CPT/HCPCS: 73030; 73070; 93971 ==